=== PATIENT | female | born 1980 | race Caucasian/White ===

== ENCOUNTER → 2025-02-25 | Outpatient (CLI) | payer MEDICAID, SELFPAY ==
[2025-02-25 17:11] LABS: Absolute Lymphocyte Count 3.08 X10^3/uL (0.83-4.51); Absolute Neutrophil Count 4.4 X10^3/uL (2.0-7.7); Basophil# 0.03 X10^3/uL; Basophil% 0.4 % (0-1); Eosinophil# 0.09 X10^3/uL; Eosinophils% 1.1 % (0-5); Hematocrit 44.3 % (37-47); Hemoglobin 14.7 g/dL (12.0-15.0); Lymphocyte # 3.08 X10^3/ul (0.83-4.51); Lymphocyte % 37.1 % (19-41); Mean Corp Hgb Conc 33.2 g/dL (32-36); Mean Corpuscular Hgb 33.1 pg (27.0-32.0); Mean Corpuscular Volume 99.8 fL (81-99); Mean Platelet Vol. 11.6 fl (6.2-12.0); Monocyte% 8.4 % (0-10); NRBC Flagged by Analyzer 0 % (0-5); Neutrophil # 4.38 X10^3/uL (2.7-7.7); Neutrophil % 52.8 % (47-70); Platelet Count 218 K/mm3 (150-450); RBC Distribution Width SD 51.6 fl (35.1-43.9); Red Blood Count 4.44 M/mm3 (4.2-5.4); White Blood Count 8.3 K/mm3 (4.4-11.0)
[2025-02-25 18:16] LABS: International Normalized Ratio 1.2; Prothrombin Time (Protime)PT. 15.2 SECONDS (11.7-14.9)
[2025-02-25 18:22] LABS: ALB/GLOB Ratio 1.7 RATIO (0.9-2.4); AST(SGOT) 17 U/L (<=31); Alanine Aminotransfer ALT/SGPT 9 U/L (<=34); Albumin, Serum 4.6 g/dL (3.5-5.0); Alkaline Phosphatase 74 U/L (35-104); Anion Gap 12 (5-15); BUN 12 mg/dL (4-19); BUN/Creat Ratio 19.9 RATIO (10-20); Calcium,Total 9.5 mg/dL (7.6-11.0); Carbon Dioxide 22.8 mmol/L (21.0-32.0); Chloride 104 mmol/L (98-108); Creatinine, Serum 0.61 mg/dL (0.70-1.20); EST Glomerular Filtration Rate 113 (>60); Globulin 2.7 g/dL (2.2-4.2); Glucose 77 mg/dL (70-99); Potassium 4.1 mmol/L (3.3-5.1); Protein, Total 7.3 g/dL (5.9-8.4); Sodium Level 139 mmol/L (133-145); Vitamin D,25 Hydroxy 46.7 ng/mL (30-100)
== END | disposition home or self-care (01) ==
LOC: LAB 15:43
PROVIDERS: Referring Provider Nurse Practitioner Acute Care; Visit Provider Nurse Practitioner Acute Care
DX: Z15.01 Genetic susceptibility to malignant neoplasm of breast (principal); D69.6 Thrombocytopenia, unspecified; R14.0 Abdominal distension (gaseous); R19.7 Diarrhea, unspecified; R14.3 Flatulence; E55.9 Vitamin D deficiency, unspecified; R13.10 Dysphagia, unspecified; Z15.09 Genetic susceptibility to other malignant neoplasm
CPT/HCPCS: 36415; 80053; 82306; 85025; 85610

== ENCOUNTER → 2025-03-27 | Outpatient (CLI) | payer MEDICAID, SELFPAY ==
--- NOTE | 2025-03-27 09:07 | RAD_ITS ---
PROCEDURE: ESOPHAGUS DUAL CONTRAST 03/27/2025 REASON FOR EXAM: DYSPHAGIA TECHNIQUE: Fluoroscopic imaging of the esophagus was obtained following ingestion of oral barium. 45 seconds of fluoroscopy. 3.88 mGy. 49 fluoroscopic images were obtained. COMPARISON: None FINDINGS: The patient is status post gastrectomy. There is esophageal bowel anastomosis. Minimal tailoring defect at the anastomotic site. The patient ingested a 12 mm tablet the barium. There is transient holdup of the barium tablet at the anastomotic site. There is evidence of gastroesophageal reflux. RAD/Esophagus Dual Contrast IMPRESSION: Status post total gastrectomy with the anastomosis as described. Temporary hol dup of the 12 mm tablet the barium at the anastomotic site. Reflux. Reading Location: [facility]
== END | disposition home or self-care (01) ==
LOC: RAD 09:03
PROVIDERS: Referring Provider Nurse Practitioner Acute Care; Visit Provider Nurse Practitioner Acute Care
DX: Z15.01 Genetic susceptibility to malignant neoplasm of breast (principal); D69.6 Thrombocytopenia, unspecified; R14.0 Abdominal distension (gaseous); R19.7 Diarrhea, unspecified; R14.3 Flatulence; Z15.09 Genetic susceptibility to other malignant neoplasm; E55.9 Vitamin D deficiency, unspecified; R13.10 Dysphagia, unspecified
CPT/HCPCS: 74221

== ENCOUNTER → 2025-05-06 | Outpatient (CLI) | payer MEDICAID, SELFPAY ==
[2025-05-08 15:08] LABS: Pancreatic Elastase, Fecal 297 (>200)
== END | disposition home or self-care (01) ==
LOC: LABSPEC 13:13
PROVIDERS: Referring Provider Nurse Practitioner Acute Care; Visit Provider Nurse Practitioner Acute Care
DX: D69.6 Thrombocytopenia, unspecified (principal); R14.0 Abdominal distension (gaseous); R19.7 Diarrhea, unspecified; R14.3 Flatulence; R13.10 Dysphagia, unspecified; E55.9 Vitamin D deficiency, unspecified; Z15.01 Genetic susceptibility to malignant neoplasm of breast; Z15.09 Genetic susceptibility to other malignant neoplasm
CPT/HCPCS: 82653

== ENCOUNTER 2025-05-09 06:34 | Day surgery (SDC) | payer MEDICAID, SELFPAY ==
[2025-05-09] VITALS (8 sets, daily range): BP systolic 86–90; BP diastolic 52–62; PULSE 52–80; RESP 16; TEMP 36.1–36.4; O2SAT 98–100; BMI 23.1
--- OUTSIDE RECORDS SUMMARY | 2025-05-09 06:37 | XMS RPT_ITS | CCD ---
Author Organization [facility] Inform ion [facility] Care Team Providers Care Wharf Labourer Name Role Phone LYNN CABRERA Primary Care Physicia n Unavailable Primary Care Provider UnavailANGELO Oliveira Referring Unavailable KASSANDRA LARSEN Attending Unavailable ColAngelo mendenhall DO Primary Care Provider [phone] Kassandra Duval Attending Provider Care Physician, No Primary Primary Care Provider Unavailable Kassandra Duval Referring Provider Dr. Angelo Thornton DO Primary Care Provider [phone] ANGELO THORNTON Primary Care Unavailable WILLIAM CUELLAR Referring Unavailabl e COLA, ANGELO SALGADO Primary Care Unavailable WILLIAM CUELLAR Referring Unavailabl e COLA, ANGELO SALGADO Primary Care Unavailable COLA, ANGELO SALGADO Primary Care Unavailable TYRELL ABEBE Attending Unavaila ble TYRELL ABEBE Referring Unavaila ble COLANGELO Mendenhall Primary Care Unavailable WILLIAM CUELLAR Referring Unavailabl e COLA, ANGELO SALGADO Primary Care Unavailable COLAANGELO Primary Care Unavailable CATHIE LEBLANC Attending UnavailJALEN Gaffney Attending Unavailable JALEN MCGEE Referring Unavailable COLAANGELO Primary Care Unavailable COLAANGELO Primary Care Unavailable ERIKA NAM Attending Unavailable ERIKA NAM Referring Unavailable COLAANGELO Primary Care Unavailable ERIKA NAM Referring Unavailable COLA, ANGELO SALGADO Primary Care Unavailable ZOEY MAYORGA Attending Unavailable COLANGELO Mendenhall Primary Care Unavailable ZOEY MAYORGA Referring Unavailable COLA, ANGELO SALGADO Primary Care Unavailable ZOEY MAYORGA Attending Unavailable ANGELO THORNTON Primary Care Unavailable DAMIAN ACEVES Attending Unava ilable DAMIAN ACEVES Referring Unava ilable COLAANGELO Primary Care Unavailable Kassandra Atkins Attending Unavailable Kassandra Atkins Attending Unavailable ColaAngelo Primary Care Unavailable Kassandra Atkins Referring Unavailable ColaAngelo Primary Care Unavailable José Antonio Walters Attending Unavailable Kasasndra Atkins Attending Unavailable ColaAngelo Primary Care Unavailable Kassandra Atkins Referring Unavailable Care Physician, No Primary Primary Care Unava ilable Kassandra Atkins Referring Unavailable Kassandra Atkins Attending Unavailable Allergies Allergy Classification Reported Allergen(s) Allergy Type Date of Onset Reaction(s) Facility (20 sources) Morphine; Translations: [morphine] Drug Allergy 01-28-2023 [facility] (1 source) Penicillin; Translations: [penicillins] Drug Allergy [facility] (18 sources) Penicillins; Translations: [PENICILLINS] Drug Allergy 01-28-2023 GI Upset [facility] (20 sources) Non-steroidal anti-inflammator y agent; Translations: [NSAIDS (NON-STEROIDAL ANTI-INFLAMMATOR Y DRUG)] Drug Allergy 02-10-2023 Unknown [facility] (6 sources) Penicillins [facility] ([facility] source) Penicillins Allergy to substance 02-25-2025 Other [facility] (1 source) Morphine Drug Allergy 02-25-2025 [facility] (1 source) Penicillins Drug allergy (disorder) 02-25-2025 [facility] Medications Current Medications Medication Drug Class(es) Dates Sig (Normalized) Sig (Original) acyclovir 400 mg oral tablet (1 source) Herpesvirus Nucleoside Analog DNA Polymerase Inhibitor, Herpes Simplex Virus Nucleoside Analog DNA Polymerase Inhibitor, Herpes Zoster Virus Nucleoside Analog DNA Polymerase Inhibitor Start: 03-09-2022 End: 03-19-2022 acyclovir 400 mg oral tablet Dose : 400 mg = 1 tab(s), Oral, TID, TAKE ONE TABLET BY MOUTH THREE TIMES A DAY FOR 10 DAYS, # 30 tab(s), 0 Refill(s), [facility]: [id number], 152, cm, 09/10/21 9:20:00 EDT, Height, kg, 09/10/21 9:20:00 EDT, Dosing Weight Start Date: 03/09/22 Stop Date: 03/19/22 Status: Ordered [id number] 200 actuat albuterol 0.09 mg/actuat metered dose inhaler (1 source) beta2-Adrenergic Agonist Start: 02-11-2025 take 1 puff(s) by mouth four times daily as needed albuterol HFA (PROVENTIL HFA, VENTOLIN HFA) 90 mcg/actuation inhaler INHALE ONE PUFF BY MOUTH FOUR TIMES A DAY NEEDED 02/11/2025 Active Calcium with Vitamin D and K oral tablet, chewable (1 source) Start: 01-07-2021 take 1 tablet by mouth once daily Calcium with Vitamin D and K oral tablet, chewable 1 TAB, Chewed, qDay, 0 Refill(s) Start Date: 01/07/21 Status: Ordered cholecalciferol 1.25 mg oral capsule (13 sources) Vitamin D Start: 12-13-2024 take 1 capsule by mouth every week cholecalciferol, Vitamin D3, (VITAMIN D3) 1,250 mcg (50,000 unit) cap capsule Take 1 capsule by mouth one time a week. 12/13/2024 Active cyclobenzaprine hydrochloride 10 mg oral tablet (1 source) Muscle Relaxant Start: 01-28-2023 End: 02-02-2023 take 1 tablet by mouth three times daily as needed for pain cyclobenzaprine (FLEXERIL) 10 mg tablet Indications: Numbness and tingling of left upper extremity , Numbness and tingling of right upper extremity Take 1 tablet by mouth three times daily as needed for muscle spasm or pain for up to 5 days. 15 tablet 0 01/28/2023 02/02/2023 Active Comment on above: Take 1 tablet by shantelle three times daily as needed for muscle spasm or pain for up to 5 days. ferrous gluconate 324 mg oral tablet (1 source) Start: 12-15-2021 ferrous gluconate 324 mg (38 mg elemental iron) oral tablet Dose : 324 mg = 1 tab(s), Oral, qDay, # 100 tab(s), 1 Refill(s), [facility]: [id number], Iron deficiency anemia, 152, cm, 09/10/21 9:20:00 EDT, Height, kg, 09/10/21 9:20:00 EDT, Dosing Weight Start Date: 12/15/21 Status: Ordered ferrous sulfate 140 mg extended release oral tablet (1 source) Start: 12-14-2021 ferrous sulfate (as elemental iron) 45 mg oral tablet, extended release Dose : 45 mg = 1 tab(s), Oral, qDay, # 30 tab(s), 5 Refill(s), [facility]: [id number], Iron deficiency, 152, cm, 09/10/21 9:20:00 EDT, Height, kg, 09/10/21 9:20:00 EDT, Dosing Weight Start Date: 12/14/21 Status: Ordered multivit,thx,calcium, iron,mins (MULTIVITAMIN AND MINERAL ORAL) (20 sources) multivit,thx,brittany cium ,iron,mins (MULTIVITAMIN AND MINERAL ORAL) Take by mouth. Active multivit,thx,brittany cium,iron,mins (MULTIVITAMIN AND MINERAL ORAL) Take by mouth. 0 Active Comment on above: Take by mouth. Multivitamin with Iron (1 source) Start: 9 take 1 tablet by mouth once daily Multivitamin with Iron Dose = 1 tab(s), Oral, Daily, 0 Refill(s) Start Date: 07/02/19 Status: Ordered ondansetron 4 mg oral tablet (2 sources) Serotonin-3 Receptor Antagonist Start: 5 take 2 tablets by mouth every two hours as needed, then take 1 tablet by mouth every four hours as needed Ondansetron Hcl 4 mg tablet Active 4 mg PO .COMPLEX February 25, 2025 12:00am 4 mg orally; take two tablets PO two hours prior to start of bowel prep and one every 4 hours as needed for N/V Start: 03-12-2022 End: 03-15-2022 ondansetron 4 mg oral tablet , disintegrating Dose : 4 mg = 1 tab(s), Oral, q6h, PRN Nausea/Vomiting, X 3 day(s), # 15 tab(s), 0 Refill(s), 03/15/22 15:03:00 EDT Start Date: 03/12/22 Stop Date: 03/15/22 Status: Ordered pantoprazole 40 mg delayed release oral tablet (2 sources) Proton Pump Inhibitor Start: 03-27-2025 take 1 tablet by mouth once daily before breakfast pantoprazole DR (PROTONIX) 40 mg tablet TAKE ONE TABLET BY MOUTH every morning 30 minutes before breakfast 03/28/2025 Active Peg 3350-Sod Sulf,Niuk-Fei-Zlx (Suflave) 178.7-7.3-0.5 gram recon soln (1 source) Start: 02-25-2025 Peg 3350-Sod Sulf,Bdyf-Bor-Guj (Suflave) 178.7-7.3-0.5 gram recon soln Active 0 PO .COMPLEX 2 February 25, 2025 12:00am take as directed for split dose bowel prep sertraline 50 mg oral tablet (20 sources) Serotonin Reuptake Inhibitor Start: 02-25-2025 End: 03-20-2025 take 1 tablet by mouth once daily Sertraline (Zoloft) 50 mg tablet Active 50 mg PO daily February 25, 2025 12:00am Start: 12-20-2022 End: 10-15-2024 take 1 tablet by mouth once daily sertraline (ZOLOFT) 100 mg tablet Take 100 mg by mouth once daily. 09/19/2024 Active Start: 03-09-2022 End: 06-07-2022 sertraline 100 mg oral table t Dose : 150 mg = 1.5 tab(s), Oral, qDay, TAKE 1 & 1/2 TABLETS BY MOUTH EVERY DAY, # 135 tab(s), 0 Refill(s), [facility]: [id number], 152, cm, 09/10/21 9:20:00 EDT, Height, kg, 09/10/21 9:20:00 EDT, Dosing Weight Start Date: 03/09/22 Stop Date: 06/07/22 Status: Ordered Comment on above: Take 100 mg by mouth once daily. Take 1 tablet by shantelle th. sulfamethoxazole 800 mg / trimethoprim 160 mg oral tablet (1 source) Dihydrofolate Reductase Inhibitor Antibacterial, Sulfonamide Antimicrobial Start: 023 End: 023 take 1 tablet by mouth twice daily sulfamethoxazole-trim ethoprim (BACTRIM DS) 800-160 mg per tablet Indications: Acute UTI (urinary tract infection) Take 1 tablet by mouth twice daily for 7 days. 14 tablet 0 05/10/2023 05/17/2023 Active Comment on above: Take 1 tablet by shantelle twice daily for 7 days. vitamin b12 0.1 mg oral tablet (20 sources) Vitamin B12 take 1 tablet by mouth once daily cyanocobalamin (VITAMIN B-12) 100 mcg tab Take 100 mcg by mouth once daily. Active Comment on above: Take 100 mcg by mout h once daily. Vitamin C 500 mg oral tablet (1 source) Start: Vitamin C 500 mg oral tablet Dose : 500 mg = 1 tab(s), Oral, qDay, # 30 tab(s), 5 Refill(s), [facility]: [id number], Iron deficiency, 154.9, cm, 01/09/21 6:03:00 EST, Height, kg, 01/12/21 17:46:00 EST, Dosing Weight Start Date: 04/10/21 Status: Ordered Completed/Discontinued Medications Medication Drug Class(es) Dates Sig (Normalized) Sig (Original) iv contrast (will be provided with radiology test) (1 source) Start: 02-07-2025 End: 02-08-2025 iv contrast (will be provided with radiology test) MRI Breast NEMESIO Inject, intravenously, once for 1 dose. No IV access, insert saline lock prior to the beginning of sedation, infusion, injection of imaging exam. Discontinue saline lock post exam. If Pt has a central line or IVAD, may access for administration according to line specific nursing protocol. Once exam is complete flush line and de-access according to line specific nursing protocol in the MR contrast administration guidelines link 1 each 02/07/2025 02/08/2025 predniSONE 20 mg oral tablet (7 sources) Start: 01-31-2025 End: 03-20-2025 predniSONE (DELTASONE) 20 mg tablet Take one tablet 3 times daily for 3 days, then one tablet 2 times a day for 2 days, then one tablet daily for 2 days, and then a half of a tablet daily for 1 day. 16 tablet 01/31/2025 03/20/2025 Discontinued Problems Active Problems Problem Classification Problem Date Documented Da te Episodic/Chronic Anxiety disorders (7 sources) Anxiety; Translations: [Anxiety disorder, unspecified] Onset: 04-02-202 5 06-10-2021 Chronic Cancer of breast (6 sources) Malignant tumor of breast ; Translations: [Malignant neoplasm of unspecified site of unspecified female breast] 02-07-2025 Chronic Coagulation and hemorrhagic disorders (3 sources) Thrombocytopenic disorder; Translations: [Thrombocytopenia, unspecified] Onset: 5 02-25-2025 Chronic Malaise and fatigue (1 source) Fatigue; Translations: [Other fatigue] Episodic Menstrual disorders (7 sources) Irregular periods; Translations: [Irregular menstruation, unspecified] Onset: 5 09-19-2020 Chronic Mood disorders (7 sources) Depressive disorder; Translations: [Depressive disorder] Onset: 5 06-20-2020 Chronic Nonmalignant breast conditions (2 sources) Discharge from nipple; Translations: [Nipple discharge] Onset: 5 02-07-2025 Episodic Nonspecific chest pain (1 source) Chest discomfort; Translations: [Other chest pain] Episodic Nutritional deficiencies (3 sources) Vitamin D deficiency; Translations: [Vitamin D deficiency, unspecified] Onset: 5 02-25-2025 Chronic Other endocrine disorders (6 sources) Hypoglycemia; Translations: [Hypoglycemia, unspecified] Onset: 5 02-06-2025 Chronic Other gastrointestinal disorders (2 sources) Dysphagia; Translations: [Dysphagia, unspecified] 02-25-2025 Episodic Other gastrointestinal disorders (2 sources) Diarrhea; Translations: [Diarrhea, unspecified] 02-25-2025 Episodic Other gastrointestinal disorders (2 sources) Passing flatus; Translations: [Flatulence] 02-25-2025 Episodic Other gastrointestinal disorders (2 sources) Abdominal bloating; Translations: [Abdominal distension (gaseous)] 02-25-2025 Episodic Other gastrointestinal disorders (1 source) Abdominal distension (gaseous); Translations: [Abdominal distension (gaseous)] Onset: Episodic Other gastrointestinal disorders (1 source) Diarrhea, unspecified; Translations: [Diarrhea, unspecified] Onset: 5 Episodic Other gastrointestinal disorders (1 source) Flatulence; Translations: [Flatulence] Onset: 5 Episodic Other gastrointestinal disorders (1 source) Dysphagia, unspecified; Translations: [Dysphagia, unspecified] Onset: 5 Episodic Other hematologic conditions (1 source) Erythrocytosis; Translations: [Secondary polycythemia] 12-31-2024 Episodic Other lower respiratory disease (4 sources) Rib pain; Translations: [Pleurodynia] 01-31-2025 Episodic Other lower respiratory disease (2 sources) Pleurodynia; Translations: [Rib pain on right side] Onset: 5 Episodic Other nervous system disorders (2 sources) Paresthesia of upper limb; Translations: [Anesthesia of skin] Episodic Pancreatic disorders (not diabetes) (6 sources) Acute pancreatitis; Translations: [Acute pancreatitis without necrosis or infection, unspecified] Onset: 5 02-06-2025 Episodic Residual codes; unclassified (1 source) At risk of breast cancer 07-02-2020 Episodic Residual codes; unclassified (7 sources) History of gastrectomy; Translations: [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]] Onset: 5 09-14-2019 Episodic Residual codes; unclassified (1 source) Tobacco user 09-21-2019 Episodic Residual codes; unclassified (13 sources) Positive genetic finding; Translations: [Genetic susceptibility to other malignant neoplasm] Onset: 5 12-31-2024 Episodic Residual codes; unclassified (10 sources) At high risk for breast cancer; Translations: [Other specified personal risk factors, not elsewhere classified] Onset: 5 02-13-2025 Episodic Residual codes; unclassified (2 sources) Genetic susceptibility to other malignant neoplasm; 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] Onset: 5 Episodic Residual codes; unclassified (2 sources) Genetic susceptibility to malignant neoplasm of breast; 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] Onset: 5 Episodic Residual codes; unclassified (1 source) Other specified personal risk factors, not elsewhere classified; Translations: [At high risk for breast cancer] Onset: 5 Episodic Spondylosis; intervertebral disc disorders; other back problems (1 source) Neck pain 04-17-2021 Episodic Substance-related disorders (8 sources) Smoker; Translations: [Nicotine dependence, unspecified, uncomplicated] Onset: 5 09-14-2019 Chronic Superficial injury; contusion (3 sources) Contusion of left front wall of thorax, initial encounter; Translations: [Contusion of chest wall] Onset: 01-31-2025 Episodic Unclassified (4 sources) Patient encounter status 09-21-2019 Urinary tract infections (1 source) Acute urinary tract infection; Translations: [Urinary tract infection, site not specified] Episodic Past or Other Problems Problem Classification Problem Date Documented Da te Episodic/Chronic Abdominal pain (10 sources) Left lower quadrant pain; Translations: [Right sided abdominal pain] Onset: 05-10-2023 07-21-2020 Episodic Cancer of stomach (1 source) Personal history of other malignant neoplasm of stomach; Translations: [History of gastric cancer] Onset: 11-12-2024 Episodic Genitourinary symptoms and ill-defined conditions (10 sources) Bladder pain; Translations: [Blood in urine] Onset: 11-12-2024 09-10-2021 Episodic Other connective tissue disease (1 source) Myalgia, unspecified site; Translations: [Myalgias] Onset: 09-24-2024 Episodic Other gastrointestinal disorders (1 source) Other fecal abnormalities; Translations: [Change in stool caliber] Onset: 11-12-2024 Episodic Other hematologic conditions (1 source) Secondary polycythemia; Translations: [Erythrocytosis] Onset: 12-31-2024 Episodic Other nervous system disorders (6 sources) Skin sensation disturbance; Translations: [Unspecified disturbances of skin sensation] Onset: 01-28-2023 02-06-2025 Episodic Other screening for suspected conditions (not mental disorders or infectious disease) (14 sources) Genetic mutation; Translations: [Patient encounter status] Onset: 03-08-2023 09-14-2019 Episodic Residual codes; unclassified (1 source) 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]; Translations: [Acquired absence of stomach (part of)] Onset: 10-15-2024 Episodic Sprains and strains (3 sources) Strain of muscle of chest wall; Translations: [Strain of muscle and tendon of front wall of thorax, initial encounter] Onset: 10-15-2024 10-15-2024 Episodic Unclassified (1 source) Contusion of rib on left side, initial encounter 01-31-2025 Results Test Name Value Interpretation Reference Range Facility CNOVon 04-02-2025 CNOV Office Visit ([facility]) ---- MISHEL ASHBY ([id number]) 1980 F Date Time Provider Department 04/02/25 2:30 PM DAMIAN ACEVES [facility] During your visit today, we recorded the following information about you: Weight Height 53.5 kg 1.524 m Damian Aceves, 04/02/2025 3:31 PM Signed PLASTIC SURGERY CONSULTATION Consultation requested by Dr. Zoey Mayorga for an opinion regarding breast reconstruction. My final recommendations will be communicated back to the requesting physician by way of shared Medical record or letter to requesting physician via [place] mail. HPI: This is a 44 year old female who who has CDH 1 gene mutation. Due to her increased risk of breast cancer, she is considering bilateral prophylactic mastectomies. She currently wears a size 34C bra and ideally would be about the same size. She has lost weight in the last several years since she had a gastrectomy in 2018, also prophylactic due to her gene mutation. She has 1 child. 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 Of note, she smokes 1 pack of cigarettes per day and has done so for about the past 30 years. PAST MEDICAL HISTORY Diagnosis Date CDH1-related breast cancer (HCC) GERD (gastroesophageal reflux disease) PAST SURGICAL HISTORY Procedure Laterality Date GASTRECTOMY TOTAL W REPR INT TIFFANY 2018 TOTAL ABDOM HYSTERECTOMY Current Outpatient Medications Medication Sig albuterol HFA (PROVENTIL HFA, VENTOLIN HFA) 90 mcg/actuation inhaler INHALE ONE PUFF BY MOUTH FOUR TIMES A DAY NEEDED pantoprazole DR (PROTONIX) 40 mg tablet TAKE ONE TABLET BY MOUTH every morning 30 minutes before breakfast sertraline (ZOLOFT) 100 mg tablet Take 100 mg by mouth once daily. cholecalciferol, Vitamin D3, (VITAMIN D3) 1,250 mcg (50,000 unit) cap capsule Take 1 capsule by mouth one time a week. multivit,thx,calciu m,iron,mins (MULTIVITAMIN AND MINERAL ORAL) Take by mouth. cyanocobalamin (VITAMIN B-12) 100 mcg tab Take 100 mcg by mouth once daily. No current facility-administer ed medications for this visit. ALLERGIES Allergen Reactions Morphine Rash Nsaids (Non-Steroid* Unknown Penicillins GI Upset SOCIAL: TOB:Tobacco Use: Types: Cigarettes EtOH:Alcohol Use: Yes (Occ) FAMILY HISTORY Problem Relation Age of Onset Hypertension Father Prostate Cancer Father Breast Cancer Sister : REVIEW OF SYSTEMS: With the exception of the problems listed above, Ms. Ashby denies disorders of the Neurologic, Psychologic, Cardiac, Pulmonary, Gastrointestinal, Hepatic, Renal, Endocrine, Vascular, Integumentary or Musculoskeletal Systems; all other systems are negative. PHYSICAL EXAM Ht 152.4 cm (5') Wt 53.5 kg (118 lb) BMI 23.05 kg/m? Body mass index is 23.05 kg/m?. GENERAL: WDWN Well groomed Thin NEURO: Alert and oriented X3 HEENT: NC/AT and MMM NECK: Supple and NT CV: RRR LUNGS: CTA B/L ABD: Soft, NT, and ND EXT: No cyanosis, clubbing or edema BREASTS: Bilateral breasts are soft with grade 3 ptosis and a deflated appearance. No masses. R SN-N: 23.5 cm L SN-N: 23.5 cm R N-IMF: 8.5 cm L N-IMF: 7.5 cm R BD: 12.0 cm L BD: 12.0 cm ASSESSMENT: 1. 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 Current cigarette smoker PLAN: We discussed her diagnosis and treatment options. I do not feel she is a good candidate for immediate reconstruction based on her [id number] history of cigarette smoking. This puts her at prohibitive risk for a reconstructive procedure of any type. If she were to be nicotine free for 6 months, we could consider immediate reconstruction, if she wants to delay her prophylactic mastectomies and she is committed to quitting cigarette smoking. At that point, however, I would still not recommend nipple sparing mastectomy. She would be a candidate for two-stage coater associate and implant reconstruction in the subpectoral plane. If she wants to move forward with her mastectomies, we could perform delayed reconstruction, again two-stage coater associate and implant, in the future. This again would require her to quit smoking and be nicotine free. We did briefly discuss silicone breast implants and their safety profile and potential complications, including rupture, capsular contracture, and SARAH-ALCL. I answered all of her questions. We took photos today. She understands the reasoning behind my decision. She is going to consider her options. She meets with Dr. Mayorga in the near future. I will see her back as needed. We thank Dr. Mayorga for the courtesy of this consult. Damian Aceves DO Referring Provider: DAMIAN ACEVES [[id number]] Allergies As of Date: 04/02/2025 Noted Allergy Reaction MORPHINE 01/28/2023 2 - Rash NSAIDS (NON-STEROIDAL ANTI-INFLAM* 023 16 - Unknown PENICILLINS 01/28/2023 8 - GI Upset Date Reviewed: 04/02/2025 Reviewed b (more content not included)... Normal [facility] HISTORY PHYSICALon HISTORY PHYSICAL HNO ID: [id number] Author: DAMIAN ACEVES DO Service: ? Author Type: Physician Type: H&P Filed: 04/02/2025 15:31 Note Text: PLASTIC SURGERY CONSULTATION Consultation requested by Dr. Zoey Mayorga for an opinion regarding breast reconstruction. My final recommendations will be communicated back to the requesting physician by way of shared Medical record or letter to requesting physician via [place] mail. HPI: This is a 44 year old female who who has CDH 1 gene mutation. Due to her increased risk of breast cancer, she is considering bilateral prophylactic mastectomies. She currently wears a size 34C bra and ideally would be about the same size. She has lost weight in the last several years since she had a gastrectomy in 2018, also prophylactic due to her gene mutation. She has 1 child. 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 Of note, she smokes 1 pack of cigarettes per day and has done so for about the past 30 years. PAST MEDICAL HISTORY Diagnosis Date CDH1-related breast cancer (HCC) GERD (gastroesophageal reflux disease) PAST SURGICAL HISTORY Procedure Laterality Date GASTRECTOMY TOTAL W REPR INT TIFFANY 2018 TOTAL ABDOM HYSTERECTOMY Current Outpatient Medications Medication Sig albuterol HFA (PROVENTIL HFA, VENTOLIN HFA) 90 mcg/actuation inhaler INHALE ONE PUFF BY MOUTH FOUR TIMES A DAY NEEDED pantoprazole DR (PROTONIX) 40 mg tablet TAKE ONE TABLET BY MOUTH every morning 30 minutes before breakfast sertraline (ZOLOFT) 100 mg tablet Take 100 mg by mouth once daily. cholecalciferol, Vitamin D3, (VITAMIN D3) 1,250 mcg (50,000 unit) cap capsule Take 1 capsule by mouth one time a week. multivit,thx,calciu m,iron,mins (MULTIVITAMIN AND MINERAL ORAL) Take by mouth. cyanocobalamin (VITAMIN B-12) 100 mcg tab Take 100 mcg by mouth once daily. No current facility-administer ed medications for this visit. ALLERGIES Allergen Reactions Morphine Rash Nsaids (Non-Steroid* Unknown Penicillins GI Upset SOCIAL: TOB:Tobacco Use: Types: Cigarettes EtOH:Alcohol Use: Yes (Occ) FAMILY HISTORY Problem Relation Age of Onset Hypertension Father Prostate Cancer Father Breast Cancer Sister : REVIEW OF SYSTEMS: With the exception of the problems listed above, Ms. Ashby denies disorders of the Neurologic, Psychologic, Cardiac, Pulmonary, Gastrointestinal, Hepatic, Renal, Endocrine, Vascular, Integumentary or Musculoskeletal Systems; all other systems are negative. PHYSICAL EXAM Ht 152.4 cm (5') Wt 53.5 kg (118 lb) BMI 23.05 kg/m? Body mass index is 23.05 kg/m?. GENERAL: WDWN Well groomed Thin NEURO: Alert and oriented X3 HEENT: NC/AT and MMM NECK: Supple and NT CV: RRR LUNGS: CTA B/L ABD: Soft, NT, and ND EXT: No cyanosis, clubbing or edema BREASTS: Bilateral breasts are soft with grade 3 ptosis and a deflated appearance. No masses. R SN-N: 23.5 cm L SN-N: 23.5 cm R N-IMF: 8.5 cm L N-IMF: 7.5 cm R BD: 12.0 cm L BD: 12.0 cm ASSESSMENT: 1. 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 Current cigarette smoker PLAN: We discussed her diagnosis and treatment options. I do not feel she is a good candidate for immediate reconstruction based on her [id number] history of cigarette smoking. This puts her at prohibitive risk for a reconstructive procedure of any type. If she were to be nicotine free for 6 months, we could consider immediate reconstruction, if she wants to delay her prophylactic mastectomies and she is committed to quitting cigarette smoking. At that point, however, I would still not recommend nipple sparing mastectomy. She would be a candidate for two-stage coater associate and implant reconstruction in the subpectoral plane. If she wants to move forward with her mastectomies, we could perform delayed reconstruction, again two-stage coater associate and implant, in the future. This again would require her to quit smoking and be nicotine free. We did briefly discuss silicone breast implants and their safety profile and potential complications, including rupture, capsular contracture, and SARAH-ALCL. I answered all of her questions. We took photos today. She understands the reasoning behind my decision. She is going to consider her options. She meets with Dr. Mayorga in the near future. I will see her back as needed. We thank Dr. Mayorga for the courtesy of this consult. Damian Aceves DO Normal [facility] Esophagus Dual Contraston Esophagus Dual Contrast [facility] Imaging Services [address] [place] [address] [id number] Esophagus Dual Contrast MR#: [id number] Acct: [id number] Name: MISHEL ASHBY Rep #: [id number] : 1980 F 44 From: Fredi guardado MD PCP: Dr. Angelo Thornton DO Status: REG CLI Study: Esophagus Dual Contrast Date of Exam: 03/27/25 Exam# [id number] Ordering Dr: Kassandra Atkins KILN LOADER- C PROCEDURE: ESOPHAGUS DUAL CONTRAST 03/27/2025 REASON FOR EXAM: DYSPHAGIA TECHNIQUE: Fluoroscopic imaging of the esophagus was obtained following ingestion of oral barium. 45 seconds of fluoroscopy. 3.88 mGy. 49 fluoroscopic images were obtained. COMPARISON: None FINDINGS: The patient is status post gastrectomy. There is esophageal bowel anastomosis. Minimal tailoring defect at the anastomotic site. The patient ingested a 12 mm tablet the barium. There is transient holdup of the barium tablet at the anastomotic site. There is evidence of gastroesophageal reflux. RAD/Esophagus Dual Contrast IMPRESSION: Status post total gastrectomy with the anastomosis as described. Temporary holdup of the 12 mm tablet the barium at the anastomotic site. Reflux. Reading Location: [place] [address] CC: KP Atkins; Dr. Angelo Thornton DO Senior Product Development Scientist: Signed [facility] CNOVon 03-20-2025 [facility] Office Visit (BRSTMM) ---- MISHEL ASHBY ([id number]) 1980 F Date Time Provider Department 03/20/25 1:00 PM ZOEY MAYORGA BRSM During your visit today, we recorded the following information about you: Pulse Respiration Blood pressure Weight 70/minute 16/minute 104/65 53.5 kg Zoey Mayorga MD 03/20/2025 1:45 PM Signed Zoey Mayorga MD [facility] [address] [place] [address] SUBJECTIVE Chief Complaint: Patient presents with: Recheck HPI Mishelgabriel Ashby is a 44 year old female here for MRI results and pre op. 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 Screening mammogram 10/25/24 negative, BIRADS 1. Breast density BIRADS B. Breast MRI 03/14/25 negative, BIRADS 1. No question data found. Review of Systems Constitutional: Negative for fever, malaise/fatigue and weight loss. Breast: See HPI PAST MEDICAL HISTORY Diagnosis Date CDH1-related breast cancer (HCC) GERD (gastroesophageal reflux disease) PAST SURGICAL HISTORY Procedure Laterality Date GASTRECTOMY TOTAL W REPR INT TIFFANY 2018 TOTAL ABDOM HYSTERECTOMY Social History Tobacco Use Smoking status: Every Day Current packs/day: 1.00 Types: Cigarettes Smokeless tobacco: Never Vaping Use Vaping status: Never Used Substance Use Topics Alcohol use: Yes Comment: Occ Drug use: Not Currently FAMILY HISTORY Problem Relation Age of Onset Hypertension Father Prostate Cancer Father Breast Cancer Sister The ROS, medical, surgical, family, and social history were reviewed by Zoey Mayorga MD ALLERGIES Allergen Reactions Morphine Rash Nsaids (Non-Steroid* Unknown Penicillins GI Upset Current Outpatient Medications Medication Sig sertraline (ZOLOFT) 100 mg tablet Take 100 mg by mouth once daily. cholecalciferol, Vitamin D3, (VITAMIN D3) 1,250 mcg (50,000 unit) cap capsule Take 1 capsule by mouth one time a week. multivit,thx,calciu m,iron,mins (MULTIVITAMIN AND MINERAL ORAL) Take by mouth. cyanocobalamin (VITAMIN B-12) 100 mcg tab Take 100 mcg by mouth once daily. No current facility-administer ed medications for this visit. OBJECTIVE BP 104/65 Pulse 70 Resp 16 Wt 53.5 kg (118 lb) SpO2 96% BMI 23.05 kg/m? BMI 23.05 kg/(m2) Participation of a fellow, resident, medical student, or advanced practice provider student in performing the sensitive examination was discussed with the patient or authorized employee relations representative. The patient or authorized employee relations representative has agreed to proceed with the sensitive examination. Physical Exam Constitutional: Appearance: Normal appearance. HENT: Right Ear: External ear normal. Left Ear: External ear normal. Nose: Nose normal. Eyes: General: No scleral icterus. Conjunctiva/sclera: Conjunctivae normal. Pupils: Pupils are equal, round, and reactive to light. Cardiovascular: Rate and Rhythm: Normal rate and regular rhythm. Heart sounds: Normal heart sounds. Pulmonary: Effort: Pulmonary effort is normal. Breath sounds: Normal breath sounds. No wheezing. Abdominal: General: There is no distension. Palpations: Abdomen is soft. There is no mass. Tenderness: There is no abdominal tenderness. Musculoskeletal: General: No tenderness or deformity. Cervical back: Neck supple. Lymphadenopathy: Cervical: No cervical adenopathy. Upper Body: Right upper body: No supraclavicular adenopathy. Left upper body: No supraclavicular adenopathy. Skin: General: Skin is warm and dry. Coloration: Skin is not pale. Findings: No lesion or rash. Nails: There is no clubbing. Neurological: Mental Status: She is alert and oriented to person, place, and time. Greater than 50% of the direct patient contact time was spent in counseling or coordination of care. I spent 30 minutes counseling the patient and coordinating care. Plan ASSESSMENT/PLAN At high risk for breast cancer Mishelgabriel Ashby is a 44 year old female here for MRI results and pre op. 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 Screening mammogram 10/25/24 negative, BIRADS 1. Breast density BIRADS B. Breast MRI 03/14/25 negative, BIRADS 1. Discussed prophylactic mastectomy. Currently, she is unsure if she wants reconstruction or not. She will meet with Dr Aceves for consultation. If she wants reconstruction, she could have a nipple sparing. Follow up in 2 weeks for surgical decision. Follow up: Return in about 2 weeks (around 04/03/2025). Zoey Mayorga MD 03/20/2025 1:09 PM Zoey Mayorga MD 03/20/2025 1:41 PM Edited Mishel Ashby is a 44 year old female here for MRI results and pre op. 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 Screening mammogram 10/25/24 negative, BIRADS 1. Breast density BIRADS B. Breast MRI 03/14/25 negative, BIRADS 1. Discussed pr (more content not included)... Normal [facility] HISTORY PHYSICALon HISTORY PHYSICAL HNO ID: [id number] Author: ZOEY MAYORGA MD Service: ? Author Type: Physician Type: H&P Filed: 03/20/2025 13:45 Note Text: Zoey Mayorga MD [facility] [address] [place], [place] [id number] SUBJECTIVE Chief Complaint: Patient presents with: Recheck HPI Mishel Ashby is a 44 year old female here for MRI results and pre op. 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 Screening mammogram 10/25/24 negative, BIRADS 1. Breast density BIRADS B. Breast MRI 03/14/25 negative, BIRADS 1. No question data found. Review of Systems Constitutional: Negative for fever, malaise/fatigue and weight loss. Breast: See HPI PAST MEDICAL HISTORY Diagnosis Date CDH1-related breast cancer (HCC) GERD (gastroesophageal reflux disease) PAST SURGICAL HISTORY Procedure Laterality Date GASTRECTOMY TOTAL W REPR INT TIFFANY 2018 TOTAL ABDOM HYSTERECTOMY Social History Tobacco Use Smoking status: Every Day Current packs/day: 1.00 Types: Cigarettes Smokeless tobacco: Never Vaping Use Vaping status: Never Used Substance Use Topics Alcohol use: Yes Comment: Occ Drug use: Not Currently FAMILY HISTORY Problem Relation Age of Onset Hypertension Father Prostate Cancer Father Breast Cancer Sister The ROS, medical, surgical, family, and social history were reviewed by Zoey Mayorga MD ALLERGIES Allergen Reactions Morphine Rash Nsaids (Non-Steroid* Unknown Penicillins GI Upset Current Outpatient Medications Medication Sig sertraline (ZOLOFT) 100 mg tablet Take 100 mg by mouth once daily. cholecalciferol, Vitamin D3, (VITAMIN D3) 1,250 mcg (50,000 unit) cap capsule Take 1 capsule by mouth one time a week. multivit,thx,calciu m,iron,mins (MULTIVITAMIN AND MINERAL ORAL) Take by mouth. cyanocobalamin (VITAMIN B-12) 100 mcg tab Take 100 mcg by mouth once daily. No current facility-administer ed medications for this visit. OBJECTIVE BP 104/65 Pulse 70 Resp 16 Wt 53.5 kg (118 lb) SpO2 96% BMI 23.05 kg/m? BMI 23.05 kg/(m2) Participation of a fellow, resident, medical student, or advanced practice provider student in performing the sensitive examination was discussed with the patient or authorized employee relations representative. The patient or authorized employee relations representative has agreed to proceed with the sensitive examination. Physical Exam Constitutional: Appearance: Normal appearance. HENT: Right Ear: External ear normal. Left Ear: External ear normal. Nose: Nose normal. Eyes: General: No scleral icterus. Conjunctiva/sclera: Conjunctivae normal. Pupils: Pupils are equal, round, and reactive to light. Cardiovascular: Rate and Rhythm: Normal rate and regular rhythm. Heart sounds: Normal heart sounds. Pulmonary: Effort: Pulmonary effort is normal. Breath sounds: Normal breath sounds. No wheezing. Abdominal: General: There is no distension. Palpations: Abdomen is soft. There is no mass. Tenderness: There is no abdominal tenderness. Musculoskeletal: General: No tenderness or deformity. Cervical back: Neck supple. Lymphadenopathy: Cervical: No cervical adenopathy. Upper Body: Right upper body: No supraclavicular adenopathy. Left upper body: No supraclavicular adenopathy. Skin: General: Skin is warm and dry. Coloration: Skin is not pale. Findings: No lesion or rash. Nails: There is no clubbing. Neurological: Mental Status: She is alert and oriented to person, place, and time. Greater than 50% of the direct patient contact time was spent in counseling or coordination of care. I spent 30 minutes counseling the patient and coordinating care. Plan ASSESSMENT/PLAN At high risk for breast cancer Mishel Ashby is a 44 year old female here for MRI results and pre op. 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 Screening mammogram 10/25/24 negative, BIRADS 1. Breast density BIRADS B. Breast MRI 03/14/25 negative, BIRADS 1. Discussed prophylactic mastectomy. Currently, she is unsure if she wants reconstruction or not. She will meet with Dr Aceves for consultation. If she wants reconstruction, she could have a nipple sparing. Follow up in 2 weeks for surgical decision. Follow up: Return in about 2 weeks (around 04/03/2025). Zoey Mayorga MD 03/20/2025 1:09 PM Normal [facility] MR Breast - bilateral WO and W contrast Dagmar 03-14-2025 IMPRESSION: There is no MRI evidence of malignancy in either breast. Per electronic medical record review, the current clinical plan is for prophylactic mastectomies. If mastectomy isn't performed, recommend continued high-risk screening as clinically appropriate. BI-RADS Category 2: Benign Interpreting Radiologist: Adelaide Gerardo M.D. Electronically signed on: 03/14/2025 Senior Product Development Scientist: FAHAD Transcribe Date/Time: Mar 14 2025 10:06A Dictated by : ADELAIDE GERARDO MD This examination was interpreted and the report reviewed and electronically signed by: ADELAIDE GERARDO MD on Mar 14 2025 1:47PM [facility] * * *Final Report* * * DATE OF EXAM: Mar 14 2025 10:37AM [facility] 0773 - MRI BREAST WO/W IVCON NEMESIO / PROCEDURE REASON: multiple diagnoses * * * * Physician Interpretation * * * * [address] [place] [address] #[id number] - MRI BREAST WO/W IVCON NEMESIO #[id number] - MRI BREAST 3D POST PROCESSING HISTORY: 44 year-old patient seen for diagnostic evaluation of the finding(s) described on prior mammogram in both breasts. Patient states no personal history of breast cancer. The patient has a family history of breast cancer. High-risk screening exam with plan for prophylactic bilateral mastectomies. COMPARISON STUDIES: The present examination has been compared to prior imaging studies dated 01/08/2021 (mammogram), 05/25/2023 (mammogram) and 10/25/2024 (mammogram). And MRI dated 08/03/21 BREAST MRI: TECHNIQUE: The patient was studied using the dedicated breast coil in the Siemens 1.5 Debbie scanner. Initial axial T1W NFS, STIR imaging was carried out followed by axial T1-weighted GRE imaging both before and after IV administration of 5 ml of Elucirem. Subsequently, subtraction imaging and 3-D reconstruction were completed on an independent workstation. An additional 0-pkcebi-knyc resolution sequence was performed after the first two 1 minute post-contrast sequences. Complex volumetric analysis requiring post processing was performed using a semi-automated software The Flipping Pro'sacad, on an independent workstation by the physician, with images created, reviewed, and archived. FINDINGS: There is scattered fibroglandular tissue. There is moderate background parenchymal enhancement, which could obscure a small or non-invasive lesion. The background parenchymal enhancement is symmetrical. [facility] Provider, [facility] [place] - 03/14/2025 * * *Final Report* * * DATE OF EXAM: Mar 14 2025 10:37AM [facility] 0773 - MRI BREAST WO/W IVCON NEMESIO / PROCEDURE REASON: multiple diagnoses * * * * Physician Interpretation * * * * [facility] [address] [facility] [place] [address] #[id number] - MRI BREAST WO/W IVCON NEMESIO #[id number] - MRI BREAST 3D POST PROCESSING HISTORY: 44 year-old patient seen for diagnostic evaluation of the finding(s) described on prior mammogram in both breasts. Patient states no personal history of breast cancer. The patient has a family history of breast cancer. High-risk screening exam with plan for prophylactic bilateral mastectomies. COMPARISON STUDIES: The present examination has been compared to prior imaging studies dated 01/08/2021 (mammogram), 05/25/2023 (mammogram) and 10/25/2024 (mammogram). And MRI dated 08/03/21 BREAST MRI: TECHNIQUE: The patient was studied using the dedicated breast coil in the Siemens 1.5 Debbie scanner. Initial axial T1W NFS, STIR imaging was carried out followed by axial T1-weighted GRE imaging both before and after IV administration of 5 ml of Elucirem. Subsequently, subtraction imaging and 3-D reconstruction were completed on an independent workstation. An additional 3-hhrjok-xequ resolution sequence was performed after the first two 1 minute post-contrast sequences. Complex volumetric analysis requiring post processing was performed using a semi-automated software The Flipping Pro'sacad, on an independent workstation by the physician, with images created, reviewed, and archived. FINDINGS: There is scattered fibroglandular tissue. There is moderate background parenchymal enhancement, which could obscure a small or non-invasive lesion. The background parenchymal enhancement is symmetrical. IMPRESSION IMPRESSION: There is no MRI evidence of malignancy in either breast. Per electronic medical record review, the current clinical plan is for prophylactic mastectomies. If mastectomy isn't performed, recommend continued high-risk screening as clinically appropriate. BI-RADS Category 2: Benign Interpreting Radiologist: Adelaide Gerardo M.D. Electronically signed on: 03/14/2025 Senior Product Development Scientist: FAHAD Transcridayami Date/Time: Mar 14 2025 10:06A Dictated by : ADELAIDE GERARDO MD This examination was interpreted and the report reviewed and electronically signed by: ADELAIDE GERARDO MD on Mar 14 2025 1:47PM EST [facility] Radiology Study observation (narrative) [facility] MRI BREAST 3D POST PROCESSIN Tashi 03-14-2025 IMPRESSION: There is no MRI evidence of malignancy in either breast. Per electronic medical record review, the current clinical plan is for prophylactic mastectomies. If mastectomy isn't performed, recommend continued high-risk screening as clinically appropriate. BI-RADS Category 2: Benign Interpreting Radiologist: Adelaide Gerardo M.D. Electronically signed on: 03/14/2025 Senior Product Development Scientist: FAHAD Transcridayami Date/Time: Mar 14 2025 10:07A Dictated by : ADELAIDE GERARDO MD This examination was interpreted and the report reviewed and electronically signed by: ADELAIDE GERARDO MD on Mar 14 2025 1:47PM [facility] * * *Final Report* * * DATE OF EXAM: Mar 14 2025 10:37AM [facility] 0788 - MRI BREAST 3D POST PROCESSING / PROCEDURE REASON: multiple diagnoses * * * * Physician Interpretation * * * * [place] [address] [place] [address] #[id number] - MRI BREAST WO/W IVCON NEMESIO #[id number] - MRI BREAST 3D POST PROCESSING HISTORY: 44 year-old patient seen for diagnostic evaluation of the finding(s) described on prior mammogram in both breasts. Patient states no personal history of breast cancer. The patient has a family history of breast cancer. High-risk screening exam with plan for prophylactic bilateral mastectomies. COMPARISON STUDIES: The present examination has been compared to prior imaging studies dated 01/08/2021 (mammogram), 05/25/2023 (mammogram) and 10/25/2024 (mammogram). And MRI dated 08/03/21 BREAST MRI: TECHNIQUE: The patient was studied using the dedicated breast coil in the Siemens 1.5 Debbie scanner. Initial axial T1W NFS, STIR imaging was carried out followed by axial T1-weighted GRE imaging both before and after IV administration of 5 ml of Elucirem. Subsequently, subtraction imaging and 3-D reconstruction were completed on an independent workstation. An additional 6-sbguoo-glma resolution sequence was performed after the first two 1 minute post-contrast sequences. Complex volumetric analysis requiring post processing was performed using a semi-automated software Dynacad, on an independent workstation by the physician, with images created, reviewed, and archived. FINDINGS: There is scattered fibroglandular tissue. There is moderate background parenchymal enhancement, which could obscure a small or non-invasive lesion. The background parenchymal enhancement is symmetrical. [facility] Provider, [facility] [place] - 03/14/2025 * * *Final Report* * * DATE OF EXAM: Mar 14 2025 10:37AM [facility] 0788 - MRI BREAST 3D POST PROCESSING / PROCEDURE REASON: multiple diagnoses * * * * Physician Interpretation * * * * [place] [address] [place] [address] #[id number] - MRI BREAST WO/W IVCON NEMESIO #[id number] - MRI BREAST 3D POST PROCESSING HISTORY: 44 year-old patient seen for diagnostic evaluation of the finding(s) described on prior mammogram in both breasts. Patient states no personal history of breast cancer. The patient has a family history of breast cancer. High-risk screening exam with plan for prophylactic bilateral mastectomies. COMPARISON STUDIES: The present examination has been compared to prior imaging studies dated 01/08/2021 (mammogram), 05/25/2023 (mammogram) and 10/25/2024 (mammogram). And MRI dated 08/03/21 BREAST MRI: TECHNIQUE: The patient was studied using the dedicated breast coil in the Siemens 1.5 Debbie scanner. Initial axial T1W NFS, STIR imaging was carried out followed by axial T1-weighted GRE imaging both before and after IV administration of 5 ml of Elucirem. Subsequently, subtraction imaging and 3-D reconstruction were completed on an independent workstation. An additional 2-ylnsjy-jigt resolution sequence was performed after the first two 1 minute post-contrast sequences. Complex volumetric analysis requiring post processing was performed using a semi-automated software The Flipping Pro'sacad, on an independent workstation by the physician, with images created, reviewed, and archived. FINDINGS: There is scattered fibroglandular tissue. There is moderate background parenchymal enhancement, which could obscure a small or non-invasive lesion. The background parenchymal enhancement is symmetrical. IMPRESSION IMPRESSION: There is no MRI evidence of malignancy in either breast. Per electronic medical record review, the current clinical plan is for prophylactic mastectomies. If mastectomy isn't performed, recommend continued high-risk screening as clinically appropriate. BI-RADS Category 2: Benign Interpreting Radiologist: Adelaide eGrardo M.D. Electronically signed on: 03/14/2025 Senior Product Development Scientist: FAHAD Transcridayami Date/Time: Mar 14 2025 10:07A Dictated by : ADELAIDE GERARDO MD This examination was interpreted and the report reviewed and electronically signed by: ADELAIDE GERARDO MD on Mar 14 2025 1:47PM [facility] MRI BREAST 3D POST PROCESSING * * *Final Report* * * DATE OF EXAM: Mar 14 2025 10:37AM [facility] 0788 - MRI BREAST 3D POST PROCESSING / PROCEDURE REASON: multiple diagnoses * * * * Physician Interpretation * * * * [facility] [address] [address] [place] [id number] #[id number] - MRI BREAST WO/W CHRISTOPHER HERR #[id number] - MRI BREAST 3D POST PROCESSING HISTORY: 44 year-old patient seen for diagnostic evaluation of the finding(s) described on prior mammogram in both breasts. Patient states no personal history of breast cancer. The patient has a family history of breast cancer. High-risk screening exam with plan for prophylactic bilateral mastectomies. COMPARISON STUDIES: The present examination has been compared to prior imaging studies dated 01/08/2021 (mammogram), 05/25/2023 (mammogram) and 10/25/2024 (mammogram). And MRI dated 08/03/21 BREAST MRI: TECHNIQUE: The patient was studied using the dedicated breast coil in the Siemens 1.5 Debbie scanner. Initial axial T1W NFS, STIR imaging was carried out followed by axial T1-weighted GRE imaging both before and after IV administration of 5 ml of Elucirem. Subsequently, subtraction imaging and 3-D reconstruction were completed on an independent workstation. An additional 9-gzhnsf-rutl resolution sequence was performed after the first two 1 minute post-contrast sequences. Complex volumetric analysis requiring post processing was performed using a semi-automated software The Flipping Pro'sacad, on an independent workstation by the physician, with images created, reviewed, and archived. FINDINGS: There is scattered fibroglandular tissue. There is moderate background parenchymal enhancement, which could obscure a small or non-invasive lesion. The background parenchymal enhancement is symmetrical. IMPRESSION: There is no MRI evidence of malignancy in either breast. Per electronic medical record review, the current clinical plan is for prophylactic mastectomies. If mastectomy isn't performed, recommend continued high-risk screening as clinically appropriate. BI-RADS Category 2: Benign Interpreting Radiologist: Adelaide Gerardo M.D. Electronically signed on: 03/14/2025 Senior Product Development Scientist: FAHAD Transcribe Date/Time: Mar 14 2025 10:07A Dictated by : ADELAIDE GERARDO MD This examination was interpreted and the report reviewed and electronically signed by: ADELAIDE GERARDO MD on Mar 14 2025 1:47PM EST [id number] Normal [facility] Radiology Study observation (narrative) [facility] MRI BREAST WO/W IVCON BILon 03-14-2025 MRI BREAST WO/W IVCON NEMESIO * * *Final Report* * * DATE OF EXAM: Mar 14 2025 10:37AM [facility] [id number] - MRI BREAST WO/W IVCON NEMESIO / PROCEDURE REASON: multiple diagnoses * * * * Physician Interpretation * * * * [facility] [address] [address] #[id number] - MRI BREAST WO/W IVCON NEMESIO #[id number] - MRI BREAST 3D POST PROCESSING HISTORY: 44 year-old patient seen for diagnostic evaluation of the finding(s) described on prior mammogram in both breasts. Patient states no personal history of breast cancer. The patient has a family history of breast cancer. High-risk screening exam with plan for prophylactic bilateral mastectomies. COMPARISON STUDIES: The present examination has been compared to prior imaging studies dated 01/08/2021 (mammogram), 05/25/2023 (mammogram) and 10/25/2024 (mammogram). And MRI dated 08/03/21 BREAST MRI: TECHNIQUE: The patient was studied using the dedicated breast coil in the Siemens 1.5 Debbie scanner. Initial axial T1W NFS, STIR imaging was carried out followed by axial T1-weighted GRE imaging both before and after IV administration of 5 ml of Elucirem. Subsequently, subtraction imaging and 3-D reconstruction were completed on an independent workstation. An additional [id number] resolution sequence was performed after the first two 1 minute post-contrast sequences. Complex volumetric analysis requiring post processing was performed using a semi-automated software Dynacad, on an independent workstation by the physician, with images created, reviewed, and archived. FINDINGS: There is scattered fibroglandular tissue. There is moderate background parenchymal enhancement, which could obscure a small or non-invasive lesion. The background parenchymal enhancement is symmetrical. IMPRESSION: There is no MRI evidence of malignancy in either breast. Per electronic medical record review, the current clinical plan is for prophylactic mastectomies. If mastectomy isn't performed, recommend continued high-risk screening as clinically appropriate. BI-RADS Category 2: Benign Interpreting Radiologist: Adelaide Gerardo M.D. Electronically signed on: 03/14/2025 Senior Product Development Scientist: FAHAD Transcridaaymi Date/Time: Mar 14 2025 10:06A Dictated by : ADELAIDE GERARDO MD This examination was interpreted and the report reviewed and electronically signed by: ADELAIDE GERARDO MD on Mar 14 2025 1:47PM EST [id number] Normal [facility] No Panel InformationOrdered By: Ccf Provider on 03-14-2025 [facility] Absolute lymphocyte countOrd ered By: Kassandra Atkins on 02-25-2025 Lymphocytes Auto (Unsp spec) [#/Vol] 3.08 10*3/uL 0.83-4.51 [facility] Absolute neutrophil countOrd ered By: Kassandra Atkins on 02-25-2025 Neutrophils (Bld) [#/Vol] 4.4 10*3/uL 2.0-7.7 [facility] Anion gap in Serum or Plasma Ordered By: Kassandra Atkins on 02-25-2025 Anion gap [Moles/Vol] 12 mmol/L 5-15 [facility] Automated lymphocyte count a s percentage of total leukocytesOrdered By: Kassandra Atkins on 02-25-2025 Lymphocytes/100 WBC Auto (Unsp spec) 37.1 % 19-41 [facility] BUN/creatinine ratioOrdered By: Kassandra Atkins on 02-25-2025 Urea nitrogen/Creatinine [Mass ratio] 19.9 mg/mg 10-20 [facility] Basophil percentageOrdered B y: Kassandra Atkins on 02-25-2025 Basophils/100 WBC (Bld) 0.4 % 0-1 [facility] Bilirubin, totalOrdered By: Kassandra Atkins on 02-25-2025 Bilirubin [Mass/Vol] 0.50 mg/dL 0.00-1.30 [facility] CBC W/Diff, Automatedon 02-06 Absolute Lymph 3.08 X10 3/uL Normal 0.83-4.51 [facility] Comment on above: Performed By: #### L 100.0100, L500.4050, L300.3900, L506.1001 #### [facility] [address] [place], [address] Absolute Neut 4.4 X10 3/uL Normal 2.0-7.7 [facility] Comment on above: Performed By: #### L 100.0100, L500.4050, L300.3900, L506.1001 #### [facility] [address] [place], [address] Basophils/100 WBC (Bld) 0.4 % Normal 0-1 [facility] Comment on above: Performed By: #### L 100.0100, L500.4050, L300.3900, L506.1001 #### [facility] [address] [place], [address] Eosinophils/100 WBC (Bld) 1.1 % Normal 0-5 [facility] Comment on above: Performed By: #### L 100.0100, L500.4050, L300.3900, L506.1001 #### [facility] [address] [place], [address] Erythrocyte distribution width (RBC) [Ratio] 14.0 % Normal 11.6-14.6 [facility] Comment on above: Performed By: #### L 100.0100, L500.4050, L300.3900, L506.1001 #### [facility] [address] [place], [address] Hematocrit (Bld) [Volume fraction] 44.3 % Normal 37-47 [facility] Comment on above: Performed By: #### L 100.0100, L500.4050, L300.3900, L506.1001 #### [facility] [address] [place], [address] Hemoglobin (Bld) [Mass/Vol] 14.7 g/dL Normal 12.0-15.0 [facility] Comment on above: Performed By: #### L 100.0100, L500.4050, L300.3900, L506.1001 #### [facility] [address] [place], [address] IG% 0.200 Normal 0.0-0.9 [facility] Comment on above: Result Comment: IG% - Immature Granulocytes (promyelocytes, myelocytes and metamyelocytes) > 1% indicates that a LEFT SHIFT is Present. Performed By: #### L 100.0100, L500.4050, L300.3900, L506.1001 #### [facility] [address] [place], [address] Lymphocytes/100 WBC (Bld) 37.1 % Normal 19-41 [facility] Comment on above: Performed By: #### L 100.0100, L500.4050, L300.3900, L506.1001 #### [facility] [address] [place], [address] MCH (RBC) [Entitic mass] 33.1 pg High 27.0-32.0 [facility] Comment on above: Performed By: #### L 100.0100, L500.4050, L300.3900, L506.1001 #### [facility] [address] [place], [address] MCHC (RBC) [Mass/Vol] 33.2 g/dL Normal 32-36 [facility] Comment on above: Performed By: #### L 100.0100, L500.4050, L300.3900, L506.1001 #### [facility] [address] [place], [address] MCV (RBC) [Entitic vol] 99.8 fL High 81-99 [facility] Comment on above: Performed By: #### L 100.0100, L500.4050, L300.3900, L506.1001 #### [facility] [address] [place], [address] Monocytes/100 WBC (Bld) 8.4 % Normal 0-10 [facility] Comment on above: Performed By: #### L 100.0100, L500.4050, L300.3900, L506.1001 #### [facility] [address] [place], [address] Neutrophils/100 WBC (Bld) 52.8 % Normal 47-70 [facility] Comment on above: Performed By: #### L 100.0100, L500.4050, L300.3900, L506.1001 #### [facility] [address] [place], [address] Nucleated RBC (Bld) [#/Vol] 0 10*3/uL Normal 0-5 [facility] Comment on above: Performed By: #### L 100.0100, L500.4050, L300.3900, L506.1001 #### [facility] [address] [place], [address] Platelet mean volume (Bld) [Entitic vol] 11.6 fL Normal 6.2-12.0 [facility] Comment on above: Performed By: #### L 100.0100, L500.4050, L300.3900, L506.1001 #### [facility] [address] [place], [address] Platelets (Bld) [#/Vol] 218 10*3/uL Normal 150-450 [facility] Comment on above: Performed By: #### L 100.0100, L500.4050, L300.3900, L506.1001 #### [facility] [address] [place], [address] RBC (Bld) [#/Vol] 4.44 10*6/uL Normal 4.2-5.4 [facility] Comment on above: Performed By: #### L 100.0100, L500.4050, L300.3900, L506.1001 #### [facility] [address] [place], [address] RDW SD 51.6 fl High 35.1-43.9 [facility] Comment on above: Performed By: #### L 100.0100, L500.4050, L300.3900, L506.1001 #### [facility] [address] [place], [address] WBC (Bld) [#/Vol] 8.3 10*3/uL Normal 4.4-11.0 [facility] Comment on above: Performed By: #### L 100.0100, L500.4050, L300.3900, L506.1001 #### [facility] [address] [place], [address] [facility]2025 [facility] Telephone ([facility]) ---- MISHEL ASHBY ([id number]) 1980 F Date Time Provider Department 02/25/25 ANDRE SAMUEL [facility] During your visit today, we recorded the following information about you: Andre Samuel, RN 02/25/2025 11:34 AM Signed Patient showed up for her breast MRI on 02/21 and was turned away due to insurance authorization not being completed. I called the auth team and spoke with Arlyn. Arlyn states that the auth was obtained but it was obtained for the wrong dates. She said that there is someone currently working on getting the dates corrected with the insurance company. I called MRI on the to see if they could squeeze her in but they are not able to and gave me a date of 02/25 however the patient was unable to due to that date as she has an appointment conflict. I rescheduled her for 03/14 at 945 (this is the date/time that Lilian from MRI I gave to me). The patient is aware of the date and time. Allergies As of Date: 02/25/2025 Noted Allergy Reaction MORPHINE 01/28/2023 2 - Rash NSAIDS (NON-STEROIDAL ANTI-INFLAM* 023 16 - Unknown PENICILLINS 01/28/2023 8 - GI Upset Date Reviewed: 02/07/2025 Reviewed by: Zoey Mayorga MD - Fully Assessed Reason for Visit: Appointment [186] Perinatal Specialist - Other [3602] Prescriptions as of 02/25/2025 - predniSONE (DELTASONE) 20 mg tablet Take one tablet 3 times daily for 3 days, then one tablet 2 times a day for 2 days, then one tablet daily for 2 days, and then a half of a tablet daily for 1 day. - cholecalciferol, Vitamin D3, (VITAMIN D3) 1,250 mcg (50,000 unit) cap capsule Take 1 capsule by mouth one time a week. - sertraline (ZOLOFT) 50 mg tablet Take 1 tablet by mouth. - multivit,thx,calciu m,iron,mins (MULTIVITAMIN AND MINERAL ORAL) Take by mouth. - cyanocobalamin (VITAMIN B-12) 100 mcg tab Take 100 mcg by mouth once daily. 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] 02/06/2025 Gene mutation [Z15.89] 05/25/2023 Status post gastrectomy [Z90.3] 02/06/2025 Microscopic hematuria [R31.29] 02/06/2025 Anxiety [F41.9] 02/06/2025 Unspecified disturbances of skin sensation [R20*01/28/2023 CDH1-related breast cancer (HCC) [C50.919, Z15.* At high risk for breast cancer [Z91.89] 02/07/2025 Encounter Status:Closed by ANDRE SAMUEL on 02/25/25 [facility] Carbon dioxide, total [Moles /volume] in Central venous bloodOrdered By: Kassandra Atkins on 02-25-2025 CO2 [Moles/Vol] 22.8 mmol/L 21.0-32.0 [facility] Chloride assayOrdered By: Sal Atkins on 02-25-2025 Chloride [Moles/Vol] 104 mmol/L 98-108 [facility] Comprehensive Metabolic Prof ilon 02-25-2025 Albumin [Mass/Vol] 4.6 g/dL Normal 3.5-5.0 [facility] Comment on above: Performed By: #### L 100.0100, L500.4050, L300.3900, L506.1001 #### [facility] [address] [place], [address] Albumin/Globulin [Mass ratio] 1.7 {ratio} Normal 0.9-2.4 [facility] Comment on above: Performed By: #### L 100.0100, L500.4050, L300.3900, L506.1001 #### [facility] [address] [place], [address] ALK PHOS 74 U/L Normal 35-104 [facility] Comment on above: Performed By: #### L 100.0100, L500.4050, L300.3900, L506.1001 #### [facility] [address] [place], [address] ALT [Catalytic activity/Vol] 9 U/L Normal <=34 [facility] Comment on above: Performed By: #### L 100.0100, L500.4050, L300.3900, L506.1001 #### [facility] [address] [place], [address] AST [Catalytic activity/Vol] 17 U/L Normal <=31 [facility] Comment on above: Performed By: #### L 100.0100, L500.4050, L300.3900, L506.1001 #### [facility] [address] [place], [address] Bilirubin [Mass/Vol] 0.50 mg/dL Normal 0.00-1.30 [facility] Comment on above: Performed By: #### L 100.0100, L500.4050, L300.3900, L506.1001 #### [facility] [address] [place], [address] BUN/CRE 19.9 RATIO Normal 10-20 [facility] Comment on above: Performed By: #### L 100.0100, L500.4050, L300.3900, L506.1001 #### [facility] [address] [place], [address] Calcium [Mass/Vol] 9.5 mg/dL Normal 7.6-11.0 [facility] Comment on above: Performed By: #### L 100.0100, L500.4050, L300.3900, L506.1001 #### [facility] [address] [place], [address] Chloride [Moles/Vol] 104 mmol/L Normal 98-108 [facility] Comment on above: Performed By: #### L 100.0100, L500.4050, L300.3900, L506.1001 #### [facility] [address] [place], [address] CO2 [Moles/Vol] 22.8 mmol/L Normal 21.0-32.0 [facility] Comment on above: Performed By: #### L 100.0100, L500.4050, L300.3900, L506.1001 #### [facility] [address] [place], [address] Creatinine [Mass/Vol] 0.61 mg/dL Low 0.70-1.20 [facility] Comment on above: Performed By: #### L 100.0100, L500.4050, L300.3900, L506.1001 #### [facility] [address] [place], [address] GAP 12 Normal 5-15 [facility] Comment on above: Performed By: #### L 100.0100, L500.4050, L300.3900, L506.1001 #### [facility] [address] [place], [address] GFR/1.73 sq M.predicted among non-blacks MDRD (S/P/Bld) [Vol rate/Area] 113 mL/min/{1.73_m2} Normal >60 [facility] Comment on above: Result Comment: mL/m in/1.73m2 CKD-EPI Creatinine Equation (2020) Performed By: #### L 100.0100, L500.4050, L300.3900, L506.1001 #### [facility] [address] [place], [address] Globulin (S) [Mass/Vol] 2.7 g/dL Normal 2.2-4.2 [facility] Comment on above: Performed By: #### L 100.0100, L500.4050, L300.3900, L506.1001 #### [facility] [address] [place], [address] Glucose [Mass/Vol] 77 mg/dL Normal 70-99 [facility] Comment on above: Performed By: #### L 100.0100, L500.4050, L300.3900, L506.1001 #### [facility] [address] [place], [address] Potassium [Moles/Vol] 4.1 mmol/L Normal 3.3-5.1 [facility] Comment on above: Performed By: #### L 100.0100, L500.4050, L300.3900, L506.1001 #### [facility] [address] [place], [address] Sodium [Moles/Vol] 139 mmol/L Normal 133-145 [facility] Comment on above: Performed By: #### L 100.0100, L500.4050, L300.3900, L506.1001 #### [facility] [address] [place], [address] T PROT 7.3 g/dL Normal 5.9-8.4 [facility] Comment on above: Performed By: #### L 100.0100, L500.4050, L300.3900, L506.1001 #### [facility] [address] [place], [address] Urea nitrogen [Mass/Vol] 12 mg/dL Normal 4-19 [facility] Comment on above: Performed By: #### L 100.0100, L500.4050, L300.3900, L506.1001 #### [facility] [address] [place], [address] Eosinophil percentageOrdered By: Kassandra Atkins on 02-25-2025 Eosinophils/100 WBC (Bld) 1.1 % 0-5 [facility] Erythrocyte distribution wid th ratioOrdered By: Kassandra Atkins on 02-25-2025 Erythrocyte distribution width (RBC) [Ratio] 14.0 % 11.6-14.6 [facility] Erythrocyte distribution wid th standard deviationOrdered By: Kassandra Atkins on 02-25-2025 Erythrocyte distribution width (RBC) [Ratio] 51.6 fl High 35.1-43.9 [facility] Gastroenterology Visit Repor ton 02-25-2025 Gastroenterology Visit Report [facility] [address] [place] [address] OFFICE VISIT Date of Service: 02/25/25 MR#: [id number] Acct: [id number] Name: MISHEL ASHBY Rep #: [id number] : 1980 Provider: KP bran Age/Sex: 44/F Location: [facility] Status: Signed Intake Vital Signs 02/25/25 14:33 Height 5 ft Weight: 119 lb BMI 23.2 BP 105/66 Blood Pressure Location Rt brachial Position Sitting Pulse 81 Pulse Oximetry (%) 95 Oxygen Delivery Method room air Intake Visit Reasons: L ABD PAIN, CDH1 GENE Chief Complaint: schedule colonoscopy Allergies morphine Allergy (Intermediate, Verified 02/25/25 14:35) Itching Penicillins (PCN) Allergy (Intermediate, Verified 02/25/25 14:35) Other Medications ???Medication ???Instructions ???Recorded ???Confirmed ???Type ondansetron HCl 4 mg tablet 4 mg PO .COMPLEX #5 tabs 02/25/25 02/25/25 Rx peg 3350-sod sulf,[id number] See Rx Instructions PO .COMPLEX #2 02/25/25 02/25/25 Rx 178.7-7.3-0.5-1.12- 0.9 gram oral mL soln (Suflave) sertraline 50 mg tablet (Zoloft) 50 mg PO QDAY 02/25/25 02/25/25 Hi story PFSH Medical History GERD (gastroesophageal reflux disease) History of gastrectomy Surgical History History of hysterectomy Previous section Family History Mother Alcoholism Anxiety Depression Hepatitis C COPD (chronic obstructive pulmonary disease) Father Prostate cancer Hypertension HLD (hyperlipidemia) Sister Rheumatoid arthritis Breast cancer Social History Smoking Status: Current every day smoker tobacco type: cigarettes Smoking packs per day: 1 Smoking cigarettes per day: 20.0 alcohol intake: current alcohol intake frequency: a few times a month Alcohol type: hard liquor HPI HPI Chief Complaint: schedule colonoscopy Details: MISHEL ASHBY, is a 44 F who presents to the office today for - due for a colonoscopy CDH1 gene - total gastrectomy in 2018 in [place] - stage 1 gastric cancer on pathology - reports her last colonoscopy was in 2019 - has seen a recruiter who has recommended a colonoscopy every 3 years - dumping syndrome a few times a week - LLQ pain this past November - seen in ED - pain has resolved - c/o bile reflux - drinks coke and this helps - has dumping syndrome episodes at least once a week - has been unable to associate a specific trigger - weight is stable - intermittent dysphagia - increased in frequency recently - does experience trouble with liquids at times - has not been on Questran for a couple years - packet twice a day did not help - was on this for 6-12 months - typically has a BM daily - had an episode of white poop - left sided abdominal pain - stool was small and flaky looking - CT showed constipation - severe attack with possible gallstone induced pancreatitis - did not want CCX - denies any h/o heavy alcohol use - December labs showed thrombocytopenia PLT 140 - she is now seeing oncology and planning for double mastectomy ROS Const Constitutional: No fatigue, fever(s) or weight change ENT ENT: No difficulty swallowing Gastro GI: Positive for abdominal pain; No belching, bloating, change in bowel habits, change in stool character, coffee ground emesis, constipation, cramping, diarrhea, heartburn, difficulty swallowing, feeling full early, excessive flatus, incontinent of stools, Vomiting blood/hematemesis, Blood in stool, loose stools, Black,tarry stools, nausea/dyspepsia, pain with swallowing, vomiting or other Musc Musculoskeletal: No joint pain Skin Skin: No yellowing of the eye or itchy eyes Psych Psychiatric: No anxiety and No depression Endo Endocrine: No fatigue or weight change Aller/Imm Allergy/Immunologic : No itchy eyes Shmuel/Lymp Hematologic/Lymphat ic: No easy bleeding or easy bruising Exam Const General: cooperative, healthy appearing, no acute distress and well developed Nutritional Appearance: average body habitus and well nourished Orientation: alert and oriented x3 HENMT Head: normocephalic Ears: hearing grossly normal bilaterally Mouth: moist mucous membranes Teeth and gingiva: dentition normal Eyes Conjunctivae: conjunctivae normal Sclera: sclerae normal Neck Neck: normal visual inspection, full ROM and trachea midline Resp Effort Inspection: normal respiratory effort, able to speak in complete sentences and symmetric chest movement Auscultation: Bilateral: Clear to Auscultation Cardio Palpation: normal PMI Rate: regular rate Rhythm: regular rhythm Heart Sounds: S1 normal (more content not included)... Normal [facility] Glomerular filtration rate ( GFR) estimation/1.73 sq m using serum, plasma, or whole bOrdered By: Kassandra Atkins on 02-25-2025 GFR/1.73 sq M.predicted among non-blacks MDRD (S/P/Bld) [Vol rate/Area] 113 mL/min/{1.73_m2} >60 [facility] Comment on above: mL/min/1.73m2 CKD-EP I Creatinine Equation (2020) Hematocrit Auto (Bld) [Volum e fraction]Ordered By: Kassandra Atkins on 02-25-2025 Hematocrit (Bld) [Volume fraction] 44.3 % 37-47 [facility] Hemoglobin measurementOrdere d By: Kassandra Atkins on 02-25-2025 Hemoglobin (Bld) [Mass/Vol] 14.7 g/dL 12.0-15.0 [facility] Immature granulocytes/100 WB C Auto (Bld)Ordered By: Kassandra Atkins on 02-25-2025 Immature granulocytes/100 WBC (Bld) 0.200 % 0.0-0.9 [facility] Comment on above: IG% - Immature Granu locytes (promyelocytes, myelocytes and metamyelocytes) > 1% indicates that a LEFT SHIFT is Present. International normalized rat io (INR) calculationOrdered By: Kassandra Atkins on 02-25-2025 INR Coag (Bld) [Relative time] 1.2 {INR} [facility] - Chemistry and C hemistry - challengeOrdered By: Kassandra Atkins on 02-25-2025 AST [Catalytic activity/Vol] 17 U/L <32 [facility] MCV (mean corpuscular volume ) determinationOrdered By: Kassandra Atkins on 02-25-2025 MCV (RBC) [Entitic vol] 99.8 fL High 81-99 [facility] Mean corpuscular hemoglobin (MCH) determinationOrdered By: Kassandra Atkins on 02-25-2025 MCH (RBC) [Entitic mass] 33.1 pg High 27.0-32.0 [facility] Mean corpuscular hemoglobin concentration (MCHC) determinationOrdered By: Kassandra Atkins on 02-25-2025 MCHC (RBC) [Mass/Vol] 33.2 g/dL 32-36 [facility] Mean platelet volume determi nationOrdered By: Kassandra Atkins on 02-25-2025 Platelet mean volume (Bld) [Entitic vol] 11.6 fL 6.2-12.0 [facility] Monocyte percentageOrdered B y: Kassandra Atkins on 02-25-2025 Monocytes/100 WBC (Bld) 8.4 % 0-10 [facility] Neutrophil percentageOrdered By: Kassandra Atkins on 02-25-2025 Neutrophils/100 WBC (Bld) 52.8 % 47-70 [facility] Nucleated red blood cell per centageOrdered By: Kassandra Atkins on 02-25-2025 Nucleated RBC/100 WBC (Bld) [Ratio] 0 % 0-5 [facility] Platelet countOrdered By: Sal Atkins on 02-25-2025 Platelets (Bld) [#/Vol] 218 10*3/uL 150-450 [facility] Potassium measurement (mass/ volume)Ordered By: Kassandra Atkins on 02-25-2025 Potassium (Unsp spec) [Mass/Vol] 4.1 mmol/L 3.3-5.1 [facility] Prothrombin Time w/INRon INR Coag (PPP) [Relative time] 1.2 {INR} Normal [facility] Comment on above: Performed By: #### L 100.0100, L500.4050, L300.3900, L506.1001 #### [facility] [address] [place], [address] PT Coag (PPP) [Time] 15.2 s High 11.7-14.9 [facility] Comment on above: Performed By: #### L 100.0100, L500.4050, L300.3900, L506.1001 #### [facility] [address] [place], [place], [address] Prothrombin timeOrdered By: Kassandra Atkins on 02-25-2025 PT Coag (PPP) [Time] 15.2 s High 11.7-14.9 [facility] RBC Auto (Bld) [#/Vol]Ordere d By: Kassandra Atkins on 02-25-2025 RBC (Bld) [#/Vol] 4.44 10*6/uL 4.2-5.4 [facility] Serum creatinine measurement (mass/volume)Ordered By: Kassandra Atkins on 02-25-2025 Creatinine [Mass/Vol] 0.61 mg/dL Low 0.70-1.20 [facility] Serum globulin measurementOr dered By: Kassandra Atkins on 02-25-2025 Globulin (S) [Mass/Vol] 2.7 g/dL 2.2-4.2 [facility] Serum glucose measurement (m ass/volume)Ordered By: Kassandra Atkins on 02-25-2025 Glucose [Mass/Vol] 77 mg/dL 70-99 [facility] Serum or plasma alanine gomez otransferase (ALT) measurementOrdered By: Kassandra Atkins on 02-25-2025 ALT [Catalytic activity/Vol] 9 U/L <35 [facility] Serum or plasma albumin theresa urement (mass/volume)Ordered By: Kassandra Atkins on 02-25-2025 Albumin [Mass/Vol] 4.6 g/dL 3.5-5.0 [facility] Serum or plasma albumin/glob ulin mass ratioOrdered By: Kassandra Atkins on 02-25-2025 Albumin/Globulin [Mass ratio] 1.7 {ratio} 0.9-2.4 [facility] Serum or plasma alkaline martha sphatase measurementOrdered By: Kassandra Atkins on 02-25-2025 ALP [Catalytic activity/Vol] 74 U/L 35-104 [facility] Serum or plasma calcium theresa urement (mass/volume)Ordered By: Kassandra Atkins on 02-25-2025 Calcium [Mass/Vol] 9.5 mg/dL 7.6-11.0 [facility] Serum or plasma urea nitroge n measurement (mass/volume)Ordered By: Kassandra Atkins on 02-25-2025 Urea nitrogen [Mass/Vol] 12 mg/dL 4-19 [facility] Sodium levelOrdered By: Iris Atkins on 02-25-2025 Sodium [Moles/Vol] 139 mmol/L 133-145 [facility] Total proteinOrdered By: Mona Atkins on 02-25-2025 Protein [Mass/Vol] 7.3 g/dL 5.9-8.4 [facility] Vitamin D,25 Hydroxyon 02-25 Vitamin D 25-OH 46.7 ng/mL Normal 30-100 [facility] Comment on above: Result Comment: Jackie min D Status Deficiency: <20 ng/mL (50nmol/L) Insufficiency: 20-30 ng/mL (50-75 nmol/L) Sufficiency: 30-100 ng/mL (75-250 nmol/L) Toxicity: >100 ng/mL (>250 nmol/L) Performed By: #### L 100.0100, L500.4050, L300.3900, L506.1001 #### [facility] [place], [address] White blood cell (WBC) count Ordered By: Kassandra Atkins on 02-25-2025 WBC (Bld) [#/Vol] 8.3 10*3/uL 4.4-11.0 [facility] Jian 02-13-2025 ASHLEYN Telephone ([facility]) ---- ISMAMISHEL MONTES ([id number]) 1980 F Date Time Provider Department 02/13/25 [facility] During your visit today, we recorded the following information about you: Andre Samuel, RN 02/13/2025 1:08 PM Signed I called and spoke with the patient and gave her the date, time and instructions for her breast MRI. I also sent a message to Dr Aceves's office with when the breast MRI is and her follow up with Dr Mayorga so they can get her scheduled for a new consult. The patient voices understanding. Allergies As of Date: 02/13/2025 Noted Allergy Reaction MORPHINE 01/28/2023 2 - Rash NSAIDS (NON-STEROIDAL ANTI-INFLAM* 023 16 - Unknown PENICILLINS 01/28/2023 8 - GI Upset Date Reviewed: 02/07/2025 Reviewed by: Zoey Mayorga MD - Fully Assessed Reason for Visit: Appointment [186] Perinatal Specialist - Other [[id number]] Prescriptions as of 02/13/2025 - predniSONE (DELTASONE) 20 mg tablet Take one tablet 3 times daily for 3 days, then one tablet 2 times a day for 2 days, then one tablet daily for 2 days, and then a half of a tablet daily for 1 day. - cholecalciferol, Vitamin D3, (VITAMIN D3) 1,250 mcg (50,000 unit) cap capsule Take 1 capsule by mouth one time a week. - sertraline (ZOLOFT) 50 mg tablet Take 1 tablet by mouth. - multivit,thx,calciu m,iron,mins (MULTIVITAMIN AND MINERAL ORAL) Take by mouth. - cyanocobalamin (VITAMIN B-12) 100 mcg tab Take 100 mcg by mouth once daily. Problem List As Of Date 02/13/2025 Noted Resolved Acute pancreatitis (HCC) [K85.90] 02/06/2025 Right sided abdominal pain [R10.9] 05/10/2023 Irregular menstrual cycle [N92.6] 02/06/2025 Hypoglycemia [E16.2] 02/06/2025 Depressive disorder [F32.A] 02/06/2025 Current smoker [F17.200] 02/06/2025 CDH1 gene mutation positive [Z15.09, Z15.01] 02/06/2025 Gene mutation [Z15.89] 05/25/2023 Status post gastrectomy [Z90.3] 02/06/2025 Microscopic hematuria [R31.29] 02/06/2025 Anxiety [F41.9] 02/06/2025 Unspecified disturbances of skin sensation [R20*01/28/2023 CDH1-related breast cancer (HCC) [C50.919, Z15.* At high risk for breast cancer [Z91.89] 02/07/2025 Encounter Status:Closed by ANDRE SAMUEL on 02/13/25 [facility] CNOVon 02-07-2025 CNOV Office Visit ([facility]) ---- MISHEL ASHBY ([id number]) 1980 F Date Time Provider Department 02/07/25 10:00 AM ZOEY MAYORGA [facility] During your visit today, we recorded the following information about you: Pulse Respiration Blood pressure Weight 67/minute 16/minute 96/59 52.6 kg Height 1.524 m Zoey Mayorga MD 02/13/2025 8:37 AM Signed Zoey Mayorga MD [facility] [address] [place], [place] [id number] SUBJECTIVE Chief Complaint: Patient presents with: Breast Problem HPI Mishel Thomaspell is a 44 year old female here today for high risk evaluation. Family history of sister with breast cancer. 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 Screening mammogram 10/25/24 negative, BIRADS 1. Breast density BIRADS B. Had intermittent nipple discharge that sounds physiologic. None recently. AGE AT [age][place] 13 AGE AT FIRST 20 FAMILY HISTORY OF BREAST CANCER Yes (IF YES) NUMBER OF FIRST DEGREE RELATIVES WITH BREAST CANCER 1 PREVIOUS BREAST BIOPSIES No (IF YES) PREVIOUS BREAST BIOPSY WITH ATYPICAL HYPERPLASIA No RACE JANINE MODEL RISK 5 YEAR 1.5% JANINE MODEL RISK LIFETIME 17.7% HISTORY OF USING CONTROL PILLS Yes HISTORY OF USING HORMONE REPLACEMENT THERAPY No Review of Systems Constitutional: Negative for fever, malaise/fatigue and weight loss. Breast: See HPI PAST MEDICAL HISTORY Diagnosis Date CDH1-related breast cancer (HCC) GERD (gastroesophageal reflux disease) PAST SURGICAL HISTORY Procedure Laterality Date GASTRECTOMY TOTAL W REPR INT TIFFANY 2018 TOTAL ABDOM HYSTERECTOMY Social History Tobacco Use Smoking status: Every Day Current packs/day: 1.00 Types: Cigarettes Smokeless tobacco: Never Vaping Use Vaping status: Never Used Substance Use Topics Alcohol use: Yes Comment: Occ Drug use: Not Currently FAMILY HISTORY Problem Relation Age of Onset Hypertension Father Prostate Cancer Father Breast Cancer Sister The ROS, medical, surgical, family, and social history were reviewed by Zoey Mayorga MD ALLERGIES Allergen Reactions Morphine Rash Nsaids (Non-Steroid* Unknown Penicillins GI Upset Current Outpatient Medications Medication Sig predniSONE (DELTASONE) 20 mg tablet Take one tablet 3 times daily for 3 days, then one tablet 2 times a day for 2 days, then one tablet daily for 2 days, and then a half of a tablet daily for 1 day. cholecalciferol, Vitamin D3, (VITAMIN D3) 1,250 mcg (50,000 unit) cap capsule Take 1 capsule by mouth one time a week. sertraline (ZOLOFT) 50 mg tablet Take 1 tablet by mouth. multivit,thx,calciu m,iron,mins (MULTIVITAMIN AND MINERAL ORAL) Take by mouth. cyanocobalamin (VITAMIN B-12) 100 mcg tab Take 100 mcg by mouth once daily. No current facility-administer ed medications for this visit. OBJECTIVE BP 96/59 (BP Site: Right Arm, BP Position: Sitting) Pulse 67 Resp 16 Ht 152.4 cm (5') Wt 52.6 kg (116 lb) SpO2 98% BMI 22.65 kg/m? BMI 22.65 kg/(m2) Participation of a fellow, resident, medical student, or advanced practice provider student in performing the sensitive examination was discussed with the patient or authorized employee relations representative. The patient or authorized employee relations representative has agreed to proceed with the sensitive examination. Physical Exam Neck: Thyroid: No thyromegaly. Chest: Breasts: Right: No bleeding, inverted nipple, mass, nipple discharge or skin change. Left: No bleeding, inverted nipple, mass, nipple discharge or skin change. Lymphadenopathy: Head: Right side of head: No submental, submandibular or tonsillar adenopathy. Left side of head: No submental, submandibular or tonsillar adenopathy. Cervical: No cervical adenopathy. Upper Body: Right upper body: No supraclavicular or axillary adenopathy. Left upper body: No supraclavicular or axillary adenopathy. Neurological: Mental Status: She is alert and oriented to person, place, and time. Plan ASSESSMENT/PLAN At high risk for breast cancer Mishel Ashby is a 44 year old female here today for high risk evaluation. Family history of sister with breast cancer. 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 Screening mammogram 10/25/24 negative, BIRADS 1. Breast density BIRADS B. No suspicious findings on clinical exam. Discussed risk reduction mastectomy due to mutation. Would recommend breast MRI prior to surgery. Schedule with Dr Aceves in plastics to discuss reconstruction options. Follow up after MRI for pre op. Follow up: Return for MRI, plastics. Follow up for results. Zoey Mayorga MD 02/07/2025 10:42 AM Zoey Mayorga MD 02/13/2025 8:36 AM Written Mishel Ashby is a 44 year old female here today for high risk evaluation. Family history of sister with breast cancer. Patient tested pos (more content not included)... [facility] CNOVon 01-31-2025 CNOV Office Visit ([facility]) ---- ISMAMISHEL LECHUGA ([id number]) 1980 F Date Time Provider Department 01/31/25 4:50 PM ERIKA NAM [facility] During your visit today, we recorded the following information about you: Temperature Pulse Respiration Blood pressure 99 degrees 75/minute 16/minute 100/70 Weight 54.4 kg Erika Nam APRN.ASHLEY 01/31/2025 6:41 PM Signed [facility] Ashby is a 44 year old female. Patient presents with: Cough: Now for a month and is having left middle back,left rib area for a week and doesn't know if coughing has been causing the pain. HPI 44-year-old female presents with anterior and posterior rib pain on the left side for 1 week. States she had an upper respiratory infection when she was treated with an antibiotic a month ago, and her cough was lingering but did finally resolve 1 week ago. She states her ribs have been hurting for a week from coughing so much, and last night she felt a pop when she moved. She reports pain is 6 out of 10, worse when she coughs, lays on it or takes a deep breath. Has been taking some ibuprofen for the symptoms. Patient is a smoker. Review of Systems Constitutional: Negative. HENT: Negative. Respiratory: Positive for cough. Negative for chest tightness, shortness of breath and wheezing. Cardiovascular: Negative for palpitations and leg swelling. Pain to the left anterior and posterior ribs Gastrointestinal: Negative. Neurological: Negative. Objective BP 100/70 Pulse 75 Temp 37.2 ?C (99 ?F) Resp 16 Wt 54.4 kg (120 lb) SpO2 98% BMI 23.44 kg/m? Physical Exam Vitals and nursing note reviewed. Constitutional: Appearance: Normal appearance. She is not ill-appearing, toxic-appearing or diaphoretic. HENT: Head: Normocephalic. Cardiovascular: Rate and Rhythm: Normal rate and regular rhythm. Heart sounds: Normal heart sounds and S1 normal. No murmur heard. No friction rub. No gallop. Pulmonary: Effort: Pulmonary effort is normal. Breath sounds: Normal breath sounds and air entry. No decreased breath sounds, wheezing, rhonchi or rales. Chest: Chest wall: Tenderness present. No mass, deformity, swelling or crepitus. Comments: Anterior and posterior anterior rib pain on the left side. Abdominal: General: Abdomen is flat. Bowel sounds are normal. Palpations: Abdomen is soft. Tenderness: There is no abdominal tenderness. Skin: General: Skin is warm. Capillary Refill: Capillary refill takes less than 2 seconds. Neurological: General: No focal deficit present. Mental Status: She is alert. Mental status is at baseline. Sensory: Sensation is intact. Motor: Motor function is intact. Coordination: Coordination is intact. Psychiatric: Behavior: Behavior is cooperative. ASSESSMENT/PLAN: 1. Rib pain on left side - ICD9: 786.50, ICD10: R07.81 (primary diagnosis) Atypical chest pain, symptoms are not consistent with cardiac ischemia due to pleuritic nature of pain and localization of the pain possible etiology include Costochondritis/brandie st wall pain and musculoskeletal - XR RIBS/CHEST 3V AP RIB/OBLS/CXR LEFT 2. Contusion of rib on left side, initial encounter - ICD9: 922.1, ICD10: S20.212A - XR RIBS/CHEST 3V AP RIB/OBLS/CXR LEFT Patient in no acute acute distress. Abdominal exam benign. Low concern for hepatic, renal or other intra-abdominal injuries. No obvious deformities, crepitus or step off to suspect grossly displaced rib fractures. Lungs clear to auscultate in all lung hansen, no shortness of breath, and patient in no acute respiratory distress. Concern for fracture vs contusion. Rib x-rays were obtained and I interpreted as no acute/obvious bony injury. Will await final radiology report. Plan: Prednisone sent to this pharmacy. Discussed supportive measures. Encouraged deep breathing/incentive spirometry, and an over the counter abdominal binder/pillow support. Reviewed red flag symptoms/return precautions and follow up. Patient/Family agrees and understands the plan, and the patient was discharged home in stable condition. Erika Nam APRN.METAL MOULDER'S ASSISTANT Management I performed an independent interpretation of the following:imaging Imaging: My interpretation is Left rib x-rays were obtained and I interpreted as no acute/obvious bony injury. Will await the final radiology report. Disposition The patient was discharged. OTC Medications were advised: - Tylenol. Do not take NSAIDs (Ibuprofen, Motrin, Aleve) until you have completed prednisone. Erika Foster APRN.METAL MOULDER'S ASSISTANT 01/31/2025 5:53 PM Signed - Medications as prescribed. - Ice - Nzyo-kzx-pvygtgb incentive spirometer or or take 10 to 15 deep breaths at least 4 times each day. - Laaa-diw-zrawimm abdominal binder for comfort - Hold a pillow to your chest to ease the pain when (more content not included)... [facility] XR RIB/CHST 3V AP RIB/OBL/CH ST Luis 01-31-2025 XR RIB/CHST 3V AP RIB/OBL/CHST L * * *Final Report* * * DATE OF EXAM: Jan 31 2025 7:52PM RNX [id number] - XR RIB/CHST 3V AP RIB/OBL/CHST L / PROCEDURE REASON: multiple diagnoses * * * * Physician Interpretation * * * * XR RIB/CHST 3V AP RIB/OBL/CHST L Ordering Physician: ERIKA NAM Clinical Statement: Rib pain. Coughing. Comparison chest x-ray 10/15/2024 FINDINGS: No pneumothorax. Lungs are clear. No rib fractures identified. The osseous structures are intact. Postoperative changes left upper quadrant. IMPRESSION: No acute osseous abnormality. Senior Product Development Scientist: JAMI Transcribe Date/Time: Feb 03 2025 6:30A Dictated by : REJI VILLANUEVA MD This examination was interpreted and the report reviewed and electronically signed by: REJI VILLANUEVA MD on Feb 03 2025 6:31AM EST [id number] [facility] Jian 01-17-2025 ASHLEYN Telephone ([facility]) ---- MISHEL ASHBY ([id number]) 1980 F Date Time Provider Department 01/17/25 JALEN MCGEE During your visit today, we recorded the following information about you: Mishel Bolivar LPN 01/17/2025 3:04 PM Signed This nurse called patient and left two voicemails in an effort to obtain correct information to obtain genetic testing records per Dr. Mcgee's request. No return phone call from patient thus far. Mishel Bolivar LPN January 17, 2025 3:04 PM Geovanna Tompkins RN 01/22/2025 9:34 AM Signed Patient returned called and stated that the medical records might be under her maiden name of Kirk and that she was seen at [facility], not the main hospital. Geovanna Tompkins PURCHASING DEPARTMENT CLERK Allergies As of Date: 01/17/2025 Noted Allergy Reaction MORPHINE 01/28/2023 2 - Rash NSAIDS (NON-STEROIDAL ANTI-INFLAM* 023 16 - Unknown PENICILLINS 01/28/2023 8 - GI Upset Date Reviewed: 12/31/2024 Reviewed by: Lorena Lugo MA - Fully Assessed Prescriptions as of 01/22/2025 - cholecalciferol, Vitamin D3, (VITAMIN D3) 1,250 mcg (50,000 unit) cap capsule Take 1 capsule by mouth one time a week. - sertraline (ZOLOFT) 50 mg tablet Take 1 tablet by mouth. - multivit,thx,calciu m,iron,mins (MULTIVITAMIN AND MINERAL ORAL) Take by mouth. - cyanocobalamin (VITAMIN B-12) 100 mcg tab Take 100 mcg by mouth once daily. Problem List As Of Date: 01/17/2025 (None) Encounter Status:Closed by MISHEL BOLIVAR on 01/17/25 [facility] Jian 01-07-2025 [facility] Telephone ([facility]) ---- MISHEL ASHBY ([id number]) 1980 F Date Time Provider Department 01/07/25 JALEN MGCEE [facility] During your visit today, we recorded the following information about you: Izabela Isaac 01/07/2025 4:13 PM Signed Called patient and let her know time and date for her year apt with .at 01/07/26 1:30. Left this on VM. Ask patient to call me back if she has any questions. 01/07/25 tlr Allergies As of Date: 01/07/2025 Noted Allergy Reaction MORPHINE 01/28/2023 2 - Rash NSAIDS (NON-STEROIDAL ANTI-INFLAM* 023 16 - Unknown PENICILLINS 01/28/2023 8 - GI Upset Date Reviewed: 12/31/2024 Reviewed by: Lorena Lugo MA - Fully Assessed Reason for Visit: Release Of Medical Records [2017] Cmt: Sent office notes from 12/31/24 to [facility] , attn: Yogesh Provider: Everardo 01/07/25 QS Appointment [186] Prescriptions as of 01/07/2025 - cholecalciferol, Vitamin D3, (VITAMIN D3) 1,250 mcg (50,000 unit) cap capsule Take 1 capsule by mouth one time a week. - sertraline (ZOLOFT) 50 mg tablet Take 1 tablet by mouth. - multivit,thx,calciu m,iron,mins (MULTIVITAMIN AND MINERAL ORAL) Take by mouth. - cyanocobalamin (VITAMIN B-12) 100 mcg tab Take 100 mcg by mouth once daily. Problem List As Of Date: 01/07/2025 (None) Encounter Status:Closed by IZABELA ISAAC on 01/07/25 [facility] Jian 01-02-2025 [facility] Telephone ([facility]) ---- MISHEL ASHBY ([id number]) 1980 F Date Time Provider Department 01/02/25 ANDRE SAMUEL [facility] During your visit today, we recorded the following information about you: Andre Samuel, RN 01/02/2025 2:43 PM Signed Patient returned my call and I explained to her that we received a referral from Dr Mcgee to have her see a breast surgeon. She would prefer to see dr Mayorga. The patient is going out of town for a while in January so we set her up for 02/07/25 at 10 am. I gave her the instructions on where to go to check in for Dr Mayorga's office. The patient voices understanding. Allergies As of Date: 01/02/2025 Noted Allergy Reaction MORPHINE 01/28/2023 2 - Rash NSAIDS (NON-STEROIDAL ANTI-INFLAM* 023 16 - Unknown PENICILLINS 01/28/2023 8 - GI Upset Date Reviewed: 12/31/2024 Reviewed by: Lorena Lugo MA - Fully Assessed Reason for Visit: Appointment [186] Prescriptions as of 01/02/2025 - cholecalciferol, Vitamin D3, (VITAMIN D3) 1,250 mcg (50,000 unit) cap capsule Take 1 capsule by mouth one time a week. - sertraline (ZOLOFT) 50 mg tablet Take 1 tablet by mouth. - multivit,thx,calciu m,iron,mins (MULTIVITAMIN AND MINERAL ORAL) Take by mouth. - cyanocobalamin (VITAMIN B-12) 100 mcg tab Take 100 mcg by mouth once daily. Problem List As Of Date: 01/02/2025 (None) Encounter Status:Closed by ANDRE SAMUEL on 01/02/25 [facility] 01-01-2025 [facility] Telephone ([facility]) ---- MISHEL ASHBY ([id number]) 1980 F Date Time Provider Department 01/01/25 ANDRE SAMUEL [facility] During your visit today, we recorded the following information about you: Andre Samuel, RN 01/01/2025 11:58 AM Signed Received a consult for patient to be seen by the breast center from Dr Mcgee. I called the patient, no answer. Left her a message with my number and the main breast center number for her to call back to make her an appointment. Allergies As of Date: 01/01/2025 Noted Allergy Reaction MORPHINE 01/28/2023 2 - Rash NSAIDS (NON-STEROIDAL ANTI-INFLAM* 023 16 - Unknown PENICILLINS 01/28/2023 8 - GI Upset Date Reviewed: 12/31/2024 Reviewed by: Lorena Lugo MA - Fully Assessed Reason for Visit: Consult [502] Prescriptions as of 01/01/2025 - cholecalciferol, Vitamin D3, (VITAMIN D3) 1,250 mcg (50,000 unit) cap capsule Take 1 capsule by mouth one time a week. - sertraline (ZOLOFT) 50 mg tablet Take 1 tablet by mouth. - multivit,thx,calciu m,iron,mins (MULTIVITAMIN AND MINERAL ORAL) Take by mouth. - cyanocobalamin (VITAMIN B-12) 100 mcg tab Take 100 mcg by mouth once daily. Problem List As Of Date: 01/01/2025 (None) Encounter Status:Closed by ANDRE SAMUEL on 01/01/25 [facility] CBC W Auto Differential pane l (Bld)on 12-31-2024 Basophils (Bld) [#/Vol] 0 10*3/uL [facility] Basophils/100 WBC (Bld) 0 % [facility] Differential cell count method Nom (Bld) Manual [facility] Eosinophils (Bld) [#/Vol] 0 10*3/uL [facility] Eosinophils/100 WBC (Bld) 0 % [facility] Erythrocyte distribution width (RBC) [Ratio] 13.2 % 11.5 - 15.0 % [facility] Hematocrit (Bld) [Volume fraction] 40.6 % 36.0 - 46.0 % [facility] Hemoglobin (Bld) [Mass/Vol] 13.7 g/dL 11.5 - 15.5 g/dL [facility] Interpretation and review of laboratory results Abnormal [facility] Lymphocytes (Bld) [#/Vol] 1.92 10*3/uL [facility] Lymphocytes/100 WBC (Bld) 49 % [facility] MCH (RBC) [Entitic mass] 33.1 pg 26. 0 - 34.0 pg [facility] MCHC (RBC) [Mass/Vol] 33.7 g/dL 30.5 - 36.0 g/dL [facility] MCV (RBC) [Entitic vol] 98.1 fL 80.0 - 100.0 fL [facility] Monocytes (Bld) [#/Vol] 0.71 10*3/uL NINF [facility] Monocytes/100 WBC (Bld) 18 % [facility] Neutrophils (Bld) [#/Vol] 1.29 10*3/uL Low [facility] Neutrophils/100 WBC (Bld) 33 % [facility] Nucleated RBC (Bld) [#/Vol] NINF [facility] Nucleated RBC/100 WBC (Bld) [Ratio] 0 % /100 WBC [facility] Platelet mean volume (Bld) [Entitic vol] 10.6 fL 9.0 - 12.7 fL [facility] Platelets (Bld) [#/Vol] 140 10*3/uL Low [facility] Platelets Estimate (Bld) [#/Vol] Decreased [facility] RBC (Bld) [#/Vol] 4.14 10*6/uL 3.90 - 5.2 0 m/uL [facility] Red Cell Morph Reviewed: unremarkable [facility] WBC (Bld) [#/Vol] 3.92 10*3/uL [facility] This is an appended report. These results have been appended to a previously verified report. [facility] Basophils (Bld) [#/Vol] 0.00 10*3/uL Normal <0.11 [facility] Comment on above: Order Comment: Speci men Type: URINE SPECIMEN Ordering Facility: [facility] Address: [address] [place] [address] Performed By: #### 2 [id number] #### [facility] [facility] CLIA [id number] [address] [place] [address] STATES OF [facility] Basophils/100 WBC (Bld) 0.0 % Normal [facility] Comment on above: Order Comment: Speci men Type: URINE SPECIMEN Ordering Facility: [facility] Address: [address] [place] [address] Performed By: #### 2 4356-8 #### [facility] CLIA [id number] [address] [place] [address] Differential cell count method Nom (Bld) Manual Normal [facility] Comment on above: Order Comment: Speci men Type: URINE SPECIMEN Ordering Facility: [facility] Address: [address] [place] [address] Performed By: #### 2 4356-8 #### [facility] CLIA [id number] [address] [place] [address] [place] Eosinophils (Bld) [#/Vol] 0.00 10*3/uL Normal <0.46 [facility] Comment on above: Order Comment: Speci men Type: URINE SPECIMEN Ordering Facility: [facility] Address: [address] [place] [address] Performed By: #### 2 4356-8 #### [facility] [place] [id number] [address] [place] [address] Eosinophils/100 WBC (Bld) 0.0 % Normal [facility] Comment on above: Order Comment: Speci men Type: URINE SPECIMEN Ordering Facility: [facility] Address: [address] [place] [address] Performed By: #### 2 4356-8 #### [facility] IA [id number] [address] [place] [address] Erythrocyte distribution width (RBC) [Ratio] 13.2 % Normal 11.5-15.0 [facility] Comment on above: Order Comment: Speci men Type: URINE SPECIMEN Ordering Facility: [facility] Address: [address] [place] [address] Performed By: #### 2 4356-8 #### [facility] CLIA [id number] [address] [place] [address] Hematocrit (Bld) [Volume fraction] 40.6 % Normal 36.0-46.0 [facility] Comment on above: Order Comment: Speci men Type: URINE SPECIMEN Ordering Facility: [facility] Address: [address] [place] [address] Performed By: #### 2 4356-8 #### [facility] CLIA [id number] [address] [place] [address] [place] Hemoglobin (Bld) [Mass/Vol] 13.7 g/dL Normal 11.5-15.5 [facility] Comment on above: Order Comment: Speci men Type: URINE SPECIMEN Ordering Facility: [facility] Address: [address] [place] [address] Performed By: #### 2 4356-8 #### [facility] CLIA [id number] [address] [place] [address] [place] Lymphocytes (Bld) [#/Vol] 1.92 10*3/uL Normal 1.00-4.00 [facility] Comment on above: Order Comment: Speci men Type: URINE SPECIMEN Ordering Facility: [facility] Address: [address] [place] [address] Performed By: #### 2 4356-8 #### [facility] CLIA [id number] [address] [place] [address] [place] Lymphocytes/100 WBC (Bld) 49.0 % Normal [facility] Comment on above: Order Comment: Speci men Type: URINE SPECIMEN Ordering Facility: [facility] Address: [address] [place] [address] Performed By: #### 2 4356-8 #### [facility] CLIA [id number] [address] [place] [address] [place] MCH (RBC) [Entitic mass] 33.1 pg Normal 26.0-34.0 [facility] Comment on above: Order Comment: Speci men Type: URINE SPECIMEN Ordering Facility: [facility] Address: [address] [place] [address] Performed By: #### 2 4356-8 #### [facility] CLIA [id number] [address] [place] [address] [place] MCHC (RBC) [Mass/Vol] 33.7 g/dL Normal 30.5-36.0 [facility] Comment on above: Order Comment: Speci men Type: URINE SPECIMEN Ordering Facility: [facility] Address: [address] [place] [address] Performed By: #### 2 4356-8 #### [facility] CLIA [id number] [address] [place] [address] [place] MCV (RBC) [Entitic vol] 98.1 fL Normal 80.0-100.0 [facility] Comment on above: Order Comment: Speci men Type: URINE SPECIMEN Ordering Facility: [facility] Address: [address] [place] [address] Performed By: #### 2 4356-8 #### [facility] CLIA [id number] [address] [place] [address] [place] Monocytes (Bld) [#/Vol] 0.71 10*3/uL Normal <0.87 [facility] Comment on above: Order Comment: Speci men Type: URINE SPECIMEN Ordering Facility: [facility] Address: [address] [place] [address] Performed By: #### 2 4356-8 #### [facility] CLIA [id number] [address] [place] [address] [place] Monocytes/100 WBC (Bld) 18.0 % Normal [facility] Comment on above: Order Comment: Speci men Type: URINE SPECIMEN Ordering Facility: [facility] Address: [address] [place] [address] Performed By: #### 2 4356-8 #### [facility] CLIA [id number] [address] [place] [address] [place] Neutrophils (Bld) [#/Vol] 1.29 10*3/uL Low 1.45-7.50 [facility] Comment on above: Order Comment: Speci men Type: URINE SPECIMEN Ordering Facility: [facility] Address: [address] [place] [address] Performed By: #### 2 4356-8 #### [facility] CLIA [id number] [address] [place], [place] [address] [place] Neutrophils/100 WBC (Bld) 33.0 % Normal [facility] Comment on above: Order Comment: Speci men Type: URINE SPECIMEN Ordering Facility: [facility] Address: [address] [place] [address] Performed By: #### 2 4356-8 #### [facility] CLIA [id number] [address] [place] [address] [place] Nucleated RBC (Bld) [#/Vol] 10*3/uL Normal <0.01 [facility] Comment on above: Order Comment: Speci men Type: URINE SPECIMEN Ordering Facility: [facility] Address: [address] [place] [address] Performed By: #### 2 4356-8 #### [facility] CLIA [id number] [address] [place] [address] [place] Nucleated RBC/100 WBC (Bld) [Ratio] 0.0 /100 WBC Normal [facility] Comment on above: Order Comment: Speci men Type: URINE SPECIMEN Ordering Facility: [facility] Address: [address] [place] [address] Performed By: #### 2 4356-8 #### [facility] CLIA [id number] [address] [place] [address] [place] Platelet mean volume (Bld) [Entitic vol] 10.6 fL Normal 9.0-12.7 [facility] Comment on above: Order Comment: Speci men Type: URINE SPECIMEN Ordering Facility: [facility] Address: [address] [place] [address] Performed By: #### 2 4356-8 #### [facility] CLIA [id number] [address] [place] [address] [place] Platelets (Bld) [#/Vol] 140 10*3/uL Low 150-400 [facility] Comment on above: Order Comment: Speci men Type: URINE SPECIMEN Ordering Facility: [facility] Address: [address] [place] [address] Performed By: #### 2 4356-8 #### [facility] CLIA [id number] [address] [place] [address] [place] Platelets Estimate (Bld) [#/Vol] Decreased Normal [facility] Comment on above: Order Comment: Speci men Type: URINE SPECIMEN Ordering Facility: [facility] Address: [address] [place] [address] Performed By: #### 2 4356-8 #### [facility] CLIA [id number] [address] [place] [address] [place] RBC (Bld) [#/Vol] 4.14 10*6/uL Normal 3.90-5.20 [facility] Comment on above: Order Comment: Speci men Type: URINE SPECIMEN Ordering Facility: [facility] Address: [address] [place] [address] Performed By: #### 2 4356-8 #### [facility] CLIA [id number] [address] [place] [address] RED CELL MORPH Reviewed: unremarkable Normal [facility] Comment on above: Order Comment: Speci men Type: URINE SPECIMEN Ordering Facility: [facility] Address: [address] [place] [address] Performed By: #### 2 4356-8 #### [facility] CLIA [id number] [address] [place] [address] WBC (Bld) [#/Vol] 3.92 10*3/uL Normal 3.70-11.00 [facility] Comment on above: Order Comment: Speci men Type: URINE SPECIMEN Ordering Facility: [facility] Address: [address] [place] [address] Performed By: #### 2 4356-8 #### [facility] CLIA [id number] [address] [place] [address] CNOVSPon 12-31-2024 CNOVSP Visit (SP) Office ([facility]) ---- MISHEL ASHBY ([id number]) 1980 F Date Time Provider Department 12/31/24 2:00 PM JALEN MCGEE [facility] During your visit today, we recorded the following information about you: Temperature Pulse Respiration Blood pressure 98.7 degrees 66/minute 16/minute 90/55 Weight 52.6 kg Jalen Mcgee MD 01/01/2025 11:28 AM Signed CHIEF COMPLAINT Mishel Ashby is a 44 yo WF patient of Dr. Juan Thornton ([employer]), referred for evaluation of her CDH-1 mutation. HPI Initially, her sister was diagnosed with breast cancer (type unknown), and was found to have a CDH-1 pathogenic mutation. 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 Thereafter, she had a prophylactic laparoscopic total gastrectomy with jejunal pouch and Fili-en-Y anastomosis by Dr. Bennett at [facility] on 09/13/2018. Her course was complicated by a subsequent wound infection. At that time, CT abdomen/pelvis reportedly revealed a fluid collection deep to the surgical staple line. She was admitted to [facility] 09/23/2018. Following her surgery, she lost ~100 pounds over the next year. She and her moved here to [place] from [place] in ~ 2020. Since then, she had bilateral mammography 05/25/2023 on 10/25/2024. She had MRI breasts 08/03/2021. She has had no breast biopsies and no breast surgery. She developed a cough with URI symptoms treated with antibiotics for ~1 week. Eventually, she developed LUQ abdominal/left flank pain for which she presented to the ER on 11/12/2024. At that time, she reported mild nausea and some loose stools. She denied vomiting, constipation or diarrhea. No rectal bleeding. No fevers, chills, chest pain, SOB or urinary symptoms. She reported that her stools were becoming more thin in caliber. CT abdomen/pelvis 11/12/2024 revealed postsurgical changes of previous gastric bypass surgery. No dilated bowel segments. No abdominal or pelvic BRENDAN. GB phrygian cap noted. Unremarkable appendix. Small follicles demonstrated within both ovaries. The uterus was absent. She had microscopic hematuria which was reportedly chronic. No pyuria, leukocyte Estrace and nitrite were negative, and no active urinary symptoms. She was constipated. CT was reviewed by the ER physician who noted a fair amount of stool and gas may have been causing some of her symptoms. She was instructed to take Colace or MiraLAX. She was referred to GI and oncology for follow-up. Her abdominal symptoms have since subsided. No hx of cleft lip/palate in patient or family. She had 1 , with C-sec delivery at age 20. She did not breast feed. No hx of breast biopsies or breast surgery. She is now having hot flashes nightly. PAST MEDICAL HISTORY Diagnosis Date CDH1-related breast cancer (HCC) (HCC) Depression Chronic anxiety Acute pancreatitis PAST SURGICAL HISTORY Procedure Laterality Date GASTRECTOMY TOTAL W REPR INT TIFFANY 2018 Hysterectomy 2020 for DUB, no malignancy. C-sec 1999. Current Outpatient Medications Medication Instructions cyanocobalamin (VITAMIN B-12) 100 mcg, ORAL, DAILY multivit,thx,calciu m,iron,mins (MULTIVITAMIN AND MINERAL ORAL) ORAL sertraline (ZOLOFT) 50 mg tablet 1 tablet, ORAL ALLERGIES Allergen Reactions Morphine Rash Nsaids (Non-Steroid* Unknown Penicillins GI Upset Social History Tobacco Use Smoking status: Every Day Current packs/day: 1.00 Types: Cigarettes Smokeless tobacco: Never Vaping Use Vaping status: Never Used Substance Use Topics Alcohol use: Yes Comment: Occ Drug use: Not Currently Smoker 1 pk/day ages [age]. 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 FH Sister with CDH 1 mutation and breast ca. Sister with difficult postoperative course following breast surgery. Paternal aunt with CDH 1 mutation and breast ca Father CDH 1 untested and prostate ca Paternal cousin CDH 1 mutation and had prophylactic gastrectomy Daughter CDH 1 mutation Granddaughter CDH 1 mutation Maternal uncle with esophageal cancer [employer] Mammography 10/25/24, [facility], benign ROS Constitutional: Positive for chills and fatigue. Negative for fever. HENT: Negative for congestion, ear pain, hearing loss, mouth sores, sinus pressure, sinus pain, sore throat, tinnitus and trouble swallowing. Respiratory: Positive for cough. Negative for choking, chest tightness, shortness of breath and wheezing. Cardiovascular: Negative for chest pain and palpitations. Gastrointestinal: Positive for abdominal pain. Negative for constipation, diarrhea, nausea and vomiting. Endocrine: Negative for cold intolerance and heat intolerance. Genitourinary: Negative for difficulty ur (more content not included)... [facility] CNPNon 12-24-2024 [facility] Telephone ([facility]) ---- MISHEL ASHBY ([id number]) 1980 F Date Time Provider Department 12/24/24 JALEN MCGEE [facility] During your visit today, we recorded the following information about you: Mary Arreola MA 12/24/2024 11:43 AM Signed Called and left message for patient to review retrieving records for hx of CDH1 gene. Mary Arreola MA December 24, 2024 11:43 AM Allergies As of Date: 12/24/2024 Noted Allergy Reaction MORPHINE 01/28/2023 2 - Rash NSAIDS (NON-STEROIDAL ANTI-INFLAM* 023 16 - Unknown PENICILLINS 01/28/2023 8 - GI Upset Date Reviewed: 11/12/2024 Reviewed by: Shay Lacey, KYLE - Fully Assessed Reason for Visit: Appointment [186] Prescriptions as of 12/24/2024 - sertraline (ZOLOFT) 50 mg tablet Take 1 tablet by mouth. - multivit,thx,calciu m,iron,mins (MULTIVITAMIN AND MINERAL ORAL) Take by mouth. - cyanocobalamin (VITAMIN B-12) 100 mcg tab Take 100 mcg by mouth once daily. Problem List As Of Date: 12/24/2024 (None) Encounter Status:Closed by MARY ARREOLA on 12/24/24 Normal [facility] CBC W Auto Differential pane l (Bld)on 11-12-2024 Basophils (Bld) [#/Vol] 0.04 10*3/uL Normal <0.11 [facility] Comment on above: Order Comment: Speci men Type: BLOOD SPECIMEN Ordering Facility: [facility] Address: [address] [place] [address] Performed By: #### 5 7021-8 #### [facility] CLIA [id number] [address] [place] [address] [place] Basophils/100 WBC (Bld) 0.5 % Normal [facility] Comment on above: Order Comment: Speci men Type: BLOOD SPECIMEN Ordering Facility: [facility] Address: [address] [place] [address] Performed By: #### 5 7021-8 #### [facility] CLIA [id number] [address] [place] [address] [place] Differential cell count method Nom (Bld) Auto Normal [facility] Comment on above: Order Comment: Speci men Type: BLOOD SPECIMEN Ordering Facility: [facility] Address: [address] [place] [address] Performed By: #### 5 7021-8 #### [facility] CLIA [id number] [address] [place] [address] [place] Eosinophils (Bld) [#/Vol] 0.08 10*3/uL Normal <0.46 [facility] Comment on above: Order Comment: Speci men Type: BLOOD SPECIMEN Ordering Facility: [facility] Address: [address] [place] [address] Performed By: #### 5 7021-8 #### [facility] CLIA [id number] [address] [place] [address] [place] Eosinophils/100 WBC (Bld) 1.0 % Normal [facility] Comment on above: Order Comment: Speci men Type: BLOOD SPECIMEN Ordering Facility: [facility] Address: [address] [place] [address] Performed By: #### 5 7021-8 #### [facility] CLIA [id number] [address] [place] [address] [place] Erythrocyte distribution width (RBC) [Ratio] 13.0 % Normal 11.5-15.0 [facility] Comment on above: Order Comment: Speci men Type: BLOOD SPECIMEN Ordering Facility: [facility] Address: [address] [place] [address] Performed By: #### 5 7021-8 #### [facility] CLIA [id number] [address] [place] [address] [place] Hematocrit (Bld) [Volume fraction] 47.8 % High 36.0-46.0 [facility] Comment on above: Order Comment: Speci men Type: BLOOD SPECIMEN Ordering Facility: [facility] Address: [address] [place] [address] Performed By: #### 5 7021-8 #### [facility] CLIA [id number] [address] [place] [address] [place] Hemoglobin (Bld) [Mass/Vol] 16.0 g/dL High 11.5-15.5 [facility] Comment on above: Order Comment: Speci men Type: BLOOD SPECIMEN Ordering Facility: [facility] Address: [address] [place] [address] Performed By: #### 5 7021-8 #### [facility] CLIA [id number] [address] [place] [address] [place] Immature granulocytes (Bld) [#/Vol] 0.04 10*3/uL Normal <0.10 [facility] Comment on above: Order Comment: Speci men Type: BLOOD SPECIMEN Ordering Facility: [facility] Address: [facility] [place] [address] Performed By: #### 5 7021-8 #### [facility] CLIA [id number] [address] [place] [address] [place] Immature granulocytes/100 WBC (Bld) 0.5 % Normal [facility] Comment on above: Order Comment: Speci men Type: BLOOD SPECIMEN Ordering Facility: [facility] Address: [address] [place] [address] Performed By: #### 5 7021-8 #### [facility] CLIA [id number] [address] [place] [address] [place] Lymphocytes (Bld) [#/Vol] 2.40 10*3/uL Normal 1.00-4.00 [facility] Comment on above: Order Comment: Speci men Type: BLOOD SPECIMEN Ordering Facility: [facility] Address: [address] [place] [address] Performed By: #### 5 7021-8 #### [facility] CLIA [id number] [address] [place] [address] [place] Lymphocytes/100 WBC (Bld) 30.1 % Normal [facility] Comment on above: Order Comment: Speci men Type: BLOOD SPECIMEN Ordering Facility: [facility] Address: [address] [place] [address] Performed By: #### 5 7021-8 #### [facility] CLIA [id number] [address] [place] [address] [place] MCH (RBC) [Entitic mass] 33.0 pg Normal 26.0-34.0 [facility] Comment on above: Order Comment: Speci men Type: BLOOD SPECIMEN Ordering Facility: [facility] Address: [address] [place] [address] Performed By: #### 5 7021-8 #### [facility] CLIA [id number] [address] [place] [address] [place] MCHC (RBC) [Mass/Vol] 33.5 g/dL Normal 30.5-36.0 [facility] Comment on above: Order Comment: Speci men Type: BLOOD SPECIMEN Ordering Facility: [facility] Address: [address] [place] [address] Performed By: #### 5 7021-8 #### [facility] CLIA [id number] [address] [place] [address] [place] MCV (RBC) [Entitic vol] 98.6 fL Normal 80.0-100.0 [facility] Comment on above: Order Comment: Speci men Type: BLOOD SPECIMEN Ordering Facility: [facility] Address: [address] [place] [address] Performed By: #### 5 7021-8 #### [facility] CLIA [id number] [address] [place] [address] [place] Monocytes (Bld) [#/Vol] 0.88 10*3/uL High <0.87 [facility] Comment on above: Order Comment: Speci men Type: BLOOD SPECIMEN Ordering Facility: [facility] Address: [address] [place] [address] Performed By: #### 5 7021-8 #### [facility] CLIA [id number] [address] [place] [address] [place] Monocytes/100 WBC (Bld) 11.0 % Normal [facility] Comment on above: Order Comment: Speci men Type: BLOOD SPECIMEN Ordering Facility: [facility] Address: [address] [place] [address] Performed By: #### 5 7021-8 #### [facility] CLIA [id number] [address] [place] [address] [place] Neutrophils (Bld) [#/Vol] 4.54 10*3/uL Normal 1.45-7.50 [facility] Comment on above: Order Comment: Speci men Type: BLOOD SPECIMEN Ordering Facility: [facility] Address: [address] [place] [address] Performed By: #### 5 7021-8 #### [facility] CLIA [id number] [address] [place] [address] [place] Neutrophils/100 WBC (Bld) 56.9 % Normal [facility] Comment on above: Order Comment: Speci men Type: BLOOD SPECIMEN Ordering Facility: [facility] Address: [address] [place] [address] Performed By: #### 5 7021-8 #### [facility] CLIA [id number] [address] [place] [address] [place] Nucleated RBC (Bld) [#/Vol] 10*3/uL Normal <0.01 [facility] Comment on above: Order Comment: Speci men Type: BLOOD SPECIMEN Ordering Facility: [facility] Address: [address] [place] [address] Performed By: #### 5 7021-8 #### [facility] CLIA [id number] [address] [place] [address] [place] Nucleated RBC/100 WBC (Bld) [Ratio] 0.0 /100 WBC Normal [facility] Comment on above: Order Comment: Speci men Type: BLOOD SPECIMEN Ordering Facility: [facility] Address: [address] [place] [address] Performed By: #### 5 7021-8 #### [facility] CLIA [id number] [address] [place] [address] [place] Platelet mean volume (Bld) [Entitic vol] 10.4 fL Normal 9.0-12.7 [facility] Comment on above: Order Comment: Speci men Type: BLOOD SPECIMEN Ordering Facility: [facility] Address: [address] [place] [address] Performed By: #### 5 7021-8 #### [facility] CLIA [id number] [address] [place] [address] [place] Platelets (Bld) [#/Vol] 245 10*3/uL Normal 150-400 [facility] Comment on above: Order Comment: Speci men Type: BLOOD SPECIMEN Ordering Facility: [facility] Address: [address] [place] [address] Performed By: #### 5 7021-8 #### [facility] CLIA [id number] [address] [place], [place] [address] [place] RBC (Bld) [#/Vol] 4.85 10*6/uL Normal 3.90-5.20 [facility] Comment on above: Order Comment: Speci men Type: BLOOD SPECIMEN Ordering Facility: [facility] Address: [address] [facility] [place] [place] [address] Performed By: #### 5 7021-8 #### [facility] CLIA [id number] [address] [place] [address] [place] WBC (Bld) [#/Vol] 7.98 10*3/uL Normal 3.70-11.00 [facility] Comment on above: Order Comment: Speci men Type: BLOOD SPECIMEN Ordering Facility: [facility] Address: [address] [facility] [place] [address] Performed By: #### 5 7021-8 #### [facility] CLIA [id number] [address] [place], [place] [address] [facility] [place] CT ABD/PEL W IVCONon 025 CT ABD/PEL W IVCON * * *Final Report* * * DATE OF EXAM: Nov 12 2024 12:26PM [facility] 0530 - CT ABD/PEL W IVCON / PROCEDURE REASON: LLQ abdominal pain * * * * Physician Interpretation * * * * EXAMINATION: CT ABDOMEN AND PELVIS WITH IV CONTRAST CLINICAL HISTORY: Left lower quadrant abdominal pain. TECHNIQUE: CT of the abdomen and pelvis was performed using standard technique, scanning from just above the dome of the diaphragm to the symphysis pubis. MQ: CTAP_3 Contrast: IV: 100 ml of Omnipaque 350 CT Radiation dose: Integrated Dose-length product (DLP) for this visit = 247.23 mGy*cm. CT Dose Reduction Employed: Automated exposure control(AEC) and iterative recon COMPARISON: None. RESULT: Liver: Focal diminished attenuation of the falciform ligament likely due to fatty infiltration. No mass. Biliary: No bile duct dilation. Gallbladder phrygian cap noted. Spleen: No mass. No splenomegaly. Pancreas: No mass or duct dilation. Adrenals: No mass. Kidneys: No mass, calculus or hydronephrosis. GI tract: There are postsurgical changes of previous gastric bypass surgery. There are no dilated bowel segments. Unremarkable appendix. Lymph nodes: No abdominal or pelvic lymphadenopathy. Mesentery/Peritoneu m: No ascites or mass. Retroperitoneum: No mass. Vasculature: - Abdominal aorta and iliac arteries: Atherosclerotic calcifications without aneurysm. - Celiac and SMA: Patent. - Portal venous system (SMV, splenic vein, portal vein and branches): Patent. - Hepatic veins: Patent. Pelvis: No mass, ascites or fluid collection. Small follicles are demonstrated within both ovaries. The uterus is absent. The urinary bladder is partially decompressed, otherwise unremarkable. Trace pelvic free fluid is probably physiologic. No pelvic mass. Bones/Soft Tissues: Mild degenerative changes present at the hips. Minor endplate spurring in the visualized lower thoracic spine. No acute abnormality. Lower thorax: Minimal linear scarring or atelectasis posteriorly at the lung bases. Localizer images: No additional findings. IMPRESSION: No acute process within the abdomen and pelvis. Senior Product Development Scientist: PSCB Transcribe Date/Time: Nov 12 2024 12:33P Dictated by : DAMIAN GARCIA MD This examination was interpreted and the report reviewed and electronically signed by: DAMIAN GARCIA MD on Nov 12 2024 12:41PM EST [id number] Normal [facility] Comprehensive metabolic 2000 panelon 11-12-2024 Albumin [Mass/Vol] 4.6 g/dL Normal 3.2-5.0 [facility] Comment on above: Order Comment: Speci men Type: BLOOD SPECIMEN Ordering Facility: [facility] Address: [address] [id number] Performed By: #### 5 7021-8 #### [facility] CLIA [id number] [address] [place] [address] [place] ALP [Catalytic activity/Vol] 82 U/L Normal 45-117 [facility] Comment on above: Order Comment: Speci men Type: BLOOD SPECIMEN Ordering Facility: [facility] Address: [address] [id number] Performed By: #### 5 7021-8 #### [facility] CLIA [id number] [address] [place] [address] [place] ALT [Catalytic activity/Vol] 14 U/L Normal 13-61 [facility] Comment on above: Order Comment: Speci men Type: BLOOD SPECIMEN Ordering Facility: [facility] Address: [address] [place] [address] Result Comment: Resu lts may be falsely depressed after the administration of Sulfasalazine and/or Sulfapyridine. Performed By: #### 5 7021-8 #### [facility] CLIA [id number] [address] [place] [address] [place] Anion gap [Moles/Vol] 6 mmol/L Normal 5-16 [facility] Comment on above: Order Comment: Speci men Type: BLOOD SPECIMEN Ordering Facility: [facility] Address: [address] [place] [address] Performed By: #### 5 7021-8 #### [facility] CLIA [id number] [address] [place] [address] [place] AST [Catalytic activity/Vol] 17 U/L Normal 8-34 [facility] Comment on above: Order Comment: Speci men Type: BLOOD SPECIMEN Ordering Facility: [facility] Address: [address] [place] [address] Result Comment: Resu lts may be falsely depressed after the administration of Sulfasalazine and/or Sulfapyridine. Performed By: #### 5 7021-8 #### [facility] CLIA [id number] [address] [place] [address] [place] Bilirubin [Mass/Vol] 0.9 mg/dL Normal 0.2-1.0 [facility] Comment on above: Order Comment: Speci men Type: BLOOD SPECIMEN Ordering Facility: [facility] Address: [address] [place] [address] Performed By: #### 5 7021-8 #### [facility] CLIA [id number] [address] [place] [address] [place] Calcium [Mass/Vol] 10.4 mg/dL Normal 8.5-10.5 [facility] Comment on above: Order Comment: Speci men Type: BLOOD SPECIMEN Ordering Facility: [facility] Address: [address] [place] [address] Performed By: #### 5 7021-8 #### [facility] CLIA [id number] [address] [place] [address] [place] Chloride [Moles/Vol] 106 mmol/L Normal 98-107 [facility] Comment on above: Order Comment: Speci xu Type: BLOOD SPECIMEN Ordering Facility: [facility] Address: [address] [place] [address] Performed By: #### 5 7021-8 #### [facility] CLIA [id number] [address] [place] [address] [place] CO2 [Moles/Vol] 29 mmol/L Normal 21-32 [facility] Comment on above: Order Comment: Speci men Type: BLOOD SPECIMEN Ordering Facility: [facility] Address: [address] [place] [address] Performed By: #### 5 7021-8 #### [facility] CLIA [id number] [address] [place] [address] [place] Creatinine [Mass/Vol] 0.53 mg/dL Normal 0.51-0.95 [facility] Comment on above: Order Comment: Speci men Type: BLOOD SPECIMEN Ordering Facility: [facility] Address: [address] [place] [address] Result Comment: Kathrine ents receiving either N-Acetylcysteine (NAC) or Metamizole prior to venipuncture, may have falsely depressed results. Performed By: #### 5 7021-8 #### [facility] CLIA [id number] [address] [place] [address] [place] Creatinine and Glomerular filtration rate.predicted panel (S/P/Bld) 117 mL/min/1.73m??? Normal >=60 [facility] Comment on above: Order Comment: Speci men Type: BLOOD SPECIMEN Ordering Facility: [facility] Address: [address] [place] [address] Result Comment: Arianna mated Glomerular Filtration Rate (eGFR) is calculated using the 2020 CKD-EPI creatinine equation. This equation utilizes serum creatinine, sex, and age as parameters. The creatinine assay has traceable calibration to isotope dilution-mass spectrometry. Refer to KDIGO guidelines for clinical interpretation. In patients with unstable renal function, e.g. those with acute kidney injury, the eGFR may not accurately reflect actual GFR. Performed By: #### 5 7021-8 #### [facility] CLIA [id number] [address] [place], [place] [address] [place] Glucose [Mass/Vol] 81 mg/dL Normal 70-100 [facility] Comment on above: Order Comment: Mercedes mcnair Type: BLOOD SPECIMEN Ordering Facility: [facility] Address: [address] [place] [address] Result Comment: The [place] Diabetes Association (ADA) provides guidance for cutoff values for fasting glucose and random glucose. The ADA defines fasting as no caloric intake for at least 8 hours. Fasting plasma glucose results between 100 to 125 mg/dL indicate increased risk for diabetes (prediabetes). Fasting plasma glucose results greater than or equal to 126 mg/dL meet the criteria for diagnosis of diabetes. In the absence of unequivocal hyperglycemia, results should be confirmed by repeat testing. In a patient with classic symptoms of hyperglycemia or hyperglycemic crisis, random plasma glucose results greater than or equal to 200 mg/dL meet the criteria for diagnosis of diabetes. Reference: Standards of Medical Care in Diabetes 2016, [place] Diabetes Association. Diabetes Care. 2016.39(Suppl 1). Results may be falsely elevated after the administration of Sulfapyridine. Results may be falsely depressed after the administration of Sulfasalazine. Performed By: #### 5 7021-8 #### [facility] CLIA [id number] [address] [place] [address] [place] Potassium [Moles/Vol] 4.2 mmol/L Normal 3.5-5.1 [facility] Comment on above: Order Comment: Mercedes mcnair Type: BLOOD SPECIMEN Ordering Facility: [facility] Address: [address] [place] [address] Performed By: #### 5 7021-8 #### [facility] CLIA [id number] [address] [place], [place] [address] [place] Protein [Mass/Vol] 8.0 g/dL Normal 6.0-8.5 [facility] Comment on above: Order Comment: Speci men Type: BLOOD SPECIMEN Ordering Facility: [facility] Address: [address] [id number] Performed By: #### 5 7021-8 #### [facility] CLIA [id number] [address] [place], [place] [address] [place] [facility] Sodium [Moles/Vol] 141 mmol/L Normal 136-145 [facility] Comment on above: Order Comment: Speci men Type: BLOOD SPECIMEN Ordering Facility: [facility] Address: [address] [place] [address] Performed By: #### 5 7021-8 #### [facility] CLIA [id number] [address] [place], [place] [address] [place] Urea nitrogen [Mass/Vol] 13 mg/dL Normal 7-26 [facility] Comment on above: Order Comment: Speci men Type: BLOOD SPECIMEN Ordering Facility: [facility] Address: [address] [place] [address] Performed By: #### 5 7021-8 #### [facility] CLIA [id number] [address] [place], [place] [address] [place] ED NOTEon 11-12-2024 ED NOTE HNO ID: [id number] Author: ADRIANA HARPER RN Service: ? Author Type: Registered Nurse Type: ED Notes Filed: 11/12/2024 16:08 Note Text: Pt stated she felt her blood sugar was dropping. Provided pt with apple juice and aron crackers. She stated she has not eaten today so that is probably why. She stated this happens on occasion and she keeps tablet with her but she didn't have them with her today. [facility] ED NOTE HNO ID: [id number] Author: ADRIANA HARPER RN Service: ? Author Type: Registered Nurse Type: ED Notes Filed: 11/12/2024 15:14 Note Text: Pt c/o of left side abd pain and left flank pain. [facility] ED PROV NOTEon 11-12-2024 ED PROV NOTE HNO ID: [id number] Author: CATHIE LEBLANC, Service: ? Author Type: Physician Type: ED Provider Notes Filed: 11/12/2024 15:49 Note Text: ED Provider Note Patient Name: Mishel Ashby : 1980 SERVICE DATE: 11/12/24 History Patient presents with: Abdominal Pain: Pt c/o abd pain that began one week ago Patient is a 44-year-old female presenting to the emergency department secondary to left flank pain. Patient states for the past 1 week she has been feeling some scattered areas of discomfort throughout the abdomen, mostly pain in the left flank. She had some mild nausea at times but no vomiting. She has had some loose stool but no diarrhea or constipation. No black/tarry or bright red bloody stools. She has not had any fevers or chills, no chest pain or shortness of breath, no urinary symptoms. Patient states her stools have been more thin in caliber over this past week which is abnormal for her. She does have a history of previous gastric cancer with gastrectomy. All previous medical care was in [place], she has not reestablished with oncology or gastroenterology since moving to [place] about 4 years ago. History provided by: Significant other and patient PAST MEDICAL HISTORY Diagnosis Date CDH1-related breast cancer (HCC) (HCC) PAST SURGICAL HISTORY Procedure Laterality Date GASTRECTOMY TOTAL W REPR INT TIFFANY 2018 No family history on file. Social History Tobacco Use Smoking status: Every Day Current packs/day: 1.00 Types: Cigarettes Smokeless tobacco: Never Vaping Use Vaping status: Never Used Substance and Sexual Activity Alcohol use: Yes Comment: Occ Drug use: Not Currently Sexual activity: Not on file ALLERGIES Allergen Reactions Morphine Rash Nsaids (Non-Steroid* Unknown Penicillins GI Upset Review of Systems All other systems reviewed and are negative. Physical Exam Vitals [11/12/24 0940] BP Pulse Temp Temp src Resp SpO2 Weight Height 108/65 73 37 ?C (98.6 ?F) Oral 18 98 % 54.4 kg (120 lb) 1.524 m (5') Physical Exam Vitals and nursing note reviewed. Constitutional: General: She is not in acute distress. Appearance: She is not ill-appearing. HENT: Mouth/Throat: Mouth: Mucous membranes are moist. Pharynx: Oropharynx is clear. Eyes: Pupils: Pupils are equal, round, and reactive to light. Cardiovascular: Rate and Rhythm: Normal rate and regular rhythm. Pulses: Normal pulses. Heart sounds: Normal heart sounds. No murmur heard. Pulmonary: Effort: Pulmonary effort is normal. No respiratory distress. Breath sounds: Normal breath sounds. Abdominal: General: Abdomen is flat. There is no distension. Palpations: Abdomen is soft. Tenderness: There is no abdominal tenderness. There is no right CVA tenderness, left CVA tenderness or guarding. Comments: Hyperactive bowel sounds Musculoskeletal: Right lower leg: No edema. Left lower leg: No edema. Skin: General: Skin is warm and dry. Capillary Refill: Capillary refill takes less than 2 seconds. Findings: No rash. Neurological: Mental Status: She is alert. Diagnostic Testing ED Labs Ordered and Reviewed COMPLETE BLOOD COUNT AND DIFFERENTIAL - Abnormal; Notable for the following components: Result Value Ref Range Hemoglobin 16.0 (*) 11.5 - 15.5 g/dL Hematocrit 47.8 (*) 36.0 - 46.0 % Abs Pacific 0.88 (*) <0.87 k/uL All other components within normal limits URINALYSIS WITH MICROSCOPIC, REFLEX CULTURE - Abnormal; Notable for the following components: Hemoglobin/Blood,Ur 1+ (*) Negative RBC, Urine 6-10 /HPF (*) 0-3 /HPF Bacteria Rare (*) None Seen /HPF All other components within normal limits COMPREHENSIVE METABOLIC PANEL - Normal MAGNESIUM - Normal LIPASE - Normal Procedures ED Course / Clinical Impression Clinical Impressions as of 11/12/24 1548 Abdominal pain of unknown etiology Asymptomatic microscopic hematuria History of gastric cancer Change in stool caliber MDM / Disposition / Plan Patient is a 44-year-old female presenting to the emergency department secondary to left flank pain. Patient states for the past 1 week she has been feeling some scattered areas of discomfort throughout the abdomen, mostly pain in the left flank. She had some mild nausea at times but no vomiting. She has had some loose stool but no diarrhea or constipation. No black/tarry or bright red bloody stools. She has not had any fevers or chills, no chest pain or shortness of breath, no urinary symptoms. Patient states her stools have been more thin in caliber over this past week which is abnormal for her. She does have a history of previous gastric cancer with gastrectomy. All previous medical care was in [place], she has not reestablished with oncology or gastroenterology since moving to [place] about 4 years ago. Here in the emergency department, laboratory studies, urinalysis and imaging obtained as noted. Patient noted to have cal (more content not included)... Normal [facility] ED Triage Noteon 11-12-2024 ED Triage Note HNO ID: [id number] Author: IVÁN BORJAS PA-C Service: ? Author Type: Physician Real Estate Instructor Type: ED Triage Notes Filed: 11/12/2024 09:44 Note Text: ED TRIAGE PROVIDER NOTE Patient Name: Mishel Ashby Service Date: 11/12/24 BRIEF HPI: This is a 44 year old female who presents to the ED with: Left-sided abdominal pain, has been going on now for the past week. No nausea no vomiting that she is no some change in her bowel habits. No history of a thing like this in the past. BRIEF EXAM: Tenderness to percussed bilateral flanks reproducing the pain anteriorly, tenderness to palpate left side of the abdomen. Vital signs are stable INITIAL WORKUP AND DECISION MAKING: Orders Placed This Encounter CT ABD/PEL W IVCON COMPREHENSIVE METABOLIC PANEL (BMP+LFT) MAGNESIUM BLOOD LIPASE BLOOD CBC + AUTO DIFF Urinalysis w Microscopic, reflex Culture iv contrast (radiology procedure) SIGNATURE: Iván Borjas PA-C Normal [facility] Lipase SerPl-cCncon 11-12-19 25 Lipase [Catalytic activity/Vol] 38 U/L Normal 12-60 [facility] Comment on above: Order Comment: Speci men Type: BLOOD SPECIMEN Ordering Facility: [facility] Address: [address] [place] [address] Performed By: #### 5 7021-8 #### [facility] CLIA [id number] [address] [place] [address] [place] Magnesium SerPl-mCncon 11-12 Magnesium [Mass/Vol] 2.2 mg/dL Normal 1.6-2.6 [facility] Comment on above: Order Comment: Speci men Type: BLOOD SPECIMEN Ordering Facility: [facility] Address: [address] [place] [address] Performed By: #### 5 7021-8 #### [facility] CLIA [id number] [address] [place] [address] [place] Urinalysis complete panel (U )on 11-12-2024 Bacteria LM.HPF (Urine sed) [#/Area] Rare Abnormal None Seen [facility] Comment on above: Order Comment: Speci men Type: BLOOD SPECIMEN Ordering Facility: [facility] Address: [address] [place] [address] Performed By: #### 5 7021-8 #### [facility] CLIA [id number] [address] [place] [address] [place] Bilirubin Ql (U) Negative Normal Negative [facility] Comment on above: Order Comment: Speci men Type: BLOOD SPECIMEN Ordering Facility: [facility] Address: [address] [place] [address] Performed By: #### 5 7021-8 #### [facility] CLIA [id number] [address] [place] [address] [place] Clarity (Unsp spec) Clear Normal Clear [facility] Comment on above: Order Comment: Speci men Type: BLOOD SPECIMEN Ordering Facility: [facility] Address: [address] [place] [address] Performed By: #### 5 7021-8 #### [facility] CLIA [id number] [address] [place] [address] OF [facility] Color (U) Yellow Normal Yellow [facility] Comment on above: Order Comment: Speci men Type: BLOOD SPECIMEN Ordering Facility: [facility] Address: [address] [place] [address] Performed By: #### 5 7021-8 #### [facility] CLIA [id number] [address] [place] [address] [place] Epithelial cells LM.HPF (Urine sed) [#/Area] Few Normal [facility] Comment on above: Order Comment: Speci men Type: BLOOD SPECIMEN Ordering Facility: [facility] Address: [address] [place] [address] Performed By: #### 5 7021-8 #### [facility] CLIA [id number] [address] [id number] [facility] Glucose Test strip (U) [Mass/Vol] Negative Normal Negative [facility] Comment on above: Order Comment: Speci men Type: BLOOD SPECIMEN Ordering Facility: [facility] Address: [address] [id number] Performed By: #### 5 7021-8 #### [facility] CLIA [id number] [address] [id number] [facility] [place] Hemoglobin Ql (U) 1+ Abnormal Negative [facility] Comment on above: Order Comment: Speci men Type: BLOOD SPECIMEN Ordering Facility: [facility] Address: [address] [place] [address] Performed By: #### 5 7021-8 #### [facility] CLIA [id number] [address] [place] [address] [place] Ketones Ql (U) Negative Normal Negative [facility] Comment on above: Order Comment: Speci men Type: BLOOD SPECIMEN Ordering Facility: [facility] Address: [address] [place] [address] Performed By: #### 5 7021-8 #### [facility] CLIA [id number] [address] [place] [address] Leukocyte esterase Test strip Ql (U) Negative Normal Negative [facility] Comment on above: Order Comment: Speci men Type: BLOOD SPECIMEN Ordering Facility: [facility] Address: [address] [place] [address] Performed By: #### 5 7021-8 #### [facility] CLIA [id number] [address] [place], [place] [id number] [place] Nitrite Ql (U) Negative Normal Negative [facility] Comment on above: Order Comment: Speci men Type: BLOOD SPECIMEN Ordering Facility: [facility] Address: [address] [place] [address] Performed By: #### 5 7021-8 #### [facility] CLIA [id number] [address] [place] [address] [place] pH (U) 8.0 [pH] Normal 5.0-8.0 [facility] Comment on above: Order Comment: Speci men Type: BLOOD SPECIMEN Ordering Facility: [facility] Address: [address] [place] [address] Performed By: #### 5 7021-8 #### [facility] CLIA [id number] [address] [place] [address] [place] Protein (U) [Mass/Vol] Negative Normal Negative [facility] Comment on above: Order Comment: Speci men Type: BLOOD SPECIMEN Ordering Facility: [facility] Address: [address] [place] [address] Performed By: #### 5 7021-8 #### [facility] LABORATORY CLIA [id number] [address] [place] [address] [place] RBC LM.HPF (Urine sed) [#/Area] 6-10 /HPF Abnormal 0-3 /HPF [facility] Comment on above: Order Comment: Speci men Type: BLOOD SPECIMEN Ordering Facility: [facility] Address: [address] [place] [address] Performed By: #### 5 7021-8 #### [facility] CLIA [id number] [address] [place] [address] [place] Specific gravity (U) [Rel density] 1.009 Normal 1.005-1.030 [facility] Comment on above: Order Comment: Speci men Type: BLOOD SPECIMEN Ordering Facility: [facility] Address: [address] [place] [address] Performed By: #### 5 7021-8 #### [facility] CLIA [id number] [address] [place] [address] [place] Urobilinogen Ql (U) Negative Normal Negative [facility] Comment on above: Order Comment: Speci men Type: BLOOD SPECIMEN Ordering Facility: [facility] Address: [address] [place] [address] Performed By: #### 5 7021-8 #### [facility] CLIA [id number] [address] [place] [address] [place] WBC LM.HPF (Urine sed) [#/Area] 0-5 /HPF Normal 0-5 /HPF [facility] Comment on above: Order Comment: Speci men Type: BLOOD SPECIMEN Ordering Facility: [facility] Address: [address] [place] [address] Performed By: #### 5 7021-8 #### [facility] CLIA [id number] [address] [place] [id number] [facility] ANDREAS SCREENINGon 10-25-2024 ANDREAS SCREENING * * *Final Report* * * DATE OF EXAM: Oct 25 2024 10:29AM W 0581 - [facility] SCREENING / PROCEDURE REASON: [id number] BILAT SCREEN MAMMO W/CAD Z12.31 * * * * Physician Interpretation * * * * [address] [place] [address] #[phone] - [facility] SCREENING HISTORY: Patient is 44 years old and is seen for screening and is asymptomatic in both breasts. Patient states no personal history of breast cancer. Patient states no personal history of other cancers. COMPARISON STUDIES: The present examination has been compared to prior imaging studies dated 01/08/2021 (mammogram) and 05/25/2023 (mammogram). MAMMOGRAM TECHNIQUE: The study was acquired using full field digital technology and interpreted from soft copy. Computer-aided detection was utilized by the radiologist in the interpretation of this examination. MAMMOGRAM FINDINGS: There are scattered areas of fibroglandular density. No suspicious masses, calcifications or other abnormalities are seen in either breast. There are no significant interval changes. IMPRESSION: There is no mammographic evidence of malignancy in either breast. Routine screening mammogram is recommended. Annual mammogram will be due in 1 year. BI-RADS Category 1: Negative RISK: Based on the Tyrer-Cuzick (TC) risk assessment model, this patient has a 10.5% lifetime risk of developing breast cancer, meaning they are at average risk for developing breast cancer. However, this is only an estimate based on available history provided on the patient's questionnaire. We encourage all patients to talk with their providers about these results, further recommendations for managing breast health, and appropriate supplemental screening options if the patient has dense breast tissue. Interpreting Radiologist: Jackson Neal M.D. Electronically signed on: 10/25/2024 Senior Product Development Scientist: FAHAD Transcridayami Date/Time: Oct 25 2024 9:58A Dictated by : JACKSON NEAL MD This examination was interpreted and the report reviewed and electronically signed by: JACKSON NEAL MD on Oct 25 2024 1:06PM [facility] [id number] ACN Normal [facility] MG Breast Screeningon 2023 IMPRESSION: There is no mammographic evidence of malignancy in either breast. Routine screening mammogram is recommended. Annual mammogram will be due in 1 year. BI-RADS Category 1: Negative RISK: Based on the Tyrer-Cuzick (TC) risk assessment model, this patient has a 10.5% lifetime risk of developing breast cancer, meaning they are at average risk for developing breast cancer. However, this is only an estimate based on available history provided on the patient's questionnaire. We encourage all patients to talk with their providers about these results, further recommendations for managing breast health, and appropriate supplemental screening options if the patient has dense breast tissue. Interpreting Radiologist: Jackson Neal M.D. Electronically signed on: 10/25/2024 Senior Product Development Scientist: FAHAD Transcridayami Date/Time: Oct 25 2024 9:58A Dictated by : JACKSON NEAL MD This examination was interpreted and the report reviewed and electronically signed by: JACKSON NEAL MD on Oct 25 2024 1:06PM [facility] * * *Final Report* * * DATE OF EXAM: Oct 25 2024 10:29AM [facility] 0581 - ANDREAS SCREENING / PROCEDURE REASON: [id number] BILAT SCREEN MAMMO W/CAD Z12.31 * * * * Physician Interpretation * * * * [address] [place] [address] #[id number] - [facility] SCREENING HISTORY: Patient is 44 years old and is seen for screening and is asymptomatic in both breasts. Patient states no personal history of breast cancer. Patient states no personal history of other cancers. COMPARISON STUDIES: The present examination has been compared to prior imaging studies dated 01/08/2021 (mammogram) and 05/25/2023 (mammogram). MAMMOGRAM TECHNIQUE: The study was acquired using full field digital technology and interpreted from soft copy. Computer-aided detection was utilized by the radiologist in the interpretation of this examination. MAMMOGRAM FINDINGS: There are scattered areas of fibroglandular density. No suspicious masses, calcifications or other abnormalities are seen in either breast. There are no significant interval changes. [facility] Provider, [facility] [place] - 10/25/2024 * * *Final Report* * * DATE OF EXAM: Oct 25 2024 10:29AM [facility] 0581 - [facility] SCREENING / PROCEDURE REASON: [id number] BILAT SCREEN MAMMO W/CAD Z12.31 * * * * Physician Interpretation * * * * [facility] [address] [place] [address] #[id number] [facility] SCREENING HISTORY: Patient is 44 years old and is seen for screening and is asymptomatic in both breasts. Patient states no personal history of breast cancer. Patient states no personal history of other cancers. COMPARISON STUDIES: The present examination has been compared to prior imaging studies dated 01/08/2021 (mammogram) and 05/25/2023 (mammogram). MAMMOGRAM TECHNIQUE: The study was acquired using full field digital technology and interpreted from soft copy. Computer-aided detection was utilized by the radiologist in the interpretation of this examination. MAMMOGRAM FINDINGS: There are scattered areas of fibroglandular density. No suspicious masses, calcifications or other abnormalities are seen in either breast. There are no significant interval changes. IMPRESSION IMPRESSION: There is no mammographic evidence of malignancy in either breast. Routine screening mammogram is recommended. Annual mammogram will be due in 1 year. BI-RADS Category 1: Negative RISK: Based on the Tyrer-Cuzick (TC) risk assessment model, this patient has a 10.5% lifetime risk of developing breast cancer, meaning they are at average risk for developing breast cancer. However, this is only an estimate based on available history provided on the patient's questionnaire. We encourage all patients to talk with their providers about these results, further recommendations for managing breast health, and appropriate supplemental screening options if the patient has dense breast tissue. Interpreting Radiologist: Jackson Neal M.D. Electronically signed on: 10/25/2024 Senior Product Development Scientist: FAHAD Transcribe Date/Time: Oct 25 2024 9:58A Dictated by : JACKSON NEAL MD This examination was interpreted and the report reviewed and electronically signed by: JACKSON NEAL MD on Oct 25 2024 1:06PM [facility] Radiology Study observation (narrative) Hernando [facility] MG Breast ScreeningOrdered B y: [facility] Provider on 10-25-2024 [facility] CNOVon 10-15-2024 CNOV Office Visit ([facility]) ---- ISMAMISHEL ([id number]) 1980 F Date Time Provider Department 10/15/24 10:00 AM TYRELL ABEBE [facility] During your visit today, we recorded the following information about you: Temperature Pulse Respiration Blood pressure 97.7 degrees 60/minute 14/minute 102/70 Weight 54.4 kg Tyrell Abebe MD 10/15/2024 10:26 AM Signed Mishel Thomaspell is a 44 year old female who presents with Fall (Pt reports that she fell with her yeti come on her rib side on Tuesday. Having left side rib pain.) Accompanied today by her . She is a 44-year-old female presenting today with pain of the anterolateral lateral aspect of the left chest wall. She reports that she sustained a fall on Tuesday. She states that when she fell she had a yeti underneath her armpit and it pressed against the chest wall. She has pain with movement, coughing, sneezing. She states that she did not lose consciousness. She denies bruising the affected area. She has been taking Tylenol for pain with minimal improvement. Presents today for further evaluation and treatment. PAST MEDICAL HISTORY Diagnosis Date CDH1-related breast cancer (HCC) (HCC) There is no problem list on file for this patient. Current Outpatient Medications Medication Sig Dispense Refill sertraline (ZOLOFT) 50 mg tablet Take 1 tablet by mouth. multivit,thx,calciu m,iron,mins (MULTIVITAMIN AND MINERAL ORAL) Take by mouth. cyanocobalamin (VITAMIN B-12) 100 mcg tab Take 100 mcg by mouth once daily. sertraline (ZOLOFT) 100 mg tablet Take 100 mg by mouth once daily. No current facility-administer ed medications for this visit. Social History Tobacco Use Smoking status: Every Day Current packs/day: 1.00 Types: Cigarettes Smokeless tobacco: Never Vaping Use Vaping status: Never Used Substance Use Topics Alcohol use: Yes Comment: [facility] Drug use: Not Currently Alcohol Use: Yes ([facility]) Tobacco Use: Types: Cigarettes History reviewed. No pertinent family history. Review of Systems Constitutional: Negative for chills, diaphoresis and fever. Eyes: Negative for blurred vision. Respiratory: Negative for cough, hemoptysis, sputum production, shortness of breath and wheezing. Cardiovascular: Negative for palpitations. Gastrointestinal: Negative for abdominal pain, nausea and vomiting. Musculoskeletal: Negative for back pain and neck pain. Neurological: Negative for dizziness, tingling, tremors, speech change, loss of consciousness and headaches. BP 102/70 Pulse 60 Temp (Src) 97.7 (Temporal) Resp 14 Wt 120 lb (54.4kg) SpO2 100% Physical Exam Vitals and nursing note reviewed. Constitutional: Comments: PHYSICAL EXAMINATION: GENERAL:The patient is alert oriented in no acute distress. HEAD:Head is atraumatic normocephalic. EYES: Normal sclerae and conjunctivae. NECK: Trachea at midline. Full range of motion. CHEST: Patient reports no bruising. Tenderness to palpation along the anterior lateral aspect of the left side of the chest. Pain is reproducible with changing position as well as coughing. LUNGS: No labored breathing. Lungs clear to auscultation. HEART: Regular rate and rhythm. BACK: Normal skin appearance. No midline tenderness to palpation of the cervical, thoracic and lumbar spines. MUSCULOSKELETAL: Moves All extremities. SKIN: Warm and dry no clubbing cyanosis or edema. NEUROLOGY: Cranial nerves II through XII grossly intact without any focal neurological deficits. PSYCHIATRY: Cooperative. Normal mood and affect. X-ray of the left ribs no acute process. Second read by the radiologist is pending. Patient did not want anything stronger for pain. She will continue with Tylenol. Work note given as requested. Home-going instructions discussed with patient. Follow-up if not improving. Discharged in stable condition. Procedures ASSESSMENT/PLAN: 1. Muscle strain of chest wall, initial encounter - ICD9: 848.8, ICD10: S29.011A - XR RIBS/CHEST 3V AP RIB/OBLS/CXR LEFT Tyrell Fowler MD 10/15/2024 10:08 AM Signed Avoid any movements that can make it worse. Make a follow-up appointment with primary care provider. Referring Provider: SELF [200] Allergies As of Date: 10/15/2024 Noted Allergy Reaction MORPHINE 01/28/2023 2 - Rash NSAIDS (NON-STEROIDAL ANTI-INFLAM* 023 16 - Unknown PENICILLINS 01/28/2023 8 - GI Upset Date Reviewed: 10/15/2024 Reviewed by: Tyrell Abebe MD - Fully Assessed Reason for Visit: Fall [218] Cmt: Pt reports that she fell with her yeti come on her rib side on Tuesday. Having left side rib pain. Primary Visit Diagnosis:Muscle strain of chest wall, initial encounter [S29.011A] Order(s):XR RIBS/CHEST 3V AP RIB/OBLS/CXR LEFT [[id number]] Order #: [id number] FUTURE Prescriptions as of 10/15/2024 - sertraline (Z (more content not included)... [facility] XR RIB/CHST 3V AP RIB/OBL/CH ST Luis 10-15-2024 XR RIB/CHST 3V AP RIB/OBL/CHST L * * *Final Report* * * DATE OF EXAM: Oct 15 2024 10:09AM RNX 5243 - XR RIB/CHST 3V AP RIB/OBL/CHST L / PROCEDURE REASON: Muscle strain of chest wall, initial encounter * * * * Physician Interpretation * * * * XR RIB/CHST 3V AP RIB/OBL/CHST L Ordering Physician: TYRELL ABEBE 10/15/2024 10:09 AM LEFT RIBS Clinical Statement: Patient fell, pain FINDINGS: 5 images of the left ribs were obtained. There were no prior studies available for comparison. The ribs appear intact. There are no acute fractures. There is no pneumothorax. IMPRESSION: No acute fractures. Senior Product Development Scientist: JAMI Transcribe Date/Time: Oct 17 2024 8:16A Dictated by : NAM MCCURDY MD This examination was interpreted and the report reviewed and electronically signed by: NAM MCCURDY MD on Oct 17 2024 8:17AM EST [id number] [facility] ---- MISHEL ASHBY ([id number]) 1980 F Date Time Provider Department 10/10/24 [facility] During your visit today, we recorded the following information about you: Theresa Sanchez 10/10/2024 4:02 PM Signed Left message for patient. Spoke with our director an we do not see Vitamin B deficiency. Patient should see and [employer]. Theresa Sanchez Allergies As of Date: 10/10/2024 Noted Allergy Reaction MORPHINE 01/28/2023 2 - Rash NSAIDS (NON-STEROIDAL ANTI-INFLAM* 023 16 - Unknown PENICILLINS 01/28/2023 8 - GI Upset Date Reviewed: 09/24/2024 Reviewed by: Cindy Ramirez, RN - Fully Assessed Reason for Visit: Appointment [186] Prescriptions as of 10/10/2024 - sertraline (ZOLOFT) 50 mg tablet Take 1 tablet by mouth. - sertraline (ZOLOFT) 100 mg tablet Take 100 mg by mouth once daily. - multivit,thx,calciu m,iron,mins (MULTIVITAMIN AND MINERAL ORAL) Take by mouth. - cyanocobalamin (VITAMIN B-12) 100 mcg tab Take 100 mcg by mouth once daily. Problem List As Of Date: 10/10/2024 (None) Encounter Status:Closed by THERESA SANCHEZ on 10/10/24 Normal [facility] Bacteria Ur Culton Bacteria identified Cx Nom (U) CULTURE, URINE: No growth (<1,000 CFU/ml) Normal [facility] Comment on above: Performed By: #### 6 30-4 ####[facility] [id number] [address] [place] CBC W Auto Differential pane l (Bld)on 09-24-2024 Basophils (Bld) [#/Vol] 0.04 10*3/uL Normal <0.11 [facility] Comment on above: Order Comment: Speci men Type: BLOOD SPECIMEN Ordering Facility: [facility] Address: [address] [place] [address] Performed By: #### 5 7021-8 #### [facility] CLIA [id number] [address] [place] [address] [place] Basophils/100 WBC (Bld) 0.4 % Normal [facility] Comment on above: Order Comment: Speci men Type: BLOOD SPECIMEN Ordering Facility: [facility] Address: [address] [place] [address] Performed By: #### 5 7021-8 #### [facility] CLIA [id number] [address] [place] [address] [place] Differential cell count method Nom (Bld) Auto Normal [facility] Comment on above: Order Comment: Speci men Type: BLOOD SPECIMEN Ordering Facility: [facility] Address: [address] [place] [address] Performed By: #### 5 7021-8 #### [facility] CLIA [id number] [address] [place] [address] [place] Eosinophils (Bld) [#/Vol] 0.06 10*3/uL Normal <0.46 [facility] Comment on above: Order Comment: Speci men Type: BLOOD SPECIMEN Ordering Facility: [facility] Address: [address] [place] [address] Performed By: #### 5 7021-8 #### [facility] CLIA [id number] [address] [place] [address] [place] Eosinophils/100 WBC (Bld) 0.7 % Normal [facility] Comment on above: Order Comment: Speci men Type: BLOOD SPECIMEN Ordering Facility: [facility] Address: [address] [place] [address] Performed By: #### 5 7021-8 #### [facility] CLIA [id number] [address] [place] [address] [place] Erythrocyte distribution width (RBC) [Ratio] 13.0 % Normal 11.5-15.0 [facility] Comment on above: Order Comment: Speci men Type: BLOOD SPECIMEN Ordering Facility: [facility] Address: [address] [place] [address] Performed By: #### 5 7021-8 #### [facility] CLIA [id number] [address] [place] [address] [place] Hematocrit (Bld) [Volume fraction] 48.3 % High 36.0-46.0 [facility] Comment on above: Order Comment: Speci men Type: BLOOD SPECIMEN Ordering Facility: [facility] Address: [address] [place] [address] Performed By: #### 5 7021-8 #### [facility] CLIA [id number] [address] [place] [address] [place] Hemoglobin (Bld) [Mass/Vol] 16.4 g/dL High 11.5-15.5 [facility] Comment on above: Order Comment: Speci men Type: BLOOD SPECIMEN Ordering Facility: [facility] Address: [address] [place] [address] Performed By: #### 5 7021-8 #### [facility] CLIA [id number] [address] [place] [address] [place] Immature granulocytes (Bld) [#/Vol] 0.03 10*3/uL Normal <0.10 [facility] Comment on above: Order Comment: Speci men Type: BLOOD SPECIMEN Ordering Facility: [facility] Address: [address] [place] [address] Performed By: #### 5 7021-8 #### [facility] CLIA [id number] [address] [place] [address] [place] Immature granulocytes/100 WBC (Bld) 0.3 % Normal [facility] Comment on above: Order Comment: Speci men Type: BLOOD SPECIMEN Ordering Facility: [facility] Address: [address] [place] [address] Performed By: #### 5 7021-8 #### [facility] CLIA [id number] [address] [place] [address] [place] Lymphocytes (Bld) [#/Vol] 2.69 10*3/uL Normal 1.00-4.00 [facility] Comment on above: Order Comment: Speci men Type: BLOOD SPECIMEN Ordering Facility: [facility] Address: [address] [place] [address] Performed By: #### 5 7021-8 #### [facility] CLIA [id number] [address] [place] [address] Lymphocytes/100 WBC (Bld) 29.6 % Normal [facility] Comment on above: Order Comment: Speci men Type: BLOOD SPECIMEN Ordering Facility: [facility] Address: [address] [place] [address] Performed By: #### 5 7021-8 #### [facility] CLIA [id number] [address] [place] [address] [place] MCH (RBC) [Entitic mass] 33.4 pg Normal 26.0-34.0 [facility] Comment on above: Order Comment: Speci men Type: BLOOD SPECIMEN Ordering Facility: [facility] Address: [address] [place] [address] Performed By: #### 5 7021-8 #### [facility] CLIA [id number] [address] [place] [address] [place] MCHC (RBC) [Mass/Vol] 34.0 g/dL Normal 30.5-36.0 [facility] Comment on above: Order Comment: Speci men Type: BLOOD SPECIMEN Ordering Facility: [facility] Address: [address] [place] [address] Performed By: #### 5 7021-8 #### [facility] CLIA [id number] [address] [place] [address] [place] MCV (RBC) [Entitic vol] 98.4 fL Normal 80.0-100.0 [facility] Comment on above: Order Comment: Speci men Type: BLOOD SPECIMEN Ordering Facility: [facility] Address: [address] [place] [address] Performed By: #### 5 7021-8 #### [facility] CLIA [id number] [address] [place] [address] [place] Monocytes (Bld) [#/Vol] 0.81 10*3/uL Normal <0.87 [facility] Comment on above: Order Comment: Speci men Type: BLOOD SPECIMEN Ordering Facility: [facility] Address: [address] [place] [address] Performed By: #### 5 7021-8 #### [facility] CLIA [id number] [address] [place] [address] [place] Monocytes/100 WBC (Bld) 8.9 % Normal [facility] Comment on above: Order Comment: Speci men Type: BLOOD SPECIMEN Ordering Facility: [facility] Address: [address] [place] [address] Performed By: #### 5 7021-8 #### [facility] CLIA [id number] [address] [place] [address] [place] Neutrophils (Bld) [#/Vol] 5.46 10*3/uL Normal 1.45-7.50 [facility] Comment on above: Order Comment: Speci men Type: BLOOD SPECIMEN Ordering Facility: [facility] Address: [address] [place] [address] Performed By: #### 5 7021-8 #### [facility] CLIA [id number] [address] [place] [address] [place] Neutrophils/100 WBC (Bld) 60.1 % Normal [facility] Comment on above: Order Comment: Speci men Type: BLOOD SPECIMEN Ordering Facility: [facility] Address: [address] [place] [address] Performed By: #### 5 7021-8 #### [facility] CLIA [id number] [address] [place] [address] [place] Nucleated RBC (Bld) [#/Vol] 10*3/uL Normal <0.01 [facility] Comment on above: Order Comment: Speci men Type: BLOOD SPECIMEN Ordering Facility: [facility] Address: [address] [place] [address] Performed By: #### 5 7021-8 #### [facility] CLIA [id number] [address] [place] [address] [place] Nucleated RBC/100 WBC (Bld) [Ratio] 0.0 /100 WBC Normal [facility] Comment on above: Order Comment: Speci men Type: BLOOD SPECIMEN Ordering Facility: [facility] Address: [address] [place] [address] Performed By: #### 5 7021-8 #### [facility] CLIA [id number] [address] [place] [place] [address] [place] Platelet mean volume (Bld) [Entitic vol] 10.5 fL Normal 9.0-12.7 [facility] Comment on above: Order Comment: Speci men Type: BLOOD SPECIMEN Ordering Facility: [facility] Address: [address] [place] [address] Performed By: #### 5 7021-8 #### [facility] CLIA [id number] [address] [place] [address] [place] Platelets (Bld) [#/Vol] 265 10*3/uL Normal 150-400 [facility] Comment on above: Order Comment: Speci men Type: BLOOD SPECIMEN Ordering Facility: [facility] Address: [address] [place], [place] [address] Performed By: #### 5 7021-8 #### [facility] CLIA [id number] [address] [place], [place] [address] [facility] RBC (Bld) [#/Vol] 4.91 10*6/uL Normal 3.90-5.20 [facility] Comment on above: Order Comment: Speci men Type: BLOOD SPECIMEN Ordering Facility: [facility] Address: [address] [place], [place] [address] Performed By: #### 5 7021-8 #### [facility] CLIA [id number] [address] [place] [address] WBC (Bld) [#/Vol] 9.09 10*3/uL Normal 3.70-11.00 [facility] Comment on above: Order Comment: Speci men Type: BLOOD SPECIMEN Ordering Facility: [facility] Address: [address] [place] [address] Performed By: #### 5 7021-8 #### [facility] CLIA [id number] [address] [place] [address] [place] CK SerPl-cCncon 09-24-2024 CK [Catalytic activity/Vol] 36 U/L Normal 28-152 [facility] Comment on above: Order Comment: Speci men Type: BLOOD SPECIMEN Ordering Facility: [facility] Address: [address] [place], [place] [address] Performed By: #### 2 157-6, 14175-0, 3040-3 #### [facility] CLIA [id number] [address] [place] [address] OF [facility] Comprehensive metabolic 2000 panelon 09-24-2024 Albumin [Mass/Vol] 3.6 g/dL Normal 3.2-5.0 [facility] Comment on above: Order Comment: Speci men Type: BLOOD SPECIMEN Ordering Facility: [facility] Address: [address] [place] [address] Performed By: #### 2 157-6, 70893-2, 3040-3 #### [facility] CLIA [id number] [address] [place] [address] [place] ALP [Catalytic activity/Vol] 62 U/L Normal 45-117 [facility] Comment on above: Order Comment: Speci men Type: BLOOD SPECIMEN Ordering Facility: [facility] Address: [address] [place] [address] Performed By: #### 2 157-6, 89551-3, 0-3 #### [facility] CLIA [id number] [address] [place] [address] [place] ALT [Catalytic activity/Vol] 7 U/L Low 13-61 [facility] Comment on above: Order Comment: Speci men Type: BLOOD SPECIMEN Ordering Facility: [facility] Address: [address] [place] [address] Result Comment: Resu lts may be falsely depressed after the administration of Sulfasalazine and/or Sulfapyridine. Performed By: #### 2 157-6, 27031-4, 3040-3 #### [facility] CLIA [id number] [address] [place] [address] [place] Anion gap [Moles/Vol] 6 mmol/L Normal 5-16 [facility] Comment on above: Order Comment: Speci men Type: BLOOD SPECIMEN Ordering Facility: [facility] Address: [address] [place] [address] Performed By: #### 2 157-6, 95144-9, 0-3 #### [facility] CLIA [id number] [address] [place] [id number] [place] AST [Catalytic activity/Vol] 13 U/L Normal 8-34 [facility] Comment on above: Order Comment: Speci men Type: BLOOD SPECIMEN Ordering Facility: [facility] Address: [address] [place] [address] Result Comment: Resu lts may be falsely depressed after the administration of Sulfasalazine and/or Sulfapyridine. Performed By: #### 2 157-6, 15141-0, 3040-3 #### [facility] CLIA [id number] [address] [place] [address] [place] Bilirubin [Mass/Vol] 0.6 mg/dL Normal 0.2-1.0 [facility] Comment on above: Order Comment: Speci men Type: BLOOD SPECIMEN Ordering Facility: [facility] Address: [address] [place] [address] Performed By: #### 2 157-6, 44687-8, 3039-3 #### [facility] CLIA [id number] [address] [place], [place] [address] [place] Calcium [Mass/Vol] 9.3 mg/dL Normal 8.5-10.5 [facility] Comment on above: Order Comment: Speci men Type: BLOOD SPECIMEN Ordering Facility: [facility] Address: [address] [place] [address] Performed By: #### 2 157-6, 43165-1, 3039-3 #### [facility] CLIA [id number] [address] [place] [address] [place] Chloride [Moles/Vol] 112 mmol/L High 98-107 [facility] Comment on above: Order Comment: Speci men Type: BLOOD SPECIMEN Ordering Facility: [facility] Address: [address] [place] [address] Performed By: #### 2 157-6, 32860-9, 3039-3 #### [facility] CLIA [id number] [address] [place], [place] [address] [place] CO2 [Moles/Vol] 24 mmol/L Normal 21-32 [facility] Comment on above: Order Comment: Speci men Type: BLOOD SPECIMEN Ordering Facility: [facility] Address: [address] [place] [address] Performed By: #### 2 157-6, 48801-5, 0-3 #### [facility] CLIA [id number] [address] [place], [place] [address] [place] Creatinine [Mass/Vol] 0.54 mg/dL Normal 0.51-0.95 [facility] Comment on above: Order Comment: Mercedes mcnair Type: BLOOD SPECIMEN Ordering Facility: [facility] Address: [address] [id number] Result Comment: Kathrine ents receiving either N-Acetylcysteine (NAC) or Metamizole prior to venipuncture, may have falsely depressed results. Performed By: #### 2 157-6, 05298-5, 3040-3 #### [facility] CLIA [id number] [address] [place] [address] [place] Creatinine and Glomerular filtration rate.predicted panel (S/P/Bld) 117 mL/min/1.73m??? Normal >=60 [facility] Comment on above: Order Comment: Mercedes mcnair Type: BLOOD SPECIMEN Ordering Facility: [facility] Address: [address] [id number] Result Comment: Arianna mated Glomerular Filtration Rate (eGFR) is calculated using the 2020 CKD-EPI creatinine equation. This equation utilizes serum creatinine, sex, and age as parameters. The creatinine assay has traceable calibration to isotope dilution-mass spectrometry. Refer to KDIGO guidelines for clinical interpretation. In patients with unstable renal function, e.g. those with acute kidney injury, the eGFR may not accurately reflect actual GFR. Performed By: #### 2 157-6, 55013-7, 3040-3 #### [facility] CLIA [id number] [address] [place] [address] [place] Glucose [Mass/Vol] 79 mg/dL Normal 70-100 [facility] Comment on above: Order Comment: Mercedes mcnair Type: BLOOD SPECIMEN Ordering Facility: [facility] Address: [address] [id number] Result Comment: The [place] Diabetes Association (ADA) provides guidance for cutoff values for fasting glucose and random glucose. The ADA defines fasting as no caloric intake for at least 8 hours. Fasting plasma glucose results between 100 to 125 mg/dL indicate increased risk for diabetes (prediabetes). Fasting plasma glucose results greater than or equal to 126 mg/dL meet the criteria for diagnosis of diabetes. In the absence of unequivocal hyperglycemia, results should be confirmed by repeat testing. In a patient with classic symptoms of hyperglycemia or hyperglycemic crisis, random plasma glucose results greater than or equal to 200 mg/dL meet the criteria for diagnosis of diabetes. Reference: Standards of Medical Care in Diabetes 2016, [place] Diabetes Association. Diabetes Care. 2016.39(Suppl 1). Results may be falsely elevated after the administration of Sulfapyridine. Results may be falsely depressed after the administration of Sulfasalazine. Performed By: #### 2 157-6, 22278-5, 3040-3 #### [facility] CLIA [id number] [address] [place], [place] [address] [place] Potassium [Moles/Vol] 4.2 mmol/L Normal 3.5-5.1 [facility] Comment on above: Order Comment: Mercedes mcnair Type: BLOOD SPECIMEN Ordering Facility: [facility] Address: [address] [place] [address] Performed By: #### 2 157-6, 13530-8, 0-3 #### [facility] CLIA [id number] [address] [place], [place] [address] [place] Protein [Mass/Vol] 6.5 g/dL Normal 6.0-8.5 [facility] Comment on above: Order Comment: Mercedes mcnair Type: BLOOD SPECIMEN Ordering Facility: [facility] Address: [address] [place], [place] [address] Performed By: #### 2 157-6, 38526-3, 0-3 #### [facility] CLIA [id number] [address] [place], [place] [address] [place] Sodium [Moles/Vol] 142 mmol/L Normal 136-145 [facility] Comment on above: Order Comment: Mercedes mcnair Type: BLOOD SPECIMEN Ordering Facility: [facility] Address: [address] [place] [address] Performed By: #### 2 157-6, 99592-9, 3040-3 #### [facility] CLIA [id number] [address] [place], [place] [address] [place] Urea nitrogen [Mass/Vol] 13 mg/dL Normal 7-26 [facility] Comment on above: Order Comment: Speci men Type: BLOOD SPECIMEN Ordering Facility: [facility] Address: [address] [place] [address] Performed By: #### 2 157-6, 04894-3, 3040-3 #### [facility] CLIA [id number] [address] [place], [place] [address] [place] Albumin [Mass/Vol] 4.5 g/dL Normal 3.2-5.0 [facility] Comment on above: Order Comment: Speci men Type: BLOOD SPECIMEN Ordering Facility: [facility] Address: [address] [place] [address] Performed By: #### 2 4323-8, 3039-3, 70075-6 #### [facility] CLIA [id number] [address] [place] [address] [place] ALP [Catalytic activity/Vol] 63 U/L Normal 45-117 [facility] Comment on above: Order Comment: Speci men Type: BLOOD SPECIMEN Ordering Facility: [facility] Address: [address] [place] [address] Performed By: #### 2 4323-8, 3039-3, 73931-9 #### [facility] CLIA [id number] [address] [place] [address] [place] ALT [Catalytic activity/Vol] Normal [facility] Comment on above: Order Comment: Speci men Type: BLOOD SPECIMEN Ordering Facility: [facility] Address: [address] [place] [address] Result Comment: Unab le to assay due to interference from hemolysis. Suggest reorder as clinically indicated. Performed By: #### 2 4323-8, 0-3, 53646-0 #### [facility] CLIA [id number] [address] [place], [place] [address] [place] Anion gap [Moles/Vol] 6 mmol/L Normal 5-16 [facility] Comment on above: Order Comment: Speci men Type: BLOOD SPECIMEN Ordering Facility: [facility] Address: [address] [place], [place] [address] Performed By: #### 2 4323-8, 3040-3, #### [facility] CLIA [id number] [address] [place], [place] [address] [place] AST [Catalytic activity/Vol] Normal [facility] Comment on above: Order Comment: Speci men Type: BLOOD SPECIMEN Ordering Facility: [facility] Address: [facility] [place] [address] Result Comment: Unab le to assay due to interference from hemolysis. Suggest reorder as clinically indicated. Performed By: #### 2 4323-8, 0-3, #### [facility] CLIA [id number] [address] [place], [place] [address] [place] Bilirubin [Mass/Vol] 0.6 mg/dL Normal 0.2-1.0 [facility] Comment on above: Order Comment: Speci men Type: BLOOD SPECIMEN Ordering Facility: [facility] Address: [address] [place] [address] Performed By: #### 2 4323-8, 3039-3, #### [facility] CLIA [id number] [address] [place], [place] [address] [place] Calcium [Mass/Vol] 10.1 mg/dL Normal 8.5-10.5 [facility] Comment on above: Order Comment: Speci men Type: BLOOD SPECIMEN Ordering Facility: [facility] Address: [facility] [place] [address] Performed By: #### 2 4323-8, 0-3, #### [facility] CLIA [id number] [address] [place] [address] [place] Chloride [Moles/Vol] 106 mmol/L Normal 98-107 [facility] Comment on above: Order Comment: Speci men Type: BLOOD SPECIMEN Ordering Facility: [facility] Address: [facility] [place] [id number] Performed By: #### 2 4323-8, 0-3, #### [facility] CLIA [id number] [address] [place], [place] [address] [place] CO2 [Moles/Vol] 25 mmol/L Normal 21-32 [facility] Comment on above: Order Comment: Mercedes mcnair Type: BLOOD SPECIMEN Ordering Facility: [facility] Address: [address] [place] [address] Performed By: #### 2 4323-8, 0-3, #### [facility] CLIA [id number] [address] [place] [address] [place] Creatinine [Mass/Vol] Normal [facility] Comment on above: Order Comment: Alejai xu Type: BLOOD SPECIMEN Ordering Facility: [facility] Address: [address] [place] [address] Result Comment: Unab le to assay due to interference from hemolysis. Suggest reorder as clinically indicated. Performed By: #### 2 4323-8, 3039-3, #### [facility] CLIA [id number] [address] [place] [address] [place] Creatinine and Glomerular filtration rate.predicted panel (S/P/Bld) Normal [facility] Comment on above: Order Comment: Mercedes mcnair Type: BLOOD SPECIMEN Ordering Facility: [facility] Address: [address] [place] [address] Result Comment: Arianna mated Glomerular Filtration Rate (eGFR) is calculated using the 2020 CKD-EPI creatinine equation. This equation utilizes serum creatinine, sex, and age as parameters. The creatinine assay has traceable calibration to isotope dilution-mass spectrometry. Refer to KDIGO guidelines for clinical interpretation. In patients with unstable renal function, e.g. those with acute kidney injury, the eGFR may not accurately reflect actual GFR. Performed By: #### 2 4323-8, 0-3, #### [facility] CLIA [id number] [address] [place], [place] [address] [place] Glucose [Mass/Vol] 96 mg/dL Normal 70-100 [facility] Comment on above: Order Comment: Mercedes mcnair Type: BLOOD SPECIMEN Ordering Facility: [facility] Address: [address] [place] [address] Result Comment: The [place] Diabetes Association (ADA) provides guidance for cutoff values for fasting glucose and random glucose. The ADA defines fasting as no caloric intake for at least 8 hours. Fasting plasma glucose results between 100 to 125 mg/dL indicate increased risk for diabetes (prediabetes). Fasting plasma glucose results greater than or equal to 126 mg/dL meet the criteria for diagnosis of diabetes. In the absence of unequivocal hyperglycemia, results should be confirmed by repeat testing. In a patient with classic symptoms of hyperglycemia or hyperglycemic crisis, random plasma glucose results greater than or equal to 200 mg/dL meet the criteria for diagnosis of diabetes. Reference: Standards of Medical Care in Diabetes 2016, [place] [employer] Association. Diabetes Care. 2016.39(Suppl 1). Results may be falsely elevated after the administration of Sulfapyridine. Results may be falsely depressed after the administration of Sulfasalazine. Performed By: #### 2 4323-8, 3040-3, 26318-1 #### [facility] CLIA [id number] [address] [place] [address] [place] Potassium [Moles/Vol] Normal [facility] Comment on above: Order Comment: Speci men Type: BLOOD SPECIMEN Ordering Facility: [facility] Address: [address] [place] [address] Result Comment: CRIT ICAL&XA&Unable to assay due to interference from hemolysis. Suggest reorder as clinically indicated. notified chris Performed By: #### 2 4323-8, 3040-3, 94989-4 #### [facility] CLIA [id number] [address] [place], [place] [address] [place] Protein [Mass/Vol] 7.9 g/dL Normal 6.0-8.5 [facility] Comment on above: Order Comment: Speci men Type: BLOOD SPECIMEN Ordering Facility: [facility] Address: [address] [place], [place] [address] Performed By: #### 2 4323-8, 3040-3, 09995-5 #### [facility] CLIA [id number] [address] [place], [place] [address] [facility] Sodium [Moles/Vol] 137 mmol/L Normal 136-145 [facility] Comment on above: Order Comment: Speci men Type: BLOOD SPECIMEN Ordering Facility: [facility] Address: [address] [id number] Performed By: #### 2 4323-8, 3040-3, 16633-1 #### [facility] CLIA [id number] [address] [place], [place] [address] [place] Urea nitrogen [Mass/Vol] Normal [facility] Comment on above: Order Comment: Speci men Type: BLOOD SPECIMEN Ordering Facility: [facility] Address: [address] [place], [place] [address] [id number] Result Comment: Unab le to assay due to interference from hemolysis. Suggest reorder as clinically indicated. Performed By: #### 2 4323-8, 3040-3, 13195-6 #### [facility] CLIA [id number] [address] [place], [place] [address] [place] ECG COMPLETEon 09-24-2024 ECG COMPLETE Ventricular Rate : 76 BPM Atrial Rate : 76 BPM P-R Interval : 130 ms QRS Duration : 66 ms Q-T Interval : 358 ms QTC Calculation(Bazett) : 402 ms Calculated P [place] : 7 degrees Calculated R [place] : 63 degrees Calculated T [place] : 53 degrees Normal sinus rhythm Septal infarct (cited on or before 02-Dec-2023) Abnormal ECG When compared with ECG of 02-Dec-2023 16:01, No significant change was found Confirmed by BRIAN CAMPOS MD ([id number]) on 09/24/2024 2:56:09 PM NAME : MISHEL ASHBY PID : [id number] : 1980 Gender : Female Race : ORD : [id number] Procedure Date : Sep 24 2024 12:00:54 Edit Date : Sep 24 2024 14:56:14 Diagnosis: Normal sinus rhythm Septal infarct (cited on or before 02-Dec-2023) Abnormal ECG When compared with ECG of 02-Dec-2023 16:01, No significant change was found Confirmed by BRIAN CAMPOS MD ([id number]) on 09/24/2024 2:56:09 PM Test Reason : STAT Location : 0 : ED EDFTD Overread By : BRIAN CAMPOS MD Edited By : BRIAN CAMPOS MD Referred By : , Acquired by : [id number], [facility] ED NOTEon 09-24-2024 ED NOTE HNO ID: [id number] Author: NIK MARTINES, KYLE Service: ? Author Type: Registered Nurse Type: ED Notes Filed: 09/24/2024 13:52 Note Text: Bed: 31-ED Expected date: Expected time: Means of arrival: Comments: [facility] ED NOTE HNO ID: [id number] Author: CINDY RAMIREZ, KYLE Service: ? Author Type: Registered Nurse Type: ED Notes Filed: 09/24/2024 11:04 Note Text: Pt is c/o increased thirst and body aches since taking vit d on Tuesday. Pt states she feels dehydrated. Pt states she doesn't have a stomach and just started the medicine on Tuesday. [facility] ED PROV NOTEon 09-24-2024 ED PROV NOTE HNO ID: [id number] Author: RADHIKA GUERIN PA-C Service: ? Author Type: Physician Real Estate Instructor Type: ED Provider Notes Filed: 09/24/2024 15:39 Note Text: ED Provider Note Patient Name: Mishel Ashby : 1980 SERVICE DATE: 09/24/24 History No chief complaint on file. HPI Mishel Ashby is a 44 year old female who presents to the ED for possible dehydration. Patient was started on vitamin D supplementation on Tuesday by her primary care doctor. She has a history of stomach removal, this was done 6 years ago in [place]. She does not follow anyone for this now. No current chemo or radiation. No fever or chills. No nausea or vomiting. The next day she began to have some bodyaches. No fever or chills. No cough. No urinary symptoms. No abdominal pain. No chest pain or shortness of breath. No lightheadedness or dizziness. No syncope. She states that she just feels dry. No other complaints. No other pertinent HPI ROS Review of Systems Musculoskeletal: Positive for myalgias. All other systems reviewed and are negative. All systems reviewed and negative except noted in HPI PAST MEDICAL HISTORY Diagnosis Date CDH1-related breast cancer (HCC) (HCC) PAST SURGICAL HISTORY Procedure Laterality Date GASTRECTOMY TOTAL W REPR INT TIFFANY 2018 No family history on file. Social History Tobacco Use Smoking status: Every Day Current packs/day: 1.00 Types: Cigarettes Smokeless tobacco: Never Vaping Use Vaping status: Never Used Substance and Sexual Activity Alcohol use: Yes Comment: Occ Drug use: Not Currently Sexual activity: Not on file ALLERGIES Allergen Reactions Morphine Rash Nsaids (Non-Steroid* Unknown Penicillins GI Upset Records on file/review of medical records: Nursing/triage notes and assessments as well as vitals were reviewed and incorporated Records on file reviewed: N/A Physical Exam Vitals [09/24/24 1104] BP Pulse Temp Temp src Resp SpO2 Weight Height 133/74 75 36.9 ?C (98.4 ?F) Oral 14 99 % 54.4 kg (120 lb) 1.524 m (5') Physical Exam General: alert, speaking in full sentences, does not appear ill HEENT: EOMI, eyes equal and reactive to light, no scleral injection or tearing, head and face atraumatic. Nasal and oral mucous membranes appear dry. Chest: no respiratory distress, nontender and atraumatic, normal breath sounds throughout, Cardiac: no rubs, RRR Abdomen: atraumatic, no rebound or peritoneal findings, soft, nontender. No guarding or rigidity. No focal tenderness. Extremities: atraumatic, no joint effusions, no edema Skin: warm, dry, no rashes Neuro: alert and oriented x 3, no lateralized deficits, no gross weakness Psyc: normal mood/affect, normal judgment/memory Diagnostic Testing ED Labs Ordered and Reviewed COMPLETE BLOOD COUNT AND DIFFERENTIAL - Abnormal; Notable for the following components: Result Value Ref Range Hemoglobin 16.4 (*) 11.5 - 15.5 g/dL Hematocrit 48.3 (*) 36.0 - 46.0 % All other components within normal limits URINALYSIS, WITH MICROSCOPIC - Abnormal; Notable for the following components: Hemoglobin/Blood,Ur 2+ (*) Negative RBC, Urine 11-25 /HPF (*) 0-3 /HPF Bacteria Few (*) None Seen /HPF All other components within normal limits MAGNESIUM - Normal COMPREHENSIVE METABOLIC PANEL LIPASE COMPREHENSIVE METABOLIC PANEL LIPASE URINE CULTURE COVID AND INFLUENZA A/B AND RSV PCR, EXPEDITED Radiology/images: No orders to display I reviewed images as well as radiologist interpretation(s) Procedures: Procedures ED Course / Clinical Impression Clinical Impressions as of 09/24/24 1534 Myalgias COVID-19 test performed per [facility] [place] policy for suspected COVID community exposure. Medications received in ED Medications NaCl 0.9% 1,000 mL iv bolus (has no administration in time range) NaCl 0.9% 1,000 mL iv bolus (0 mL INTRAVENOUS Infusion Complete 09/24/24 1327) Discharge Medications New Prescriptions No medications on file MDM / Disposition / Plan SEE ED COURSE FOR FURTHER MDM Patient is here with concern for vitamin D toxicity. She took 1 dose of vitamin D on Tuesday. Prescribed this by her primary care doctor. She has history of stomach removal due to her cancer. She has no other complaints at this time other than body aches. No infectious complaints. On exam patient is resting comfortably. No acute distress. Abdominal exam did not show any focal tenderness or peritoneal findings lab workup largely unremarkable. Given her lab workup and physical exam I do not feel she requires a CT scan of the abdomen at this time I low suspicion for acute emergent intra-abdominal pathology. EKG within normal limits. Respiratory PCR negative. Urinalysis not impressive for UTI. Discussed patient concerned about vitamin D toxicity with ED pharmacist. This is unlikely per Edmundo. Patient would have to take vitamin D at least 3 times to be at a therapeu (more content not included)... Normal [facility] ED Triage Noteon 09-24-2024 ED Triage Note HNO ID: [id number] Author: PREM PAYAN PA-C Service: Emergency Medicine Author Type: Physician Real Estate Instructor Type: ED Triage Notes Filed: 09/24/2024 12:01 Note Text: ED TRIAGE PROVIDER NOTE Patient Name: Mishel Ashby Service Date: 09/24/24 BRIEF HPI: This is a 44 year old female who presents to the ED with: Patient reports generalized weakness feels like she may be dehydrated has had her stomach removed due to cancer and states she was prescribed vitamin D 1.25 and she took a capsule on Tuesday. She was told by her surgeon that she should not take any capsule so she is worried she may have overdosed on vitamin D. No vomiting reports decreased appetite decreased urination no fevers BRIEF EXAM: Dry mucous membranes soft abdomen, tolerating p.o. fluids, heart is regular rate and rhythm hemodynamically stable I did speak with clinical pharmacy who is looking into the formulary of the patient's vitamin D given it bypasses the stomach to make sure this is safe to take INITIAL WORKUP AND DECISION MAKING: Orders Placed This Encounter CBC W/ DIFF CMP MAG LEVEL LIPASE U/A W/ MICRO CULTURE URINE NaCl 0.9% 1,000 mL iv bolus EKG SIGNATURE: Prem Payan PA-C Normal [facility] Lipase SerPl-cCncon 09-24-20 24 Lipase [Catalytic activity/Vol] 36 U/L Normal 12-60 [facility] Comment on above: Order Comment: Speci xu Type: BLOOD SPECIMENOrdering Facility: [facility] Address: [address] [place] [address] Performed By: #### 2 157-6, 85820-4, 3039-3 ####[facility] [id number] [address] Lipase [Catalytic activity/Vol] Normal [facility] Comment on above: Order Comment: Speci xu Type: BLOOD SPECIMEN Ordering Facility: [facility] Address: [address] [place] [address] Result Comment: Unab le to assay due to interference from hemolysis. Suggest reorder as clinically indicated. Performed By: #### 2 4323-8, 3040-3, 38552-6 #### [facility] CLIA [id number] [address] [place] [address] [place] Magnesium SerPl-mCncon 09-24 Magnesium [Mass/Vol] 2.0 mg/dL Normal 1.6-2.6 [facility] Comment on above: Order Comment: Mercedes mcnair Type: BLOOD SPECIMEN Ordering Facility: [facility] Address: [address] [place] [address] Performed By: #### 2 4323-8, 3040-3, 76881-3 #### [facility] CLIA [id number] [address] [place] [address] [place] Urinalysis complete panel (U )on 09-24-2024 Bacteria LM.HPF (Urine sed) [#/Area] Few Abnormal None Seen [facility] Comment on above: Order Comment: Speci men Type: URINE SPECIMEN Ordering Facility: [facility] Address: [address] [place] [address] Performed By: #### 2 4356-8 #### [facility] CLIA [id number] [address] [place] [address] [place] Bilirubin Ql (U) Negative Normal Negative [facility] Comment on above: Order Comment: Speci men Type: URINE SPECIMEN Ordering Facility: [facility] Address: [address] [place] [address] Performed By: #### 2 4356-8 #### [facility] CLIA [id number] [address] [place] [address] Clarity (Unsp spec) Clear Normal Clear [facility] Comment on above: Order Comment: Speci men Type: URINE SPECIMEN Ordering Facility: [facility] Address: [address] [place] [address] Performed By: #### 2 4356-8 #### [facility] CLIA [id number] [address] [place] [address] Color (U) Yellow Normal Yellow [facility] Comment on above: Order Comment: Speci men Type: URINE SPECIMEN Ordering Facility: [facility] Address: [address] [place] [address] Performed By: #### 2 4356-8 #### [facility] CLIA [id number] [address] [place] [address] Epithelial cells LM.HPF (Urine sed) [#/Area] Few Normal [facility] Comment on above: Order Comment: Speci men Type: URINE SPECIMEN Ordering Facility: [facility] Address: [address] [place] [address] Performed By: #### 2 4356-8 #### [facility] CLIA [id number] [address] [place] [address] [place] Glucose Test strip (U) [Mass/Vol] Negative Normal Negative [facility] Comment on above: Order Comment: Speci men Type: URINE SPECIMEN Ordering Facility: [facility] Address: [address] [place] [address] Performed By: #### 2 4356-8 #### [facility] CLIA [id number] [address] [place] [address] [place] Hemoglobin Ql (U) 2+ Abnormal Negative [facility] Comment on above: Order Comment: Speci men Type: URINE SPECIMEN Ordering Facility: [facility] Address: [address] [place] [address] Performed By: #### 2 4356-8 #### [facility] CLIA [id number] [address] [place] [address] [place] Ketones Ql (U) Negative Normal Negative [facility] Comment on above: Order Comment: Speci men Type: URINE SPECIMEN Ordering Facility: [facility] Address: [address] [place] [address] Performed By: #### 2 4356-8 #### [facility] CLIA [id number] [address] [place] [address] Leukocyte esterase Test strip Ql (U) Negative Normal Negative [facility] Comment on above: Order Comment: Speci men Type: URINE SPECIMEN Ordering Facility: [facility] Address: [address] [place] [address] Performed By: #### 2 4356-8 #### [facility] CLIA [id number] [address] [place] [address] [place] Nitrite Ql (U) Negative Normal Negative [facility] Comment on above: Order Comment: Speci men Type: URINE SPECIMEN Ordering Facility: [facility] Address: [address] [place] [address] Performed By: #### 2 4356-8 #### [facility] CLIA [id number] [address] [place] [address] [place] pH (U) 7.0 [pH] Normal 5.0-8.0 [facility] Comment on above: Order Comment: Speci men Type: URINE SPECIMEN Ordering Facility: [facility] Address: [address] [place] [address] Performed By: #### 2 4356-8 #### [facility] CLIA [id number] [address] [place] [address] [place] Protein (U) [Mass/Vol] Negative Normal Negative [facility] Comment on above: Order Comment: Speci men Type: URINE SPECIMEN Ordering Facility: [facility] Address: [address] [place] [address] Performed By: #### 2 4356-8 #### [facility] CLIA [id number] [address] [place] [address] [place] RBC LM.HPF (Urine sed) [#/Area] 11-25 /HPF Abnormal 0-3 /HPF [facility] Comment on above: Order Comment: Speci men Type: URINE SPECIMEN Ordering Facility: [facility] Address: [address] [place] [address] Performed By: #### 2 4356-8 #### [facility] CLIA [id number] [address] [place] [address] [place] Specific gravity (U) [Rel density] 1.011 Normal 1.005-1.030 [facility] Comment on above: Order Comment: Speci men Type: URINE SPECIMEN Ordering Facility: [facility] Address: [address] [place] [address] Performed By: #### 2 4356-8 #### [facility] CLIA [id number] [address] [place] [address] [place] Urobilinogen Ql (U) Negative Normal Negative [facility] Comment on above: Order Comment: Speci men Type: URINE SPECIMEN Ordering Facility: [facility] Address: [address] [place] [address] Performed By: #### 2 4356-8 #### [facility] CLIA [id number] [address] [place] [address] [place] WBC LM.HPF (Urine sed) [#/Area] 0-5 /HPF Normal 0-5 /HPF [facility] Comment on above: Order Comment: Speci men Type: URINE SPECIMEN Ordering Facility: [facility] Address: [address] [place] [address] Performed By: #### 2 4356-8 #### [facility] CLIA [id number] [address] [email or web address] [address] [facility] URINALYSIS, DIPSTICK ONLYon 05-10-2023 Bilirubin Ql (U) 1+ Abnormal Negative [facility] Clarity (Unsp spec) Slightly Cloudy Abnormal Clear [facility] Color (U) Yellow Yellow [facility] Glucose Test strip (U) [Mass/Vol] Negative Negative [facility] Hemoglobin Ql (U) 1+ Abnormal Negative [facility] Ketones Ql (U) Trace Abnormal Negative [facility] Leukocyte esterase Test strip Ql (U) Trace Abnormal Negative [facility] Nitrite Ql (U) Negative Negative [facility] pH (U) 6.0 [pH] 5.0 - 8.0 [facility] Protein (U) [Mass/Vol] Trace Abnormal Negative [facility] Specific gravity (U) [Rel density] 1.025 1.005 - 1.030 [facility] Urobilinogen Ql (U) Trace Abnormal Negative [facility] Basic metabolic panel (Bld)o n 01-28-2023 Anion gap (Bld) [Moles/Vol] 10 mmol/L 0 - 15 mmol/L [facility] Chloride [Moles/Vol] 105 mmol/L 98 - 10 9 mmol/L [facility] CO2 [Moles/Vol] 26 mmol/L 24 - 32 mmol/L [facility] Creatinine [Mass/Vol] 0.40 mg/dL Low 0.60 - 1.30 mg/dL [facility] GFR/1.73 sq M.predicted among non-blacks MDRD (S/P/Bld) [Vol rate/Area] 127 mL/min/1.73m >=60 mL/min/1.73m [facility] Glucose [Mass/Vol] 91 mg/dL 85 - 125 mg/dL [facility] Potassium [Moles/Vol] 4.3 mmol/L 3.5 - 4.9 mmol/L [facility] Sodium [Moles/Vol] 141 mmol/L 138 - 146 mmol/L [facility] Urea nitrogen [Mass/Vol] 14 mg/dL 8 - 26 mg/d L [facility] CBC W Auto Differential pane l (Bld)on 01-28-2023 Basophils (Bld) [#/Vol] 0.04 10*3/uL <0.11 k/uL [facility] Basophils/100 WBC (Bld) 0.5 % [facility] Differential cell count method Nom (Bld) Auto [facility] Eosinophils (Bld) [#/Vol] 0.11 10*3/uL <0.46 k/uL [facility] Eosinophils/100 WBC (Bld) 1.4 % [facility] Erythrocyte distribution width (RBC) [Ratio] 13.8 % 11.5 - 15.0 % [facility] Hematocrit (Bld) [Volume fraction] 42.9 % 36.0 - 46.0 % [facility] Hemoglobin (Bld) [Mass/Vol] 14.2 g/dL 11.5 - 15.5 g/dL [facility] Immature granulocytes (Bld) [#/Vol] <0.10 k/uL [facility] Immature granulocytes/100 WBC (Bld) 0.3 % [facility] Lymphocytes (Bld) [#/Vol] 2.50 10*3/uL 1.00 - 4.00 k/uL [facility] Lymphocytes/100 WBC (Bld) 31.8 % [facility] MCH (RBC) [Entitic mass] 32.8 pg 26. 0 - 34.0 pg [facility] MCHC (RBC) [Mass/Vol] 33.1 g/dL 30.5 - 36.0 g/dL [facility] MCV (RBC) [Entitic vol] 99.1 fL 80.0 - 100.0 fL [facility] Monocytes (Bld) [#/Vol] 0.75 10*3/uL <0.87 k/uL [facility] Monocytes/100 WBC (Bld) 9.5 % [facility] Neutrophils (Bld) [#/Vol] 4.45 10*3/uL 1.45 - 7.50 k/uL [facility] Neutrophils/100 WBC (Bld) 56.5 % [facility] Nucleated RBC (Bld) [#/Vol] <0.01 k/uL [facility] Nucleated RBC/100 WBC (Bld) [Ratio] 0.0 /100 WBC [facility] Platelet mean volume (Bld) [Entitic vol] 11.2 fL 9.0 - 12.7 fL [facility] Platelets (Bld) [#/Vol] 250 10*3/uL 150 - 400 k/uL [facility] RBC (Bld) [#/Vol] 4.33 10*6/uL 3.90 - 5.2 0 m/uL [facility] WBC (Bld) [#/Vol] 7.87 10*3/uL 3.70 - 11. 00 k/uL [facility] UAon 04-14-2022 Color (U) Yellow Normal [facility] ([place]) Comment on above: Performed By: #### U AMIC, UA #### [place] [address] Glucose (U) [Mass/Vol] Negative Normal Negative [facility] ([place]) Comment on above: Performed By: #### U AMIC, UA #### [place] [address] Ketones Ql (U) Negative Normal Neg-Trace [facility] ([place]) Comment on above: Performed By: #### U AMIC, UA #### [address] [address] UA Appear Clear Normal Clear [facility] ([place]) Comment on above: Performed By: #### U AMIC, UA #### [place] [id number] UA Blood Small Abnormal Neg-Trace [facility] ([place]) Comment on above: Performed By: #### U AMIC, UA #### [address] [address] UA Leuk Est Negative Normal Negative [facility] ([place]) Comment on above: Performed By: #### U AMIC, UA #### [address] [address] UA Nitrite Negative Normal Negative [facility] ([place]) Comment on above: Performed By: #### U AMIC, UA #### [place] [address] UA pH 7.0 Normal 5.0 - 8.0 [facility] ([place]) Comment on above: Performed By: #### U AMIC, UA #### [place] [address] UA Protein Negative Normal Negative [facility] ([place]) Comment on above: Performed By: #### U AMIC, UA #### [place] [address] UA Spec Grav 1.015 Normal 1.006-1.029 [facility] ([place]) Comment on above: Performed By: #### U AMIC, UA #### [place] [address] UA Specimen Type Clean Catch Normal [facility] ([place]) Comment on above: Performed By: #### U AMIC, UA #### [place] [address] UA Urobilinogen 1.0 E.U./dL Normal 0.2-1.0 [facility] ([place]) Comment on above: Performed By: #### U AMIC, UA #### [place] [address] Urobilinogen (U) [Mass/Vol] Negative Normal Neg-Trace [facility] ([place]) Comment on above: Performed By: #### U AMIC, UA #### [place] [address] UAMICon 04-14-2022 UA Bacteria 1+ /hpf Abnormal Negative [facility] ([place]) Comment on above: Performed By: #### U AMIC, UA #### [place] [address] UA Mucous 1+ /hpf Normal [facility] ([place]) Comment on above: Performed By: #### U AMIC, UA #### [place] [address] UA RBC 5-10 Abnormal 0-2 [facility] ([place]) Comment on above: Performed By: #### U AMIC, UA #### [address] [address] UA Squam Epithelial Rare Normal 0-20 [facility] ([place]) Comment on above: Performed By: #### U AMIC, UA #### [address] [address] UA WBC Negative Normal 0-5 [facility] ([place]) Comment on above: Performed By: #### U AMIC, UA #### [address] [address] .Auto Diffon 03-12-2022 Basophil, Absolute 0.00 10 3/mcL Normal 0.00-0.27 [facility] ([place]) Comment on above: Performed By: #### C MP, GFR, CBC, ADIFF, LIP, ANEU #### [address] [address] Basophils/100 WBC (Bld) 0.7 % Normal 0.0-2.5 [facility] ([place]) Comment on above: Performed By: #### C MP, GFR, CBC, ADIFF, LIP, ANEU #### [address] [address] Eosinophil, Absolute 0.10 10 3/mcL Normal 0.00-0.65 [facility] ([place]) Comment on above: Performed By: #### C MP, GFR, CBC, ADIFF, LIP, ANEU #### [address] [address] Eosinophils/100 WBC (Bld) 1.1 % Normal 0.0-6.0 [facility] ([place]) Comment on above: Performed By: #### C MP, GFR, CBC, ADIFF, LIP, ANEU #### [address] [address] Lymphocyte, Absolute 2.10 10 3/mcL Normal 0.90-4.32 [facility] ([place]) Comment on above: Performed By: #### C MP, GFR, CBC, ADIFF, LIP, ANEU #### [address] [address] Lymphocytes/100 WBC (Bld) 30.4 % Normal 20.0-40.0 [facility] ([place]) Comment on above: Performed By: #### C MP, GFR, CBC, ADIFF, LIP, ANEU #### [address] [address] Monocyte, Absolute 0.70 10 3/mcL Normal 0.09-1.40 [facility] ([place]) Comment on above: Performed By: #### C MP, GFR, CBC, ADIFF, LIP, ANEU #### [address] [address] Monocytes/100 WBC (Bld) 10.4 % Normal 2.0-13.0 [facility] ([place]) Comment on above: Performed By: #### C MP, GFR, CBC, ADIFF, LIP, ANEU #### [address] [address] Neutrophils/100 WBC (Bld) 57.4 % Normal 50.0-75.0 [facility] ([place]) Comment on above: Performed By: #### C MP, GFR, CBC, ADIFF, LIP, ANEU #### [address] [address] .GFRon 03-12-2022 GFR >60 Normal [facility] ([place]) Comment on above: Result Comment: GFR Population mean for , Non- Americans Ages 20-29 = 116 mL/min/1.73 sq.m. Ages 30-39 = 107 mL/min/1.73 sq.m. Ages 40-49 = 99 mL/min/1.73 sq.m. Ages 50-59 = 93 mL/min/1.73 sq.m. Ages 60-69 = 85 mL/min/1.73 sq.m. Ages 70+ = 75 mL/min/1.73 sq.m. Chronic Kidney Disease: Less than 60 mL/min/1.73 square meters End Stage Renal Disease: Less than 15 mL/min/1.73 square meters Performed By: #### C MP, GFR, CBC, ADIFF, LIP, ANEU ####[address] [address] GFR Non- >60 Normal [facility] ([place]) Comment on above: Result Comment: GFR Population mean for , Non- Americans Ages 20-29 = 116 mL/min/1.73 sq.m. Ages 30-39 = 107 mL/min/1.73 sq.m. Ages 40-49 = 99 mL/min/1.73 sq.m. Ages 50-59 = 93 mL/min/1.73 sq.m. Ages 60-69 = 85 mL/min/1.73 sq.m. Ages 70+ = 75 mL/min/1.73 sq.m. Chronic Kidney Disease: Less than 60 mL/min/1.73 square meters End Stage Renal Disease: Less than 15 mL/min/1.73 square meters Performed By: #### C MP, GFR, CBC, ADIFF, LIP, ANEU ####[address] [address] .NEUABSon 03-12-2022 Neutrophil, Absolute 3.90 10 3/mcL Normal 2.25-8.10 [facility] ([place]) Comment on above: Performed By: #### C MP, GFR, CBC, ADIFF, LIP, ANEU #### [address] [address] CBCon 03-12-2022 Erythrocyte distribution width (RBC) [Ratio] 13.7 % Normal 11.5-15.5 [facility] ([place]) Comment on above: Performed By: #### C MP, GFR, CBC, ADIFF, LIP, ANEU #### [place] [address] Hematocrit (Bld) [Volume fraction] 44.2 % Normal 34.0-46.0 [facility] ([place]) Comment on above: Performed By: #### C MP, GFR, CBC, ADIFF, LIP, ANEU #### [address] [address] Hgb 15.2 G/dL Normal 12.0-16.0 [facility] ([place]) Comment on above: Performed By: #### C MP, GFR, CBC, ADIFF, LIP, ANEU #### [place] [address] MCH (RBC) [Entitic mass] 34.0 pg High 27.0-33.0 [facility] ([place]) Comment on above: Performed By: #### C MP, GFR, CBC, ADIFF, LIP, ANEU #### [place] [address] MCHC 34.5 G/dL Normal 32.0-36.0 [facility] ([place]) Comment on above: Performed By: #### C MP, GFR, CBC, ADIFF, LIP, ANEU #### [place] [address] MCV (RBC) [Entitic vol] 98.7 fL Normal 80.0-99.0 [facility] ([place]) Comment on above: Performed By: #### C MP, GFR, CBC, ADIFF, LIP, ANEU #### [place] [address] Platelet 215 10 3/mcL Normal 150-450 [facility] ([place]) Comment on above: Performed By: #### C MP, GFR, CBC, ADIFF, LIP, ANEU #### [place] [address] Platelet mean volume (Bld) [Entitic vol] 9.0 fL Normal 6.6-10.5 [facility] ([place]) Comment on above: Performed By: #### C MP, GFR, CBC, ADIFF, LIP, ANEU #### [place] [address] RBC 4.48 10 6/mcL Normal 4.10-5.30 [facility] ([place]) Comment on above: Performed By: #### C MP, GFR, CBC, ADIFF, LIP, ANEU #### [place] [address] WBC 6.90 10 3/mcL Normal 4.50-10.80 [facility] ([place]) Comment on above: Performed By: #### C MP, GFR, CBC, ADIFF, LIP, ANEU #### [place] [address] CMPon 03-12-2022 Albumin Level 4.1 G/dL Normal 3.2-4.8 [facility] ([place]) Comment on above: Performed By: #### C MP, GFR, CBC, ADIFF, LIP, ANEU ####[address] [address] Albumin/Globulin [Mass ratio] 1.5 {ratio} Normal 0.9-1.6 [facility] ([place]) Comment on above: Performed By: #### C MP, GFR, CBC, ADIFF, LIP, ANEU ####[address] [address] ALP [Catalytic activity/Vol] 67 U/L Normal 38-126 [facility] ([place]) Comment on above: Performed By: #### C MP, GFR, CBC, ADIFF, LIP, ANEU ####[place] [id number] ALT [Catalytic activity/Vol] 10 U/L Normal 10-49 [facility] ([place]) Comment on above: Performed By: #### C MP, GFR, CBC, ADIFF, LIP, ANEU ####[place] [id number] AST [Catalytic activity/Vol] 18 U/L Normal 8-34 [facility] ([place]) Comment on above: Performed By: #### C MP, GFR, CBC, ADIFF, LIP, ANEU ####[place] [address] Bili Total 0.40 mg/dL Normal 0.20-1.20 [facility] ([place]) Comment on above: Result Comment: Use of this assay is not recommended for patients undergoing treatment with eltrombopag due to the potential for falsely elevated results. Performed By: #### C MP, GFR, CBC, ADIFF, LIP, ANEU ####[place] [id number] BUN/Creatinine Ratio 17.0 ratio Normal 10.0-22.0 [facility] ([place]) Comment on above: Performed By: #### C MP, GFR, CBC, ADIFF, LIP, ANEU ####[place] [id number] Calcium [Mass/Vol] 9.4 mg/dL Normal 8.7-10.4 [facility] ([place]) Comment on above: Result Comment: No te - New Reference Range in effect 20 Performed By: #### C MP, GFR, CBC, ADIFF, LIP, ANEU ####[address] [address] Chloride [Moles/Vol] 110 mmol/L Normal 98-110 [facility] ([place]) Comment on above: Performed By: #### C MP, GFR, CBC, ADIFF, LIP, ANEU ####[address] [address] CO2 [Moles/Vol] 27 mmol/L Normal 22-32 [facility] ([place]) Comment on above: Performed By: #### C MP, GFR, CBC, ADIFF, LIP, ANEU ####[address] [address] Creatinine [Mass/Vol] 0.47 mg/dL Low 0.50-1.20 [facility] [facility] ([place]) Comment on above: Performed By: #### C MP, GFR, CBC, ADIFF, LIP, ANEU ####[address] [address] Electrolyte Balance 3.0 mEq/L Low 4.0-15.0 [facility] ([place]) Comment on above: Performed By: #### C MP, GFR, CBC, ADIFF, LIP, ANEU ####[address] [address] Globulin 2.7 G/dL Normal 1.5-3.8 [facility] ([place]) Comment on above: Performed By: #### C MP, GFR, CBC, ADIFF, LIP, ANEU ####[address] [address] Glucose [Mass/Vol] 88 mg/dL Normal 70-110 [facility] ([place]) Comment on above: Performed By: #### C MP, GFR, CBC, ADIFF, LIP, ANEU ####[address] [address] Potassium [Moles/Vol] 4.2 mmol/L Normal 3.5-5.0 [facility] ([place]) Comment on above: Result Comment: Spec imen slightly hemolyzed. Performed By: #### C MP, GFR, CBC, ADIFF, LIP, ANEU ####[place] [address] [place] [address] Sodium [Moles/Vol] 140 mmol/L Normal 136-145 [facility] ([place]) Comment on above: Performed By: #### C MP, GFR, CBC, ADIFF, LIP, ANEU ####[address] [address] Total Protein 6.8 G/dL Normal 5.7-8.2 [facility] ([place]) Comment on above: Result Comment: No te - New Reference Range in effect 20 Performed By: #### C MP, GFR, CBC, ADIFF, LIP, ANEU ####[address] [address] Urea nitrogen [Mass/Vol] 8.0 mg/dL Normal 8.0-22.0 [facility] ([place]) Comment on above: Performed By: #### C MP, GFR, CBC, ADIFF, LIP, ANEU ####[address] [address] [address] ABD/PELVIS W/ IV CONTRAST ONLYon 03-12-2022 CT ABD/PELVIS W/ IV CONTRAST ONLY ORIGINAL EXAMINATION: CT OF THE ABDOMEN AND PELVIS WITH CONTRAST 03/12/2022 1:22 pm TECHNIQUE: CT of the abdomen and pelvis was performed with the administration of intravenous contrast. Multiplanar reformatted images are provided for review. Dose modulation, iterative reconstruction, and/or weight based adjustment of the mA/kV was utilized to reduce the radiation dose to as low as reasonably achievable. COMPARISON: October 21, 2019 HISTORY: ORDERING SYSTEM PROVIDED HISTORY: Reason for Exam: abdominal pain FINDINGS: No acute osseous abnormality identified. The lung bases are unremarkable. Gastric and gastroesophageal junction postoperative changes are present. There is a very small sliding hiatal hernia suspected. Cholecystectomy clips are noted. No focal liver lesions seen. Spleen, adrenal glands and pancreas appear normal. No kidney abnormality seen. No adenopathy, free air or free fluid is evident. No GI tract abnormality seen. The appendix is normal. No other contributory abnormality. IMPRESSION: No acute process. Interpreted by: Damian Clemons MD Preliminary Report By: Damian Clemons MD Electronically signed By Damian Clemons MD Dictated Date: 03/12/2022 1:26:38 PM Prelim Date: 03/12/2022 1:29:15 PM Sign Date: 03/12/2022 1:29:15 PM Ordering Provider: LAMAR RAY [facility] ([place]) LABORATORYOrdered By: SYSTEM SYSTEM on 03-12-2022 Albumin BCP dye [Mass/Vol] 4.1 G/dL Invalid Interpretation Code 3.2 - 4.8 G/dL AH ADM SS Albumin/Globulin [Mass ratio] 1.5 {ratio} Invalid Interpretation Code 0.9 - 1.6 ratio AH ADM SS ALP [Catalytic activity/Vol] 67 U/L Invalid Interpretation Code 38 - 126 U/L AH ADM SS ALT No additional P-5'-P [Catalytic activity/Vol] 10 U/L Invalid Interpretation Code 10 - 49 U/L AH ADM SS AST [Catalytic activity/Vol] 18 U/L Invalid Interpretation Code 8 - 34 U/L AH ADM SS Basophils (Bld) [#/Vol] 0.00 103/mcL Invalid Interpretation Code 0.00 - 0.27 10^3/mcL AH Remisol SS Basophils/100 WBC (Bld) 0.7 % Invalid Interpretation Code 0.0 - 2.5 % AH Remisol SS Bilirubin [Mass/Vol] 0.40 mg/dL Invalid Interpretation Code 0.20 - 1.20 mg/dL AH ADM SS Calcium [Mass/Vol] 9.4 mg/dL Invalid Interpretation Code 8.7 - 10.4 mg/dL AH ADM SS Chloride [Moles/Vol] 110 mmol/L Invalid Interpretation Code 98 - 110 mEq/L AH ADM SS CO2 [Moles/Vol] 27 mmol/L Invalid Interpretation Code 22 - 32 mEq/L AH ADM SS Creatinine [Mass/Vol] 0.47 mg/dL Invalid Interpretation Code 0.50 - 1.20 mg/dL AH ADM SS Electrolyte Balance 3.0 mEq/L Invalid Interpretation Code 4.0 - 15.0 mEq/L AH ADM SS Eosinophils (Bld) [#/Vol] 0.10 103/mcL Invalid Interpretation Code 0.00 - 0.65 10^3/mcL AH Remisol SS Eosinophils/100 WBC (Bld) 1.1 % Invalid Interpretation Code 0.0 - 6.0 % AH Remisol SS Erythrocyte distribution width (RBC) [Ratio] 13.7 % Invalid Interpretation Code 11.5 - 15.5 % AH Remisol SS GFR/1.73 sq M.predicted among blacks MDRD (S/P/Bld) [Vol rate/Area] ml/min/1.73sqm Invalid Interpretation Code AH ADM SS GFR/1.73 sq M.predicted among non-blacks MDRD (S/P/Bld) [Vol rate/Area] ml/min/1.73sqm Invalid Interpretation Code AH ADM SS Globulin 2.7 G/dL Invalid Interpretation Code 1.5 - 3.8 G/dL AH ADM SS Glucose [Mass/Vol] 88 mg/dL Invalid Interpretation Code 70 - 110 mg/dL AH ADM SS Hematocrit (Bld) [Volume fraction] 44.2 % Invalid Interpretation Code 34.0 - 46.0 % AH Remisol SS Hemoglobin (Bld) [Mass/Vol] 15.2 G/dL Invalid Interpretation Code 12.0 - 16.0 G/dL AH Remisol SS Lipase [Catalytic activity/Vol] 32 U/L Invalid Interpretation Code 12 - 53 U/L AH ADM SS Lymphocytes (Bld) [#/Vol] 2.10 103/mcL Invalid Interpretation Code 0.90 - 4.32 10^3/mcL AH Remisol SS Lymphocytes/100 WBC (Bld) 30.4 % Invalid Interpretation Code 20.0 - 40.0 % AH Remisol SS MCH (RBC) [Entitic mass] 34.0 pg Invalid Interpretation Code 27.0 - 33.0 pg AH Remisol SS MCHC (RBC) [Mass/Vol] 34.5 G/dL Invalid Interpretation Code 32.0 - 36.0 G/dL AH Remisol SS MCV (RBC) [Entitic vol] 98.7 fL Invalid Interpretation Code 80.0 - 99.0 fL AH Remisol SS Monocytes (Bld) [#/Vol] 0.70 103/mcL Invalid Interpretation Code 0.09 - 1.40 10^3/mcL AH Remisol SS Monocytes/100 WBC (Bld) 10.4 % Invalid Interpretation Code 2.0 - 13.0 % AH Remisol SS Neutrophils (Bld) [#/Vol] 3.90 103/mcL Invalid Interpretation Code 2.25 - 8.10 10^3/mcL AH Remisol SS Neutrophils/100 WBC (Bld) 57.4 % Invalid Interpretation Code 50.0 - 75.0 % AH Remisol SS Platelet mean volume (Bld) [Entitic vol] 9.0 fL Invalid Interpretation Code 6.6 - 10.5 fL AH Remisol SS Platelets (Bld) [#/Vol] 215 103/mcL Invalid Interpretation Code 150 - 450 10^3/mcL AH Remisol SS Potassium [Moles/Vol] 4.2 mmol/L Invalid Interpretation Code 3.5 - 5.0 mEq/L AH ADM SS Comment on above: Result Comment: Spec imen slightly hemolyzed. Protein [Mass/Vol] 6.8 G/dL Invalid Interpretation Code 5.7 - 8.2 G/dL AH ADM SS RBC (Bld) [#/Vol] 4.48 106/mcL Invalid Interpretation Code 4.10 - 5.30 10^6/mcL AH Remisol SS Sodium [Moles/Vol] 140 mmol/L Invalid Interpretation Code 136 - 145 mEq/L AH ADM SS Urea nitrogen [Mass/Vol] 8.0 mg/dL Invalid Interpretation Code 8.0 - 22.0 mg/dL AH ADM SS Urea nitrogen/Creatinine [Mass ratio] 17.0 ratio Invalid Interpretation Code 10.0 - 22.0 ratio AH ADM SS WBC (Bld) [#/Vol] 6.90 103/mcL Invalid Interpretation Code 4.50 - 10.80 10^3/mcL AH Remisol SS LIPon 03-12-2022 Lipase Level 32 U/L Normal 12-53 [facility] ([place]) Comment on above: Result Comment: No te - New Reference Range in effect 20 Performed By: #### C MP, GFR, CBC, ADIFF, LIP, ANEU #### [place] [address] US RENALon 10-02-2021 US RENAL ORIGINAL EXAMINATION: LIMITED RETROPERITONEAL [id number] 3:48 pm Ultrasound retroperitoneum Complete: Attention Urinary tract COMPARISON: CT 09/11/2019 HISTORY: ORDERING SYSTEM PROVIDED HISTORY: Reason for Exam: bladder pain, hematuria, FINDINGS: The right and left kidneys measure 12.4 x 5.9 x 3.9 cm and 9.9 x 4.5 x 6.0 cm respectively and are normal in cortical thickness and echogenicity. No pelvicaliectasis, complex cystic or solid mass is seen. No renal stone is visualized . There is no free fluid seen in the abdomen. Urinary bladder is less than optimally distended with volume of only 25 cc. It is otherwise sonographically normal. Postvoid images show complete bladder emptying.. IMPRESSION: Sonographically normal kidneys. Urinary bladder is also unremarkable. . Interpreted by: John Aguillon MD Preliminary Report By: John Aguillon MD Electronically signed By John Aguillon MD Dictated Date: 10/02/2021 8:30:39 AM Prelim Date: 10/02/2021 8:32:03 AM Sign Date: 10/02/2021 8:32:03 AM Ordering Provider: LYNN Hsieh [facility] ([place]) MRI BREAST W/ + W/O CONTRAST BILATERALon 08-03-2021 MRI BREAST W/ + W/O CONTRAST BILATERAL ORIGINAL FROM: [facility] [address] [place] [address] PROCEDURE FOR: MISHEL ASHBY [address] [place] [address] Home: PID#: [id number] Exam#: [id number] : 1980 Age: 41 TO: SHIVA SOLIS [place] [address] Fax: NO FAX EXAMINATION: MRI OF THE BILATERAL BREASTS WITHOUT AND WITH CONTRAST 08/03/2021 5:28 pm: TECHNIQUE: Multiplanar multisequence MRI of the bilateral breasts were performed without and with the administration of intravenous contrast. Data analysis was performed with color parametric mapping, image subtraction, and 3D reconstructions. COMPARISON: Screening mammogram January 08, 2021, bilateral breast MRI June 29, 2020 HISTORY: ORDERING SYSTEM PROVIDED HISTORY: Reason for Exam: High Risk screening, gene mutation FINDINGS: Bilateral background parenchymal enhancement is minimal and is symmetric. No significant enhancing masses seen in either breast. There are no enlarged axillary or internal mammary lymph nodes. IMPRESSION: Negative exam. No evidence of a breast carcinoma measuring 3 mm in size or greater. Annual mammogram and breast MRI screening schedule is recommended. BIRADS: MAMMOGRAM BI-RADS: 1: Negative RECALL: 1 year screening RECALL TYPE: Mammo+MRI LETTER SENT: Normal BI-RADS 1 and 2 Interpreted by: Skylar Cruz Preliminary Report By: Skylar Cruz Electronically signed By Skylar Cruz Dictated Date: 08/04/2021 4:31:42 PM Prelim Date: 08/04/2021 4:33:37 PM Sign Date: 08/04/2021 4:33:37 PM Ordering Provider: SHIVA SOLIS CLINICAL: AT HIGH RISK FOR BREAST CANCER, MONALLELIC MUTATION OF CDH1 GENE. [employer] Sales: SILVIA SHEA (Faustina)(MR) letter sent: Normal BI-RADS 1 and 2 MRI BI-RADS: 1 Negative Normal [facility] ([place]) .Auto Diffon 05-29-2021 Basophil, Absolute 0.00 10 3/mcL Normal 0.00-0.27 [facility] ([place]) Comment on above: Performed By: #### L IPID, FE, CMP, CBC, TSH, FOL, B12, ADIFF, VIDH, ANEU, GFR, FERR, IBC ####[address] [address] Basophils/100 WBC (Bld) 0.4 % Normal 0.0-2.5 [facility] ([place]) Comment on above: Performed By: #### L IPID, FE, CMP, CBC, TSH, FOL, B12, ADIFF, VIDH, ANEU, GFR, FERR, IBC ####[address] [address] Eosinophil, Absolute 0.10 10 3/mcL Normal 0.00-0.65 [facility] ([place]) Comment on above: Performed By: #### L IPID, FE, CMP, CBC, TSH, FOL, B12, ADIFF, VIDH, ANEU, GFR, FERR, IBC ####[address] [address] Eosinophils/100 WBC (Bld) 1.6 % Normal 0.0-6.0 [facility] ([place]) Comment on above: Performed By: #### L IPID, FE, CMP, CBC, TSH, FOL, B12, ADIFF, VIDH, ANEU, GFR, FERR, IBC ####[address] [address] Lymphocyte, Absolute 1.80 10 3/mcL Normal 0.90-4.32 [facility] ([place]) Comment on above: Performed By: #### L IPID, FE, CMP, CBC, TSH, FOL, B12, ADIFF, VIDH, ANEU, GFR, FERR, IBC ####[address] [address] Lymphocytes/100 WBC (Bld) 25.2 % Normal 20.0-40.0 [facility] ([place]) Comment on above: Performed By: #### L IPID, FE, CMP, CBC, TSH, FOL, B12, ADIFF, VIDH, ANEU, GFR, FERR, IBC ####[address] [address] Monocyte, Absolute 0.90 10 3/mcL Normal 0.09-1.40 [facility] ([place]) Comment on above: Performed By: #### L IPID, FE, CMP, CBC, TSH, FOL, B12, ADIFF, VIDH, ANEU, GFR, FERR, IBC ####[address] [address] Monocytes/100 WBC (Bld) 12.5 % Normal 2.0-13.0 [facility] ([place]) Comment on above: Performed By: #### L IPID, FE, CMP, CBC, TSH, FOL, B12, ADIFF, VIDH, ANEU, GFR, FERR, IBC ####[address] [address] Neutrophils/100 WBC (Bld) 60.3 % Normal 50.0-75.0 [facility] ([place]) Comment on above: Performed By: #### L IPID, FE, CMP, CBC, TSH, FOL, B12, ADIFF, VIDH, ANEU, GFR, FERR, IBC ####[address] [address] .GFRon 05-29-2021 GFR >60 Normal [facility] ([place]) Comment on above: Result Comment: GFR Population mean for , Non- Americans Ages 20-29 = 116 mL/min/1.73 sq.m. Ages 30-39 = 107 mL/min/1.73 sq.m. Ages 40-49 = 99 mL/min/1.73 sq.m. Ages 50-59 = 93 mL/min/1.73 sq.m. Ages 60-69 = 85 mL/min/1.73 sq.m. Ages 70+ = 75 mL/min/1.73 sq.m. Chronic Kidney Disease: Less than 60 mL/min/1.73 square meters End Stage Renal Disease: Less than 15 mL/min/1.73 square meters Performed By: #### L IPID, FE, CMP, CBC, TSH, FOL, B12, ADIFF, VIDH, ANEU, GFR, FERR, IBC ####[place] [address] GFR Non- >60 Normal [facility] ([place]) Comment on above: Result Comment: GFR Population mean for , Non- Americans Ages 20-29 = 116 mL/min/1.73 sq.m. Ages 30-39 = 107 mL/min/1.73 sq.m. Ages 40-49 = 99 mL/min/1.73 sq.m. Ages 50-59 = 93 mL/min/1.73 sq.m. Ages 60-69 = 85 mL/min/1.73 sq.m. Ages 70+ = 75 mL/min/1.73 sq.m. Chronic Kidney Disease: Less than 60 mL/min/1.73 square meters End Stage Renal Disease: Less than 15 mL/min/1.73 square meters Performed By: #### L IPID, FE, CMP, CBC, TSH, FOL, B12, ADIFF, VIDH, ANEU, GFR, FERR, IBC ####[place] [id number] .NEUABSon 05-29-2021 Neutrophil, Absolute 4.40 10 3/mcL Normal 2.25-8.10 [facility] ([place]) Comment on above: Performed By: #### L IPID, FE, CMP, CBC, TSH, FOL, B12, ADIFF, VIDH, ANEU, GFR, FERR, IBC ####[place] [address] B12on 05-29-2021 Cobalamin (Vitamin B12) [Mass/Vol] 707 pg/mL Normal 211-911 [facility] ([place]) Comment on above: Performed By: #### L IPID, FE, CMP, CBC, TSH, FOL, B12, ADIFF, VIDH, ANEU, GFR, FERR, IBC ####[place] [address] CBCon 05-29-2021 Erythrocyte distribution width (RBC) [Ratio] 14.1 % Normal 11.5-15.5 [facility] ([place]) Comment on above: Performed By: #### L IPID, FE, CMP, CBC, TSH, FOL, B12, ADIFF, VIDH, ANEU, GFR, FERR, IBC ####[place] [address] Hematocrit (Bld) [Volume fraction] 45.3 % Normal 34.0-46.0 [facility] ([place]) Comment on above: Performed By: #### L IPID, FE, CMP, CBC, TSH, FOL, B12, ADIFF, VIDH, ANEU, GFR, FERR, IBC ####[place] [address] Hgb 15.6 G/dL Normal 12.0-16.0 [facility] ([place]) Comment on above: Performed By: #### L IPID, FE, CMP, CBC, TSH, FOL, B12, ADIFF, VIDH, ANEU, GFR, FERR, IBC ####[place] [address] MCH (RBC) [Entitic mass] 34.0 pg High 27.0-33.0 [facility] ([place]) Comment on above: Performed By: #### L IPID, FE, CMP, CBC, TSH, FOL, B12, ADIFF, VIDH, ANEU, GFR, FERR, IBC ####[address] [address] MCHC 34.4 G/dL Normal 32.0-36.0 [facility] ([place]) Comment on above: Performed By: #### L IPID, FE, CMP, CBC, TSH, FOL, B12, ADIFF, VIDH, ANEU, GFR, FERR, IBC ####[place] [address] MCV (RBC) [Entitic vol] 98.8 fL Normal 80.0-99.0 [facility] ([place]) Comment on above: Performed By: #### L IPID, FE, CMP, CBC, TSH, FOL, B12, ADIFF, VIDH, ANEU, GFR, FERR, IBC ####[place] [address] Platelet 225 10 3/mcL Normal 150-450 [facility] ([place]) Comment on above: Performed By: #### L IPID, FE, CMP, CBC, TSH, FOL, B12, ADIFF, VIDH, ANEU, GFR, FERR, IBC ####[place] [address] Platelet mean volume (Bld) [Entitic vol] 9.6 fL Normal 6.6-10.5 [facility] ([place]) Comment on above: Performed By: #### L IPID, FE, CMP, CBC, TSH, FOL, B12, ADIFF, VIDH, ANEU, GFR, FERR, IBC ####[place] [address] RBC 4.58 10 6/mcL Normal 4.10-5.30 [facility] ([place]) Comment on above: Performed By: #### L IPID, FE, CMP, CBC, TSH, FOL, B12, ADIFF, VIDH, ANEU, GFR, FERR, IBC ####[place] [address] WBC 7.30 10 3/mcL Normal 4.50-10.80 [facility] ([place]) Comment on above: Performed By: #### L IPID, FE, CMP, CBC, TSH, FOL, B12, ADIFF, VIDH, ANEU, GFR, FERR, IBC ####[address] [address] CMPon 05-29-2021 Albumin Level 4.0 G/dL Normal 3.2-4.8 [facility] ([place]) Comment on above: Performed By: #### L IPID, FE, CMP, CBC, TSH, FOL, B12, ADIFF, VIDH, ANEU, GFR, FERR, IBC ####[place] [id number] Albumin/Globulin [Mass ratio] 1.4 {ratio} Normal 0.9-1.6 [facility] ([place]) Comment on above: Performed By: #### L IPID, FE, CMP, CBC, TSH, FOL, B12, ADIFF, VIDH, ANEU, GFR, FERR, IBC ####[place] [address] ALP [Catalytic activity/Vol] 77 U/L Normal 38-126 [facility] ([place]) Comment on above: Performed By: #### L IPID, FE, CMP, CBC, TSH, FOL, B12, ADIFF, VIDH, ANEU, GFR, FERR, IBC ####[address] [address] ALT [Catalytic activity/Vol] 14 U/L Normal 10-49 [facility] ([place]) Comment on above: Performed By: #### L IPID, FE, CMP, CBC, TSH, FOL, B12, ADIFF, VIDH, ANEU, GFR, FERR, IBC ####[place] [id number] AST [Catalytic activity/Vol] 14 U/L Normal 8-34 [facility] ([place]) Comment on above: Performed By: #### L IPID, FE, CMP, CBC, TSH, FOL, B12, ADIFF, VIDH, ANEU, GFR, FERR, IBC ####[address] [address] Bili Total 1.10 mg/dL Normal 0.20-1.20 [facility] ([place]) Comment on above: Result Comment: Use of this assay is not recommended for patients undergoing treatment with eltrombopag due to the potential for falsely elevated results. Performed By: #### L IPID, FE, CMP, CBC, TSH, FOL, B12, ADIFF, VIDH, ANEU, GFR, FERR, IBC ####[address] [address] BUN/Creatinine Ratio 26.8 ratio High 10.0-22.0 [facility] ([place] Comment on above: Performed By: #### L IPID, FE, CMP, CBC, TSH, FOL, B12, ADIFF, VIDH, ANEU, GFR, FERR, IBC ####[address] [address] Calcium [Mass/Vol] 9.9 mg/dL Normal 8.7-10.4 [facility] ([place]) Comment on above: Result Comment: No te - New Reference Range in effect 20 Performed By: #### L IPID, FE, CMP, CBC, TSH, FOL, B12, ADIFF, VIDH, ANEU, GFR, FERR, IBC ####[place] [address] Chloride [Moles/Vol] 111 mmol/L High 98-110 [facility] ([place]) Comment on above: Performed By: #### L IPID, FE, CMP, CBC, TSH, FOL, B12, ADIFF, VIDH, ANEU, GFR, FERR, IBC ####[address] [address] CO2 [Moles/Vol] 28 mmol/L Normal 22-32 [facility] ([place]) Comment on above: Performed By: #### L IPID, FE, CMP, CBC, TSH, FOL, B12, ADIFF, VIDH, ANEU, GFR, FERR, IBC ####[address] [address] Creatinine [Mass/Vol] 0.56 mg/dL Normal 0.50-1.20 [facility] ([place]) Comment on above: Performed By: #### L IPID, FE, CMP, CBC, TSH, FOL, B12, ADIFF, VIDH, ANEU, GFR, FERR, IBC ####[address] [address] Electrolyte Balance 2.0 mEq/L Low 4.0-15.0 [facility] ([place]) Comment on above: Performed By: #### L IPID, FE, CMP, CBC, TSH, FOL, B12, ADIFF, VIDH, ANEU, GFR, FERR, IBC ####[address] [address] Globulin 2.8 G/dL Normal 1.5-3.8 [facility] ([place]) Comment on above: Performed By: #### L IPID, FE, CMP, CBC, TSH, FOL, B12, ADIFF, VIDH, ANEU, GFR, FERR, IBC ####[address] [address] Glucose [Mass/Vol] 80 mg/dL Normal 70-110 [facility] ([place]) Comment on above: Performed By: #### L IPID, FE, CMP, CBC, TSH, FOL, B12, ADIFF, VIDH, ANEU, GFR, FERR, IBC ####[address] [address] Potassium [Moles/Vol] 4.1 mmol/L Normal 3.5-5.0 [facility] ([place] Comment on above: Performed By: #### L IPID, FE, CMP, CBC, TSH, FOL, B12, ADIFF, VIDH, ANEU, GFR, FERR, IBC ####[address] [address] Sodium [Moles/Vol] 141 mmol/L Normal 136-145 [facility] ([place] Comment on above: Performed By: #### L IPID, FE, CMP, CBC, TSH, FOL, B12, ADIFF, VIDH, ANEU, GFR, FERR, IBC ####[address] [address] Total Protein 6.8 G/dL Normal 5.7-8.2 [facility] ([place]) Comment on above: Result Comment: No te - New Reference Range in effect 20 Performed By: #### L IPID, FE, CMP, CBC, TSH, FOL, B12, ADIFF, VIDH, ANEU, GFR, FERR, IBC ####[place] [address] Urea nitrogen [Mass/Vol] 15.0 mg/dL Normal 8.0-22.0 [facility] ([place] Comment on above: Performed By: #### L IPID, FE, CMP, CBC, TSH, FOL, B12, ADIFF, VIDH, ANEU, GFR, FERR, IBC ####[place] [address] FEon 05-29-2021 Iron [Mass/Vol] 146 ug/dL Normal 50-170 [facility] ([place]) Comment on above: Performed By: #### L IPID, FE, CMP, CBC, TSH, FOL, B12, ADIFF, VIDH, ANEU, GFR, FERR, IBC ####[place] [address] Rose 05-29-2021 Ferritin [Mass/Vol] 34.7 ng/mL Normal 8.0-252.0 [facility] ([place]) Comment on above: Performed By: #### L IPID, FE, CMP, CBC, TSH, FOL, B12, ADIFF, VIDH, ANEU, GFR, FERR, IBC ####[place] [address] FOLon 05-29-2021 Folate 23.88 ng/mL Normal 5.38-24.00 [facility] ([place] Comment on above: Performed By: #### L IPID, FE, CMP, CBC, TSH, FOL, B12, ADIFF, VIDH, ANEU, GFR, FERR, IBC ####[place] [address] IBCon 05-29-2021 TIBC 289 mcg/dL Normal 250-500 [facility] ([place]) Comment on above: Performed By: #### L IPID, FE, CMP, CBC, TSH, FOL, B12, ADIFF, VIDH, ANEU, GFR, FERR, IBC ####[place] [address] LIPIDon 05-29-2021 Cholesterol [Mass/Vol] 160 mg/dL Normal 50-199 [facility] ([place]) Comment on above: Result Comment: Chol esterol Reference Interval: Less than 200 Desirable 200-239 Borderline high risk 240 and above High risk Performed By: #### L IPID, FE, CMP, CBC, TSH, FOL, B12, ADIFF, VIDH, ANEU, GFR, FERR, IBC ####[address] [address] Cholesterol in HDL [Mass/Vol] 54 mg/dL Normal 40-59 [facility] ([place] Comment on above: Performed By: #### L IPID, FE, CMP, CBC, TSH, FOL, B12, ADIFF, VIDH, ANEU, GFR, FERR, IBC ####[address] [address] Cholesterol in LDL [Mass/Vol] 90 mg/dL Normal 0-129 [facility] ([place]) Comment on above: Performed By: #### L IPID, FE, CMP, CBC, TSH, FOL, B12, ADIFF, VIDH, ANEU, GFR, FERR, IBC ####[address] [address] Triglyceride [Mass/Vol] 81 mg/dL Normal 3-149 [facility] ([place]) Comment on above: Performed By: #### L IPID, FE, CMP, CBC, TSH, FOL, B12, ADIFF, VIDH, ANEU, GFR, FERR, IBC ####[address] [address] TSHon 05-29-2021 TSH 1.079 mIU/mL Normal 0.550-4.780 [facility] ([place]) Comment on above: Result Comment: No te - New Reference Range in effect 20 Performed By: #### L IPID, FE, CMP, CBC, TSH, FOL, B12, ADIFF, VIDH, ANEU, GFR, FERR, IBC ####[address] [address] VIDHon 05-29-2021 Vit. D 25-Hydroxy 41.5 ng/mL Normal [facility] ([place]) Comment on above: Result Comment: Inte rpretive Values Based on Total 25(OH)D: Severe Deficiency <20 ng/mL Mild to Moderate Deficiency 20-30 ng/mL Optimum Levels 30-100 ng/mL Toxicity Possible >100 ng/mL Performed By: #### L IPID, FE, CMP, CBC, TSH, FOL, B12, ADIFF, VIDH, ANEU, GFR, FERR, IBC ####[place] [address] Vital Signs Date Time Vital Sign Value Performing Clinician Facility 04-02-2025 14:19-0400 Body height 152.4 cm Damian Aceves DO Work Phone: [facility] 04-02-2025 14:19-0400 Body mass index (BMI) [Ratio] 23.05 kg/m2 Damian Aceves DO Work Phone: [facility] 04-02-2025 14:19-0400 Body weight 53.52 kg Damian Aceves DO Work Phone: [facility] 03-20-2025 13:04-0400 Body mass index (BMI) [Ratio] 23.05 kg/m2 Zoey Mayorga MD Work Phone: [facility] 03-20-2025 13:04-0400 Body weight 53.52 kg Zoey Mayorga MD Work Phone: [facility] 03-20-2025 13:04-0400 Diastolic blood pressure 65 mm[Hg] Zoey Mayorga MD Work Phone: [facility] 03-20-2025 13:04-0400 Heart rate 70 /min Zoey Mayorga MD Work Phone: [facility] 03-20-2025 13:04-0400 Respiratory rate 16 /min Zoey Mayorga MD [facility] [facility] 03-20-2025 13:04-0400 SaO2% (BldA) [Mass fraction] 96 % Zoey Mayorga MD Work Phone: [facility] 03-20-2025 13:04-0400 Systolic blood pressure 104 mm[Hg] Zoey Mayorga MD Work Phone: [facility] 02-25-2025 14:33-0400 Body height 152.4 cm No Primary Care Physician [facility] 02-25-2025 14:33-0400 Body mass index (BMI) [Ratio] 23.2 kg/m2 No Primary Care Physician [facility] 02-25-2025 14:33-0400 Body weight 53.97 kg No Primary Care Physician [facility] 02-25-2025 14:33-0400 Diastolic blood pressure 66 mm[Hg] No Primary Care Physician [facility] 02-25-2025 14:33-0400 Heart rate 81 /min No Primary Care Physician [facility] 02-25-2025 14:33-0400 SaO2% (BldA) [Mass fraction] 95 % No Primary Care Physician [facility] 02-25-2025 14:33-0400 Systolic blood pressure 105 mm[Hg] No Primary Care Physician [facility] 02-07-2025 10:38-0400 Body height 152.4 cm Zoey Mayorga MD Work Phone: [facility] 02-07-2025 10:38-0400 Body mass index (BMI) [Ratio] 22.65 kg/m2 Zoey Mayorga MD Work Phone: [facility] 02-07-2025 10:38-0400 Body weight 52.62 kg Zoey Mayorga MD Work Phone: [facility] 02-07-2025 10:38-0400 Diastolic blood pressure 59 mm[Hg] Zoey Mayorga MD Work Phone: [facility] 02-07-2025 10:38-0400 Heart rate 67 /min Zoey Mayorga MD Work Phone: [facility] 02-07-2025 10:38-0400 Respiratory rate 16 /min Zoey Mayorga MD Work Phone: [facility] 02-07-2025 10:38-0400 SaO2% (BldA) [Mass fraction] 98 % Zoey Mayorga MD Work Phone: [facility] 02-07-2025 10:38-0400 Systolic blood pressure 96 mm[Hg] Zoey Mayorga MD Work Phone: [facility] 01-31-2025 17:26-0400 Body mass index (BMI) [Ratio] 23.44 kg/m2 Erikaza Nam HOSPITAL LIAISON.[employer] M[employer]ER[employer]S ASSISTANT Work Phone: [facility] 01-31-2025 17:26-0400 Body temperature 99 [degF] Erika Sahual HOSPITAL LIAISON.METAL MOULDER'S ASSISTANT Work Phone: [facility] 01-31-2025 17:26-0400 Body weight 54.43 kg Erika Nam HOSPITAL LIAISON.METAL MOULDER'S ASSISTANT Work Phone: [facility] 01-31-2025 17:26-0400 Diastolic blood pressure 70 mm[Hg] Erika Schaal HOSPITAL LIAISON.METAL MOULDER'S ASSISTANT Work Phone: [facility] 01-31-2025 17:26-0400 Heart rate 75 /min Erikaza Sahual HOSPITAL LIAISON.METAL MOULDER'S ASSISTANT Work Phone: [facility] 01-31-2025 17:26-0400 Respiratory rate 16 /min Erika Adelinaal HOSPITAL LIAISON.METAL MOULDER'S ASSISTANT Work Phone: [facility] 01-31-2025 17:26-0400 SaO2% (BldA) [Mass fraction] 98 % Erika Sahual HOSPITAL LIAISON.METAL MOULDER'S ASSISTANT Work Phone: [facility] 01-31-2025 17:26-0400 Systolic blood pressure 100 mm[Hg] Erika Schasylwia HOSPITAL LIAISON.METAL MOULDER'S ASSISTANT Work Phone: [facility] 12-31-2024 14:08-0500 Body mass index (BMI) [Ratio] 22.65 kg/m2 Jalen Mcgee MD Work Phone: [facility] 12-31-2024 14:08-0500 Body temperature 98.71 [degF] Jalen Mcgee MD Work Phone: [facility] 12-31-2024 14:08-0500 Body weight 52.62 kg Jalen Mcgee MD Work Phone: [facility] 12-31-2024 14:08-0500 Diastolic blood pressure 55 mm[Hg] Jalen Mcgee MD Work Phone: [facility] 12-31-2024 14:08-0500 Heart rate 66 /min Jalen Mcgee MD Work Phone: [facility] 12-31-2024 14:08-0500 Respiratory rate 16 /min Jalen Mcgee MD Work Phone: [facility] 12-31-2024 14:08-0500 SaO2% (BldA) [Mass fraction] 97 % Jalen Mcgee MD Work Phone: [facility] 12-31-2024 14:08-0500 Systolic blood pressure 90 mm[Hg] Jalen Mcgee MD Work Phone: [facility] 10-15-2024 09:35-0500 Body mass index (BMI) [Ratio] 23.44 kg/m2 Tyrell Abebe MD Work Phone: [facility] 10-15-2024 09:35-0500 Body temperature 97.7 [degF] Tyrell Abebe MD Work Phone: [facility] 10-15-2024 09:35-0500 Body weight 54.43 kg Tyrell Abebe MD Work Phone: [facility] 10-15-2024 09:35-0500 Diastolic blood pressure 70 mm[Hg] Tyrell Abebe MD Work Phone: [facility] 10-15-2024 09:35-0500 Heart rate 60 /min Tyrell Abebe MD Work Phone: [facility] 10-15-2024 09:35-0500 Respiratory rate 14 /min Tyrell Abebe MD Work Phone: [facility] 10-15-2024 09:35-0500 SaO2% (BldA) [Mass fraction] 100 % Tyrell Abebe MD Work Phone: [facility] 10-15-2024 09:35-0500 Systolic blood pressure 102 mm[Hg] Tyrell Abebe MD Work Phone: [facility] 05-10-2023 11:47-0400 Body temperature 97.3 [degF] Tyrell Abebe MD Work Phone: [facility] 05-10-2023 11:47-0400 Body weight 53.98 kg Tyrell Abebe MD Work Phone: [facility] 05-10-2023 11:47-0400 Diastolic blood pressure 60 mm[Hg] Tyrell Abebe MD Work Phone: [facility] 05-10-2023 11:47-0400 Heart rate 89 /min Tyrell Abebe MD Work Phone: [facility] 05-10-2023 11:47-0400 Respiratory rate 16 /min Tyrell Abebe MD Work Phone: [facility] 05-10-2023 11:47-0400 SaO2% (BldA) [Mass fraction] 96 % Tyrell Abebe MD Work Phone: [facility] 05-10-2023 11:47-0400 Systolic blood pressure 104 mm[Hg] Tyrell Abebe MD Work Phone: [facility] 01-28-2023 10:40-0400 Body temperature 99.81 [degF] Tyrell Abebe MD Work Phone: [facility] 01-28-2023 10:40-0400 Body weight 53.98 kg Tyrell Abebe MD Work Phone: [facility] 01-28-2023 10:40-0400 Diastolic blood pressure 67 mm[Hg] Tyrell Abebe MD Work Phone: [facility] 01-28-2023 10:40-0400 Heart rate 77 /min Tyrell Abebe MD Work Phone: [facility] 01-28-2023 10:40-0400 Respiratory rate 12 /min Tyrell Abebe MD Work Phone: [facility] 01-28-2023 10:40-0400 SaO2% (BldA) [Mass fraction] 98 % Tyrell Abebe MD Work Phone: [facility] 01-28-2023 10:40-0400 Systolic blood pressure 112 mm[Hg] Tyrell Abebe MD Work Phone: [facility] 03-12-2022 11:36-0400 Body temperature 97.34 [degF] JANETH MURRIETA MD [facility] 03-12-2022 11:36-0400 Body weight 51.2 kg JANETH MURRIETA MD [facility] 03-12-2022 11:36-0400 Diastolic blood pressure 75 mm[Hg] JANETH MURRIETA MD [facility] 03-12-2022 11:36-0400 Heart rate 72 /min JANETH MURRIETA MD [facility] 03-12-2022 11:36-0400 Respiratory rate 18 /min JANETH MURRIETA MD [facility] 03-12-2022 11:36-0400 Systolic blood pressure 114 mm[Hg] JANETH MURRIETA MD [facility] Encounters Encounter Date Encounter Type Care Provider Facility Start: 05-09-2025 ambulatory Angelo Thornton Facility:[facility] Start: 05-06-2025 ambulatory Kassandra Underwood ty:[facility] Start: 04-02-2025 End: 04-02-2025 Patient encounter procedure Damian Aceves DO Work Phone: [facility] Plastic Surgery Comment on above: CDH1 gene mutation p ositive (Primary Dx); At high risk for breast cancer; Current smoker Start: 04-02-2025 End: 04-02-2025 ambulatory DAMIAN ACEVES Facility:[id number] Start: 03-27-2025 End: 03-27-2025 ambulatory No Primary Care Physician [facility] Work Phone: Start: 03-27-2025 End: 03-27-2025 Patient encounter procedure Kassandra OLIVEROSC -Radiology [facility] Work Phone: Start: 03-27-2025 End: 03-27-2025 ambulatory Kassandra Atkins Facility:[facility] Start: 03-20-2025 End: 03-20-2025 Office outpatient visit 25 minutes Zoey Mayorga MD Work Phone: [facility] Breast Surgery Comment on above: CDH1 gene mutation p ositive (Primary Dx); At high risk for breast cancer Start: 03-20-2025 End: 03-20-2025 ambulatory ZOEY MAYORGA Facility:[id number] Start: 03-14-2025 ambulatory ZOEY MAYORGA Facil ity:[id number] Start: 03-14-2025 End: 03-14-2025 Subsequent hospital visit by physician [facility] 2 (Lg Bore/1.5t) Work Phone: [facility] Comment on above: CDH1 gene mutation p ositive [Z15.09, Z15.01] Start: 02-25-2025 End: 02-25-2025 Patient encounter procedure Kassandra GOODRICH -Laboratory Work Phone: Start: 02-25-2025 End: 02-25-2025 Patient encounter procedure Kassandra GOODRICH -[facility] Work Phone: Start: 02-25-2025 End: 02-25-2025 ambulatory Kassandra Atkins Facility:[facility] Start: 02-25-2025 End: 02-25-2025 Telephone encounter Andre Samuel RN [facility] Breast Surgery Comment on above: Appointment; Care Co ordinator - Other Start: 02-25-2025 End: 02-25-2025 ambulatory No Primary Care Physician Facility:[facility] Start: 02-13-2025 End: 02-13-2025 Telephone encounter Andre Samuel RN [facility] Breast Surgery Comment on above: Appointment; Care Co ordinator - Other Start: 02-07-2025 End: 02-07-2025 Patient encounter procedure Zoey Mayorga MD Work Phone: [facility] Breast Surgery Comment on above: CDH1 gene mutation p ositive (Primary Dx); At high risk for breast cancer; Nipple discharge Start: 02-07-2025 End: 02-07-2025 ambulatory ZOEY MAYORGA Facility:[id number] Start: 01-31-2025 End: 01-31-2025 Subsequent hospital visit by physician Xr [facility] Work Phone: [facility] Comment on above: PAIN IN BACK, BOTTOM LEFT, RIB AREA FOR 1 WEEK Start: 01-31-2025 ambulatory ERIKA NAM Facility:[id number] Start: 01-31-2025 End: 01-31-2025 Office outpatient visit 25 minutes Erika Nam HOSPITAL LIAISON.[employer] M[employer] ASSISTANT Work Phone: [facility] Comment on above: Rib pain on left sherron e (Primary Dx); Contusion of rib on left side, initial encounter Start: 01-31-2025 End: 01-31-2025 ambulatory ANGELO SALGADO Za Facility:[id number] Start: 01-17-2025 End: 01-17-2025 Telephone encounter Jalen Mcgee MD Work Phone: [facility] Start: 01-07-2025 End: 01-07-2025 Telephone encounter Jalen Mcgee MD Work Phone: Hematology Oncology Comment on above: Release Of Medical R ecords (Sent office notes from 12/31/24 to [facility] , attn: Yogesh /Provider: Everardo 01/07/25 QS); Appointment Start: 01-02-2025 End: 01-02-2025 Telephone encounter Andre Samuel RN [facility] Comment on above: Appointment Start: 01-01-2025 End: 01-01-2025 Telephone encounter Andre Samuel RN [facility] Comment on above: Consult Start: 12-31-2024 End: 12-31-2024 Office outpatient visit 40 minutes Jalen Mcgee MD Work Phone: [facility] Oncology Comment on above: CDH1 gene mutation p ositive (Primary Dx); Erythrocytosis Start: 12-31-2024 End: 12-31-2024 ambulatory JALEN MCGEE Facility:[id number] Start: 12-24-2024 End: 12-24-2024 Telephone encounter Jalen Mcgee MD Work Phone: H[facility]ology Oncology Comment on above: Appointment Start: 11-12-2024 End: 11-12-2024 Emergency department patient visit ANGELO THORNTON Facility:[id number] Start: 10-25-2024 ambulatory WILLIAM CUELLAR Facility:[id number] Start: 10-25-2024 End: 10-25-2024 Subsequent hospital visit by physician Screen/Diagnostic [facility] Comment on above: Encounter for screen ing mammogram for malignant neoplasm of breast [Z12.31] Start: 10-15-2024 End: 10-15-2024 Patient encounter procedure Tyrell Abebe MD Work Phone: [facility] Comment on above: Muscle strain of brandie st wall, initial encounter (Primary Dx) Start: 10-15-2024 ambulatory TYRELL ABEBE Facility:[id number] Start: 10-15-2024 End: 10-15-2024 Subsequent hospital visit by physician Xr [facility] Work Phone: [facility] Comment on above: Muscle strain of brandie st wall, initial encounter [S29.011A] Start: 10-15-2024 End: 10-15-2024 ambulatory ANGELO THORNTON Facility:[id number] Start: 10-15-2024 End: 10-15-2024 Subsequent hospital visit by physician Ct [facility] Work Phone: [facility] Comment on above: Acute abdomen [R10.0 ] Start: 10-10-2024 End: 10-10-2024 Telephone encounter Self [facility] Comment on above: Appointment Start: 09-24-2024 End: 09-24-2024 Emergency department patient visit ANGELO THORNTON Facility:[id number] Start: 05-10-2023 End: 05-10-2023 Patient encounter procedure Tyrell Abebe MD Work Phone: [facility] Comment on above: Frequent urination ( Primary Dx); Acute UTI (urinary tract infection) Start: 03-08-2023 End: 03-08-2023 Telemedicine consultation with patient Kassandra Za LAINEZ-Taj Work Phone: [facility] Start: 03-08-2023 End: 03-08-2023 ambulatory Kassandra Za Larsen PA-C Work Phone: [facility] Comment on above: Screening for colon cancer (Primary Dx) Start: 01-28-2023 End: 01-28-2023 Patient encounter procedure Tyrell Abebe MD Work Phone: [facility] Comment on above: Numbness and tinglin g of left upper extremity (Primary Dx); Numbness and tingling of right upper extremity; Fatigue, unspecified type; Chest discomfort Start: 03-12-2022 End: 03-12-2022 Emergency department patient visit JANETH MURRIETA MD [facility] Procedures Date Procedure Procedure Detail Performing Clinician Start: 03-27-2025 X-ray of esophagus w ith double contrast No Primary Care Physician Start: 03-14-2025 3d rendering w/interp&postproc diff work station Zoey Mayorga MD Work Phone: Start: 03-14-2025 Mri breast without&w ith contrast w/cad bilateral Zoey Mayorga MD Work Phone: Start: 02-25-2025 Vitamin D, 25-hydrox y measurement No Primary Care Physician Comment on above: Vitamin D StatusDefi ciency: <20 ng/mL (50nmol/L)Insufficiency: 20-30 ng/mL (50-75 nmol/L)Sufficiency: 30-100 ng/mL (75-250 nmol/L)Toxicity: >100 ng/mL (>250 nmol/L) Start: 12-31-2024 Blood count complete auto&auto difrntl wbc Jalen Mcgee MD Work Phone: Start: 10-25-2024 Screening mammograph y bi 2-view breast inc cad William Chao Cuellar PA-C Work Phone: Start: 05-10-2023 Urnls dip stick/tabl et rgnt auto w/o microscopy Tyrell Abebe MD Work Phone: Start: 01-28-2023 Blood count complete auto&auto difrntl wbc Tyrell Abebe MD Work Phone: Start: 09-12-2018 Gastrectomy JANETH LUI MD Start: 08-29-2000 section JANETH MURRIETA MD Colonoscopy JANETH MURRIETA MD Plan of Treatment Date Care Activity Detail Author Start: 01-07-2026 End: 01-07-2026 Follow-up encounter 01/07/2026 1:30 PM EST Visit (SP) Office Hematology Oncology [address] [place] [address] [address] [place], [place] [id number] [place] [address] [place] [address] [place] [address] 1 year follow up / labs Hematology Oncology Comment on above: 1 year follow up / l abs Start: 10-25-2025 Screening for malign ant neoplasm of breast Mammogram Screening [facility] Start: 07-08-2025 Influenza vaccination Influenz a Vaccine (Season Ended) [facility] Start: 04-17-2025 End: 04-17-2025 Patient encounter procedure 04/17/2025 9:30 AM EDT Office Visit [facility] [address] [place] [address] [place] [address] Zoey Mayorga MD [address] [place] [address] [place] [address] f/u [facility] Comment on above: f/u Start: 04-02-2025 End: 04-02-2025 Patient encounter procedure 04/02/2025 2:30 PM EDT Office Visit [facility] Plastic Surgery [address] HEADLEY ROSE[address] [place] [address] Damian Aceves, [address] [facility] [facility] [facility] [address] [place] [address] CDH1 gene mutation positive [Z15.09, Z15.01] [facility] Comment on above: CDH1 gene mutation p ositive [Z15.09, Z15.01] Start: 03-20-2025 End: 03-20-2025 Patient encounter procedure 03/20/2025 1:00 PM EDT Office Visit [facility] [address] [place] [address] [place] [address] [place] [address] [place] [address] [place] [address] follow up after mri prior to surgery [facility] Comment on above: follow up after mri prior to surgery Start: 03-14-2025 End: 03-14-2025 Patient encounter procedure 03/14/2025 9:45 AM EDT Appointment [facility] [address] [place] [address] breast mri w/wo contrast this date and time was okay'd by Lilian in MRI [facility] Comment on above: breast mri w/wo cont rast this date and time was okay'd by Lilian in MRI Start: 02-21-2025 End: 02-21-2025 Patient encounter procedure 02/21/2025 9:45 AM EDT Appointment [facility] [place] [address] [place] [address] MRI BREAST WO/W IVCON BILATERAL [facility] Comment on above: MRI BREAST WO/W IVCO N BILATERAL Start: 02-07-2025 End: 02-07-2025 Patient encounter procedure 02/07/2025 10:00 AM EDT Office Visit [facility] [address] [place] [address] [place] [address] Zoey Mayorga MD [address] [place] [address] [place] [address] new patient referred from Dr Mcgee [facility] Comment on above: new patient referred from Dr Mcgee Start: 12-31-2024 End: 12-31-2024 [facility] visit new patient 12/31/2024 2:00 PM EST Visit (SP) Office Hematology Oncology [address] [place] [address] [place] [address] Jalen Mcgee MD [address] [place] [address] [place] [address] New Patient for CDH-1 gene prophylactic gastrectomy ref Dr Leblanc Hematology Oncology Comment on above: New Patient for CDH- 1 gene prophylactic gastrectomy ref Dr Leblanc Start: 10-25-2024 End: 10-25-2024 Patient encounter procedure 10/25/2024 12:30 PM EST Appointment [facility] [address] [place] [address] [place] [address] Last andreas 05/25/23 at [facility] Comment on above: Last andreas 05/25/23 at [facility] Start: 10-15-2024 End: 10-15-2024 Patient encounter procedure [facility] Comment on above: CT abd w/wo contrast , pel w/contrast, r10.0460, Start: 07-08-2024 Covid-19 Vaccine ( season) Covid-19 Vaccine ( season) [facility] Start: 07-08-2024 Influenza vaccination Influenza Vacc ine (#1) [facility] Start: 05-25-2024 Screening for malign ant neoplasm of breast Mammogram Screening [facility] Start: 07-08-2023 Influenza vaccination [facility] Start: 11-07-2022 [facility]: 07-08-2022 Influenza vaccination INFLUENZA (#1) [facility] Start: 2020 Mammography MAMMOGRAM [facility] Start: 2010 HPV TESTING HPV TESTING [facility] Start: 2001 PAP TESTING PAP TESTING [facility] Start: 2001 Screening for malign ant neoplasm of cervix Cervical Cancer Screening [facility] Start: 1999 Hepatitis B Vaccine (1 of 3 - 19+ 3-dose series) Hepatitis B Vaccine (1 of 3 - 19+ 3-dose series) [facility] Start: 1999 Pneumococcal vaccination Pneumococcal Vaccine (1 of 2 - PCV) [facility] Start: 1999 Urine microalbumin profile [facility] Start: 1998 Anxiety Screening Anxiety Screening [facility] Start: 1998 Depression Screening Depression Scre ening [facility] Start: 1998 HEPATITIS C SCREENING HEPATITIS C [facility] Start: 1998 Hepatitis C screening Hepatitis C [facility] Start: 1998 HIV SCREENING HIV SCREENING [facility] Start: 1998 HIV screening HIV Screening [facility] Start: 1986 PNEUMOCOCCAL (1 - PCV) PNEUMOCOCCAL (1 - PCV) [facility] Start: 1986 Pneumococcal vaccination Pneumococcal Vaccine (1 of 2 - PCV) [facility] Start: 1980 COVID-19 VACCINE (#1) COVID-19 VACCI NE (#1) [facility] Start: 1980 HEPATITIS B (1 of 3 - 3-dose series) HEPATITIS B (1 of 3 - 3-dose series) [facility] Bacteria identified in Urine by Culture URINE CULTURE Microbiology Routine Frequent urination 05/10/2023 11:[address] [facility] Work Phone: Elastase.[email or web address] [Presence] in Stool [facility] End: 03-09-2026 MR Breast - bilateral WO and W contrast IV MRI BREAST WO/W IVCON BILATERAL Radiology Routine CDH1 gene mutation positive 1 Occurrences starting 02/07/2025 until 03/09/2026 [facility] Work Phone: Comment on above: 1 Occurrences starti ng 02/07/2025 until 03/09/2026 End: 03-09-2026 MRI BREAST 3D POST PROCESSING MRI BREAST 3D POST PROCESSING Radiology Routine CDH1 gene mutation positive 1 Occurrences starting 02/07/2025 until 03/09/2026 [facility] Comment on above: 1 Occurrences starti ng 02/07/2025 until 03/09/2026 End: 03-08-2024 Screening colonoscopy COLONOSCOPY SCREENING Endoscopy Routine Screening for colon cancer 1 Occurrences starting 03/08/2023 until 03/08/2024 [facility] Work Phone: Comment on above: 1 Occurrences starti ng 03/08/2023 until 03/08/2024 End: 11-15-2025 XR Ribs - left Views and Chest PA XR RIBS/CHEST 3V AP RIB/OBLS/CXR LEFT Radiology Routine Muscle strain of chest wall, initial encounter 1 Occurrences starting 10/15/2024 until 11/15/2025 [facility] Work Phone: Comment on above: 1 Occurrences starti ng 10/15/2024 until 11/15/2025 XR Ribs - left Views and Chest PA XR RIBS/CHEST 3V AP RIB/OBLS/CXR LEFT Radiology Routine Muscle strain of chest wall, initial encounter 10/15/2024 10:09 AM EST [facility] End: 03-02-2026 XR Ribs - left Views and Chest PA XR RIBS/CHEST 3V AP RIB/OBLS/CXR LEFT Radiology Routine Rib pain on left side Contusion of rib on left side, initial encounter 1 Occurrences starting 01/31/2025 until 03/02/2026 [facility] Comment on above: 1 Occurrences starti ng 01/31/2025 until 03/02/2026 XR Ribs - left Views and Chest PA XR RIBS/CHEST 3V AP RIB/OBLS/CXR LEFT Radiology Routine Rib pain on left side Contusion of rib on left side, initial encounter 01/31/2025 7:52 PM EDT [facility] End: 03-02-2026 XR Ribs - right Views and Chest PA XR RIBS/CHEST 3V AP RIB/OBLS/CXR RIGHT Radiology Routine 1 Occurrences starting 01/31/2025 until 03/02/2026 [facility] Work Phone: Comment on above: 1 Occurrences starti ng 01/31/2025 until 03/02/2026 Payers Date Payer Category Payer Self-pay 2023 Private Health Insurance [id number] 2022 Unknown [id number] 2022 Unknown [id number] Unknown [id number] Unknown [id number] Unknown [id number] [id number] Unknown [id number] [id number] Unknown [id number] [id number] Social History Date Type Detail Facility Start: 01-07-2021 Tobacco smoking status Heavy t obacco smoker (finding) [facility] Start: 1980 Sex Assigned At Female A [facility] Start: 01-28-2023 End: 02-25-2025 Tobacco smoking status NHIS Smokes tobacco daily [facility] History of tobacco use Cigarette Smoker [facility] Start: 01-28-2023 End: 03-08-2023 Cigarettes smoked current (pack per day) - Reported 1 [facility] Start: 01-28-2023 End: 04-02-2025 Tobacco use and exposure Smokeless tobacco non-user [facility] Start: 01-28-2023 End: 04-02-2025 Alcohol intake Current drinker of alcohol (finding) [facility] Start: 01-28-2023 Alcohol Comment [facility] Start: 1980 Sex Assigned At Not on file [facility] Start: 03-08-2023 End: 09-24-2024 Tobacco use panel [facility] National Score (1-10 0), lower number is lower risk 99 [facility] History of tobacco use Passive smoker [facility] Functional Status Date Assessment Result Facility 03-12-2022 Functional Status [facility] 03-12-2022 Functional Status [facility] Mental Status Date Assessment Result Facility 03-12-2022 [facility] 03-12[facility]22 [facility] Clinical Notes 09-12-2021 to 04-02-2025 Damian Aceves, DO - 04/02/2025 3:07 PM EDTMDamian Trimble, DO - 04/02/2025 3:07 PM Zoey Sparks MD - 03/20/2025 1:09 PM EDT Note Date & Type Note Facility 04-02-2025 History and physical note PLASTIC SURGERY CONSULTATION Consultation requested by Dr. Zoey Mayorga for an opinion regarding breast reconstruction. My final recommendations will be communicated back to the requesting physician by way of shared Medical record or letter to requesting physician via US mail. HPI: This is a 44 year old female who who has CDH 1 gene mutation. Due to her increased risk of breast cancer, she is considering bilateral prophylactic mastectomies. She currently wears a size 34C bra and ideally would be about the same size. She has lost weight in the last several years since she had a gastrectomy in 2018, also prophylactic due to her gene mutation. She has 1 child. 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 Of note, she smokes 1 pack of cigarettes per day and has done so for about the past 30 years. PAST MEDICAL HISTORY Diagnosis Date CDH1-related breast cancer (HCC) GERD (gastroesophageal reflux disease) PAST SURGICAL HISTORY Procedure Laterality Date GASTRECTOMY TOTAL W REPR INT TIFFANY 2018 TOTAL ABDOM HYSTERECTOMY Current Outpatient Medications Medication Sig albuterol HFA (PROVENTIL HFA, VENTOLIN HFA) 90 mcg/actuation inhaler INHALE ONE PUFF BY MOUTH FOUR TIMES A DAY NEEDED pantoprazole DR (PROTONIX) 40 mg tablet TAKE ONE TABLET BY MOUTH every morning 30 minutes before breakfast sertraline (ZOLOFT) 100 mg tablet Take 100 mg by mouth once daily. cholecalciferol, Vitamin D3, (VITAMIN D3) 1,250 mcg (50,000 unit) cap capsule Take 1 capsule by mouth one time a week. multivit,thx,calcium,iron,mins (MULTIVITAMIN AND MINERAL ORAL) Take by mouth. cyanocobalamin (VITAMIN B-12) 100 mcg tab Take 100 mcg by mouth once daily. No current facility-administered medications for this visit. ALLERGIES Allergen Reactions Morphine Rash Nsaids (Non-Steroid* Unknown Penicillins GI Upset SOCIAL: TOB:Tobacco Use: Types: Cigarettes EtOH:Alcohol Use: Yes (Occ) FAMILY HISTORY Problem Relation Age of Onset Hypertension Father Prostate Cancer Father Breast Cancer Sister : REVIEW OF SYSTEMS: With the exception of the problems listed above, Ms. Ashby denies disorders of the Neurologic, Psychologic, Cardiac, Pulmonary, Gastrointestinal, Hepatic, Renal, Endocrine, Vascular, Integumentary or Musculoskeletal Systems; all other systems are negative. PHYSICAL EXAM Ht 152.4 cm (5') Wt 53.5 kg (118 lb) BMI 23.05 kg/m Body mass index is 23.05 kg/m . GENERAL: WDWN Well groomed Thin NEURO: Alert and oriented X3 HEENT: NC/AT and MMM NECK: Supple and NT CV: RRR LUNGS: CTA B/L ABD: Soft, NT, and ND EXT: No cyanosis, clubbing or edema BREASTS: Bilateral breasts are soft with grade 3 ptosis and a deflated appearance. No masses. R SN-N: 23.5 cm L SN-N: 23.5 cm R N-IMF: 8.5 cm L N-IMF: 7.5 cm R BD: 12.0 cm L BD: 12.0 cm ASSESSMENT: 1. 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 Current cigarette smoker PLAN: We discussed her diagnosis and treatment options. I do not feel she is a good candidate for immediate reconstruction based on her [id number] history of cigarette smoking. This puts her at prohibitive risk for a reconstructive procedure of any type. If she were to be nicotine free for 6 months, we could consider immediate reconstruction, if she wants to delay her prophylactic mastectomies and she is committed to quitting cigarette smoking. At that point, however, I would still not recommend nipple sparing mastectomy. She would be a candidate for two-stage coater associate and implant reconstruction in the subpectoral plane. If she wants to move forward with her mastectomies, we could perform delayed reconstruction, again two-stage coater associate and implant, in the future. This again would require her to quit smoking and be nicotine free. We did briefly discuss silicone breast implants and their safety profile and potential complications, including rupture, capsular contracture, and SARAH-ALCL. I answered all of her questions. We took photos today. She understands the reasoning behind my decision. She is going to consider her options. She meets with Dr. Mayorga in the near future. I will see her back as needed. We thank Dr. Mayorga for the courtesy of this consult. Damian Aceves DO [facility] 04-02-2025 History and physical note PLASTIC SURGERY CONSULTATION Consultation requested by Dr. Zoey Mayorga for an opinion regarding breast reconstruction. My final recommendations will be communicated back to the requesting physician by way of shared Medical record or letter to requesting physician via US mail. HPI: This is a 44 year old female who who has CDH 1 gene mutation. Due to her increased risk of breast cancer, she is considering bilateral prophylactic mastectomies. She currently wears a size 34C bra and ideally would be about the same size. She has lost weight in the last several years since she had a gastrectomy in 2018, also prophylactic due to her gene mutation. She has 1 child. 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 Of note, she smokes 1 pack of cigarettes per day and has done so for about the past 30 years. PAST MEDICAL HISTORY Diagnosis Date CDH1-related breast cancer (HCC) GERD (gastroesophageal reflux disease) PAST SURGICAL HISTORY Procedure Laterality Date GASTRECTOMY TOTAL W REPR INT TIFFANY 2018 TOTAL ABDOM HYSTERECTOMY Current Outpatient Medications Medication Sig albuterol HFA (PROVENTIL HFA, VENTOLIN HFA) 90 mcg/actuation inhaler INHALE ONE PUFF BY MOUTH FOUR TIMES A DAY NEEDED pantoprazole DR (PROTONIX) 40 mg tablet TAKE ONE TABLET BY MOUTH every morning 30 minutes before breakfast sertraline (ZOLOFT) 100 mg tablet Take 100 mg by mouth once daily. cholecalciferol, Vitamin D3, (VITAMIN D3) 1,250 mcg (50,000 unit) cap capsule Take 1 capsule by mouth one time a week. multivit,thx,calcium,iron,mins (MULTIVITAMIN AND MINERAL ORAL) Take by mouth. cyanocobalamin (VITAMIN B-12) 100 mcg tab Take 100 mcg by mouth once daily. No current facility-administered medications for this visit. ALLERGIES Allergen Reactions Morphine Rash Nsaids (Non-Steroid* Unknown Penicillins GI Upset SOCIAL: TOB:Tobacco Use: Types: Cigarettes EtOH:Alcohol Use: Yes (Occ) FAMILY HISTORY Problem Relation Age of Onset Hypertension Father Prostate Cancer Father Breast Cancer Sister : REVIEW OF SYSTEMS: With the exception of the problems listed above, Ms. Ashby denies disorders of the Neurologic, Psychologic, Cardiac, Pulmonary, Gastrointestinal, Hepatic, Renal, Endocrine, Vascular, Integumentary or Musculoskeletal Systems; all other systems are negative. PHYSICAL EXAM Ht 152.4 cm (5') Wt 53.5 kg (118 lb) BMI 23.05 kg/m Body mass index is 23.05 kg/m . GENERAL: WDWN Well groomed Thin NEURO: Alert and oriented X3 HEENT: NC/AT and MMM NECK: Supple and NT CV: RRR LUNGS: CTA B/L ABD: Soft, NT, and ND EXT: No cyanosis, clubbing or edema BREASTS: Bilateral breasts are soft with grade 3 ptosis and a deflated appearance. No masses. R SN-N: 23.5 cm L SN-N: 23.5 cm R N-IMF: 8.5 cm L N-IMF: 7.5 cm R BD: 12.0 cm L BD: 12.0 cm ASSESSMENT: 1. 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 Current cigarette smoker PLAN: We discussed her diagnosis and treatment options. I do not feel she is a good candidate for immediate reconstruction based on her [id number] history of cigarette smoking. This puts her at prohibitive risk for a reconstructive procedure of any type. If she were to be nicotine free for 6 months, we could consider immediate reconstruction, if she wants to delay her prophylactic mastectomies and she is committed to quitting cigarette smoking. At that point, however, I would still not recommend nipple sparing mastectomy. She would be a candidate for two-stage coater associate and implant reconstruction in the subpectoral plane. If she wants to move forward with her mastectomies, we could perform delayed reconstruction, again two-stage coater associate and implant, in the future. This again would require her to quit smoking and be nicotine free. We did briefly discuss silicone breast implants and their safety profile and potential complications, including rupture, capsular contracture, and SARAH-ALCL. I answered all of her questions. We took photos today. She understands the reasoning behind my decision. She is going to consider her options. She meets with Dr. Mayorga in the near future. I will see her back as needed. We thank Dr. Mayorga for the courtesy of this consult. Damian Aceves DO documented in this encounter [facility] 03-27-2025 Radiology Diagnostic study note [facility] Services [address] [place] [address] [id number] Esophagus Dual Contrast MR#: [id number] Acct: [id number] Name: MISHEL ASHBY Rep #: [id number] : 1980 F 44 From: Melchor Ferris MD PCP: Dr. Angelo Thornton DO Status: REG CLI Study:Esophagus Dual Contrast Date of Exam: 03/27/25 Exam# [id number] Ordering Dr: Kassandra Atkins KILN LOADER-C PROCEDURE: ESOPHAGUS DUAL CONTRAST 03/27/2025 REASON FOR EXAM: DYSPHAGIA TECHNIQUE: Fluoroscopic imaging of the esophagus was obtained following ingestion of oral barium. 45 seconds of fluoroscopy. 3.88 mGy. 49 fluoroscopic images were obtained. COMPARISON: None FINDINGS: The patient is status post gastrectomy. There is esophageal bowel anastomosis. Minimal tailoring defect at the anastomotic site. The patient ingested a 12 mm tablet the barium. There is transient holdup of the barium tablet at the anastomotic site. There is evidence of gastroesophageal reflux. RAD/Esophagus Dual Contrast IMPRESSION: Status post total gastrectomy with the anastomosis as described. Temporary holdup of the 12 mm tablet the barium at the anastomotic site. Reflux. Reading Location: [facility] CC: KP Atkins; Dr. Angelo Thornton, DO ~ Senior Product Development Scientist: Signed [facility] 03-20-2025 History and physical note Images from the original note were not included. Zoey Mayorga MD [facility] [address] [place] [address] SUBJECTIVE Chief Complaint: Patient presents with: Recheck HPI Mishel Ashby is a 44 year old female here for MRI results and pre op. 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 Screening mammogram 10/25/24 negative, BIRADS 1. Breast density BIRADS B. Breast MRI 03/14/25 negative, BIRADS 1. No question data found. Review of Systems Constitutional: Negative for fever, malaise/fatigue and weight loss. Breast: See HPI PAST MEDICAL HISTORY Diagnosis Date CDH1-related breast cancer (HCC) GERD (gastroesophageal reflux disease) PAST SURGICAL HISTORY Procedure Laterality Date GASTRECTOMY TOTAL W REPR INT TIFFANY 2018 TOTAL ABDOM HYSTERECTOMY Social History Tobacco Use Smoking status: Every Day Current packs/day: 1.00 Types: Cigarettes Smokeless tobacco: Never Vaping Use Vaping status: Never Used Substance Use Topics Alcohol use: Yes Comment: Occ Drug use: Not Currently FAMILY HISTORY Problem Relation Age of Onset Hypertension Father Prostate Cancer Father Breast Cancer Sister The ROS, medical, surgical, family, and social history were reviewed by Zoey Mayorga MD ALLERGIES Allergen Reactions Morphine Rash Nsaids (Non-Steroid* Unknown Penicillins GI Upset Current Outpatient Medications Medication Sig sertraline (ZOLOFT) 100 mg tablet Take 100 mg by mouth once daily. cholecalciferol, Vitamin D3, (VITAMIN D3) 1,250 mcg (50,000 unit) cap capsule Take 1 capsule by mouth one time a week. multivit,thx,calcium,iron,mins (MULTIVITAMIN AND MINERAL ORAL) Take by mouth. cyanocobalamin (VITAMIN B-12) 100 mcg tab Take 100 mcg by mouth once daily. No current facility-administered medications for this visit. OBJECTIVE BP 104/65 Pulse 70 Resp 16 Wt 53.5 kg (118 lb) SpO2 96% BMI 23.05 kg/m BMI 23.05 kg/(m^2) Participation of a fellow, resident, medical student, or advanced practice provider student in performing the sensitive examination was discussed with the patient or authorized employee relations representative. The patient or authorized employee relations representative has agreed to proceed with the sensitive examination. Physical Exam Constitutional: Appearance: Normal appearance. HENT: Right Ear: External ear normal. Left Ear: External ear normal. Nose: Nose normal. Eyes: General: No scleral icterus. Conjunctiva/sclera: Conjunctivae normal. Pupils: Pupils are equal, round, and reactive to light. Cardiovascular: Rate and Rhythm: Normal rate and regular rhythm. Heart sounds: Normal heart sounds. Pulmonary: Effort: Pulmonary effort is normal. Breath sounds: Normal breath sounds. No wheezing. Abdominal: General: There is no distension. Palpations: Abdomen is soft. There is no mass. Tenderness: There is no abdominal tenderness. Musculoskeletal: General: No tenderness or deformity. Cervical back: Neck supple. Lymphadenopathy: Cervical: No cervical adenopathy. Upper Body: Right upper body: No supraclavicular adenopathy. Left upper body: No supraclavicular adenopathy. Skin: General: Skin is warm and dry. Coloration: Skin is not pale. Findings: No lesion or rash. Nails: There is no clubbing. Neurological: Mental Status: She is alert and oriented to person, place, and time. Greater than 50% of the direct patient contact time was spent in counseling or coordination of care. I spent 30 minutes counseling the patient and coordinating care. Plan ASSESSMENT/PLAN At high risk for breast cancer Mishel Ashby is a 44 year old female here for MRI results and pre op. 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 Screening mammogram 10/25/24 negative, BIRADS 1. Breast density BIRADS B. Breast MRI 03/14/25 negative, BIRADS 1. Discussed prophylactic mastectomy. Currently, she is unsure if she wants reconstruction or not. She will meet with Dr Aceves for consultation. If she wants reconstruction, she could have a nipple sparing. Follow up in 2 weeks for surgical decision. Follow up: Return in about 2 weeks (around 04/03/2025). Zoey Mayorga MD 03/20/2025 1:09 PM [facility] 03-20-2025 History and physical note Images from the original note were not included. Zoey Mayorga MD [facility] [address] [place], [place] [id number] SUBJECTIVE Chief Complaint: Patient presents with: Recheck HPI Mishel Ashby is a 44 year old female here for MRI results and pre op. 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 Screening mammogram 10/25/24 negative, BIRADS 1. Breast density BIRADS B. Breast MRI 03/14/25 negative, BIRADS 1. No question data found. Review of Systems Constitutional: Negative for fever, malaise/fatigue and weight loss. Breast: See HPI PAST MEDICAL HISTORY Diagnosis Date CDH1-related breast cancer (HCC) GERD (gastroesophageal reflux disease) PAST SURGICAL HISTORY Procedure Laterality Date GASTRECTOMY TOTAL W REPR INT TIFFANY 2018 TOTAL ABDOM HYSTERECTOMY Social History Tobacco Use Smoking status: Every Day Current packs/day: 1.00 Types: Cigarettes Smokeless tobacco: Never Vaping Use Vaping status: Never Used Substance Use Topics Alcohol use: Yes Comment: Occ Drug use: Not Currently FAMILY HISTORY Problem Relation Age of Onset Hypertension Father Prostate Cancer Father Breast Cancer Sister The ROS, medical, surgical, family, and social history were reviewed by Zoey Mayorga MD ALLERGIES Allergen Reactions Morphine Rash Nsaids (Non-Steroid* Unknown Penicillins GI Upset Current Outpatient Medications Medication Sig sertraline (ZOLOFT) 100 mg tablet Take 100 mg by mouth once daily. cholecalciferol, Vitamin D3, (VITAMIN D3) 1,250 mcg (50,000 unit) cap capsule Take 1 capsule by mouth one time a week. multivit,thx,calcium,iron,mins (MULTIVITAMIN AND MINERAL ORAL) Take by mouth. cyanocobalamin (VITAMIN B-12) 100 mcg tab Take 100 mcg by mouth once daily. No current facility-administered medications for this visit. OBJECTIVE BP 104/65 Pulse 70 Resp 16 Wt 53.5 kg (118 lb) SpO2 96% BMI 23.05 kg/m BMI 23.05 kg/(m^2) Participation of a fellow, resident, medical student, or advanced practice provider student in performing the sensitive examination was discussed with the patient or authorized employee relations representative. The patient or authorized employee relations representative has agreed to proceed with the sensitive examination. Physical Exam Constitutional: Appearance: Normal appearance. HENT: Right Ear: External ear normal. Left Ear: External ear normal. Nose: Nose normal. Eyes: General: No scleral icterus. Conjunctiva/sclera: Conjunctivae normal. Pupils: Pupils are equal, round, and reactive to light. Cardiovascular: Rate and Rhythm: Normal rate and regular rhythm. Heart sounds: Normal heart sounds. Pulmonary: Effort: Pulmonary effort is normal. Breath sounds: Normal breath sounds. No wheezing. Abdominal: General: There is no distension. Palpations: Abdomen is soft. There is no mass. Tenderness: There is no abdominal tenderness. Musculoskeletal: General: No tenderness or deformity. Cervical back: Neck supple. Lymphadenopathy: Cervical: No cervical adenopathy. Upper Body: Right upper body: No supraclavicular adenopathy. Left upper body: No supraclavicular adenopathy. Skin: General: Skin is warm and dry. Coloration: Skin is not pale. Findings: No lesion or rash. Nails: There is no clubbing. Neurological: Mental Status: She is alert and oriented to person, place, and time. Greater than 50% of the direct patient contact time was spent in counseling or coordination of care. I spent 30 minutes counseling the patient and coordinating care. Plan ASSESSMENT/PLAN At high risk for breast cancer Mishel Ashby is a 44 year old female here for MRI results and pre op. 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 Screening mammogram 10/25/24 negative, BIRADS 1. Breast density BIRADS B. Breast MRI 03/14/25 negative, BIRADS 1. Discussed prophylactic mastectomy. Currently, she is unsure if she wants reconstruction or not. She will meet with Dr Aceves for consultation. If she wants reconstruction, she could have a nipple sparing. Follow up in 2 weeks for surgical decision. Follow up: Return in about 2 weeks (around 04/03/2025). Zoey Mayorga MD 03/20/2025 1:09 PM documented in this encounter [facility] 03-14-2025 History of Present illness Narrative Radiology Service Progress Note DATE OF SERVICE: March 14, 2025 TIME: 10:08 AM PATIENT IDENTITY VERIFICATION COMPLETED USING TWO (2) STANDARD IDENTIFIERS: Name and Date of confirmed by patient verbally and Name and Date of confirmed by identification band. FALL SCREENING: Has the patient had 2 falls in the last year or 1 fall with injury or currently using an Ambulatory Assistive Device (Walker, Cane, Wheelchair, Crutches, etc.)? No PATIENT GENDER DATA: Assigned female at . status: : No status: NO. PATIENT RELEVANT IMPLANT DATA REVIEWED: Yes PATIENT PRESENTS WITH AN IMPLANTABLE OR ATTACHED SVP CHIEF MARKETING OFFICER: No ALLERGIES: Reviewed and unchanged CONTRAST ALLERGY: NO. EXAM: MRI - CONTRAST TYPE: GROUP II PERIPHERAL IV DATA: Ambulatory: A peripheral IV was started in the Right antecubital site with a Angio cath: 20 gauge. RADIOLOGY DEPARTMENT: MR; Exam(s) Completed: Chest: Breast. Lavender Administered: No SIGNATURE: LEOBARDO Salomon) PATIENT NAME: Mishel Ashby DATE: March 14, 2025 TIME: 10:08 AM documented in this encounter [facility] 03-14-2025 Note HNO ID: [id number] Author: NICOLLE NIEVES RT(R) Service: Radiology Author Type: Technologist Type: Progress Notes Filed: 03/14/2025 10:09 Note Text: Radiology Service Progress Note DATE OF SERVICE: March 14, 2025 TIME: 10:08 AM PATIENT IDENTITY VERIFICATION COMPLETED USING TWO (2) STANDARD IDENTIFIERS: Name and Date of confirmed by patient verbally and Name and Date of confirmed by identification band. FALL SCREENING: Has the patient had 2 falls in the last year or 1 fall with injury or currently using an Ambulatory Assistive Device (Walker, Cane, Wheelchair, Crutches, etc.)? No PATIENT GENDER DATA: Assigned female at . status: : No status: NO. PATIENT RELEVANT IMPLANT DATA REVIEWED: Yes PATIENT PRESENTS WITH AN IMPLANTABLE OR ATTACHED SVP CHIEF MARKETING OFFICER: No ALLERGIES: Reviewed and unchanged CONTRAST ALLERGY: NO. EXAM: MRI - CONTRAST TYPE: GROUP II PERIPHERAL IV DATA: Ambulatory: A peripheral IV was started in the Right antecubital site with a Angio cath: 20 gauge. RADIOLOGY DEPARTMENT: MR; Exam(s) Completed: Chest: Breast. Lavender Administered: No SIGNATURE: RT Aime(R) PATIENT NAME: Mishel Ashby DATE: March 14, 2025 TIME: 10:08 AM [facility] 02-25-2025 Evaluation note Diagnosis Onset Date Resolution Abdominal bloating acute February 25, 2025 2:19pm CDH1 gene mutation positive acute February 25, 2025 2:19pm Diarrhea acute February 25 2:19pm Dysphagia acute February 25 2:19pm Flatulence acute February 25 2:19pm Thrombocytopenia acute February 252024 2:19pm Vitamin D deficiency acute Apr2024 2:19pm [facility] Work Phone: 1(499) 937-750604-21-2025 Telephone encounter Note* Telephone Encounter - Andre Samuel RN - 02/25/2025 11:12 AM EDT Patient showed up for her breast MRI on 02/21 and was turned away due to insurance authorization notbeing completed. I called the auth team and spoke with Arlyn. Arlyn states that the auth was obtained but it was obtained for the wrong dates. She said that there is someone currently working on getting the dates corrected with the insurance company. I called MRI on the to see if they could squeeze her in but they are not able to and gave me a date of 02/25 however the patient was unable todue to that date as she has an appointment conflict. I rescheduled her for 03/14 at 945 (this is the date/time that Lilian from MRI I gave to me). The patient is aware of the date and time. [facility]04-21-2025 Miscellaneous Notes* Telephone Encounter - Andre Samuel RN - 02/25/2025 11:12 AM EDT Patient showed up for her breast MRI on 02/21 and was turned away due to insurance authorization notbeing completed. I called the auth team and spoke with Arlyn. Arlyn states that the auth was obtained but it was obtained for the wrong dates. She said that there is someone currently working on getting the dates corrected with the insurance company. I called MRI on the to see if they could squeeze her in but they are not able to and gave me a date of 02/25 however the patient was unable todue to that date as she has an appointment conflict. I rescheduled her for 03/14 at 945 (this is the date/time that Lilian from MRI I gave to me). The patient is aware of the date and time. [facility] Telephone encounter Note * Telephone Encounter - Andre Samuel RN - 02/13/2025 1:07 PM EDT I called and spoke with the patient and gave her the date, time and instructions for her breast MRI. I also sent a message to Dr Aceves's office with when the breast MRI is and her follow up with Dr Mayorga so they can get her scheduled for a new consult. The patient voices understanding. [facility]04-09-2025 Miscellaneous Notes* Telephone Encounter - Andre Samuel RN - 02/13/2025 1:07 PM EDT I called and spoke with the patient and gave her the date, time and instructions for her breast MRI. I also sent a message to Dr Aceves's office with when the breast MRI is and her follow up with Dr Mayorga so they can get her scheduled for a new consult. The patient voices understanding. documented in this encounterTri[facility]25 NoteHNO ID: [id number] Author: ZOEY MAYORGA MD Service: ? Author Type: Physician Type: Progress Notes Filed: 02/13/2025 08:37 Note Text: Zoey Mayorga MD [facility] [address] [place] [address] SUBJECTIVE Chief Complaint: Patient presents with: Breast Problem HPI Mishel Ashby is a 44 year old female here today for high risk evaluation. Family history of sister with breast cancer. 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 Screening mammogram 10/25/24 negative, BIRADS 1. Breast density BIRADS B. Had intermittent nipple discharge that sounds physiologic. None recently. AGE AT [place] 13 AGE AT FIRST 20 FAMILY HISTORY OF BREAST CANCER Yes (IF YES) NUMBER OF FIRST DEGREE RELATIVES WITH BREAST CANCER 1 PREVIOUS BREAST BIOPSIES No (IF YES) PREVIOUS BREAST BIOPSY WITH ATYPICAL HYPERPLASIA No RACE JANINE MODEL RISK 5 YEAR 1.5% JANINE MODEL RISK LIFETIME 17.7% HISTORY OF USING CONTROL PILLS Yes HISTORY OF USING HORMONE REPLACEMENT THERAPY No Review of Systems Constitutional: Negative for fever, malaise/fatigue and weight loss. Breast: See HPI PAST MEDICAL HISTORY Diagnosis Date CDH1-related breast cancer (HCC) GERD (gastroesophageal reflux disease) PAST SURGICAL HISTORY Procedure Laterality Date GASTRECTOMY TOTAL W REPR INT TIFFANY 2018 TOTAL ABDOM HYSTERECTOMY Social History Tobacco Use Smoking status: Every Day Current packs/day: 1.00 Types: Cigarettes Smokeless tobacco: Never Vaping Use Vaping status: Never Used Substance Use Topics Alcohol use: Yes Comment: Occ Drug use: Not Currently FAMILY HISTORY Problem Relation Age of Onset Hypertension Father Prostate Cancer Father Breast Cancer Sister The ROS, medical, surgical, family, and social history were reviewed by Zoey Mayorga MD ALLERGIES Allergen Reactions Morphine Rash Nsaids (Non-Steroid* Unknown Penicillins GI Upset Current Outpatient Medications Medication Sig predniSONE (DELTASONE) 20 mg tablet Take one tablet 3 times daily for 3 days, then one tablet 2 times a day for 2 days, then one tablet daily for 2 days, and then a half of a tablet daily for 1 day. cholecalciferol, Vitamin D3, (VITAMIN D3) 1,250 mcg (50,000 unit) cap capsule Take 1 capsule by mouth one time a week. sertraline (ZOLOFT) 50 mg tablet Take 1 tablet by mouth. multivit,thx,calcium,iron,mins (MULTIVITAMIN AND MINERAL ORAL) Take by mouth. cyanocobalamin (VITAMIN B-12) 100 mcg tab Take 100 mcg by mouth once daily. No current facility-administered medications for this visit. OBJECTIVE BP 96/59 (BP Site: Right Arm, BP Position: Sitting) Pulse 67 Resp 16 Ht 152.4 cm (5') Wt 52.6 kg (116 lb) SpO2 98% BMI 22.65 kg/m? BMI 22.65 kg/(m2) Participation of a fellow, resident, medical student, or advanced practice provider student in performing the sensitive examination was discussed with the patient or authorized employee relations representative. The patient or authorized employee relations representative has agreed to proceed with the sensitive examination. Physical Exam Neck: Thyroid: No thyromegaly. Chest: Breasts: Right: No bleeding, inverted nipple, mass, nipple discharge or skin change. Left: No bleeding, inverted nipple, mass, nipple discharge or skin change. Lymphadenopathy: Head: Right side of head: No submental, submandibular or tonsillar adenopathy. Left side of head: No submental, submandibular or tonsillar adenopathy. Cervical: No cervical adenopathy. Upper Body: Right upper body: No supraclavicular or axillary adenopathy. Left upper body: No supraclavicular or axillary adenopathy. Neurological: Mental Status: She is alert and oriented to person, place, and time. Plan ASSESSMENT/PLAN At high risk for breast cancer Mishel Ashby is a 44 year old female here today for high risk evaluation. Family history of sister with breast cancer. 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 Screening mammogram 10/25/24 negative, BIRADS 1. Breast density BIRADS B. No suspicious findings on clinical exam. Discussed risk reduction mastectomy due to mutation. Would recommend breast MRI prior to surgery. Schedule with Dr Aceves in plastics to discuss reconstruction options. Follow up after MRI for pre op. Follow up: Return for MRI, plastics. Follow up for results. Zoey Mayorga MD 02/07/2025 10:42 [facility]04-03-2025 History of Present illness Narrative* Zoey Mayorga MD - 02/07/2025 10:42 AM EDT Images from the original note were not included. Zoey Mayorga MD [facility] [address] [place], [place] [id number] SUBJECTIVE Chief Complaint: Patient presents with: Breast Problem HPI Mishel Ashby is a 44 year old female here today for high risk evaluation. Family history of sister with breast cancer. 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 Screening mammogram 10/25/24 negative, BIRADS 1. Breast density BIRADS B. Had intermittent nipple discharge that sounds physiologic. None recently. AGE AT [place] 13 AGE AT FIRST 20 FAMILY HISTORY OF BREAST CANCER Yes (IF YES) NUMBER OF FIRST DEGREE RELATIVES WITH BREAST CANCER 1 PREVIOUS BREAST BIOPSIES No (IF YES) PREVIOUS BREAST BIOPSY WITH ATYPICAL HYPERPLASIA No RACE JANINE MODEL RISK 5 YEAR 1.5% JANINE MODEL RISK LIFETIME 17.7% HISTORY OF USING CONTROL PILLS Yes HISTORY OF USING HORMONE REPLACEMENT THERAPY No Review of Systems Constitutional: Negative for fever, malaise/fatigue and weight loss. Breast: See HPI PAST MEDICAL HISTORY Diagnosis Date CDH1-related breast cancer (HCC) GERD (gastroesophageal reflux disease) PAST SURGICAL HISTORY Procedure Laterality Date GASTRECTOMY TOTAL W REPR INT TIFFANY 2018 TOTAL ABDOM HYSTERECTOMY Social History Tobacco Use Smoking status: Every Day Current packs/day: 1.00 Types: Cigarettes Smokeless tobacco: Never Vaping Use Vaping status: Never Used Substance Use Topics Alcohol use: Yes Comment: Occ Drug use: Not Currently FAMILY HISTORY Problem Relation Age of Onset Hypertension Father Prostate Cancer Father Breast Cancer Sister The ROS, medical, surgical, family, and social history were reviewed by Zoey Mayorga MD ALLERGIES Allergen Reactions Morphine Rash Nsaids (Non-Steroid* Unknown Penicillins GI Upset Current Outpatient Medications Medication Sig predniSONE (DELTASONE) 20 mg tablet Take one tablet 3 times daily for 3 days, then one tablet 2 times a day for 2 days, then one tablet daily for 2 days, and then a half of a tablet daily for 1 day. cholecalciferol, Vitamin D3, (VITAMIN D3) 1,250 mcg (50,000 unit) cap capsule Take 1 capsule by mouth one time a week. sertraline (ZOLOFT) 50 mg tablet Take 1 tablet by mouth. multivit,thx,calcium,iron,mins (MULTIVITAMIN AND MINERAL ORAL) Take by mouth. cyanocobalamin (VITAMIN B-12) 100 mcg tab Take 100 mcg by mouth once daily. No current facility-administered medications for this visit. OBJECTIVE BP 96/59 (BP Site: Right Arm, BP Position: Sitting) Pulse 67 Resp 16 Ht 152.4 cm (5') Wt 52.6 kg (116 lb) SpO2 98% BMI 22.65 kg/m BMI 22.65 kg/(m^2) Participation of a fellow, resident, medical student, or advanced practice provider student in performing the sensitive examination was discussed with the patient or authorized employee relations representative. The patient or authorized employee relations representative has agreed to proceed with the sensitive examination. Physical Exam Neck: Thyroid: No thyromegaly. Chest: Breasts: Right: No bleeding, inverted nipple, mass, nipple discharge or skin change. Left: No bleeding, inverted nipple, mass, nipple discharge or skin change. Lymphadenopathy: Head: Right side of head: No submental, submandibular or tonsillar adenopathy. Left side of head: No submental, submandibular or tonsillar adenopathy. Cervical: No cervical adenopathy. Upper Body: Right upper body: No supraclavicular or axillary adenopathy. Left upper body: No supraclavicular or axillary adenopathy. Neurological: Mental Status: She is alert and oriented to person, place, and time. Plan ASSESSMENT/PLAN At high risk for breast cancer Mishel Ashby is a 44 year old female here today for high risk evaluation. Family history of sister with breast cancer. 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 Screening mammogram 10/25/24 negative, BIRADS 1. Breast density BIRADS B. No suspicious findings on clinical exam. Discussed risk reduction mastectomy due to mutation. Would recommend breast MRI prior to surgery. Schedule with Dr Aceves in plastics to discuss reconstruction options. Follow up after MRI for pre op. Follow up: Return for MRI, plastics. Follow up for results. Zoey Mayorga MD 02/07/2025 10:42 AM documented in this encounterTrihealth [facility]03-27-2025 History of Present illness Narrative* Deepa Brown, RT(R) - 01/31/2025 6:40 PM EDT Radiology Service Progress Note PATIENT NAME: Mishel Ashby DATE OF SERVICE: January 31, 2025 TIME: 8:01 PM PATIENT IDENTITY VERIFICATION COMPLETED USING TWO (2) IDENTIFIERS: Name and Date of confirmedby patient verbally. FALL SCREENING: Has the patient had 2 falls in the last year or 1 fall with injury or currently using an Ambulatory Assistive Device (Walker, Cane, Wheelchair, Crutches, etc.)? No PATIENT GENDER DATA: Assigned female at . status: : No status:NO. PATIENT RELEVANT IMPLANT DATA REVIEWED: Not Applicable PATIENT PRESENTS WITH AN IMPLANTABLE OR ATTACHED SVP CHIEF MARKETING OFFICER: N/A RADIOLOGY DEPARTMENT: General X-ray: Exam(s) Completed: Rib X-Ray: Left PERIPHERAL IV DATA: Not applicable SIGNED BY: RT Kodak(Faustina) January 31, 2025 8:01 PM documented in this encounterTrihealth [facility]03-27-2025 NoteHNO ID: [id number] Author: DEEPA BROWN RT(Faustina) Service: Radiology Author Type: Technologist Type: Progress Notes Filed: 01/31/2025 20:02 Note Text: Radiology Service Progress Note PATIENT NAME: Mishel Ashby DATE OF SERVICE: January 31, 2025 TIME: 8:01 PM PATIENT IDENTITY VERIFICATION COMPLETED USING TWO (2) IDENTIFIERS: Name and Date of confirmed by patient verbally. FALL SCREENING: Has the patient had 2 falls in the last year or 1 fall with injury or currently using an Ambulatory Assistive Device (Walker, Cane, Wheelchair, Crutches, etc.)? No PATIENT GENDER DATA: Assigned female at . status: : No status: NO. PATIENT RELEVANT IMPLANT DATA REVIEWED: Not Applicable PATIENT PRESENTS WITH AN IMPLANTABLE OR ATTACHED SVP CHIEF MARKETING OFFICER: N/A RADIOLOGY DEPARTMENT: General X-ray: Exam(s) Completed: Rib X-Ray: Left PERIPHERAL IV DATA: Not applicable SIGNED BY: RT Kodak(Faustina) January 31, 2025 8:01 PM[facility] Instructions* Patient Instructions* Erika Nam APRN.METAL MOULDER'S ASSISTANT - 01/31/2025 5:53 PM EDT - Medications as prescribed. - Ice - Mghj-goj-subhhjz incentive spirometer or or take 10 to 15 deep breaths at least 4 times each day. - Lfxt-suk-nlikcrm abdominal binder for comfort - Hold a pillow to your chest to ease the pain when you take deep breaths, sneeze, cough, or laugh. - Tylenol. Do not take NSAIDs (Ibuprofen, Motrin, Aleve) until you have completed prednisone. - Follow up in 1 week with PCP/Peditrician/Urgent Care for persistent symptoms. - To the Emergency Department for following symptoms: ? It is getting harder and harder to breathe. ? You are so short of breath that you cannot talk in a full sentence. ? You develop severe pain in your chest, back, or neck ? Abdominal pain or vomiting ? Severe weakness or fainting ? You develop a persistent cough, or start to cough up blood or yellow or green mucus. ? You have a fever of 100.4 F (38 C) or higher, or chills. ? You are very weak or lightheaded, or feel like you might pass out. ? You have very bad pain that is not helped by your medicines. documented in this encounterTrihealth [facility]03-27-2025 NoteHNO ID: [id number] Author: ERIKA NAM APRN.ASHLEY Service: ? Author Type: Nurse Practitioner Type: Progress Notes Filed: 01/31/2025 18:41 Note Text: [facility] [place] Raffi Ashby is a 44 year old female. Patient presents with: Cough: Now for a month and is having left middle back,left rib area for a week and doesn't know if coughing has been causing the pain. HPI 44-year-old female presents with anterior and posterior rib pain on the left side for 1 week. States she had an upper respiratory infection when she was treated with an antibiotic a month ago, and her cough was lingering but did finally resolve 1 week ago. She states her ribs have been hurting for a week from coughing so much, and last night she felt a pop when she moved. She reports pain is 6 out of 10, worse when she coughs, lays on it or takes a deep breath. Has been taking some ibuprofen for the symptoms. Patient is a smoker. Review of Systems Constitutional: Negative. HENT: Negative. Respiratory: Positive for cough. Negative for chest tightness, shortness of breath and wheezing. Cardiovascular: Negative for palpitations and leg swelling. Pain to the left anterior and posterior ribs Gastrointestinal: Negative. Neurological: Negative. Objective BP 100/70 Pulse 75 Temp 37.2 ?C (99 ?F) Resp 16 Wt 54.4 kg (120 lb) SpO2 98% BMI 23.44 kg/m? Physical Exam Vitals and nursing note reviewed. Constitutional: Appearance: Normal appearance. She is not ill-appearing, toxic-appearing or diaphoretic. HENT: Head: Normocephalic. Cardiovascular: Rate and Rhythm: Normal rate and regular rhythm. Heart sounds: Normal heart sounds and S1 normal. No murmur heard. No friction rub. No gallop. Pulmonary: Effort: Pulmonary effort is normal. Breath sounds: Normal breath sounds and air entry. No decreased breath sounds, wheezing, rhonchi or rales. Chest: Chest wall: Tenderness present. No mass, deformity, swelling or crepitus. Comments: Anterior and posterior anterior rib pain on the left side. Abdominal: General: Abdomen is flat. Bowel sounds are normal. Palpations: Abdomen is soft. Tenderness: There is no abdominal tenderness. Skin: General: Skin is warm. Capillary Refill: Capillary refill takes less than 2 seconds. Neurological: General: No focal deficit present. Mental Status: She is alert. Mental status is at baseline. Sensory: Sensation is intact. Motor: Motor function is intact. Coordination: Coordination is intact. Psychiatric: Behavior: Behavior is cooperative. ASSESSMENT/PLAN: 1. Rib pain on left side - ICD9: 786.50, ICD10: R07.81 (primary diagnosis) Atypical chest pain, symptoms are not consistent with cardiac ischemia due to pleuritic nature of pain and localization of the pain possible etiology include Costochondritis/chest wall pain and musculoskeletal - XR RIBS/CHEST 3V AP RIB/OBLS/CXR LEFT 2. Contusion of rib on left side, initial encounter - ICD9: 922.1, ICD10: S20.212A - XR RIBS/CHEST 3V AP RIB/OBLS/CXR LEFT Patient in no acute acute distress. Abdominal exam benign. Low concern for hepatic, renal or other intra-abdominal injuries. No obvious deformities, crepitus or step off to suspect grossly displaced rib fractures. Lungs clear to auscultate in all lung hansen, no shortness of breath, and patient in no acute respiratory distress. Concern for fracture vs contusion. Rib x-rays were obtained and I interpreted as no acute/obvious bony injury. Will await final radiology report. Plan: Prednisone sent to this pharmacy. Discussed supportive measures. Encouraged deep breathing/incentive spirometry, and an over the counter abdominal binder/pillow support. Reviewed red flag symptoms/return precautions and follow up. Patient/Family agrees and understands the plan, and the patient was discharged home in stable condition. Erika Nam APRN.METAL MOULDER'S ASSISTANT Management I performed an independent interpretation of the following:imaging Imaging: My interpretation is Left rib x-rays were obtained and I interpreted as no acute/obvious bony injury. Will await the final radiology report. Disposition The patient was discharged. OTC Medications were advised: - Tylenol. Do not take NSAIDs (Ibuprofen, Motrin, Aleve) until you have completed prednisone. [facility]03-27-2025 History of Present illness Narrative* Erika Nam APRN.METAL MOULDER'S ASSISTANT - 01/31/2025 5:49 PM EDT Images from the original note were not included. [facility] [place] Raffi Ashby is a 44 year old female. Patient presents with: Cough: Now for a month and is having left middle back,left rib area for a week and doesn't know if coughing has been causing the pain. HPI 44-year-old female presents with anterior and posterior rib pain on the left side for 1 week. States she had an upper respiratory infection when she was treated with an antibiotic a month ago, and her cough was lingering but did finally resolve 1 week ago. She states her ribs have been hurting for a week from coughing so much, and last night she felt a pop when she moved. She reports pain is 6 out of 10, worse when she coughs, lays on it or takes a deep breath. Has been taking some ibuprofen for the symptoms. Patient is a smoker. Review of Systems Constitutional: Negative. HENT: Negative. Respiratory: Positive for cough. Negative for chest tightness, shortness of breath and wheezing. Cardiovascular: Negative for palpitations and leg swelling. Pain to the left anterior and posterior ribs Gastrointestinal: Negative. Neurological: Negative. Objective BP 100/70 Pulse 75 Temp 37.2 C (99 F) Resp 16 Wt 54.4 kg (120 lb) SpO2 98% BMI 23.44 kg/m Physical Exam Vitals and nursing note reviewed. Constitutional: Appearance: Normal appearance. She is not ill-appearing, toxic-appearing or diaphoretic. HENT: Head: Normocephalic. Cardiovascular: Rate and Rhythm: Normal rate and regular rhythm. Heart sounds: Normal heart sounds and S1 normal. No murmur heard. No friction rub. No gallop. Pulmonary: Effort: Pulmonary effort is normal. Breath sounds: Normal breath sounds and air entry. No decreased breath sounds, wheezing, rhonchi orrales. Chest: Chest wall: Tenderness present. No mass, deformity, swelling or crepitus. Comments: Anterior and posterior anterior rib pain on the left side. Abdominal: General: Abdomen is flat. Bowel sounds are normal. Palpations: Abdomen is soft. Tenderness: There is no abdominal tenderness. Skin: General: Skin is warm. Capillary Refill: Capillary refill takes less than 2 seconds. Neurological: General: No focal deficit present. Mental Status: She is alert. Mental status is at baseline. Sensory: Sensation is intact. Motor: Motor function is intact. Coordination: Coordination is intact. Psychiatric: Behavior: Behavior is cooperative. ASSESSMENT/PLAN: 1. Rib pain on left side - ICD9: 786.50, ICD10: R07.81 (primary diagnosis) Atypical chest pain, symptoms are not consistent with cardiac ischemia due to pleuritic nature of pain and localization of the pain possible etiology include Costochondritis/chest wall pain and musculoskeletal - XR RIBS/CHEST 3V AP RIB/OBLS/CXR LEFT 2. Contusion of rib on left side, initial encounter - ICD9: 922.1, ICD10: S20.212A - XR RIBS/CHEST 3V AP RIB/OBLS/CXR LEFT Patient in no acute acute distress. Abdominal exam benign. Low concern for hepatic, renal or other intra-abdominal injuries. No obvious deformities, crepitus or step off to suspect grossly displaced rib fractures. Lungs clear to auscultate in all lung hansen, no shortness of breath, and patient in no acute respiratory distress. Concern for fracture vs contusion. Rib x-rays were obtained and I interpreted as no acute/obvious bony injury. Will await final radiology report. Plan: Prednisone sent to this pharmacy. Discussed supportive measures. Encouraged deep breathing/incentive spirometry, and an over the counter abdominal binder/pillow support. Reviewed red flag symptoms/return precautions and follow up. Patient/Family agrees and understands the plan, and the patient was discharged home in stable condition. Erika Nam APRN.METAL MOULDER'S ASSISTANT Management I performed an independent interpretation of the following:imaging Imaging: My interpretation is Left rib x-rays were obtained and I interpreted as no acute/obvious bony injury. Will await the final radiology report. Disposition The patient was discharged. OTC Medications were advised: - Tylenol. Do not take NSAIDs (Ibuprofen, Motrin, Aleve) until you have completed prednisone. Procedures documented in this encounterTrihealth [facility]03-13-2025 Telephone encounter Note * Telephone Encounter - Mishel Bolivar LPN - 01/17/2025 3:02 PM EDT This nurse called patient and left two voicemails in an effort to obtain correct information to obtain genetic testing records per Dr. Mcgee's request. No return phone call from patient thus far. Mishel Bolivar LPN January 17, 2025 3:04 PM [facility]03-13-2025 Miscellaneous Notes* Telephone Encounter - Mishel Bolivar LPN - 01/17/2025 3:02 PM EDT This nurse called patient and left two voicemails in an effort to obtain correct information to obtain genetic testing records per Dr. Mcgee's request. No return phone call from patient thus far. Mishel Bolivar LPN January 17, 2025 3:04 PM documented in this encounterTrihealth [facility]03-03-2025 Telephone encounter Note * Telephone Encounter - Izabela Isaac - 01/07/2025 4:11 PM EST Called patient and let her know time and date for her year apt with .at 01/07/26 1:30. Left this on VM. Ask patient to call me back if she has any questions. 01/07/25 tlr [facility]03-[facility] Miscellaneous Notes* Telephone Encounter - Izabela Isaac - 01/07/2025 4:11 PM EST Called patient and let her know time and date for her year apt with .at 01/07/26 1:30. Left this on VM. Ask patient to call me back if she has any questions. 01/07/25 tlr documented in this encounterTrihealth Bethes[facility]02-26-2025 Telephone encounter Note * Telephone Encounter - Andre Samuel RN - 01/02/2025 2:42 PM EST Patient returned my call and I explained to her that we received a referral from Dr Mcgee to have her see a breast surgeon. She would prefer to see dr Mayorga. The patient is going out of town for a while in January so we set her up for 02/07/25 at 10 am. I gave her the instructions on where to go to check in for Dr Mayorga's office. The patient voices understanding. [facility]02-[facility] Miscellaneous Notes* Telephone Encounter - Andre Samuel RN - 01/02/2025 2:42 PM EST Patient returned my call and I explained to her that we received a referral from Dr Mcgee to have her see a breast surgeon. She would prefer to see dr Mayorga. The patient is going out of town for a while in January so we set her up for 02/07/25 at 10 am. I gave her the instructions on where to go to check in for Dr Mayorga's office. The patient voices understanding. documented in this encounterTrihealth [facility]02-25-2025 Telephone encounter Note * Telephone Encounter - Andre Samuel RN - 01/01/2025 11:56 AM EST Received a consult for patient to be seen by the breast center from Dr Mcgee. I called the patient, no answer. Left her a message with my number and the main breast center number for her to call back to make her an appointment. [facility]02-[facility] Miscellaneous Notes* Telephone Encounter - Andre Samuel RN - 01/01/2025 11:56 AM EST Received a consult for patient to be seen by the breast center from Dr Mcgee. I called the patient, no answer. Left her a message with my number and the main breast center number for her to call back to make her an appointment. documented in this encounterTrihealth Bethesda [facility]02-24-2025 NoteHNO ID: [id number] Author: LORENA LUGO MA Service: ? Author Type: Leaf Coverer Type: Progress Notes Filed: 01/01/2025 11:28 Note Text: This note was created using [employer]. Subjective Review of Systems Constitutional: Positive for chills and fatigue. Negative for fever. HENT: Negative for congestion, ear pain, hearing loss, mouth sores, sinus pressure, sinus pain, sore throat, tinnitus and trouble swallowing. Respiratory: Positive for cough. Negative for choking, chest tightness, shortness of breath and wheezing. Cardiovascular: Negative for chest pain and palpitations. Gastrointestinal: Positive for abdominal pain. Negative for constipation, diarrhea, nausea and vomiting. Endocrine: Negative for cold intolerance and heat intolerance. Genitourinary: Negative for difficulty urinating, flank pain and urgency. Musculoskeletal: Negative for back pain, joint swelling, neck pain and neck stiffness. Skin: Negative for rash. Neurological: Positive for dizziness, light-headedness and headaches. Negative for tremors, seizures, weakness and numbness. Psychiatric/Behavioral: Negative for confusion. Objective There were no vitals taken for this visit. Physical Exam Assessment and [facility]02-24-2025 History of Present illness Narrative* Lorena Lugo MA - 12/31/2024 2:07 PM EST This note was created using OneMedNet[employer]. Subjective Review of Systems Constitutional: Positive for chills and fatigue. Negative for fever. HENT: Negative for congestion, ear pain, hearing loss, mouth sores, sinus pressure, sinus pain, sore throat, tinnitus and trouble swallowing. Respiratory: Positive for cough. Negative for choking, chest tightness, shortness of breath and wheezing. Cardiovascular: Negative for chest pain and palpitations. Gastrointestinal: Positive for abdominal pain. Negative for constipation, diarrhea, nausea and vomiting. Endocrine: Negative for cold intolerance and heat intolerance. Genitourinary: Negative for difficulty urinating, flank pain and urgency. Musculoskeletal: Negative for back pain, joint swelling, neck pain and neck stiffness. Skin: Negative for rash. Neurological: Positive for dizziness, light-headedness and headaches. Negative for tremors, seizures, weakness and numbness. Psychiatric/Behavioral: Negative for confusion. Objective There were no vitals taken for this visit. Physical Exam Assessment and Plan * Jalen Mcgee MD - 12/31/2024 2:00 PM EST Images from the original note were not included. CHIEF COMPLAINT Mishel Ashby is a 44 yo WF patient of Dr. Juan Thornton ([facility]), referred for evaluation of her CDH-1 mutation. HPI Initially, her sister was diagnosed with breast cancer (type unknown), and was found to have a CDH-1 pathogenic mutation. 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 Thereafter, she had a prophylactic laparoscopic total gastrectomy with jejunal pouch and Fili-en-Y anastomosis by Dr. Bennett at [facility] on 09/13/2018. Her course was complicated by a subsequent wound infection. At that time, CT abdomen/pelvis reportedly revealed a fluid collection deep to the surgical staple line. She was admitted to [facility] 09/23/2018. Following her surgery, she lost ~100 pounds over the next year. She and her moved here to [place] from [place] in ~ 2020. Since then, she had bilateral mammography 05/25/2023 on 10/25/2024. She had MRI breasts 08/03/2021. She has had no breast biopsies and no breast surgery. She developed a cough with URI symptoms treated with antibiotics for ~1 week. Eventually, she developed LUQ abdominal/left flank pain for which she presented to the ER on 11/12/2024. At that time, she reported mild nausea and some loose stools. She denied vomiting, constipation or diarrhea. No rectalbleeding. No fevers, chills, chest pain, SOB or urinary symptoms. She reported that her stools werebecoming more thin in caliber. CT abdomen/pelvis 11/12/2024 revealed postsurgical changes of previous gastric bypass surgery. No dilated bowel segments. No abdominal or pelvic BRENDAN. GB phrygian cap noted. Unremarkable appendix. Smallfollicles demonstrated within both ovaries. The uterus was absent. She had microscopic hematuria which was reportedly chronic. No pyuria, leukocyte Estrace and nitrite were negative, and no active urinary symptoms. She was constipated. CT was reviewed by the ER physician who noted a fair amount of stool and gas may have been causing some of her symptoms. She wasinstructed to take Colace or MiraLAX. She was referred to GI and oncology for follow-up. Her abdominal symptoms have since subsided. No hx of cleft lip/palate in patient or family. She had 1 , with C-sec delivery at age 20. She did not breast feed. No hx of breast biopsies or breast surgery. She is now having hot flashes nightly. PAST MEDICAL HISTORY Diagnosis Date CDH1-related breast cancer (HCC) (HCC) Depression Chronic anxiety Acute pancreatitis PAST SURGICAL HISTORY Procedure Laterality Date GASTRECTOMY TOTAL W REPR INT TIFFANY 2018 Hysterectomy 2020 for DUB, no malignancy. C-sec 1999. Current Outpatient Medications Medication Instructions cyanocobalamin (VITAMIN B-12) 100 mcg, ORAL, DAILY multivit,thx,calcium,iron,mins (MULTIVITAMIN AND MINERAL ORAL) ORAL sertraline (ZOLOFT) 50 mg tablet 1 tablet, ORAL ALLERGIES Allergen Reactions Morphine Rash Nsaids (Non-Steroid* Unknown Penicillins GI Upset Social History Tobacco Use Smoking status: Every Day Current packs/day: 1.00 Types: Cigarettes Smokeless tobacco: Never Vaping Use Vaping status: Never Used Substance Use Topics Alcohol use: Yes Comment: [facility] Drug use: Not Currently Smoker 1 pk/day ages [age]. 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 FH Sister with CDH 1 mutation and breast ca. Sister with difficult postoperative course following breast surgery. Paternal aunt with CDH 1 mutation and breast ca Father CDH 1 untested and prostate ca Paternal cousin CDH 1 mutation and had prophylactic gastrectomy Daughter CDH 1 mutation Granddaughter CDH 1 mutation Maternal uncle with esophageal cancer HEALTH MAINTENANCE Mammography 10/25/24, [facility], benign ROS Constitutional: Positive for chills and fatigue. Negative for fever. HENT: Negative for congestion, ear pain, hearing loss, mouth sores, sinus pressure, sinus pain, sore throat, tinnitus and trouble swallowing. Respiratory: Positive for cough. Negative for choking, chest tightness, shortness of breath and wheezing. Cardiovascular: Negative for chest pain and palpitations. Gastrointestinal: Positive for abdominal pain. Negative for constipation, diarrhea, nausea and vomiting. Endocrine: Negative for cold intolerance and heat intolerance. Genitourinary: Negative for difficulty urinating, flank pain and urgency. Musculoskeletal: Negative for back pain, joint swelling, neck pain and neck stiffness. Skin: Negative for rash. Neurological: Positive for dizziness, light-headedness and headaches. Negative for tremors, seizures, weakness and numbness. Psychiatric/Behavioral: Negative for confusion. VS BP 90/55 Pulse 66 Temp 37.1 C (98.7 F) Resp 16 Wt 52.6 kg (116 lb) SpO2 97% BMI 22.65 kg/m PHYSICAL EXAM Patient appears comfortable, well-developed, well-nourished, and in no acute distress. Skin is moist, warm and smooth. No petechiae or purpura. HEENT: Normocephalic, atraumatic. Anicteric sclera, conjunctiva clear. PERRLA, EOMF. External ears WNL. Oropharynx without ulcers, lesions or thrush. Dentition in good repair. Neck is supple, and without JVD or palpable thyroid abnormality. Lymph nodes: None are palpable in the bilateral neck, clavicle, axillary or groin areas. Back: No CVAT or spinal percussion tenderness. Breasts: No palpable masses or nipple discharge. (Shipping And Receiving Clerk: Yusuf Tompkins RN, present) Lungs are clear to percussion and auscultation, with unlabored breathing and no accessory muscle use. Cardiac exam: RRR. Normal S1, S2. No murmur, gallop or rub. Abdomen: Soft, bowel sounds present, nontender, nondistended. No HSM or masses palpable. WANDY deferred. deferred. Extremities reveal no pedal edema. No clubbing or cyanosis. Musculoskeletal: Motor strength good. No apparent inflammatory arthropathy. Neurologic: No focal motor deficits, normal gait, and no abnormal mental status. Psychiatric: Oriented to person, time and place. Mood and affect appropriate. Appropriate judgment and insight. Memory intact. Participation of a fellow, resident, medical student, or advanced practice provider student in performing the sensitive examination was discussed with the patient or authorized employee relations representative. The patient or authorized employee relations representative has agreed to proceed with the sensitive examination. (Sensitive examination includes inspection and/or palpation of the breasts, pelvis, prostate and anorectal regions) LAB Latest Ref Rng & Units 12/02/2023 09/24/2024 11/12/2024 CBC WBC 3.70 - 11.00 k/uL 8.18 9.09 7.98 RBC 3.90 - 5.20 m/uL 4.21 4.91 4.85 Hemoglobin 11.5 - 15.5 g/dL 13.8 16.4 16.0 Hematocrit 36.0 - 46.0 % 41.2 48.3 47.8 MCV 80.0 - 100.0 fL 97.9 98.4 98.6 MCH 26.0 - 34.0 pg 32.8 33.4 33.0 MCHC 30.5 - 36.0 g/dL 33.5 34.0 33.5 RDW-CV 11.5 - 15.0 % 13.5 13.0 13.0 Platelet Count 150 - 400 k/uL 195 265 245 MPV 9.0 - 12.7 fL 10.9 10.5 10.4 Baso% % 0.2 0.4 0.5 Abs Neut (ANC) 1.45 - 7.50 k/uL 7.39 5.46 4.54 Abs Lymph 1.00 - 4.00 k/uL 0.48 2.69 2.40 Abs Pacific <0.87 k/uL 0.23 0.81 0.88 Abs Eosin <0.46 k/uL 0.04 0.06 0.08 Abs Baso <0.11 k/uL <0.03 0.04 0.04 NRBC /100 WBC 0.0 0.0 0.0 Latest Ref Rng & Units 09/24/2024 09/24/2024 11/12/2024 CMP Sodium 136 - 145 mmol/L 137 142 141 Potassium 3.5 - 5.1 mmol/L -- 4.2 4.2 Chloride 98 - 107 mmol/L 106 112 106 CO2 21 - 32 mmol/L 25 24 29 Glucose 70 - 100 mg/dL 96 79 81 BUN 7 - 26 mg/dL -- 13 13 Creatinine 0.51 - 0.95 mg/dL -- 0.54 0.53 EGFR >=60 mL/min/1.73m -- 117 117 Protein, Total 6.0 - 8.5 g/dL 7.9 6.5 8.0 Albumin 3.2 - 5.0 g/dL 4.5 3.6 4.6 Calcium 8.5 - 10.5 mg/dL 10.1 9.3 10.4 Bilirubin, Total 0.2 - 1.0 mg/dL 0.6 0.6 0.9 AST 8 - 34 U/L -- 13 17 ALT 13 - 61 U/L -- 7 14 Alkaline Phosphatase 45 - 117 U/L 63 62 82 IMPRESSION CDH 1 mutation, s/p prophylactic robotic, laparoscopic total gastrectomy. Family hx of CDH1 mutation and breast cancers. Hx of erythrocytosis, possibly r/t intermittent dehydration or perhaps underlying lung disease (from smoking). Depression Chronic anxiety Hx of acute pancreatitis. Recent respiratory illness with cough resulting in abdominal pain and ER visit 11/12/24. Hot flashes, probably postmenopausal. PLAN At this time, a detailed discussion was held with the patient and her regarding the significance of the above-noted clinical findings. They are aware of the typical manifestations of hereditary CDH 1 mutations which places patients at risk for hereditary diffuse gastric cancer, lobular breast cancer, cleft lip/palate and blepharoheliodontic syndrome. The latter 2 conditions do not seem toapply to her or her family, her family has been affected by multiple cases of breast cancer (histologies not documented). Estimates vary, but lifetime risk of breast cancer with CDH-1 mutation may be ~ 40%. Although screening is available for breast cancer (via mammography +/- MRI), I explained that the very substantialbreast cancer risk warrants consideration of bilateral prophylactic mastectomy. Based on her sister's experience, she reports that she would not want to consider reconstruction if she were to have surgery. I explained that successful outcomes with reconstruction are reduced in diabetics, patients previously treated with radiotherapy, and (most importantly in her case) smokers. We will schedule an appointment for her to see one of our breast surgeons. We will request records from [facility] regarding the genetic testing documenting her CDH 1 mutation. In view of her erythrocytosis, CBC will be rechecked today. All of their questions were answered to their satisfaction. RtC 1 year. Orders Placed This Encounter Complete Blood Count and Differential Standing Status: Future Number of Occurrences: 1 Expected Date: 12/31/2024 Expiration Date: 04/01/2025 CONSULT TO BREAST CENTER Standing Status: Future Expected Date: 01/28/2025 Expiration Date: 12/31/2025 Scheduling Instructions: Reason for consult: High risk management Preferred Location: [facility] Does consulting provider have [facility] access?: Yes cholecalciferol, Vitamin D3, (VITAMIN D3) 1,250 mcg (50,000 unit) cap capsule Sig: Take 1 capsule by mouth one time a week. I spent a total of 64 minutes on the date of the service which included preparing to see the patient, [id number] patient care, completing clinical documentation, obtaining and/or reviewing separately obtained history, performing a medically appropriate examination, counseling and educating the pat ient/family/caregiver, ordering medications, tests, or procedures, and communicating results to thepatient/family/caregiver. Additional time for documentation and orders: 52 minutes on 12/31/2024. Jalen Mcgee MD documented in this encounterTri[facility] NoteHNO ID: [id number] Author: JALEN MCGEE MD Service: ? Author Type: Physician Type: Progress Notes Filed: 01/01/2025 11:28 Note Text: CHIEF COMPLAINT Mishel Ashby is a 44 yo WF patient of Dr. Juan Thornton ([facility]), referred for evaluation of her CDH-1 mutation. HPI Initially, her sister was diagnosed with breast cancer (type unknown), and was found to have a CDH-1 pathogenic mutation. 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 Thereafter, she had a prophylactic laparoscopic total gastrectomy with jejunal pouch and Fili-en-Y anastomosis by Dr. Bennett at [facility] on 09/13/2018. Her course was complicated by a subsequent wound infection. At that time, CT abdomen/pelvis reportedly revealed a fluid collection deep to the surgical staple line. She was admitted to [facility] 09/23/2018. Following her surgery, she lost ~100 pounds over the next year. She and her moved here to [place] from [place] in ~ 2020. Since then, she had bilateral mammography 05/25/2023 on 10/25/2024. She had MRI breasts 08/03/2021. She has had no breast biopsies and no breast surgery. She developed a cough with URI symptoms treated with antibiotics for ~1 week. Eventually, she developed LUQ abdominal/left flank pain for which she presented to the ER on 11/12/2024. At that time, she reported mild nausea and some loose stools. She denied vomiting, constipation or diarrhea. No rectal bleeding. No fevers, chills, chest pain, SOB or urinary symptoms. She reported that her stools were becoming more thin in caliber. CT abdomen/pelvis 11/12/2024 revealed postsurgical changes of previous gastric bypass surgery. No dilated bowel segments. No abdominal or pelvic BRENDAN. GB phrygian cap noted. Unremarkable appendix. Small follicles demonstrated within both ovaries. The uterus was absent. She had microscopic hematuria which was reportedly chronic. No pyuria, leukocyte Estrace and nitrite were negative, and no active urinary symptoms. She was constipated. CT was reviewed by the ER physician who noted a fair amount of stool and gas may have been causing some of her symptoms. She was instructed to take Colace or MiraLAX. She was referred to GI and oncology for follow-up. Her abdominal symptoms have since subsided. No hx of cleft lip/palate in patient or family. She had 1 , with C-sec delivery at age 20. She did not breast feed. No hx of breast biopsies or breast surgery. She is now having hot flashes nightly. PAST MEDICAL HISTORY Diagnosis Date CDH1-related breast cancer (HCC) (HCC) Depression Chronic anxiety Acute pancreatitis PAST SURGICAL HISTORY Procedure Laterality Date GASTRECTOMY TOTAL W REPR INT TIFFANY 2018 Hysterectomy 2020 for DUB, no malignancy. C-sec 1999. Current Outpatient Medications Medication Instructions cyanocobalamin (VITAMIN B-12) 100 mcg, ORAL, DAILY multivit,thx,calcium,iron,mins (MULTIVITAMIN AND MINERAL ORAL) ORAL sertraline (ZOLOFT) 50 mg tablet 1 tablet, ORAL ALLERGIES Allergen Reactions Morphine Rash Nsaids (Non-Steroid* Unknown Penicillins GI Upset Social History Tobacco Use Smoking status: Every Day Current packs/day: 1.00 Types: Cigarettes Smokeless tobacco: Never Vaping Use Vaping status: Never Used Substance Use Topics Alcohol use: Yes Comment: Occ Drug use: Not Currently Smoker 1 pk/day ages [age]. 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 FH Sister with CDH 1 mutation and breast ca. Sister with difficult postoperative course following breast surgery. Paternal aunt with CDH 1 mutation and breast ca Father CDH 1 untested and prostate ca Paternal cousin CDH 1 mutation and had prophylactic gastrectomy Daughter CDH 1 mutation Granddaughter CDH 1 mutation Maternal uncle with esophageal cancer HEALTH MAINTENANCE Mammography 10/25/24, [facility], benign ROS Constitutional: Positive for chills and fatigue. Negative for fever. HENT: Negative for congestion, ear pain, hearing loss, mouth sores, sinus pressure, sinus pain, sore throat, tinnitus and trouble swallowing. Respiratory: Positive for cough. Negative for choking, chest tightness, shortness of breath and wheezing. Cardiovascular: Negative for chest pain and palpitations. Gastrointestinal: Positive for abdominal pain. Negative for constipation, diarrhea, nausea and vomiting. Endocrine: Negative for cold intolerance and heat intolerance. Genitourinary: Negative for difficulty urinating, flank pain and urgency. Musculoskeletal: Negative for back pain, joint swelling, neck pain and neck stiffness. Skin: Negative for rash. Neurological: Positive for dizziness, light-headedness and headaches. Negative for tremors, seizures, weakness and numbness. Psychiatric/Behavioral: N (more content not included)...[facility] 12-24-2024 Telephone encounter Note* Telephone Encounter - Mary Arreola MA - 12/24/2024 11:41 AM EST Called and left message for patient to review retrieving records for hx of CDH1 gene. Mary Arreola MA December 24, 2024 11:43 AM [facility]02-17-2025 Miscellaneous Notes* Telephone Encounter - Mary Arreola MA - 12/24/2024 11:41 AM EST Called and left message for patient to review retrieving records for hx of CDH1 gene. Mary Arreola MA December 24, 2024 11:43 AM documented in this encounterTrihealth [facility]12-19-2024 History of Present illness Narrative* Michell Fabian RT(R) - 10/25/2024 10:00 AM EST The sensitive examination was discussed with the Patient or Patient's Authorized Technical Trainer. Asapplicable, any other physician, advance practice provider, medical student, or other health professional student that will be observing or involved in the sensitive examination for educational or training purposes was discussed with the Patient or Authorized Technical Trainer. The Patient or Authorized Technical Trainer has agreed to proceed with the sensitive examination. (Sensitive examination includes inspection and/or palpation of the breasts, pelvis, prostate and anorectal regions) * Michell Fabian RT(R) - 10/25/2024 10:00 AM EST Radiology Service Progress Note PATIENT NAME: Mishel Ashby DATE OF SERVICE: October 25, 2024 TIME: 11:18 AM PATIENT IDENTITY VERIFICATION COMPLETED USING TWO (2) IDENTIFIERS: Name and Date of confirmedby patient verbally. FALL SCREENING: Has the patient had 2 falls in the last year or 1 fall with injury or currently using an Ambulatory Assistive Device (Walker, Cane, Wheelchair, Crutches, etc.)? No PATIENT GENDER DATA: Female. status: : No status: NO. PATIENT RELEVANT IMPLANT DATA REVIEWED: Not Applicable PATIENT PRESENTS WITH AN IMPLANTABLE OR ATTACHED SVP CHIEF MARKETING OFFICER: No RADIOLOGY DEPARTMENT: Mammography PERIPHERAL IV DATA: Not applicable SIGNED BY: RT Waters (R) October 25, 2024 11:18 AM documented in this encounterTrihealth [facility]12-19-2024 NoteHNO ID: [id number] Author: MICHELL FABIAN RT (R) Service: Radiology Author Type: Technologist Type: Progress Notes Filed: 10/25/2024 11:17 Note Text: The sensitive examination was discussed with the Patient or Patient's Authorized Technical Trainer. As applicable, any other physician, advance practice provider, medical student, or other health professional student that will be observing or involved in the sensitive examination for educational or training purposes was discussed with the Patient or Authorized Technical Trainer. The Patient or Authorized Technical Trainer has agreed to proceed with the sensitive examination. (Sensitive examination includes inspection and/or palpation of the breasts, pelvis, prostate and anorectal regions)[facility]12-[facility]24 NoteHNO ID: [id number] Author: MICHELL FABIAN RT(R) Service: Radiology Author Type: Technologist Type: Progress Notes Filed: 10/25/2024 11:18 Note Text: Radiology Service Progress Note PATIENT NAME: Mishel Ashby DATE OF SERVICE: October 25, 2024 TIME: 11:18 AM PATIENT IDENTITY VERIFICATION COMPLETED USING TWO (2) IDENTIFIERS: Name and Date of confirmed by patient verbally. FALL SCREENING: Has the patient had 2 falls in the last year or 1 fall with injury or currently using an Ambulatory Assistive Device (Walker, Cane, Wheelchair, Crutches, etc.)? No PATIENT GENDER DATA: Female. status: : No status: NO. PATIENT RELEVANT IMPLANT DATA REVIEWED: Not Applicable PATIENT PRESENTS WITH AN IMPLANTABLE OR ATTACHED SVP CHIEF MARKETING OFFICER: No RADIOLOGY DEPARTMENT: Mammography PERIPHERAL IV DATA: Not applicable SIGNED BY: RT Jt(R) October 25, 2024 11:18 [facility]12-09-2024 History of Present illness Narrative* Blake Sullivan RT(R) - 10/15/2024 10:40 AM EST Radiology Service Progress Note PATIENT NAME: Mishel Ashby DATE OF SERVICE: October 15, 2024 TIME: 10:10 AM PATIENT IDENTITY VERIFICATION COMPLETED USING TWO (2) IDENTIFIERS: Name and Date of confirmedby patient verbally. FALL SCREENING: Has the patient had 2 falls in the last year or 1 fall with injury or currently using an Ambulatory Assistive Device (Walker, Cane, Wheelchair, Crutches, etc.)? No PATIENT GENDER DATA: Female. status: : No status: N/A PATIENT RELEVANT IMPLANT DATA REVIEWED: Not Applicable PATIENT PRESENTS WITH AN IMPLANTABLE OR ATTACHED SVP CHIEF MARKETING OFFICER: No RADIOLOGY DEPARTMENT: General X-ray: Exam(s) Completed: Rib X-Ray: Left PERIPHERAL IV DATA: Not applicable SIGNED BY: RT Macey(Faustina) October 15, 2024 10:10 AM documented in this encounterTrihealth [facility]12-09-2024 NoteHNO ID: [id number] Author: BLAKE SULLIVAN RT(R) Service: ? Author Type: Technologist Type: Progress Notes Filed: 10/15/2024 10:10 Note Text: Radiology Service Progress Note PATIENT NAME: Mishel Ashby DATE OF SERVICE: October 15, 2024 TIME: 10:10 AM PATIENT IDENTITY VERIFICATION COMPLETED USING TWO (2) IDENTIFIERS: Name and Date of confirmed by patient verbally. FALL SCREENING: Has the patient had 2 falls in the last year or 1 fall with injury or currently using an Ambulatory Assistive Device (Walker, Cane, Wheelchair, Crutches, etc.)? No PATIENT GENDER DATA: Female. status: : No status: N/A PATIENT RELEVANT IMPLANT DATA REVIEWED: Not Applicable PATIENT PRESENTS WITH AN IMPLANTABLE OR ATTACHED SVP CHIEF MARKETING OFFICER: No RADIOLOGY DEPARTMENT: General X-ray: Exam(s) Completed: Rib X-Ray: Left PERIPHERAL IV DATA: Not applicable SIGNED BY: RT Macey(R) October 15, 2024 10:10 [facility]12-09-2024 Instructions* Patient Instructions* Tyrell Abebe MD - 10/15/2024 10:08 AM EST Avoid any movements that can make it worse. Make a follow-up appointment with primary care provider. documented in this encounterTrihealth [facility]12-09-2024 History of Present illness Narrative* Tyrell Abebe MD - 10/15/2024 9:46 AM EST Mishel Ashby is a 44 year old female who presents with Fall (Pt reports that she fell with her yeti come on her rib side on Tuesday. Having left side rib pain.) Accompanied today by her . She is a 44-year-old female presenting today with pain of the anterolateral lateral aspect of the left chest wall. She reports that she sustained a fall on Tuesday.She states that when she fell she had a yeti underneath her armpit and it pressed against the chestwall. She has pain with movement, coughing, sneezing. She states that she did not lose consciousness. She denies bruising the affected area. She has been taking Tylenol for pain with minimal improvement. Presents today for further evaluation and treatment. PAST MEDICAL HISTORY Diagnosis Date CDH1-related breast cancer (HCC) (HCC) There is no problem list on file for this patient. Current Outpatient Medications Medication Sig Dispense Refill sertraline (ZOLOFT) 50 mg tablet Take 1 tablet by mouth. multivit,thx,calcium,iron,mins (MULTIVITAMIN AND MINERAL ORAL) Take by mouth. cyanocobalamin (VITAMIN B-12) 100 mcg tab Take 100 mcg by mouth once daily. sertraline (ZOLOFT) 100 mg tablet Take 100 mg by mouth once daily. No current facility-administered medications for this visit. Social History Tobacco Use Smoking status: Every Day Current packs/day: 1.00 Types: Cigarettes Smokeless tobacco: Never Vaping Use Vaping status: Never Used Substance Use Topics Alcohol use: Yes Comment: [facility] Drug use: Not Currently Alcohol Use: Yes ([facility]) Tobacco Use: Types: Cigarettes History reviewed. No pertinent family history. Review of Systems Constitutional: Negative for chills, diaphoresis and fever. Eyes: Negative for blurred vision. Respiratory: Negative for cough, hemoptysis, sputum production, shortness of breath and wheezing. Cardiovascular: Negative for palpitations. Gastrointestinal: Negative for abdominal pain, nausea and vomiting. Musculoskeletal: Negative for back pain and neck pain. Neurological: Negative for dizziness, tingling, tremors, speech change, loss of consciousness and headaches. BP 102/70 Pulse 60 Temp (Src) 97.7 (Temporal) Resp 14 Wt 120 lb (54.4kg) SpO2 100% Physical Exam Vitals and nursing note reviewed. Constitutional: Comments: PHYSICAL EXAMINATION: GENERAL:The patient is alert oriented in no acute distress. HEAD:Head is atraumatic normocephalic. EYES: Normal sclerae and conjunctivae. NECK: Trachea at midline. Full range of motion. CHEST: Patient reports no bruising. Tenderness to palpation along the anterior lateral aspect of the left side of the chest. Pain is reproducible with changing position as well as coughing. LUNGS: No labored breathing. Lungs clear to auscultation. HEART: Regular rate and rhythm. BACK: Normal skin appearance. No midline tenderness to palpation of the cervical, thoracic and lumbar spines. MUSCULOSKELETAL: Moves All extremities. SKIN: Warm and dry no clubbing cyanosis or edema. NEUROLOGY: Cranial nerves II through XII grossly intact without any focal neurological deficits. PSYCHIATRY: Cooperative. Normal mood and affect. X-ray of the left ribs no acute process. Second read by the radiologist is pending. Patient did notwant anything stronger for pain. She will continue with Tylenol. Work note given as requested. Home-going instructions discussed with patient. Follow-up if not improving. Discharged in stable condition. Procedures ASSESSMENT/PLAN: 1. Muscle strain of chest wall, initial encounter - ICD9: 848.8, ICD10: S29.011A - XR RIBS/CHEST 3V AP RIB/OBLS/CXR LEFT Tyrell Abebe documented in this encounterTri[facility] NoteHNO ID: [id number] Author: TYRELL ABEBE MD Service: ? Author Type: Physician Type: Progress Notes Filed: 10/15/2024 10:26 Note Text: Mishel Ashby is a 44 year old female who presents with Fall (Pt reports that she fell with her yeti come on her rib side on Tuesday. Having left side rib pain.) Accompanied today by her . She is a 44-year-old female presenting today with pain of the anterolateral lateral aspect of the left chest wall. She reports that she sustained a fall on Tuesday. She states that when she fell she had a yeti underneath her armpit and it pressed against the chest wall. She has pain with movement, coughing, sneezing. She states that she did not lose consciousness. She denies bruising the affected area. She has been taking Tylenol for pain with minimal improvement. Presents today for further evaluation and treatment. PAST MEDICAL HISTORY Diagnosis Date CDH1-related breast cancer (HCC) (HCC) There is no problem list on file for this patient. Current Outpatient Medications Medication Sig Dispense Refill sertraline (ZOLOFT) 50 mg tablet Take 1 tablet by mouth. multivit,thx,calcium,iron,mins (MULTIVITAMIN AND MINERAL ORAL) Take by mouth. cyanocobalamin (VITAMIN B-12) 100 mcg tab Take 100 mcg by mouth once daily. sertraline (ZOLOFT) 100 mg tablet Take 100 mg by mouth once daily. No current facility-administered medications for this visit. Social History Tobacco Use Smoking status: Every Day Current packs/day: 1.00 Types: Cigarettes Smokeless tobacco: Never Vaping Use Vaping status: Never Used Substance Use Topics Alcohol use: Yes Comment: Occ Drug use: Not Currently Alcohol Use: Yes (Occ) Tobacco Use: Types: Cigarettes History reviewed. No pertinent family history. Review of Systems Constitutional: Negative for chills, diaphoresis and fever. Eyes: Negative for blurred vision. Respiratory: Negative for cough, hemoptysis, sputum production, shortness of breath and wheezing. Cardiovascular: Negative for palpitations. Gastrointestinal: Negative for abdominal pain, nausea and vomiting. Musculoskeletal: Negative for back pain and neck pain. Neurological: Negative for dizziness, tingling, tremors, speech change, loss of consciousness and headaches. BP 102/70 Pulse 60 Temp (Src) 97.7 (Temporal) Resp 14 Wt 120 lb (54.4kg) SpO2 100% Physical Exam Vitals and nursing note reviewed. Constitutional: Comments: PHYSICAL EXAMINATION: GENERAL:The patient is alert oriented in no acute distress. HEAD:Head is atraumatic normocephalic. EYES: Normal sclerae and conjunctivae. NECK: Trachea at midline. Full range of motion. CHEST: Patient reports no bruising. Tenderness to palpation along the anterior lateral aspect of the left side of the chest. Pain is reproducible with changing position as well as coughing. LUNGS: No labored breathing. Lungs clear to auscultation. HEART: Regular rate and rhythm. BACK: Normal skin appearance. No midline tenderness to palpation of the cervical, thoracic and lumbar spines. MUSCULOSKELETAL: Moves All extremities. SKIN: Warm and dry no clubbing cyanosis or edema. NEUROLOGY: Cranial nerves II through XII grossly intact without any focal neurological deficits. PSYCHIATRY: Cooperative. Normal mood and affect. X-ray of the left ribs no acute process. Second read by the radiologist is pending. Patient did not want anything stronger for pain. She will continue with Tylenol. Work note given as requested. Home-going instructions discussed with patient. Follow-up if not improving. Discharged in stable condition. Procedures ASSESSMENT/PLAN: 1. Muscle strain of chest wall, initial encounter - ICD9: 848.8, ICD10: S29.011A - XR RIBS/CHEST 3V AP RIB/OBLS/CXR LEFT [facility]12-04-2024 Telephone encounter Note* Telephone Encounter - Theresa Sanchez - 10/10/2024 4:00 PM EST Left message for patient. Spoke with our director an we do not see Vitamin B deficiency. Patient should see and Manager Hotel. Theresa Sanchez [facility]12-04-2024 Miscellaneous Notes* Telephone Encounter - Theresa Sanchez - 10/10/2024 4:00 PM EST Left message for patient. Spoke with our director an we do not see Vitamin B deficiency. Patient should see and Manager Hotel. Theresa Sanchez documented in this encounterTri[facility]11-[facility]24 [id number] (AGENT OF COVID-19) RNA: Not detected INFLUENZA A RNA: Not detected INFLUENZA B RNA: Not detected RESPIRATORY SYNCYTIAL VIRUS (RSV) RNA: Not detectedProvidence Willamette Falls Medical CenterComment on above:Performed By: #### [id number] ####[facility] LABORATORYCLIA [id number] [address] OF [id number] History of Present illness Narrative* Tyrell Abebe MD - 05/10/2023 11:51 AM EDT Mishel Ashby is a 42 year old female who presents with UTI (2 days) 42-year-old female presenting today with urinary frequency of 2 days duration. She also complains of suprapubic discomfort. History of urinary tract infection several years ago. No other complaints. PAST MEDICAL HISTORY Diagnosis Date CDH1-related breast cancer (HCC) There is no problem list on file for this patient. Current Outpatient Medications Medication Sig Dispense Refill sertraline (ZOLOFT) 50 mg tablet Take 1 tablet by mouth. sertraline (ZOLOFT) 100 mg tablet Take 100 mg by mouth once daily. multivit,thx,calcium,iron,mins (MULTIVITAMIN AND MINERAL ORAL) Take by mouth. cyanocobalamin (VITAMIN B-12) 100 mcg tab Take 100 mcg by mouth once daily. No current facility-administered medications for this visit. Social History Tobacco Use Smoking status: Every Day Packs/day: 1.00 Types: Cigarettes Smokeless tobacco: Never Vaping Use Vaping Use: Never used Substance Use Topics Alcohol use: Yes Comment: Occ Drug use: Not Currently Alcohol Use: Yes ([facility]) Tobacco Use: 1 packs/day Types: Cigarettes History reviewed. No pertinent family history. Review of Systems Constitutional: Negative for chills and fever. Gastrointestinal: Negative for abdominal pain. Genitourinary: Positive for frequency. Negative for dysuria, flank pain, hematuria and urgency. Neurological: Negative for dizziness and headaches. BP 104/60 Pulse 89 Temp (Src) 97.3 (Temporal) Resp 16 Wt 119 lb (54.0kg) SpO2 96% Physical Exam Vitals and nursing note reviewed. Constitutional: Comments: PHYSICAL EXAMINATION: GENERAL:The patient is alert oriented in no acute distress. HEAD:Head is atraumatic normocephalic. EYES: Normal sclerae and conjunctivae. NECK: Normal phonation. LUNGS: No labored breathing. Lungs clear to auscultation. HEART: Regular rate and rhythm. No murmurs, rubs, or gallops. ABDOMEN: Soft nontender nondistended. BACK: No CVA tenderness bilaterally. MUSCULOSKELETAL: Moves all extremities. SKIN: Warm and dry no clubbing cyanosis or edema. NEUROLOGY: Cranial nerves II through XII grossly intact without any focal neurological deficits. PSYCHIATRY: Cooperative. Normal mood and affect. Urinalysis consistent with urinary tract infection. Culture pending. Antibiotic treatment started. ASSESSMENT/PLAN: 1. Frequent urination - ICD9: 788.41, ICD10: R35.0 (primary diagnosis) - URINE CULTURE - URINALYSIS, DIPSTICK ONLY 2. Acute UTI (urinary tract infection) - ICD9: 599.0, ICD10: N39.0 - SULFAMETHOXAZOLE 800 MG-TRIMETHOPRIM 160 MG TABLET Tyrell Abebe documented in this encounterTrihealth [facility]05-02-2023 NoteHNO ID: [id number] Author: Kassandra Larsen PA-C Service: ? Author Type: Physician Real Estate Instructor Type: Progress Notes Filed: 03/08/2023 11:23 AM Note Text: GASTROENTEROLOGY NEW PATIENT PHONE VISIT I have communicated my name and active licensure. The patient's identity and physical location were verified at the time of this visit. Either the patient or their legal employee relations representative has been informed of the risks and benefits of -- and alternatives to -- treatment through a remote evaluation and consents to proceed with the evaluation remotely. CC: iron deficiency anemia/ CDH mutation HPI: Mishel Ashby is a 42 year old female who presents for iron deficiency anemia. 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 She had a gastrectomy done a few years ago preventatively. She does require supplementation of iron in order to maintain her iron level. It is normal right now. She denies any GI symptoms other than excess gas. sometimes trapped gas. Eats normally and has normal bowel movements Colonoscopy- 4 yrs ago in [place] and it was normal, no polyps. Has had polyps in the past. Unexplained weight loss: stable Take Blood thinners: none Bowel Habits: normal bowel movements Fam Hx: negative for colon cancer but carries gene that increases her risk Current Outpatient Medications Medication Sig sertraline (ZOLOFT) 100 mg tablet Take 100 mg by mouth once daily. multivit,thx,calcium,iron,mins (MULTIVITAMIN AND MINERAL ORAL) Take by mouth. cyanocobalamin (VITAMIN B-12) 100 mcg tab Take 100 mcg by mouth once daily. No current facility-administered medications for this visit. PAST MEDICAL HISTORY Diagnosis Date CDH1-related breast cancer (HCC) PAST SURGICAL HISTORY Procedure Laterality Date GASTRECTOMY TOTAL W REPR INT TIFFANY 2018 No family history on file. Social History Tobacco Use Smoking status: Every Day Packs/day: 1.00 Types: Cigarettes Smokeless tobacco: Never Vaping Use Vaping Use: Never used Substance Use Topics Alcohol use: Yes Comment: Occ Drug use: Not Currently ALLERGIES Allergen Reactions Morphine Rash Penicillins GI Upset GI SPECIFIC ROS: Difficulty swallowing / foods sticking in throat: No Heartburn: No Hoarseness: No Chronic cough: No Regurgitation: No Chest pain: No Filling up quickly at meals: No Loss of appetite: No Nausea: No Vomiting: No Abdominal pain: No Recent change in bowel movements: No Bloody or black, bowel movements: No Constipation: No Diarrhea: No Loss of control of bowel movements: No Night sweats, fever, chills: No Vomiting blood: No Recent change in weight: No PHYSICAL EXAMINATION: No physical exam was performed due to this visit being performed via phone to decrease exposure to Covid 19. Patient was awake, alert, oriented, was able to speak clearly and answer questions. Patient did not seem to be in any distress. ASSESSMENT AND PLAN: Impression: This is a 42yr old female who presents via phone today for a consult for a colonoscopy. She denies all GI symptoms. Her last colonoscopy was 4 yrs ago. It was normal. But she carries the CDH 1 gene mutation and is therefore due for another screening colonoscopy. This patient is not on blood thinners. We discussed the procedure, instructions, and patient agrees to proceed. The patient verbalized understanding and agreed with the plan. They stated that they had no further questions. ASSESSMENT/PLAN: 1. Screening for colon cancer - ICD9: V76.51, ICD10: Z12.11 - COLONOSCOPY SCREENING Kassandra Larsen PA-C I spent a total of 20 minutes on the date of the service which included preparing to see the patient, completing clinical documentation, counseling and educating the patient/family/caregiver, and ordering medications, tests, or procedures.[facility]05-02-2023 Miscellaneous Notes* Addendum Note - Kassandra Larsen PA-C - 03/08/2023 11:33 AM EDTAddended by: KASSANDRA LARSEN on: 03/08/2023 11:33 AM Modules accepted: Orders documented in this encounterTrihealth [facility]05-02-2023 History of Present illness Narrative* Kassandra Larsen PA-C - 03/08/2023 11:11 AM EDT GASTROENTEROLOGY NEW PATIENT PHONE VISIT I have communicated my name and active licensure. The patient's identity and physical location wereverified at the time of this visit. Either the patient or their legal employee relations representative has been informed of the risks and benefits of -- and alternatives to -- treatment through a remote evaluation andconsents to proceed with the evaluation remotely. CC: iron deficiency anemia/ CDH mutation HPI: Mishel Ashby is a 42 year old female who presents for iron deficiency anemia. 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 She had a gastrectomy done a few years ago preventatively. She does require supplementation of iron in order to maintain her iron level. It is normal right now. She denies any GI symptoms other than excess gas. sometimes trapped gas. Eats normally and has normal bowel movements Colonoscopy- 4 yrs ago in [place] and it was normal, no polyps. Has had polyps in the past. Unexplained weight loss: stable Take Blood thinners: none Bowel Habits: normal bowel movements Fam Hx: negative for colon cancer but carries gene that increases her risk Current Outpatient Medications Medication Sig sertraline (ZOLOFT) 100 mg tablet Take 100 mg by mouth once daily. multivit,thx,calcium,iron,mins (MULTIVITAMIN AND MINERAL ORAL) Take by mouth. cyanocobalamin (VITAMIN B-12) 100 mcg tab Take 100 mcg by mouth once daily. No current facility-administered medications for this visit. PAST MEDICAL HISTORY Diagnosis Date CDH1-related breast cancer (HCC) PAST SURGICAL HISTORY Procedure Laterality Date GASTRECTOMY TOTAL W REPR INT TIFFANY 2018 No family history on file. Social History Tobacco Use Smoking status: Every Day Packs/day: 1.00 Types: Cigarettes Smokeless tobacco: Never Vaping Use Vaping Use: Never used Substance Use Topics Alcohol use: Yes Comment: Occ Drug use: Not Currently ALLERGIES Allergen Reactions Morphine Rash Penicillins GI Upset GI SPECIFIC ROS: Difficulty swallowing / foods sticking in throat: No Heartburn: No Hoarseness: No Chronic cough: No Regurgitation: No Chest pain: No Filling up quickly at meals: No Loss of appetite: No Nausea: No Vomiting: No Abdominal pain: No Recent change in bowel movements: No Bloody or black, bowel movements: No Constipation: No Diarrhea: No Loss of control of bowel movements: No Night sweats, fever, chills: No Vomiting blood: No Recent change in weight: No PHYSICAL EXAMINATION: No physical exam was performed due to this visit being performed via phone to decrease exposure to Covid 19. Patient was awake, alert, oriented, was able to speak clearly and answer questions. Patient did not seem to be in any distress. ASSESSMENT AND PLAN: Impression: This is a 42yr old female who presents via phone today for a consult for a colonoscopy. She denies all GI symptoms. Her last colonoscopy was 4 yrs ago. It was normal.But she carries the CDH 1 gene mutation and is therefore due for another screening colonoscopy. This patient is not on blood thinners. We discussed the procedure, instructions, and patient agrees to proceed. The patient verbalized understanding and agreed with the plan. They stated that they had nofurther questions. ASSESSMENT/PLAN: 1. Screening for colon cancer - ICD9: V76.51, ICD10: Z12.11 - COLONOSCOPY SCREENING Kassandra Larsen PA-C I spent a total of 20 minutes on the date of the service which included preparing to see the patient, completing clinical documentation, counseling and educating the patient/family/caregiver, and ordering medications, tests, or procedures. documented in this encounterTrihealth [facility]03-24-2023 Instructions* Patient Instructions* Tyrell Abebe MD - 01/28/2023 11:21 AM EDT I provided a list of primary care physicians to call for continuation of care. Go to the ED if chest discomfort recurs. documented in this encounterTrihealth [facility]03-24-2023 History of Present illness Narrative* Tyrell Abebe MD - 01/28/2023 11:01 AM EDT Mishel Ashby is a 42 year old female who presents with Bilateral Arm pain (Reports ongoing x's 2 weeks. Reports radiating into upper back down arms. ) and Fatigue (Reports ongoing x's 2 weeks. ) Accompanied today by her . She is a 42-year-old female presenting today with bilateral arm discomfort which she describes as a tooth ache like sensation numbness and tingling of the upper extremities that are equally distributed. Symptom onset 2 weeks ago. She also reports of fatigue for thelast 2 weeks. She states that her sister has rheumatoid arthritis. She also reports that 3 weeks ago she had an episode of chest discomfort with exertion and that has completely resolved. She has no chest pain currently. She is a smoker. She states that her medical insurance starts February 05. She hasno primary care provider. She reports that she has CH D1 mutation and cannot take any NSAIDs. Tylenol does not help with her pain. She has no history of herniated cervical disks. PAST MEDICAL HISTORY Diagnosis Date CDH1-related breast cancer (HCC) There is no problem list on file for this patient. Current Outpatient Medications Medication Sig Dispense Refill sertraline (ZOLOFT) 100 mg tablet Take 100 mg by mouth once daily. multivit,thx,calcium,iron,mins (MULTIVITAMIN AND MINERAL ORAL) Take by mouth. cyanocobalamin (VITAMIN B-12) 100 mcg tab Take 100 mcg by mouth once daily. No current facility-administered medications for this visit. Social History Tobacco Use Smoking status: Every Day Packs/day: 1.00 Types: Cigarettes Smokeless tobacco: Never Vaping Use Vaping Use: Never used Substance Use Topics Alcohol use: Yes Comment: [facility] Drug use: Not Currently Alcohol Use: Yes ([facility]) Tobacco Use: 1 packs/day Types: Cigarettes History reviewed. No pertinent family history. Review of Systems Constitutional: Positive for malaise/fatigue. Negative for chills and fever. Respiratory: Negative for shortness of breath. Cardiovascular: Positive for chest pain. Gastrointestinal: Negative for abdominal pain and blood in stool. Genitourinary: Negative for hematuria. Musculoskeletal: Negative for back pain, falls and neck pain. Numbness and tingling of the upper extremities. Neurological: Negative for dizziness and headaches. BP 112/67 Pulse 77 Temp 99.8 Resp 12 Wt 119 lb (54.0kg) SpO2 98% Physical Exam Vitals and nursing note reviewed. Constitutional: Comments: PHYSICAL EXAMINATION: GENERAL:The patient is alert oriented in no acute distress. HEAD:Head is atraumatic normocephalic. EYES: Normal sclerae and conjunctivae. MOUTH: Oropharynx unremarkable. No angioedema. No thyromegaly. NECK: No cervical adenopathy. Normal phonation. No JVD. LUNGS: No labored breathing. Lungs clear to auscultation. HEART: Regular rate and rhythm. No murmurs, rubs or gallops. ABDOMEN: Soft nontender nondistended. No guarding or rebound tenderness. No palpable masses. MUSCULOSKELETAL: Moves all extremities. No swelling of the lower extremities. No calf tenderness bilaterally. SKIN: Warm, dry no clubbing, cyanosis or edema. NEUROLOGY: Cranial nerves II through XII grossly intact without any focal neurological deficits. PSYCHIATRY: Cooperative. Normal mood and affect. I suspect that her bilateral upper extremity numbness are due to a herniated disks which will require follow-up with her primary care provider and this was explained to her. I placed her on cyclobenzaprine. Patient cannot take any NSAIDs or prednisone secondary to gastrointestinal disease. In regards to her chest discomfort I instructed her to go to the ED if pain recurs. I encouraged her to quitsmoking. Provided her a list of primary care physicians to call today and get an appointment she should do that since she will have coverage by February 05 and at least get an appointment. Her i-STAT andCBC with differential otherwise unremarkable. Discharged in stable condition. ASSESSMENT/PLAN: 1. Numbness and tingling of left upper extremity - ICD9: 782.0, ICD10: R20.0, R20.2 (primary diagnosis) -Cyclobenzaprine. - ISTAT BMP - CBC + DIFF 2. Numbness and tingling of right upper extremity - ICD9: 782.0, ICD10: R20.0, R20.2 - ISTAT BMP - CBC + DIFF 3. Fatigue, unspecified type - ICD9: 780.79, ICD10: R53.83 - ISTAT BMP - CBC + DIFF 4. Chest discomfort - ICD9: 786.59, ICD10: R07.89 -Instructed to go to the emergency room if feeling worse. Tyrell Abebe documented in this encounterTrihealth [facility]06-[facility] Note. MICRO - Microbiology PROCEDURE: Urine Culture [*1] SOURCE: Urine, Clean Catch BODY SITE: COLLECTED DATE/TIME: 04/14/2022 09:10 EDT RECEIVED DATE/TIME: 04/14/2022 16:00 EDT START DATE/TIME: 04/14/2022 16:00 EDT FREE TEXT SOURCE: FINAL REPORTS Final Report [] Verified Date/Time/Personnel: 04/16/2022 07:47 EDT 10,000 - 50,000 cfu/ml Mixed growth consistent with normal urogenital roberto. PRELIMINARY REPORTS Preliminary Report [] Verified Date/Time/Personnel: 04/15/2022 09:39 EDT No growth to date Performing Locations *1: This test was performed at: [facility], [address] [place] [address], [id number]- , Replaced by [facility])03-21-2022 Note. MICRO - Microbiology PROCEDURE: Urine Culture [*1] SOURCE: Urine, Clean Catch BODY SITE: COLLECTED DATE/TIME: 03/19/2022 09:18 EDT RECEIVED DATE/TIME: 03/19/2022 17:31 EDT START DATE/TIME: 03/19/2022 17:31 EDT FREE TEXT SOURCE: FINAL REPORTS Final Report [] Verified Date/Time/Personnel: 03/21/2022 07:44 EDT No growth at 48 hours. PRELIMINARY REPORTS Preliminary Report [] Verified Date/Time/Personnel: 03/20/2022 11:10 EDT No growth to date Performing Locations *1: This test was performed at: [facility], [address] [place] [address], [id number]- , [facility]03-12-2022 Hospital Discharge instructions Patient Education 03/12/2022 15:01:40 Abdominal Pain Abdominal Pain Abdominal pain is pain in the stomach or belly area. Everyone has this pain from time to time. In many cases it goes away on its own. But abdominal pain can sometimes be due to a serious problem, such as appendicitis. So it s important to know when to get help. Causes of abdominal pain There are many possible causes of abdominal pain. Common causes in adults include: Constipation, diarrhea, or gas Stomach acid flowing back up into the esophagus (acid reflux or heartburn) Severe acid reflux, called GERD (gastroesophageal reflux disease) A sore in the lining of the stomach or small intestine (peptic ulcer) Inflammation of the gallbladder, liver, or pancreas Gallstones or kidney stones Appendicitis Intestinal blockage An internal organ pushing through a muscle or other tissue (hernia) Urinary tract infections In women, menstrual cramps, fibroids, ovarian cysts, pelvic inflammatory disease, or endometriosis Inflammation or infection of the intestines, including Crohn's disease and ulcerative colitis Irritable bowel syndrome Diagnosing the cause of abdominal pain Your healthcare provider will give you a physical exam help find the cause of your pain. If needed,you will have tests. Belly pain has many possible causes. So it can be hard to find the reason for your pain. Giving details about your pain can help. Tell your provider where and when you feel the pain, and what makes it better or worse. Also let your provider know if you have other symptoms such as: Fever Tiredness Upset stomach (nausea) Vomiting Changes in bathroom habits Blood in the stool or black, tarry stool Weight loss that you can't explain (involuntary weight loss?) Also report any family history of stomach or intestinal problems, or cancers. Tell your provider about all your alcohol use and drug use. Tell your provider about all medicines you use, including herbs, vitamins, and supplements. Treating abdominal pain Some causes of pain need emergency medical treatment right away. These include appendicitis or a bowel blockage. Other problems can be treated with rest, fluids, or medicines. Your healthcare provider can give you specific instructions for treatment or self-care based on what is causing your pain. If you have vomiting or diarrhea, sip water or other clear fluids. When you are ready to eat solid foods again, start with small amounts of ormj-jp-motptd, low- fat foods. These include apple sauce, toast, or crackers. When to get medical care Call 911 or go to the hospital right away if you: Can t pass stool and are vomiting Are vomiting blood or have bloody diarrhea or black, tarry diarrhea Have chest, neck, or shoulder pain Feel like you might pass out Have pain in your shoulder blades with nausea Have sudden, severe belly pain Have new, severe pain unlike any you have felt before Have a belly that is rigid, hard, and hurts to touch Call your healthcare provider if you have: Pain for more than 5 days Bloating for more than 2 days Diarrhea for more than 5 days A fever of 100.4 F (38 C) or higher, or as directed by your healthcare provider Pain that gets worse Weight loss for no reason Continued lack of appetite Blood in your stool How to prevent abdominal pain Here are some tips to help prevent abdominal pain: Eat smaller amounts of food at each meal. Don't eat greasy, fried, or other high-fat foods. Don't eat foods that give you gas. Exercise regularly. Drink plenty of fluids. To help prevent GERD symptoms: Quit smoking. Reduce alcohol and foods that increase stomach acid. Don't use aspirin or ffbr-tbl-omxfkgy pain and fever medicines, if possible. This includes nonsteroidal anti-inflammatory drugs (NSAIDs). Lose excess weight. Finish eating at least 2 hours before you go to bed or lie down. Raise the head of your bed. [id number] [employer]. [address] [place] [address], [place] [address]. All rights reserved. This information is not intended as a substitute for professional medical care. Always follow yourhealthcare professional's instructions. Follow Up Care 03/12/2022 11:22:40 With:LYNN ISAAC Address: [address] [place] [address] [address] [facility] [place] [address]- [phone] When:2-4 days [facility] 11-06-2021 Note. MICRO - Microbiology PROCEDURE: Urine Culture [*1] SOURCE: Urine, Clean Catch BODY SITE: COLLECTED DATE/TIME: 09/10/2021 10:18 EDT RECEIVED DATE/TIME: 09/10/2021 14:52 EDT START DATE/TIME: 09/10/2021 14:52 EDT FREE TEXT SOURCE: FINAL REPORTS Final Report [] Verified Date/Time/Personnel: 09/12/2021 08:00 EDT <10,000 cfu/ml. No Significant growth. Sensitivity not indicated. PRELIMINARY REPORTS Preliminary Report [] Verified Date/Time/Personnel: 09/11/2021 09:38 EDT No growth to date Performing Locations *1: This test was performed at: [facility], [address] [place] [address], [id number]- , [facility] ([place])Evaluation + Plan note Future Appointments Appointment Date:03/19/2022 09:00:00 AM Scheduled Provider:LYNN ISAAC Location:[facility] Appointment Type: OV Follow Up Future Scheduled Tests Laboratory* Ferritin 02/11/22 * Folate Level 02/11/22 * Iron Level 02/11/22 * Thyroid Stimulating Hormone 02/11/22 * Vitamin B12 Level 02/11/22 * Complete Blood Count 02/11/22 * Lipid Profile 02/11/22 * Vitamin D Level 02/11/22 * .Estimated Glomerular Filtration Rate 02/11/22 * Complete Metabolic Panel 02/11/22 * TIBC 02/11/22 [facility] Evaluation note* Diagnosis Numbness and tingling of left upper extremity- Primary Numbness and tingling of right upper extremity Fatigue, unspecified type Chest discomfort Other chest pain [facility] Diagnosis Screening for colon cancer- Primary Special screening for malignant neoplasms, colon [facility]* Diagnosis Frequent urination- Primary Urinary frequency Acute UTI (urinary tract infection) Urinary tract infection, site not specified [facility]* Diagnosis Muscle strain of chest wall, initial encounter- Primary [facility] Diagnosis Muscle strain of chest wall, initial encounter [facility]* Diagnosis CDH1 gene mutation positive- Primary Erythrocytosis Polycythemia, secondary [facility]* Diagnosis Rib pain on left side- Primary Chest pain, unspecified Contusion of rib on left side, initial encounter [facility]* Diagnosis Rib pain on left side Chest pain, unspecified Contusion of rib on left side, initial encounter [facility]* Diagnosis CDH1 gene mutation positive- Primary At high risk for breast cancer Nipple discharge Other sign and symptom in breast * Assessment & Plan Note - Zoey Mayorga MD - 02/13/2025 8:36 AM EDT Associated Problem(s): At high risk for breast cancer Mishel Ashby is a 44 year old female here today for high risk evaluation. Family history of sister with breast cancer. 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 Screening mammogram 10/25/24 negative, BIRADS 1. Breast density BIRADS B. No suspicious findings on clinical exam. Discussed risk reduction mastectomy due to mutation. Would recommend breast MRI prior to surgery. Schedule with Dr Aceves in plastics to discuss reconstruction options. Follow up after MRI for pre op. [facility]* Diagnosis CDH1 gene mutation positive- Primary At high risk for breast cancer Nipple discharge Other sign and symptom in breast CDH1 gene mutation positive [facility]* Diagnosis CDH1 gene mutation positive- Primary At high risk for breast cancer Nipple discharge Other sign and symptom in breast CDH1 gene mutation positive- Primary At high risk for breast cancer * Assessment & Plan Note - Zoey Mayorga MD - 03/20/2025 1:13 PM EDT Associated Problem(s): At high risk for breast cancer Mishel Ashby is a 44 year old female here for MRI results and pre op. 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 Screening mammogram 10/25/24 negative, BIRADS 1. Breast density BIRADS B. Breast MRI 03/14/25 negative, BIRADS 1. Discussed prophylactic mastectomy. Currently, she is unsure if she wants reconstruction or not. Ute meet with Dr Aceves for consultation. If she wants reconstruction, she could have a nipple sparing. Follow up in 2 weeks for surgical decision. documented in this encounter [facility] note* Diagnosis CDH1 gene mutation positive- Primary At high risk for breast cancer Nipple discharge Other sign and symptom in breast CDH1 gene mutation positive- Primary At high risk for breast cancer CDH1 gene mutation positive- Primary At high risk for breast cancer Current smoker Tobacco use disorder documented in this encounter [facility] course Narrative No data available for this section [facility] Progress note No data available for this section [facility] Reason for referral (narrative)* Outpatient Procedure (Routine) - Waiting for Response Specialty Diagnoses / Procedures Referred By Karmen alvarez Referred To Contact [facility] Diagnoses Screening for colon cancer Procedures COLONOSCOPY SCREENING COLONOSCOPY FLX DX W/COLLJ SPEC WHEN PFCESARD Kassandra Larsen PA-C [address] [place] [address] [facility] [address] [place] [address] Referral ID Status Reason Start Date Expiration Date Visits Requested Visits Authorized [id number] Waiting for Response Auto-Generat ed Referral 03/08/2023 03/08/2024 1 1 * Outpatient Procedure (Routine) - Waiting for Response Specialty Diagnoses / Procedures Referred By Contac t Referred To Contact [facility] Diagnoses Screening for colon cancer Procedures COLONOSCOPY SCREENING COLONOSCOPY FLX DX W/COLLJ SPEC WHEN PFRMD Kassandra Larsen PA-C [address] [place] [address] [facility] [address] [place] [address] Referral ID Status Reason Start Date Expiration Date Visits Requested Visits Authorized [id number] Waiting for Response Auto-Generat ed Referral 03/08/2023 03/08/[address] [facility] for referral (narrative)* Diagnostic Procedure Only (Routine) - Closed Specialty Diagnoses / Procedures Referred By Contac t Referred To Contact [facility] Diagnoses Muscle strain of chest wall, initial encounter Procedures XR RIBS/CHEST 3V AP RIB/OBLS/CXR LEFT RADEX RIBS UNI W/POSTEROANT CH MINIMUM 3 VIEWS Tyrell Abebe MD [address] [place] [address] [place] [address] Referral ID Status Reason Start Date Expiration Date V isits Requested Visits Authorized [id number] Closed Auto-Generate d Referral 10/15/2024 11/14/[address] [facility] for referral (narrative)No reason for referral information availableWUniversity [facility] Work Phone: Reason for visit Narrative* Diagnostic Procedure Only (Routine) - Closed Specialty Diagnoses / Procedures Referred By Contac t Referred To Contact [facility] Diagnoses Muscle strain of chest wall, initial encounter Procedures XR RIBS/CHEST 3V AP RIB/OBLS/CXR LEFT RADEX RIBS UNI W/POSTEROANT CH MINIMUM 3 VIEWS Tyrell Abebe MD [address] [place] [address] [place] [address] Referral ID Status Reason Start Date Expiration Date V isits Requested Visits Authorized [id number] Closed Auto-Generate d Referral 10/15/2024 11/14/[address] [facility] for visit Narrative* Diagnostic Procedure Only (Routine) - Closed Specialty Diagnoses / Procedures Referred By Contac t Referred To Contact [facility] Diagnoses Rib pain on left side Contusion of rib on left side, initial encounter Procedures XR RIBS/CHEST 3V AP RIB/OBLS/CXR LEFT RADEX RIBS UNI W/POSTEROANT CH MINIMUM 3 VIEWS Erika Nam APRN.[employer] ASSISTANT [address] [facility] [address] [place] [address] Phone: tel: fax: [place] [address] Referral ID Status Reason Start Date Expiration Date V isits Requested Visits Authorized [id number] Closed Auto-Generate d Referral 01/31/2025 03/02/[address] 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 Procedures MRI BREAST WITHOUT&WITH CONTRAST W/CAD BILATERAL Zoey Mayorga MD [address] [facility] [place] [address] Phone: tel: fax: [facility] [address] [place] [address] [place] [address] Phone: tel: fax: Referral ID Status Reason Start Date Expiration Date V isits Requested Visits Authorized [id number] Closed OON/Self Pay Override Clearance Not Met -Financial Clearance Bypassed 02/20/2025 06/05/2025 1 1 [facility] Summary Purpose Family History No Family History Records Found Relationship Condition Age at Onset Recorded Date/T monserrat mother Alcoholism Unknown Anxiety Unknown Depression Unknown Hepatitis C virus infection Unknown Chronic obstructive pulmonary disease Unk nown father Malignant neoplasm of prostate Unknown Hypertension Unknown Hyperlipidemia Unknown sister Rheumatoid arthritis Unknown Malignant neoplasm of breast Unknown Advance Directives No Advanced Directives Records FoundNo Advanced Directives Records FoundNo Advanced Directives Records FoundNo Advanced Directives Records Found Chief Complaint and Reason for Visit Chief Complaint Admit Date L ABD PAIN, CDH1 GENE February 25, 2025 2 :19pm INT LAB ORDERS February 25, 2025 3:4 1pm DYSPHAGIA March 27, 2025 9:03a m Reason for Visit Admit Date Abdominal bloating February 25, 2025 2:1 9pm CDH1 gene mutation positive February 25, 2025 2:19pm Diarrhea February 25, 2025 2:1 9pm Dysphagia February 25, 2025 2:1 9pm Flatulence February 25, 2025 2:1 9pm Thrombocytopenia February 25, 2025 2:1 9pm Vitamin D deficiency February 25, 2025 2: 19pm Additional Source Comments Care Team (unrecognized sect ion and content) Wharf Labourer Relationship Specialty Start Date End Date Angelo Thornton DO [address] [place] [address] PCP - General Family Medicine 12/02/23 Wharf Labourer Relationship Specialty Start Date End Date Angelo Thornton DO [address] [place] [address] PCP - General Family Medicine 12/02/23 Wharf Labourer Relationship Specialty Start Date End Date Angelo Thornton DO [address] [place] [address] PCP - General Family Medicine 12/02/23 Wharf Labourer Relationship Specialty Start Date End Date Angelo Thornton DO [address] [place] [address] PCP - General Family Medicine 12/02/23 Wharf Labourer Relationship Specialty Start Date End Date Angelo Thornton DO [address] [place] [address] PCP - General Family Medicine 12/02/23 Wharf Labourer Relationship Specialty Start Date End Date Angelo Thornton DO [address] [place] [address] PCP - General Family Medicine 12/02/23 Wharf Labourer Relationship Specialty Start Date End Date Angelo Thornton DO [address] [place] [address] PCP - General Family Medicine 12/02/23 Wharf Labourer Relationship Specialty Start Date End Date Angelo Thornton DO [address] [place] [address] PCP - General Family Medicine 12/02/23 Wharf Labourer Relationship Specialty Start Date End Date Angelo Thornton DO [address] [place] [address] PCP - General Family Medicine 12/02/23 Wharf Labourer Relationship Specialty Start Date End Date Angelo Thornton DO [address] [place] [address] PCP - General Family Medicine 12/02/23 Wharf Labourer Relationship Specialty Start Date End Date Angelo Thornton DO [address] [place] [address] PCP - General Family Medicine 12/02/23 Wharf Labourer Relationship Specialty Start Date End Date Angelo Thornton DO [address] [place] [address] (Work) PCP - General Family Medicine 12/02/23 Wharf Labourer Relationship Specialty Start Date End Date Angelo Thornton DO [address] [place] [address] (Work) PCP - General Family Medicine 12/02/23 Wharf Labourer Relationship Specialty Start Date End Date Angelo Thornton DO [address] [place] [id number] PCP - General Family Medicine 12/02/23 Wharf Labourer Relationship Specialty Start Date End Date Angelo Thornton DO [address] [place] [id number] PCP - General Family Medicine 12/02/23 Team Status: Active Member Role Status Dates Dr. Angelo Thornton DO Primary Care Provider Active Team Status: Inactive Member Role Status Dates Kassandra Atkins NP-C Attending Provider Active Start: February 25, 2025 End: February 25, 2025 Team Status: Inactive Member Role Status Dates No Primary Care Physician Primary Care Provider Active Start: February 25, 2025 End: February 25, 2025 Kassandra Atkins KILN LOADER-C Attending Provider Active Start: February 25, 2025 End: February 25, 2025 Kassandra Atkins KILN LOADER-C Referring Provider Active Start: February 25, 2025 End: February 25, 2025 Team Status: Inactive Member Role Status Dates Kassandra Atkins NP-C Attending Provider Active Start: March 27, 2025 End: March 27, 2025 Kassandra Atkins KILN LOADER-C Referring Provider Active Start: March 27, 2025 End: March 27, 2025 Dr. Angelo Thornton DO Primary Care Provider Active Start: March 27, 2025 End: March 27, 2025 INFORMATION SOURCE (unrecogn ized section and content) DATE CREATED AUTHOR 05/01/2022 [facility] ([place]) DATE CREATED AUTHOR AUTHOR'S ORGANIZ ATION 03/08/2023 [facility] DATE CREATED AUTHOR AUTHOR'S ORGANIZ ATION 04/05/2025 [facility] DATE CREATED AUTHOR AUTHOR'S ORGANIZ ATION 05/07/2025 [facility] Source Comments (unrecognize d section and content) In the event this informatio n is protected by the Federal Confidentiality of Alcohol and Drug Abuse Patient Records regulations: The Federal rules restrict any use of the information to criminally investigate or prosecute any alcohol or drug abuse patient.[facility] the event this information is protected by the Federal Confidentiality of Alcohol and Drug Abuse Patient Records regulations: The Federal rules restrict any use of the information to criminally investigate or prosecute any alcohol or drug abuse patient.[facility] Hospital[facility] the event this information is protected by the Federal Confidentiality of Alcohol and Drug Abuse Patient Records regulations: The Federal rules restrict any use of the information to criminally investigate or prosecute any alcohol or drug abuse patient.[facility] Hospital[facility] the event this information is protected by the Federal Confidentiality of Alcohol and Drug Abuse Patient Records regulations: The Federal rules restrict any use of the information to criminally investigate or prosecute any alcohol or drug abuse patient.[facility] Hospital[facility] the event this information is protected by the Federal Confidentiality of Alcohol and Drug Abuse Patient Records regulations: The Federal rules restrict any use of the information to criminally investigate or prosecute any alcohol or drug abuse patient.[facility] Hospital[facility] the event this information is protected by the Federal Confidentiality of Alcohol and Drug Abuse Patient Records regulations: The Federal rules restrict any use of the information to criminally investigate or prosecute any alcohol or drug abuse patient.[facility] Hospital[facility] the event this information is protected by the Federal Confidentiality of Alcohol and Drug Abuse Patient Records regulations: The Federal rules restrict any use of the information to criminally investigate or prosecute any alcohol or drug abuse patient.[facility] Hospital[facility] the event this information is protected by the Federal Confidentiality of Alcohol and Drug Abuse Patient Records regulations: The Federal rules restrict any use of the information to criminally investigate or prosecute any alcohol or drug abuse patient.[facility] Hospital[facility] the event this information is protected by the Federal Confidentiality of Alcohol and Drug Abuse Patient Records regulations: The Federal rules restrict any use of the information to criminally investigate or prosecute any alcohol or drug abuse patient.[facility] Hospital[facility] the event this information is protected by the Federal Confidentiality of Alcohol and Drug Abuse Patient Records regulations: The Federal rules restrict any use of the information to criminally investigate or prosecute any alcohol or drug abuse patient.[facility] Hospital[facility] the event this information is protected by the Federal Confidentiality of Alcohol and Drug Abuse Patient Records regulations: The Federal rules restrict any use of the information to criminally investigate or prosecute any alcohol or drug abuse patient.[facility] Hospital[facility] the event this information is protected by the Federal Confidentiality of Alcohol and Drug Abuse Patient Records regulations: The Federal rules restrict any use of the information to criminally investigate or prosecute any alcohol or drug abuse patient.[facility] Hospital[facility] the event this information is protected by the Federal Confidentiality of Alcohol and Drug Abuse Patient Records regulations: The Federal rules restrict any use of the information to criminally investigate or prosecute any alcohol or drug abuse patient.[facility] Hospital[facility] the event this information is protected by the Federal Confidentiality of Alcohol and Drug Abuse Patient Records regulations: The Federal rules restrict any use of the information to criminally investigate or prosecute any alcohol or drug abuse patient.[facility] Hospital[facility] the event this information is protected by the Federal Confidentiality of Alcohol and Drug Abuse Patient Records regulations: The Federal rules restrict any use of the information to criminally investigate or prosecute any alcohol or drug abuse patient.[facility] Hospital[facility] the event this information is protected by the Federal Confidentiality of Alcohol and Drug Abuse Patient Records regulations: The Federal rules restrict any use of the information to criminally investigate or prosecute any alcohol or drug abuse patient.[facility] HospitalIn the event this information is protected by the Federal Confidentiality of Alcohol and Drug Abuse Patient Records regulations: The Federal rules restrict any use of the information to criminally investigate or prosecute any alcohol or drug abuse patient.[facility] Hospital[facility] the event this information is protected by the Federal Confidentiality of Alcohol and Drug Abuse Patient Records regulations: The Federal rules restrict any use of the information to criminally investigate or prosecute any alcohol or drug abuse patient.[facility] Hospital[facility] the event this information is protected by the Federal Confidentiality of Alcohol and Drug Abuse Patient Records regulations: The Federal rules restrict any use of the information to criminally investigate or prosecute any alcohol or drug abuse patient.[facility] Hospital[facility] the event this information is protected by the Federal Confidentiality of Alcohol and Drug Abuse Patient Records regulations: The Federal rules restrict any use of the information to criminally investigate or prosecute any alcohol or drug abuse patient.[facility] the event this information is protected by the Federal Confidentiality of Alcohol and Drug Abuse Patient Records regulations: The Federal rules restrict any use of the information to criminally investigate or prosecute any alcohol or drug abuse patient.[facility] HospitalIn the event this information is protected by the Federal Confidentiality of Alcohol and Drug Abuse Patient Records regulations: The Federal rules restrict any use of the information to criminally investigate or prosecute any alcohol or drug abuse patient.[facility] Reason for Visit (unrecogniz ed section and content) Reason Comments Bilateral Arm pain Reports ongoing x's 2 weeks. Reports radiating into upper back down arms. Fatigue Reports ongoing x's 2 weeks. Reason Comments Outpatient Colonoscopy Reason Comments UTI 2 days Reason Comments Appointment Reason Comments Fall Pt reports that she fell with her yeti come on her rib side on Tuesday. Having left side rib pain. Reason Comments Consult Specialty Diagnoses / Procedures Referred By Karmen alvarez Referred To Contact HEMATOLOGY/ONCOLOGY Diagnoses CDH-1 Gene Prophylactic Gastrectomy Procedures New Patient Appointment Jalen Mcgee MD [address] [place] [address] Phone: tel: fax: Hematology Oncology [address] [address] [place] [address] Phone: tel: fax: Referral ID Status Reason Start Date Expiration Date Visits Requested Visits Authorized [id number] New Request OON/Self Pay Override 12/11/2024 03/21/2026 1 1 Reason Comments Consult Reason Comments Release Of Medical Records Sent office n otes from 12/31/24 to [facility] , attn: Yogesh Provider: Everardo 01/07/25 QS Appointment Reason Comments Cough Now for a month and is having left middle back,left rib area for a week and doesn't know if coughing has been causing the pain. Reason Comments Breast Problem Reason Comments Appointment Perinatal Specialist - Other Reason Comments Recheck Reason Comments New Patient Evaluation KIL[employer] LOADER ref: Dr. Lauri tapia breast reconstruction consult. 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 Procedures OFFICE CONSULTATION NEW/ESTAB PATIENT 15 MIN OFFICE/OUTPATIENT NEW MODERATE MDM 45 MINUTES Damian Aceves, [address] [address] Phone: tel: fax: [facility] Plastic Surgery [address] [place] [address] [address] Phone: tel: fax: Referral ID Status Reason Start Date Expiration Date V isits Requested Visits Authorized [id number] Closed OON/Self Pay Override 02/13/2025 11/06/2025 1 1 Goals (unrecognized section and content) Goals may be documented in a n alternate section FOR RECORDS PERTAINING TO PATIENTS WHO ARE OR HAVE BEEN ENROLLED IN A CHEMICAL DEPENDENCY/SUBSTANCEABUSE PROGRAM, SOME INFORMATION MAY BE OMITTED. This clinical summary was aggregated from multiple sources. Caution should be exercised in using it in the provision of clinical care. This summary normalizes information from multiple sources, and as a consequence, information in this document may materially change the coding, format and clinical context of patient data. In addition, data may be omitted in some cases. CLINICAL DECISIONS SHOULD BE BASED ON THE PRIMARY CLINICAL RECORDS. [employer] [facility]. provides no warranty or guarantee of the accuracy or completeness of information in this document.
--- NOTE | 2025-05-09 06:44 | PCM.PRE.AN2 ---
ASA Classification* ASA Classification ASA Classification: 3 Assessment & Plan Anesthesia* Anesthesia Assessment Anesthesia Assessment: Discussed sedation and/or anesthesia options, risks, benefits, and alternatives with patient/parents/legal guardian/POA. Questions invited. The patient/parents/legal guardian/POA seems to understand and agrees to proceed with anesthesia plan. Reviewed the physical assessment, medical history, allergy history and patient home medications list prior to surgery/procedure/anesthetic and documented any changes. Performed airway and anesthesia risk assessments. Anesthesia Type Anesthesia Type: MAC (discussed plan for MAC with GA as backup) History Source History Obtained from:: Patient and Chart Anesthesia Focused Assessment* Temperature: 97.5 F Pulse Rate: 54 Blood Pressure: 90/60 Respiratory Rate: 16 Pulse Ox: 98 Oxygen Delivery Method: Room Air Airway Assessment Mouth opens: >3 cm Mallampati Score: I Teeth Condition: Intact Neck Range of motion (ROM): Full ROM Labs Anesthesia Preop lab: CBC WBC 8.3 K/mm3 (4.4-11.0) 02/25/25 15:49 02/25/25 RBC 4.44 M/mm3 (4.2-5.4) 02/25/25 15:49 02/25/25 Hgb 14.7 g/dL (12.0-15.0) 02/25/25 15:49 02/25/25 Hct 44.3 % (37-47) 02/25/25 15:49 02/25/25 Plt Count 218 K/mm3 (150-450) 02/25/25 15:49 02/25/25 CHEMISTRY Potassium 4.1 mmol/L (3.3-5.1) 02/25/25 15:49 02/25/25 Sodium 139 mmol/L (133-145) 02/25/25 15:49 02/25/25 BUN 12 mg/dL (4-19) 02/25/25 15:49 02/25/25 Creatinine 0.61 mg/dL (0.70-1.20) L 02/25/25 15:49 02/25/25 Glucose 77 mg/dL (70-99) 02/25/25 15:49 02/25/25 COAG PT 15.2 SECONDS (11.7-14.9) H 02/25/25 15:49 02/25/25 Pre-Assessment Diagnosis/Proposed Procedure Planned Operative Procedure(s): EGD, COLONSCOPY Anesthesia History Anesthesia History - warehouse logistics manager: Anesthesia History - warehouse logistics manager Hx Hospitalization No 05/08/25 11:42 Any Problems With Anesthesia No 05/08/25 11:42 Cholinesterase deficiency No 05/08/25 11:42 You/Your Family Experience No 05/08/25 11:42 fever (hyperthermia) with Relationship Recent Exposure to Contagious Disease Does patient have nerve No 05/08/25 11:42 stimulator Patient instructed to have device shut off --Does patient have Pacemaker or ICD? When Was Last Pacemaker Check QUESTION #4 FULL TEXT: You/Your Family Experience fever (hyperthermia) with Anesthesia Last Oral Intake Last Oral intake: Last Oral Intake NPO since Meds taken in AM with sips of water? Meds patient instructed to take am of surgery PONV PONV - warehouse logistics manager: PONV - warehouse logistics manager Female Yes 05/08/25 11:42 HX of Motion Sickness No 05/08/25 11:42 HX of N/V After Surgery No 05/08/25 11:42 Non-Smoker No 05/08/25 11:42 Duration of Surgery greater No 05/08/25 11:42 than 60 minutes Number of Risk Factors 1 05/08/25 11:42 PONV Score Low Risk 05/08/25 11:42 Height & Weight Height & Weight: Anesthesia: Height & Weight Height 5 ft 02/25/25 14:33 Respiratory Assessment Respiratory Assessment - warehouse logistics manager: Respiratory Tract Infection Hx - warehouse logistics manager Hx Respiratory Tract Infection No 05/08/25 11:42 STOP Sleep Apnea STOP Sleep Apnea - warehouse logistics manager: STOP Sleep Apnea - warehouse logistics manager Hx Hypertension No 05/08/25 11:42 Hx Sleep Apnea No 05/08/25 11:42 CPAP BIPAP Do you snore loudly (louder No 05/08/25 11:42 than talking or can be heard Do you often feel tired/ No 05/08/25 11:42 fatigued/ sleepy during daytime? Has anyone observed you stop No 05/08/25 11:42 breathing during sleep? STOP Results Negative 05/08/25 11:42 QUESTION #5 FULL TEXT : Do you snore loudly (louder than talking or can be heard through closed doors)? Tobacco Use History Tobacco Use History - warehouse logistics manager: Tobacco Use History - warehouse logistics manager Tobacco Use Smoking Status Current every day smoker 05/08/25 11:42 Hx Tobacco Use Yes 05/08/25 11:42 Years Smoking Packs Smoked per Day Smoking Cessation Date was within the last 15 years Hx Smoking Cessation Date Hx Smoking Cessation Counseling Hematologic Medial History Hematologic Hx - warehouse logistics manager: Hematologic Medical Hx - senior data modeler Hx of Blood Transfusion No 05/08/25 11:42 Hx of Transfusion in last 3 No 05/08/25 11:42 Months Date of Last Transfusion (if within last 3 months) Ever experience any problems No 05/08/25 11:42 with transfusion(s)? Specify any problems Hx of Preganancy in last 3 No 05/08/25 11:42 Months Nurse Filling Out Transfusion [facility] 05/08/25 11:42 & Questions: Date: 05/08/25 05/08/25 11:42 Time: 11:52 05/08/25 11:42 Patient unable to answer at this time (ie. confused, unrespo /Reproduction History /Reproductive History - warehouse logistics manager: /Reproductive Hx- warehouse logistics manager Hx Now No 05/08/25 11:42 Gestational Age (in weeks): EDC: Hx Hx Para Hx Section SAB Active Medications Active Medications: Current Medications Generic Name Dose Route Start Last Admin Trade Name Freq PRN Reason Stop Dose Admin Lactated Ringer's 1,000 mls @ 15 mls/hr 05/09/25 06:45 IV .Q48H TIFFANIE PFSH Medical History Wears glasses Cancer Anxiety Depression Alcohol use Low iron Hypoglycemia Gastric reflux Smoker Hoarseness GERD (gastroesophageal reflux disease) History of gastrectomy Home Medications ?Medication ?Instructions ?Recorded ?Last Taken ?Type ondansetron HCl 4 mg tablet 4 mg PO .COMPLEX #5 tabs 02/25/25 05/08/25 Rx peg 3350-sod sulf,[id number] See Rx Instructions PO .COMPLEX #2 02/25/25 Unknown Rx 178.7-7.3-0.5-1.12-0.9 gram oral mL soln (Suflave) sertraline 50 mg tablet (Zoloft) 100 mg PO QDAY 02/25/25 05/07/25 History pantoprazole 40 mg tablet,delayed 40 mg PO QDAY #90 tabs 03/27/25 05/08/25 Rx release albuterol sulfate 90 mcg/actuation 1 puff inhalation 4X/DAY PRN PRN 05/08/25 Unknown History aerosol inhaler bronchospasm cholecalciferol (vitamin D3) 1,250 1,250 mcg PO QWEEK 05/08/25 05/02/25 History mcg (50,000 unit) capsule multivitamin-ferrous sulfate 18 mg 1 tab PO DAILY 05/08/25 05/05/25 History tablet (One Daily Multivitamin with Iron) Allergy/AdvReac Type Severity Reaction Status Date / Time morphine Allergy Intermediate Itching Verified 05/08/25 11:38 Penicillins (PCN) Allergy Intermediate Other Verified 05/08/25 11:38 NSAIDS (Non-Steroidal AdvReac Other Verified 05/09/25 06:55 Anti-Inflamma Family History Mother Alcoholism Anxiety Depression Hepatitis C COPD (chronic obstructive pulmonary disease) Father Prostate cancer Hypertension HLD (hyperlipidemia) Sister Rheumatoid arthritis Breast cancer Surgical History History of hysterectomy Previous section Social History Smoking Status: Current every day smoker tobacco type: cigarettes alcohol intake: current alcohol intake frequency: a few times a month Alcohol type: hard liquor Review of Systems (Anesthesia) ROS Narrative System reviewed and no additional complaints, except as documented. Physical Exam Narrative appears to be slightly dehydrated, slightly delayed cap refill time, mucous membranes slightly dry. Will give IV fluids. Const alert and oriented x3 HEENT Mouth: dry mucous membranes Neck full ROM Resp normal respiratory effort, normal air movement and clear to auscultation bilaterally Cardio regular rate, regular rhythm and no murmurs Skin Rashes: no rashes Neuro oriented x3 and moves all extremities
[2025-05-09] MEDS: Lactated Ringers 1,000 ML 15 ML IV (07:29)
--- NOTE | 2025-05-09 07:45 | EGD_PTH ---
PATIENT: DEBBIE ASHBY LOC: EN U#:[id number] AGE/SX: 44/F ROOM: RE05/09/[address]: Dr. José Antonio Walters DO : 1980 BED: DIS: 05/09/2025 SPEC #: [id number] RECD: 05/09/25 10:10 STATUS: TASH REYinka #: [id number] ANTONIO: 05/09/25 07:[address]: José Antonio Walters DEPT: SURGICAL PATHOLOGY RECD BY: Sharif Charles ENTERED: 05/09/25 15:20 SP TYPE: EGD BIOPSY OT DR: Dr. Quinn Thornton DO Tissues: A - Jejunum, NOS B - SPLENIC FLEXURE Procedures: Surgery Specimen Level IV HEADER OPERATION: Colonoscopy, EGD, biopsy PRE-OP DIAGNOSIS: Thrombocytopenia, abdominal bloating, diarrhea, flatulence, CDH1 gene mutation positive, vitamin D deficiency, dysphagia TISSUE SUBMITTED: A- Jejunal anastomosis biopsy, B- Splenic flexure polyp biopsy MICROSCOPIC DIAGNOSIS A. Jejunum, anastomosis, biopsy: - No specific pathologic change. B. Splenic flexure, colon, polyp, biopsy: - Tubular adenoma. MICROSCOPIC DESCRIPTION Slides are reviewed. GROSS DESCRIPTION A. Received in fixative is one container labeled with the patient's name and designated Jejunal anastomosis biopsy. The specimen consists of two irregular fragments of light sultana soft tissue that in aggregate measure 0.3 and 0.5 cm. The specimen is totally submitted in one cassette. B. Received in fixative is one container labeled with the patient's name and designated Splenic flexure polyp biopsy. The specimen consists of one irregular fragment of light sultana soft tissue that measures 0.3 cm. The specimen is totally submitted in one cassette. MARKO/ 05/09/2025 CPT:80684o8
--- NOTE | 2025-05-09 07:54 | PCM.HP.STD ---
HPI - General General Date of Admission: 05/09/25 Date of Service: 05/09/25 Chief Complaint: Bloating and screening colonoscopy HPI Narrative HPI HPI Chief Complaint: schedule colonoscopy and for the evaluation of bloating - due for a colonoscopy CDH1 gene - total gastrectomy in 2018 in [place] - stage 1 gastric cancer on pathology - reports her last colonoscopy was in 2019 - has seen a consulting networking engineer who has recommended a colonoscopy every 3 years - dumping syndrome a few times a week - LLQ pain this past November - seen in ED - pain has resolved - c/o bile reflux - drinks coke and this helps - has dumping syndrome episodes at least once a week - has been unable to associate a specific trigger - weight is stable - intermittent dysphagia - increased in frequency recently - does experience trouble with liquids at times - has not been on Questran for a couple years - packet twice a day did not help - was on this for 6-12 months - typically has a BM daily - had an episode of white poop - left sided abdominal pain - stool was small and flaky looking - CT showed constipation - severe attack with possible gallstone induced pancreatitis - did not want CCX - denies any h/o heavy alcohol use - December labs showed thrombocytopenia PLT 140 - she is now seeing oncology and planning for double mastectomy [facility] Medical History Wears glasses Cancer Anxiety Depression Alcohol use Low iron Hypoglycemia Gastric reflux Smoker Hoarseness GERD (gastroesophageal reflux disease) History of gastrectomy Home Medications ?Medication ?Instructions ?Recorded ?Last Taken ?Type ondansetron HCl 4 mg tablet 4 mg PO .COMPLEX #5 tabs 02/25/25 05/08/25 Rx peg 3350-sod sulf,eplfc-ndf-ytu See Rx Instructions PO .COMPLEX #2 02/25/25 Unknown Rx 178.7-7.3-0.5-1.12-0.9 gram oral mL soln (Suflave) sertraline 50 mg tablet (Zoloft) 100 mg PO QDAY 02/25/25 05/07/25 History pantoprazole 40 mg tablet,delayed 40 mg PO QDAY #90 tabs 03/27/25 05/08/25 Rx release albuterol sulfate 90 mcg/actuation 1 puff inhalation 4X/DAY PRN PRN 05/08/25 Unknown History aerosol inhaler bronchospasm cholecalciferol (vitamin D3) 1,250 1,250 mcg PO QWEEK 05/08/25 05/02/25 History mcg (50,000 unit) capsule multivitamin-ferrous sulfate 18 mg 1 tab PO DAILY 05/08/25 05/05/25 History tablet (One Daily Multivitamin with Iron) Allergy/AdvReac Type Severity Reaction Status Date / Time morphine Allergy Intermediate Itching Verified 05/08/25 11:38 Penicillins (PCN) Allergy Intermediate Other Verified 05/08/25 11:38 NSAIDS (Non-Steroidal AdvReac Other Verified 05/09/25 06:55 Anti-Inflamma Family History Mother Alcoholism Anxiety Depression Hepatitis C COPD (chronic obstructive pulmonary disease) Father Prostate cancer Hypertension HLD (hyperlipidemia) Sister Rheumatoid arthritis Breast cancer Surgical History History of hysterectomy Previous section Social History Smoking Status: Current every day smoker tobacco type: cigarettes alcohol intake: current alcohol intake frequency: a few times a month Alcohol type: hard liquor ROS Constitutional Constitutional: Denies fatigue, fever(s), poor appetite, weight gain or weight loss Gastrointestinal Gastrointestinal: Denies belching, bloating, change in bowel habits, change in stool character, chewing difficulty, coffee ground emesis, constipation, cramping, diarrhea, dyspepsia, dysphagia, early satiety, excessive flatus, fecal incontinence, heartburn, hematemesis, hematochezia, hemorrhoids, loose stools, melena, nausea, odynophagia, rectal bleeding, tenesmus, vomiting or weight changes Vital Signs Vital Signs Vital Signs: 05/09/25 07:05 05/09/25 07:07 05/09/25 07:32 Temperature 97.5 F L 97.5 F L Temperature Source Temporal Pulse Rate 54 L 54 L Respiratory Rate 16 16 Respiratory Pattern Normal Blood Pressure 90/60 90/60 Blood Pressure Mean 70 Blood Pressure Source Monitor Blood Pressure Position Semi-Fowlers Blood Pressure Location Right Arm Pulse Ox 98 98 Oxygen Delivery Method Room Air Room Air Weight Weight: 118 lb 9.739 oz Body Mass Index (BMI) 23.1 Physical Exam Const alert, oriented x3, no apparent distress and healthy appearing General Appearance: cooperative GI normal to inspection, nondistended, normoactive bowel sounds, soft to palpation, non-tender and non-distended Percussion: normal to percussion Rectal Exam: deferred Assessment & Plan Assessment/Plan (1) Dysphagia: (2) Abdominal bloating: (3) Flatulence: (4) Encounter for screening colonoscopy: PLAN: Assessment and Plan Assessment and Plan (1) Thrombocytopenia: Status: Acute (2) Abdominal bloating: Status: Acute (3) Diarrhea: Status: Acute (4) Flatulence: Status: Acute (5) CDH1 gene mutation positive: Status: Acute (6) Vitamin D deficiency: Status: Acute (7) Dysphagia: Status: Acute Orders: Orders CBC W/Diff, Automated 02/25/25 D69.6 - Thrombocytopenia, unspecified, E55.9 - Vitamin D deficiency, unspecified, R13.10 - Dysphagia, unspecified, R14.0 - Abdominal distension (gaseous), R14.3 - Flatulence, R19.7 - Diarrhea, unspecified, Z15.01 - Genetic susceptibility to malignant neoplasm of breast, Z15.09 - Genetic susceptibility to other malignant neoplasm Comprehensive Metabolic Profil 02/25/25 D69.6 - Thrombocytopenia, unspecified, E55.9 - Vitamin D deficiency, unspecified, R13.10 - Dysphagia, unspecified, R14.0 - Abdominal distension (gaseous), R14.3 - Flatulence, R19.7 - Diarrhea, unspecified, Z15.01 - Genetic susceptibility to malignant neoplasm of breast, Z15.09 - Genetic susceptibility to other malignant neoplasm Prothrombin Time w/INR 02/25/25 D69.6 - Thrombocytopenia, unspecified, E55.9 - Vitamin D deficiency, unspecified, R13.10 - Dysphagia, unspecified, R14.0 - Abdominal distension (gaseous), R14.3 - Flatulence, R19.7 - Diarrhea, unspecified, Z15.01 - Genetic susceptibility to malignant neoplasm of breast, Z15.09 - Genetic susceptibility to other malignant neoplasm Vitamin D,25 Hydroxy 02/25/25 D69.6 - Thrombocytopenia, unspecified, E55.9 - Vitamin D deficiency, unspecified, R13.10 - Dysphagia, unspecified, R14.0 - Abdominal distension (gaseous), R14.3 - Flatulence, R19.7 - Diarrhea, unspecified, Z15.01 - Genetic susceptibility to malignant neoplasm of breast, Z15.09 - Genetic susceptibility to other malignant neoplasm Esophagus Dual Contrast 02/25/25 D69.6 - Thrombocytopenia, unspecified, E55.9 - Vitamin D deficiency, unspecified, R13.10 - Dysphagia, unspecified, R14.0 - Abdominal distension (gaseous), R14.3 - Flatulence, R19.7 - Diarrhea, unspecified, Z15.01 - Genetic susceptibility to malignant neoplasm of breast, Z15.09 - Genetic susceptibility to other malignant neoplasm Pancreatic Elastase, Fecal 02/25/25 D69.6 - Thrombocytopenia, unspecified, E55.9 - Vitamin D deficiency, unspecified, R13.10 - Dysphagia, unspecified, R14.0 - Abdominal distension (gaseous), R14.3 - Flatulence, R19.7 - Diarrhea, unspecified, Z15.01 - Genetic susceptibility to malignant neoplasm of breast, Z15.09 - Genetic susceptibility to other malignant neoplasm Medications: New peg 3350-sod sulf,mreq-oew-nig 178.7-7.3-0.5 gram (Suflave) take as directed for split dose bowel prep 2 mL 0RF ondansetron HCl 4 mg orally; take two tablets PO two hours prior to start of bowel prep and one every 4 hours as needed for N/V 5 tabs 0RF Plan 44-year-old female presents for initial consultation for screening colonoscopy. PMH is significant for CDH 1 gene with total gastrectomy in 2018 which did reveal stage I gastric cancer. She reports genetic counselor has recommended screening colonoscopy every 3 years. She complains of intermittent dysphagia status post gastrectomy in 2018 with worsening of symptoms over the past 6 months. She experiences intermittent episodes of bile reflux unresolved with cholestyramine twice a day. She also experiences intermittent episodes of dumping syndrome. She was seen in the emergency department this past November for left flank pain. CT revealing at that time for fatty infiltration of the liver and reported fecal retention. Labs completed December 2024 revealed mild thrombocytopenia (PLT 140). She has established with oncology since moving to [place] and has plans for upcoming double mastectomy. I have ordered an esophagram and scheduled bidirectional endoscopies. She will complete labs today as well as fecal elastase. Follow-up in future for further evaluation of fatty liver disease with thrombocytopenia. Patient Instructions: Start a probiotic (SongFlame, [employer] or [employer] once daily. These are all multispecies probiotics, pick the cheapest one. Complete labs today and Fecal Elastase Follow-up in future for further evaluation of FLD and thrombocytopenia Plan Details Follow Up: 3 Months
--- NOTE | 2025-05-09 08:43 | PCM.POST.ANE ---
Anesthesia: Postop Eval I Current Vital Signs Temperature: 97 F Pulse Rate: 80 Blood Pressure: 86/52 Respiratory Rate: 16 Pulse Ox: 100 Oxygen Delivery Method: Room Air Assessment Airway patent: Yes Spontaneous unlabored respirations: Yes Mental status: Awake and Calm nausea: No Vomiting: No Anesthesia Complication: No Fluid Hydration Crystalloid volume administer (ml): 900 Total IV fluid infused: 900 Progress Note Anesthesia document: Postop Eval 1 completed: Yes
--- NOTE | 2025-05-09 08:51 | POSTOPAN2_ITS ---
Anesthesia Postop Eval I Sum Postop Eval Completion status Anesthesia document: Postop Eval 1 completed: Yes Anesthesia Postop Eval I Summary Anesthesia Postop Eval I Summary: Anesthesia Postop Eval I: Assessment Summary Airway patent Yes 05/09/25 08:43 MEDICAID SERVICE COORDINATOR.MDOT Spontaneous unlabored Yes 05/09/25 08:43 MEDICAID SERVICE COORDINATOR.MDOT respirations Mental status Awake,Calm 05/09/25 08:43 MEDICAID SERVICE COORDINATOR.MDOT nausea No 05/09/25 08:43 MEDICAID SERVICE COORDINATOR.MDOT Vomiting No 05/09/25 08:43 MEDICAID SERVICE COORDINATOR.MDOT Anesthesia Postop Eval I: Fluid Summary Crystalloid volume administer 900 05/09/25 08:43 MEDICAID SERVICE COORDINATOR.MDOT (ml) Colloids volume administered ( ml) Blood Product volume administered (ml) Total IV fluid infused 900 05/09/25 08:43 MEDICAID SERVICE COORDINATOR.MDOT Anesthesia Postop Eval I: Summary Notes Anesthesia Complication No 05/09/25 08:43 MEDICAID SERVICE COORDINATOR.MDOT Anesthesia Complication Comment: Post-operative progress note Anesthesia: Postop Eval II Evaluation Mental status: Awake and Calm Pain Level: 0 nausea: No Vomiting: No Complications Anesthesia Complication: No
--- NOTE | 2025-05-09 08:51 | PCM.POSTANE2 ---
Anesthesia Postop Eval I Sum Postop Eval Completion status Anesthesia document: Postop Eval 1 completed: Yes Anesthesia Postop Eval I Summary Anesthesia Postop Eval I Summary: Anesthesia Postop Eval I: Assessment Summary Airway patent Yes 05/09/25 08:43 [email or web address] Spontaneous unlabored Yes 05/09/25 08:43 [email or web address] respirations Mental status Awake,Calm 05/09/25 08:43 [email or web address] nausea No 05/09/25 08:43 [email or web address] Vomiting No 05/09/25 08:43 [email or web address] Anesthesia Postop Eval I: Fluid Summary Crystalloid volume administer 900 05/09/25 08:43 [email or web address] (ml) Colloids volume administered ( ml) Blood Product volume administered (ml) Total IV fluid infused 900 05/09/25 08:43 [email or web address] Anesthesia Postop Eval I: Summary Notes Anesthesia Complication No 05/09/25 08:43 [email or web address] Anesthesia Complication Comment: Post-operative progress note Anesthesia: Postop Eval II Evaluation Mental status: Awake and Calm Pain Level: 0 nausea: No Vomiting: No Complications Anesthesia Complication: No
--- NOTE | 2025-05-09 08:52 | OP.EGD_ITS ---
Patient Name: Mishel Hopkins Procedure Date: 05/09/2025 8:02 AM Date of : 1980 Age: 44 Procedure: Upper GI endoscopy Indications: Epigastric abdominal pain, Functional Dyspepsia Providers: José Antonio Walters DO Referring MD: Quinn Thornton Do Medicines: Monitored Anesthesia Care Patient Profile: This is a 44 year old female. Refer to note in patient chart for documentation of history and physical. Patient has symptoms of acute epigastric abdominal pain, chronic epigastric abdominal pain, chronic dyspepsia and chronic nausea. Complications: No immediate complications. Procedure: Pre-Anesthesia Assessment: - Prior to the procedure, a History and Physical was performed, and patient medications and allergies were reviewed. The patient is competent. The risks and benefits of the procedure and the sedation options and risks were discussed with the patient. All questions were answered and informed consent was obtained. Patient identification and proposed procedure were verified by the physician in the pre-procedure area. Mental Status Examination: alert and oriented. Airway Examination: normal oropharyngeal airway and neck mobility. Respiratory Examination: clear to auscultation. CV Examination: normal. Prophylactic Antibiotics: The patient does not require prophylactic antibiotics. Prior Anticoagulants: The patient has taken no anticoagulant or antiplatelet agents except for NSAID medication. ASA Grade Assessment: II - A patient with mild systemic disease. After reviewing the risks and benefits, the patient was deemed in satisfactory condition to undergo the procedure. The anesthesia plan was to use monitored anesthesia care (MAC). Immediately prior to administration of medications, the patient was re-assessed for adequacy to receive sedatives. The heart rate, respiratory rate, oxygen saturations, blood pressure, adequacy of pulmonary ventilation, and response to care were monitored throughout the procedure. The physical status of the patient was re-assessed after the procedure. After obtaining informed consent, the endoscope was passed under direct vision. Throughout the procedure, the patient's blood pressure, pulse, and oxygen saturations were monitored continuously. The pediatric colonoscope was introduced through the mouth, and advanced to the anastomosis site of gastric bypass. The upper GI endoscopy was accomplished without difficulty. The patient tolerated the procedure well. Scope In: 8:12:27 AM Scope Out: 8:21:32 AM Total Procedure Duration Time 0 hours 9 minutes 5 seconds Findings: The examined esophagus was normal. Evidence of a Fili-en-Y gastrojejunostomy was found. The gastrojejunal anastomosis was characterized by healthy appearing mucosa. This was traversed. The ggocq-xe-xxliozs limb was characterized by healthy appearing mucosa. The jejunojejunal anastomosis was characterized by ulceration. The qfczaqxv-os-rdgfuka limb was examined and was characterized by healthy appearing mucosa. Impression: - Normal esophagus. - Fili-en-Y gastrojejunostomy with gastrojejunal anastomosis characterized by healthy appearing mucosa. - No specimens collected. Recommendation: - Discharge patient to home. - Resume previous diet. - Continue present medications. - Await pathology results. Procedure Code(s): --- Professional --- 37794, Esophagogastroduodenoscopy, flexible, transoral; diagnostic, including collection of specimen(s) by brushing or washing, when performed (separate procedure) CPT copyright 2021 [employer]. All rights reserved. The codes documented in this report are preliminary and upon pneumatic riveter review may be revised to meet current compliance requirements. José Antonio Walters DO 05/09/2025 8:51:48 AM This report has been signed electronically. Number of Addenda: 0 Note Initiated On: 05/09/2025 8:02 AM
--- NOTE | 2025-05-09 08:52 | OP.CCLET_ITS ---
05/09/2025 Quinn Thornton Do Re : Upper GI endoscopy procedure for Mishel Hopkins Dear Dr. Thornton This procedure was performed on May. My impressions and recommendations are as follows: Impressions : - Normal esophagus. - Fili-en-Y gastrojejunostomy with gastrojejunal anastomosis characterized by healthy appearing mucosa. - No specimens collected. Recommendations : - Discharge patient to home. - Resume previous diet. - Continue present medications. - Await pathology results. My findings are described in the full procedure note, which is enclosed. If I can be of further assistance, please feel free to contact me at . Sincerely, José Antonio Walters DO 05/09/2025 8:51:48 AM This report has been signed electronically.
--- NOTE | 2025-05-09 08:54 | OP.CCLET_ITS ---
05/09/2025 Quinn Thornton Do Re : Colonoscopy procedure for Mishel Hopkins Dear Dr. Thornton This procedure was performed on May. My impressions and recommendations are as follows: Impressions : - One 5 mm polyp at the splenic flexure, removed with a jumbo cold forceps. Resected and retrieved. - The examination was otherwise normal on direct and retroflexion views. Recommendations : - Discharge patient to home. - Resume previous diet. - Continue present medications. - Await pathology results. - Repeat colonoscopy in 5 years for surveillance. My findings are described in the full procedure note, which is enclosed. If I can be of further assistance, please feel free to contact me at . Sincerely, José Antonio Walters, 05/09/2025 8:54:03 AM This report has been signed electronically.
--- NOTE | 2025-05-09 08:54 | OP.COLON_ITS ---
Patient Name: Mishel Hopkins Procedure Date: 05/09/2025 8:21 AM Date of : 1980 Age: 44 Procedure: Colonoscopy Indications: Screening for colorectal malignant neoplasm Providers: José Antonio Walters DO Referring MD: Quinn Thornton Do Medicines: Monitored Anesthesia Care Patient Profile: This is a 44 year old female. Refer to note in patient chart for documentation of history and physical. Patient has symptoms of acute epigastric abdominal pain, chronic epigastric abdominal pain, chronic dyspepsia and chronic nausea. Last Colonoscopy: none. The patient's first colonoscopy is today. Complications: No immediate complications. Procedure: Pre-Anesthesia Assessment: - Prior to the procedure, a History and Physical was performed, and patient medications and allergies were reviewed. The patient is competent. The risks and benefits of the procedure and the sedation options and risks were discussed with the patient. All questions were answered and informed consent was obtained. Patient identification and proposed procedure were verified by the physician in the pre-procedure area. Mental Status Examination: alert and oriented. Airway Examination: normal oropharyngeal airway and neck mobility. Respiratory Examination: clear to auscultation. CV Examination: normal. Prophylactic Antibiotics: The patient does not require prophylactic antibiotics. Prior Anticoagulants: The patient has taken no anticoagulant or antiplatelet agents except for NSAID medication. ASA Grade Assessment: II - A patient with mild systemic disease. After reviewing the risks and benefits, the patient was deemed in satisfactory condition to undergo the procedure. The anesthesia plan was to use monitored anesthesia care (MAC). Immediately prior to administration of medications, the patient was re-assessed for adequacy to receive sedatives. The heart rate, respiratory rate, oxygen saturations, blood pressure, adequacy of pulmonary ventilation, and response to care were monitored throughout the procedure. The physical status of the patient was re-assessed after the procedure. After I obtained informed consent, the scope was passed under direct vision. Throughout the procedure, the patient's blood pressure, pulse, and oxygen saturations were monitored continuously. The pediatric colonoscope was introduced through the anus and advanced to the cecum, identified by appendiceal orifice and ileocecal valve. The colonoscopy was performed without difficulty. The patient tolerated the procedure well. The quality of the bowel preparation was adequate. The ileocecal valve, appendiceal orifice, and rectum were photographed. Scope In: 8:23:57 AM Scope Withdrawal Time 0 hours 7 minutes 43 seconds Scope Out: 8:41:28 AM Total Procedure Duration Time 0 hours 17 minutes 31 seconds Findings: The perianal and digital rectal examinations were normal. A 5 mm polyp was found in the splenic flexure. The polyp was sessile. The polyp was removed with a jumbo cold forceps. Resection and retrieval were complete. Verification of patient identification for the specimen was done. Estimated blood loss was minimal. The exam was otherwise without abnormality on direct and retroflexion views. Impression: - One 5 mm polyp at the splenic flexure, removed with a jumbo cold forceps. Resected and retrieved. - The examination was otherwise normal on direct and retroflexion views. Recommendation: - Discharge patient to home. - Resume previous diet. - Continue present medications. - Await pathology results. - Repeat colonoscopy in 5 years for surveillance. Procedure Code(s): --- Professional --- 63083, Colonoscopy, flexible; with biopsy, single or multiple CPT copyright 2021 [employer]. All rights reserved. The codes documented in this report are preliminary and upon actuarial science professor review may be revised to meet current compliance requirements. José Antonio Walters DO 05/09/2025 8:54:03 AM This report has been signed electronically. Number of Addenda: 0 Note Initiated On: 05/09/2025 8:21 AM
== END 2025-05-09 09:24 | disposition home or self-care (01) ==
LOC: EN 06:34 → AC 06:38
PROVIDERS: Visit Provider Internal Medicine Gastroenterology
PROC: 0DJD8ZZ Inspection of Lower Intestinal Tract, Via Natural or Artificial Opening Endoscopic (ICD-10-PCS; CPT 45378; principal; 2025-05-09 07:40)
DX: Z12.11 Encounter for screening for malignant neoplasm of colon (principal); R13.10 Dysphagia, unspecified; K63.5 Polyp of colon; D69.6 Thrombocytopenia, unspecified; R19.7 Diarrhea, unspecified; K21.9 Gastro-esophageal reflux disease without esophagitis; E55.9 Vitamin D deficiency, unspecified; R14.0 Abdominal distension (gaseous); Z90.3 Acquired absence of stomach [part of]; Z85.00 Personal history of malignant neoplasm of unspecified digestive organ; Z79.899 Other long term (current) drug therapy; F17.210 Nicotine dependence, cigarettes, uncomplicated; Z98.0 Intestinal bypass and anastomosis status; D12.3 Benign neoplasm of transverse colon
CPT/HCPCS: 45380; 43235; 88305

== ENCOUNTER → 2025-09-12 | Outpatient (CLI) | payer MEDICAID, SELFPAY ==
--- NOTE | 2025-09-12 07:03 | US_ITS ---
PROCEDURE: ABDOMEN LIMITED 09/12/2025 REASON FOR EXAM: Right upper quadrant pain. TECHNIQUE: Procedure Code: USABDL Modality: US Procedure: ABDOMEN LIMITED COMPARISON: None FINDINGS: Liver: Grossly normal size and echotexture. Gallbladder: No stones sludge wall thickening or tenderness. Faint calcifications are seen within the gallbladder wall with ring down artifact suggestive of possible adenomyomatosis. Common bile duct: Normal measuring 5 mm. . Pancreas: Normal Other: Visualized portions of the right kidney are unremarkable. No right upper quadrant ascites. US/Abdomen Limited IMPRESSION: Findings suggestive of adenomyomatosis of the gallbladder wall. No evidence of gallstones. Reading Location: [facility]
--- OUTSIDE RECORDS SUMMARY | 2025-09-12 07:18 | XMS RPT_ITS | CCD ---
Author Organization [facility] CliniSyca Care Team Providers Care Stoner Out Name Role Phone LYNN CABRERA Primary Care Physicia n Unavailable Primary Care Provider ANGELO Espinal Referring Unavailable KASSANDRA LARSEN Attending Unavailable Angelo Thornton DO Primary Care Provider [phone] Wilbert BEVERLY-CKassandra Attending Provider Care Physician, No Primary Primary Care Provider Unavailable Kassandra Duval Referring Provider Norberto BREWER, Dr. Ball Primary Care Provider [phone] Norberto BREWER, Dr. Ball Referring Provider [phone] Romeo BREWER, Dr. Chou Attending Provider Friend , Dr. Chou Other Provider [phone] ANGELO THORNTON Primary Care Unavailable WILLIAM CUELLAR Referring Unavailable COLA, ANGELO Lopez Primary Care Unavailable WILLIAM CUELLAR Referring Unavailable COLAANGELO Primary Care Unavailable COLAANGELO Primary Care Unavailable TYRELL ABEBE Attending Unavaila TYRELL Gayle Referring Unavaila ble COLANGELO Mendenhall Primary Care Unavailable WILLIAM CUELLAR Referring Unavailable COLA, ANGELO Lopez Primary Care Unavailable COLAANGELO Primary Care Unavailable CATHIE LEBLANC Attending UnavailJALEN Gaffney Attending Unavailable JALEN MCGEE Referring Unavailable COLA, ANGELO Lopez Primary Care Unavailable COLA, ANGELO Lopez Primary Care Unavailable ERIKA NAM Attending Unavailable ERIKA NAM Referring Unavailable COLA, ANGELO Lopez Primary Care Unavailable ERIKA NAM Referring Unavailable COLA, ANGELO Lopez Primary Care Unavailable ZOEY MAYORGA Attending Unavailable COLANGELO Mendenhall Primary Care Unavailable ZOEY MAYORGA Referring Unavailable COLA, ANGELO Lopez Primary Care Unavailable ZOEY MAYORGA Attending Unavailable COLA, ANGELO Lopez Primary Care Unavailable DAMIAN ACEVES Attending Unava ilable DAMIAN ACEVES Referring Unava ilable COLA, ANGELO Lopez Primary Care Unavailable ANIKET BENNETT Attending Unavailable COLA, ANGELO Lopez Referring Unavailable COLA, ANGELO Lopez Primary Care Unavailable WilbertKassandra Attending Unavailable Cola, Angelo Primary Care Unavailable Wilbert, Kassandra Referring Unavailable Wilbert, Kassandra Attending Unavailable Cola, Angelo Primary Care Unavailable Wilbert, Kassandra Referring Unavailable Wilbert, Kassandra Attending Unavailable Cola, Angelo Referring Unavailable Cola, Angelo Primary Care Unavailable FriendJosé Antonio Attending Unavailable Cola, Angelo Primary Care Unavailable Cola, Angelo Referring Unavailable Friend, José Antonio Consulting Unavailable Wilbert, Kassandra Attending Unavailable FriendJosé Antonio Attending Unavailable Cola, Angelo Primary Care Unavailable Cola, Angelo Referring Unavailable Wilbert, Kassandra Referring Unavailable Cola, Angelo Primary Care Unavailable Wilbert, Kassandra Attending Unavailable Wilbert, Kassandra Referring Unavailable Wilbert, Kassandra Attending Unavailable Care Physician, No Primary Primary Care Unava ilable Allergies Allergy Classification Reported Allergen(s) Allergy Type Date of Onset Reaction(s) Facility (20 sources) Morphine; Translations: [morphine] Drug Allergy 3 [facility] (1 source) Penicillin; Translations: [penicillins] Drug Allergy [facility] (18 sources) Penicillins; Translations: [PENICILLINS] Drug Allergy 3 GI Upset [facility] (20 sources) Non-steroidal anti-inflammatory agent; Translations: [NSAIDS (NON-STEROIDAL ANTI-INFLAMMATORY DRUG)] Drug Allergy 3 [facility] (6 sources) Penicillins Drug Allergy 3 GI Upset [facility] (4 sources) Penicillins Allergy to substance 5 [facility] (3 sources) Nonsteroidal Anti-inflammatory Compounds Propensity to adverse reactions 5 Other [facility] Comment on above: has no stomach (1 source) Morphine Drug Allergy 5 [facility] (1 source) NSAIDs Drug allergy (disorder) 5 [facility] (1 source) Penicillins Drug allergy (disorder) 5 [facility] Medications Current Medications Medication Drug [...] Date: 03/09/22 Stop Date: 03/19/22 Status: Ordered [id number] 200 actuat albuterol 0.09 mg/actuat metered dose inhaler (4 sources) beta2-Adrenergic Agonist Start: 05-08-2025 Albuterol Sulfate 90 mcg/actuation HFA aerosol inhaler Active 1 NMA INHALATION 4 TIMES DAILY NEEDED as needed for bronchospasm May 08, 2025 12:00am Start: 02-11-2025 take 1 puff(s) by mo uth four times daily as needed albuterol HFA [...] Status: Ordered cholecalciferol 1.25 mg oral capsule (16 sources) Vitamin D Start: 05-08-2025 take 1 capsule by mouth every week Cholecalciferol (Vitamin D3) 1,250 mcg (50,000 unit) capsule Active 1250 ug PO EVERY WEEK May 08, 2025 12:00am Start: 12-13-2024 take 1 capsule by [facility] every week cholecalciferol, Vitamin D3, (VITAMIN D3) [...] Comment on above: Take 1 tablet by [facility] three times daily as needed for muscle spasm or pain for up to 5 days. ferrous gluconate 324 mg oral tablet (1 source) Start: 12-15-2021 ferrous gluconate 324 mg (38 mg elemental iron) oral tablet Dose : 324 mg = 1 tab(s), Oral, qDay, # 100 tab(s), 1 Refill(s), Pharmacy: [id number], Iron deficiency anemia, 152, cm, 09/10/21 9:20:00 EDT, Height, kg, 09/10/21 9:20:00 EDT, Dosing Weight Start Date: 12/15/21 Status: Ordered ferrous sulfate 140 mg extended release oral tablet (1 source) Start: 12-14-2021 ferrous sulfate (as elemental iron) 45 mg oral tablet, extended release Dose : 45 mg = 1 tab(s), Oral, qDay, # 30 tab(s), 5 Refill(s), Pharmacy: [id number], Iron deficiency, 152, cm, 09/10/21 9:20:00 EDT, Height, kg, 09/10/21 9:20:00 EDT, Dosing Weight Start Date: 12/14/21 Status: Ordered multivit,thx,calcium,i michelle,mins (MULTIVITAMIN AND MINERAL ORAL) (20 sources) multivit,thx,brittany cium, iron,mins (MULTIVITAMIN AND MINERAL ORAL) Take by mouth. Active multivit,thx,brittany cium,iron,mins (MULTIVITAMIN AND MINERAL ORAL) Take by mouth. 0 Active Comment on above: Take by mouth. Multivitamin with Iron (1 source) Start: 9 take 1 tablet by mouth once daily Multivitamin with Iron Dose = 1 tab(s), Oral, Daily, 0 Refill(s) Start Date: 07/02/19 Status: Ordered Multivitamin-Ferrous Sulfate (One Daily Multivitamin-Iron) 18 mg iron tablet (3 sources) Start: 5 take 1 tablet by mouth once daily Multivitamin-Ferrous Sulfate (One Daily Multivitamin-Iron) 18 mg iron tablet Active 1 {tbl} PO DAILY May 08, 2025 12:00am ondansetron 4 mg oral tablet (5 sources) Serotonin-3 Receptor Antagonist Start: 5 take 2 tablets by mouth every two hours as needed, then take 1 tablet by mouth every four hours as needed Ondansetron Hcl 4 mg tablet Active 4 mg PO .COMPLEX 5 0 February 25, 2025 12:00am 4 mg orally; [...] pantoprazole 40 mg delayed release oral tablet (5 sources) Proton Pump Inhibitor Start: 03-27-2025 take 1 tablet by mouth once daily 30 minutes before breakfast Pantoprazole 40 mg tablet,delayed release (DR/EC) Active 40 mg PO daily 90 0 March 27, 2025 12:00am take 30 minutes before breakfast every morning sertraline 50 mg oral tablet (20 sources) Serotonin Reuptake Inhibitor Start: 02-25-2025 take 2 tablets by mouth once daily Sertraline (Zoloft) 50 mg tablet Active 100 mg PO daily February 25, 2025 12:00am Start: 02-25-2025 End: 03-20-2025 take 1 tablet [...] on above: Take 1 tablet by shantelle th twice daily for 7 days. vitamin b12 0.1 mg oral tablet (20 sources) Vitamin B12 take 1 tablet by mouth once daily cyanocobalamin (VITAMIN B-12) 100 mcg tab Take 100 mcg by mouth once daily. Active Comment on above: Take 100 mcg by mout h once daily. Vitamin C 500 mg oral tablet (1 source) Start: 021 Vitamin C 500 mg oral tablet Dose [...] administration guidelines link 1 each 02/07/2025 02/08/2025 Peg 3350-Sod Sulf,Ageo-Cqt-Ipc (Suflave) 178.7-7.3-0.5 gram recon soln (4 sources) Start: 02-25-2025 End: 05-23-2025 Peg 3350-Sod Sulf,Tisn-Mxh-Oru (Suflave) 178.7-7.3-0.5 gram recon soln Discontinued 0 PO .COMPLEX 2 0 February 25, 2025 12:00am May 23, 2025 10:29am take as directed for split dose bowel prep Start: 02-25-2025 Peg 3350-Sod S ulf,Eisq-Ihv-Wul (Suflave) 178.7-7.3-0.5 gram recon soln Active 0 PO .COMPLEX 2 0 February 25, 2025 12:00am take as directed for split dose bowel prep Start: 02-25-2025 Peg 3350-Sod S ulf,Cuas-Abo-Egd (Suflave) 178.7-7.3-0.5 gram recon soln Active 0 PO .COMPLEX 2 February 25, 2025 12:00am take as directed for split dose bowel prep predniSONE 20 mg oral tablet (7 sources) [...] sources) Anxiety; Translations: [Anxiety disorder, unspecified] Onset: 5 04-16-2021 Chronic Biliary tract disease (1 source) Calculus of gallbladder without cholecystitis without obstruction; Translations: [Calculus of gallbladder without cholecystitis without obstruction] Onset: Episodic Cancer of breast (6 sources) Malignant tumor of breast ; Translations: [Malignant neoplasm of unspecified site of unspecified female breast] 02-07-2025 Chronic Coagulation and hemorrhagic disorders (9 sources) Thrombocytopenic disorder; Translations: [Thrombocytopenia, unspecified] Onset: 5 02-25-2025 Chronic Malaise and fatigue (1 source) Fatigue; Translations: [Other fatigue] Episodic Menstrual disorders (7 sources) Irregular periods; Translations: [Irregular menstruation, unspecified] Onset: 5 09-19-2020 Chronic Mood disorders (7 sources) Depressive disorder; Translations: [Depressive disorder] Onset: 5 06-20-2020 Chronic Nonspecific chest pain (1 source) Chest discomfort; Translations: [Other chest pain] Episodic Nutritional deficiencies (9 sources) Vitamin D deficiency; Translations: [Vitamin D deficiency, unspecified] Onset: 5 02-25-2025 Chronic Other endocrine disorders (6 sources) Hypoglycemia; Translations: [Hypoglycemia, unspecified] Onset: 5 02-06-2025 Chronic Other gastrointestinal disorders (10 sources) Dysphagia; Translations: [Dysphagia, unspecified] 02-25-2025 Episodic Other gastrointestinal disorders (8 sources) Diarrhea; Translations: [Diarrhea, unspecified] 02-25-2025 Episodic Other gastrointestinal disorders (10 sources) Passing flatus; Translations: [Flatulence] 02-25-2025 Episodic Other gastrointestinal disorders (10 sources) Abdominal bloating; Translations: [Abdominal distension (gaseous)] 02-25-2025 Episodic Other gastrointestinal disorders (2 sources) Abdominal distension (gaseous); Translations: [Abdominal distension (gaseous)] Onset: Episodic Other hematologic conditions (1 source) Erythrocytosis; Translations: [Secondary polycythemia] 12-31-2024 Episodic Other lower respiratory disease (4 sources) Rib pain; Translations: [Pleurodynia] 01-31-2025 Episodic Other nervous system disorders (2 sources) [...] Tobacco user 09-21-2019 Episodic Residual codes; unclassified (19 sources) Positive genetic finding; Translations: [Genetic susceptibility to other malignant neoplasm] Onset: 12-31-2024 Episodic Residual codes; unclassified (10 sources) At high risk for breast cancer; Translations: [Other specified personal risk factors, not elsewhere classified] Onset: 5 02-13-2025 Episodic Spondylosis; intervertebral disc disorders; other back problems (1 source) Neck pain 04-17-2021 Episodic Substance-related disorders (8 sources) Smoker; Translations: [Nicotine dependence, unspecified, uncomplicated] Onset: 5 09-14-2019 Chronic Unclassified (4 sources) Patient encounter status 09-21-2019 Unclassified (1 source) Medical Nutrition Therapy Onset: 5 Urinary tract infections (1 source) Acute urinary [...] [Blood in urine] Onset: 11-12-2024 09-10-2021 Episodic Nonmalignant breast conditions (2 sources) Discharge from nipple; Translations: [Nipple discharge] Onset: 02-07-2025 02-07-2025 Episodic Other connective tissue disease (1 source) Myalgia, unspecified site; Translations: [Myalgias] Onset: 09-24-2024 Episodic Other gastrointestinal disorders (1 source) Other fecal abnormalities; Translations: [Change in stool caliber] Onset: 11-12-2024 Episodic Other gastrointestinal disorders (2 sources) Dysphagia, unspecified; Translations: [Dysphagia, unspecified] Onset: 02-25-2025 Episodic Other gastrointestinal disorders (2 sources) Flatulence; Translations: [Flatulence] Onset: 02-25-2025 Episodic Other gastrointestinal disorders (1 source) Diarrhea, unspecified; Translations: [Diarrhea, unspecified] Onset: 02-25-2025 Episodic Other hematologic conditions (1 source) Secondary polycythemia; Translations: [Erythrocytosis] Onset: 12-31-2024 Episodic Other lower respiratory disease (2 sources) Pleurodynia; Translations: [Rib pain on right side] Onset: 01-31-2025 Episodic Other nervous system disorders (6 sources) Skin sensation disturbance; Translations: [Unspecified disturbances of skin sensation] Onset: 01-28-2023 02-06-2025 Episodic Other screening for suspected conditions (not mental disorders or infectious disease) (19 sources) Genetic mutation; Translations: [Patient encounter status] Onset: 03-08-2023 09-14-2019 Episodic Residual codes; unclassified (2 sources) Genetic susceptibility to other malignant neoplasm; 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] Onset: 02-06-2025 Episodic Residual codes; unclassified (2 sources) Genetic susceptibility to malignant neoplasm of breast; 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] Onset: 02-06-2025 Episodic Residual codes; unclassified (1 source) Other specified personal risk factors, not elsewhere classified; Translations: [At high risk for breast cancer] Onset: 02-07-2025 Episodic Residual codes; unclassified (1 source) 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]; Translations: [Acquired absence of stomach (part of)] Onset: 10-15-2024 Episodic Sprains and strains (3 sources) Strain of muscle of chest wall; Translations: [Strain of muscle and tendon of front wall of thorax, initial encounter] Onset: 10-15-2024 10-15-2024 Episodic Superficial injury; contusion (3 sources) Contusion of left front wall of thorax, initial encounter; Translations: [Contusion of chest wall] Onset: 01-31-2025 01-31-2025 Episodic Unclassified (1 source) Contusion of rib on left side, initial encounter 01-31-2025 Results Test Name Value Interpretation Reference Range Facility Gastroenterology Visit Repor ton 05-23-2025 Gastroenterology Visit Report [facility] [address] [place] [address] OFFICE VISIT Date of Service: 05/23/25 MR#: [id number] Acct: [id number] Name: MISHEL ASHBY Rep #: [id number] : 1980 Provider: KP bran Age/Sex: 44/F [place] [facility] Status: Signed Intake Vital Signs 02/25/25 14:33 05/09/25 07:07 05/23/25 10:24 Height 5 ft 5 ft 5 ft Weight: 120 lb 4 oz BMI 23.5 BP 92/60 Blood Pressure Location Rt brachial Position Sitting Respiration 15 Pulse 79 Pulse Source Monitor Pulse Oximetry (%) 95 Oxygen Delivery Method room air Intake Visit Reasons: Test Result Chief Complaint: follow-up Allergies morphine Allergy (Intermediate, Verified 05/23/25 10:28) Itching Penicillins (PCN) Allergy (Intermediate, Verified 05/23/25 10:28) Other NSAIDS (Non-Steroidal Anti-Inflamma Adverse Reaction (Verified 05/23/25 10:28) Other Medications ???Medication ???Instructions ???Recorded ???Confirmed ???Type ondansetron HCl 4 mg tablet 4 mg PO .COMPLEX #5 tabs 02/25/25 05/23/25 Rx sertraline 50 mg tablet (Zoloft) 100 mg PO QDAY 02/25/25 05/23/25 H istory pantoprazole 40 mg tablet,delayed 40 mg PO QDAY #90 tabs 03/27/25 0 05/23/25 Rx release albuterol sulfate 90 mcg/actuation 1 puff inhalation 4X/DAY PRN PRN 05/08/25 05/23/25 History aerosol inhaler bronchospasm cholecalciferol (vitamin D3) 1,250 1,250 mcg PO QWEEK 05/08/2505/07 History mcg (50,000 unit) capsule multivitamin-ferrous sulfate 18 mg 1 tab PO DAILY 05/08/25 05/23/25 History tablet (One Daily Multivitamin with Iron) Nurse's Note: Patient states she has been doing okay, having bad reflux still it wasn't as often but now it seems to be more frequent. No nausea or vomiting with the reflux just burning. Not able to eat as much due to pain and the reflux that comes after. [facility] Medical History (Updated 05/23/25 @ 13:14 by KP Garvin) Wears glasses Cancer Anxiety Depression Alcohol use Low iron Hypoglycemia Gastric reflux Smoker Hoarseness GERD (gastroesophageal reflux disease) History of gastrectomy Surgical History History of hysterectomy Previous section Family History Mother Alcoholism Anxiety Depression Hepatitis C COPD (chronic obstructive pulmonary disease) Father Prostate cancer Hypertension HLD (hyperlipidemia) Sister Rheumatoid arthritis Breast cancer Social History Smoking Status: Current every day smoker tobacco type: cigarettes alcohol intake: current alcohol intake frequency: a few times a month Alcohol type: hard liquor HPI HPI Chief Complaint: follow-up Details: The patient is a 44-year-old female presenting for follow-up after recent colonoscopy and endoscopy procedures. During the colonoscopy performed on May 09, a 5-mm tubular adenoma was identified and removed from the splenic flexure. The adenoma was benign, but it was noted that if left untreated, it could have progressed to cancer. The recommendation is to repeat the colonoscopy in five years unless symptoms such as changes in bowel habits or unexplained weight loss occur sooner. The patient also reports ongoing symptoms of gastroesophageal reflux disease, including bloating, nausea, and left-sided abdominal pain, which initially improved with pantoprazole but has since returned. The patient has a history of Fili-en-Y gastric bypass secondary to stage 1 gastric cancer, which alters her gastrointestinal anatomy, potentially affecting symptom presentation and treatment efficacy. Additionally, the patient has a history of gallstones, with a previous gallbladder attack occurring five years ago. No follow-up imaging has been conducted since that time, and the patient declined surgery at that point. ROS Const Constitutional: Positive for fatigue and weight change Gastro GI: Positive for abdominal pain, bloating, change in bowel habits, diarrhea, heartburn and nausea/dyspepsia Psych Psychiatric: Positive for anxiety and Positive for depression Endo Endocrine: Positive for fatigue and weight change Assessment and Plan Assessment and Plan (1) Personal history of colonic polyps: Status: Acute Plan: The patient had a 5-mm tubular adenoma removed from the splenic flexure during a recent colonoscopy. The adenoma was benign, but it is recommended to repeat the colonoscopy in five years unless symptoms such as changes in bowel habits or unexplained weight loss occur sooner. (2) GERD (gastroesophageal reflux disease): Status: Acute Plan: The patient reports ongoing symptoms of gastroesophageal r (more content not included)... Normal [facility] Colonoscopy Reporton 025 Colonoscopy Report [facility] Medical Records Department [address] [place] [id number] Colonoscopy Report MR#: [id number] Acct: [id number] Name: MISHEL ASHBY Rep #: [id number] : 1980 44 From: José Antonio Walters DO PCP: Dr. Angelo Thornton DO Status:[facility] Patient Name: Mishel Ashby Procedure Date: 05/09/2025 8:21 AM Date of : 1980 Age: 44 Procedure: Colonoscopy Indications: Screening for colorectal malignant neoplasm Providers: José Antonio Walters DO Referring MD: Angelo Thornton Do Medicines: Monitored Anesthesia Care Patient Profile: This is a 44 year old female. Refer to note in patient chart for documentation of history and physical. Patient has symptoms of acute epigastric abdominal pain, chronic epigastric abdominal pain, chronic dyspepsia and chronic nausea. Last Colonoscopy: none. The patient's first colonoscopy is today. Complications: No immediate complications. Procedure: Pre-Anesthesia Assessment: - Prior to the procedure, a History and Physical was performed, and patient medications and allergies were reviewed. The patient is competent. The risks and benefits of the procedure and the sedation options and risks were discussed with the patient. All questions were answered and informed consent was obtained. Patient identification and proposed procedure were verified by the physician in the pre-procedure area. Mental Status Examination: alert and oriented. Airway Examination: normal oropharyngeal airway and neck mobility. Respiratory Examination: clear to auscultation. CV Examination: normal. Prophylactic Antibiotics: The patient does not require prophylactic antibiotics. Prior Anticoagulants: The patient has taken no anticoagulant or antiplatelet agents except for NSAID medication. ASA Grade Assessment: II - A patient with mild systemic disease. After reviewing the risks and benefits, the patient was deemed in satisfactory condition to undergo the procedure. The anesthesia plan was to use monitored anesthesia care (MAC). Immediately prior to administration of medications, the patient was re-assessed for adequacy to receive sedatives. The heart rate, respiratory rate, oxygen saturations, blood pressure, adequacy of pulmonary ventilation, and response to care were monitored throughout the procedure. The physical status of the patient was re-assessed after the procedure. After I obtained informed consent, the scope was passed under direct vision. Throughout the procedure, the patient's blood pressure, pulse, and oxygen saturations were monitored continuously. The pediatric colonoscope was introduced through the anus and advanced to the cecum, identified by appendiceal orifice and ileocecal valve. The colonoscopy was performed without difficulty. The patient tolerated the procedure well. The quality of the bowel preparation was adequate. The ileocecal valve, appendiceal orifice, and rectum were photographed. Scope In: 8:23:57 AM Scope Withdrawal Time 0 hours 7 minutes 43 seconds Scope Out: 8:41:28 AM Total Procedure Duration Time 0 hours 17 minutes 31 seconds Findings: The perianal and digital rectal examinations were normal. A 5 mm polyp was found in the splenic flexure. The polyp was sessile. The polyp was removed with a jumbo cold forceps. Resection and retrieval were complete. Verification of patient identification for the specimen was done. Estimated blood loss was minimal. The exam was otherwise without abnormality on direct and retroflexion views. Impression: - One 5 mm polyp at the splenic flexure, removed with a jumbo cold forceps. Resected and retrieved. - The examination was otherwise normal on direct and retroflexion views. Recommendation: - Discharge patient to home. - Resume previous diet. - Continue present medications. - Await pathology results. - Repeat colonoscopy in 5 years for surveillance. Procedure Code(s): --- Professional --- 92725, Colonoscopy, flexible; with biopsy, single or multiple CPT copyright 2021 [employer]. All rights reserved. The codes documented in this report are preliminary and upon shoe cementer review may be revised to meet current compliance requirements. José Antonio Walters DO 05/09/2025 8:54:03 AM This report has been signed electronically. Number of Addenda: 0 Note Initiated On: 05/09/2025 8:21 AM 05/09/2554 Date José Antonio Walters DO Cosigner Signature: Date (if indicated) CC: Dr. Angelo Thornton DO; José Antonio Walters DO Date Dictated: 05/09/25820 Date Transcribed: Machine Packaging Technician: DIANN Signed Normal [facility] EGD Reporton 05-09-2025 EGD Report [facility] Medical Records Department [address] [place] [address] EGD Report MR#: [id number] Acct: [id number] Name: MISHEL ASHBY Rep #: [id number] : 1980 44 From: José Antonio Walters DO PCP: Dr. Angelo Thornton DO Status:[facility] [place] Patient Name: Mishel Ashby Procedure Date: 05/09/2025 8:02 AM Date of : 1980 Age: 44 Procedure: Upper GI endoscopy Indications: Epigastric abdominal pain, Functional Dyspepsia Providers: José Antonio Walters DO Referring MD: Angelo Thornton Do Medicines: Monitored Anesthesia Care Patient Profile: This is a 44 year old female. Refer to note in patient chart for documentation of history and physical. Patient has symptoms of acute epigastric abdominal pain, chronic epigastric abdominal pain, chronic dyspepsia and chronic nausea. Complications: No immediate complications. Procedure: Pre-Anesthesia Assessment: - Prior to the procedure, a History and Physical was performed, and patient medications and allergies were reviewed. The patient is competent. The risks and benefits of the procedure and the sedation options and risks were discussed with the patient. All questions were answered and informed consent was obtained. Patient identification and proposed procedure were verified by the physician in the pre-procedure area. Mental Status Examination: alert and oriented. Airway Examination: normal oropharyngeal airway and neck mobility. Respiratory Examination: clear to auscultation. CV Examination: normal. Prophylactic Antibiotics: The patient does not require prophylactic antibiotics. Prior Anticoagulants: The patient has taken no anticoagulant or antiplatelet agents except for NSAID medication. ASA Grade Assessment: II - A patient with mild systemic disease. After reviewing the risks and benefits, the patient was deemed in satisfactory condition to undergo the procedure. The anesthesia plan was to use monitored anesthesia care (MAC). Immediately prior to administration of medications, the patient was re-assessed for adequacy to receive sedatives. The heart rate, respiratory rate, oxygen saturations, blood pressure, adequacy of pulmonary ventilation, and response to care were monitored throughout the procedure. The physical status of the patient was re-assessed after the procedure. After obtaining informed consent, the endoscope was passed under direct vision. Throughout the procedure, the patient's blood pressure, pulse, and oxygen saturations were monitored continuously. The pediatric colonoscope was introduced through the mouth, and advanced to the anastomosis site of gastric bypass. The upper GI endoscopy was accomplished without difficulty. The patient tolerated the procedure well. Scope In: 8:12:27 AM Scope Out: 8:21:32 AM Total Procedure Duration Time 0 hours 9 minutes 5 seconds Findings: The examined esophagus was normal. Evidence of a Fili-en-Y gastrojejunostomy was found. The gastrojejunal anastomosis was characterized by healthy appearing mucosa. This was traversed. The kpmuh-cq-sztqjwc limb was characterized by healthy appearing mucosa. The jejunojejunal anastomosis was characterized by ulceration. The psmmmdqu-xv-ldxhhxg limb was examined and was characterized by healthy appearing mucosa. Impression: - Normal esophagus. - Fili-en-Y gastrojejunostomy with gastrojejunal anastomosis characterized by healthy appearing mucosa. - No specimens collected. Recommendation: - Discharge patient to home. - Resume previous diet. - Continue present medications. - Await pathology results. Procedure Code(s): --- Professional --- 09697, Esophagogastroduoden oscopy, flexible, transoral; diagnostic, including collection of specimen(s) by brushing or washing, when performed (separate procedure) CPT copyright 2021 [employer]. All rights reserved. The codes documented in this report are preliminary and upon shoe cementer review may be revised to meet current compliance requirements. José Antonio Walters DO 05/09/2025 8:51:48 AM This report has been signed electronically. Number of Addenda: 0 Note Initiated On: 05/09/2025 8:02 AM 05/09/25851 Date José Antonio Walters DO Cosigner Signature: Date (if indicated) CC: Dr. Angelo Thornton DO; José Antonio Walters DO Date Dictated: 05/09/25801 Date Transcribed: Machine Packaging Technician: DIANN Signed [facility] MR/POSTOP.Omar 05-09-2025 MR/POSTOP.[facility] Medical Records Department [address] [place] [address] Anesthesia Postop Eval I 05/09/25 0843 MR#: [id number] Acct: [id number] Name: ISMAMISHEL Rep #: [id number] : 1980 44 From: Manoj Woods CRNA PCP: Dr. Angelo Thornton DO Status:REG SDC Y Race: C Location: [place] [address] Anesthesia: Postop Eval I Current Vital Signs Temperature: 97 F Pulse Rate: 80 Blood Pressure: 86/52 Respiratory Rate: 16 Pulse Ox: 100 Oxygen Delivery Method: Room Air Assessment Airway patent: Yes Spontaneous unlabored respirations: Yes Mental status: Awake and Calm nausea: No Vomiting: No Anesthesia Complication: No Fluid Hydration Crystalloid volume administer (ml): 900 Total IV fluid infused: 900 Progress Note Anesthesia document: Postop Eval 1 completed: Yes 05/09/25 0843 Date Manoj Woods CRNA Cosigner Signature: Date CC: Signed Normal [facility] MR/[id number] 05-09-2025 MR/POSTOPAN2 [facility] Medical Records Department [address] [place] [address] Anesthesia Postop Eval II 05/09/25 0851 MR#: [id number] Acct: [id number] Name: MISHEL ASHBY Rep #: [id number] : 1980 44 From: Manoj Woods CRNA PCP: Dr. Angelo Thornton, DO Status:REG SDC Y Race: C Location: [place] [address] Anesthesia Postop Eval I Sum Postop Eval Completion status Anesthesia document: Postop Eval 1 completed: Yes Anesthesia Postop Eval I Summary Anesthesia Postop Eval I Summary: Anesthesia Postop Eval I: Assessment Summary Airway patent Yes 05/09/25 08:43 COUNT ROOM CLERK.MDOT Spontaneous unlabored Yes 05/09/25 08:43 COUNT ROOM CLERK.VICTORIANO respirations Mental status Awake,Calm 05/09/25 08:43 COUNT ROOM CLERK.MDOT nausea No 05/09/25 08:43 COUNT ROOM CLERK.MDOT Vomiting No 05/09/25 08:43 COUNT ROOM CLERK.MDOT Anesthesia Postop Eval I: Fluid Summary Crystalloid volume administer 900 05/09/25 08:43 COUNT ROOM CLERK.MDOT (ml) Colloids volume administered ( ml) Blood Product volume administered (ml) Total IV fluid infused 900 05/09/25 08:43 COUNT ROOM CLERK.VICTORIANO Anesthesia Postop Eval I: Summary Notes Anesthesia Complication No 05/09/25 08:43 COUNT ROOM CLERK.MDOT Anesthesia Complication Comment: Post-operative progress note Anesthesia: Postop Eval II Evaluation Mental status: Awake and Calm Pain Level: 0 nausea: No Vomiting: No Complications Anesthesia Complication: No 05/09/2552 Date Manoj Sierra Signature: Date CC: Signed Normal [facility] Surgery Specimen Level Dagmar 05-09-2025 Surgery Specimen Level IV Patient Age/Sex Location Account Attending Physician MISHEL ASHBY 44/F EN [id number] José Antonio Walters DO Specimen: [id number] Received: 05/09/25-1010 Status: TASH Franco Num: [id number] Spec Type: EGD BIOPSY Yonas Dr: José Antonio Walters, DO HEADER OPERATION: Colonoscopy, EGD, biopsy PRE-OP DIAGNOSIS: Thrombocytopenia, abdominal bloating, diarrhea, flatulence, CDH1 gene mutation positive, vitamin D deficiency, dysphagia TISSUE SUBMITTED: A- Jejunal anastomosis biopsy, B- Splenic flexure polyp biopsy MICROSCOPIC DIAGNOSIS A. Jejunum, anastomosis, biopsy: - No specific pathologic change. B. Splenic flexure, colon, polyp, biopsy: - Tubular adenoma. MICROSCOPIC DESCRIPTION Slides are reviewed. GROSS DESCRIPTION A. Received in fixative is one container labeled with the patient's name and designated Jejunal anastomosis biopsy." The specimen consists of two irregular fragments of light sultana soft tissue that in aggregate measure 0.3 and 0.5 cm. The specimen is totally submitted in one cassette. B. Received in fixative is one container labeled with the patient's name and designated Splenic flexure polyp biopsy." The specimen consists of one irregular fragment of light sultana soft tissue that measures 0.3 cm. The specimen is totally submitted in one cassette. Clem 05/09/[address] [facility]:[id number] Patient Age/Sex Location Account Attending Physician MISHEL ASHBY 44/F EN [id number] José Antonio Friend, DO Signed (signature on file) Dr. Yasmine Preston MD 05/17/25 1411 Normal [facility] Comment on above: Performed By: #### P SUIV #### [facility] [address] [place], [place], [address] [id number] 05-08-2025 P ELASTASE,FECA 297 Normal >200 [facility] Comment on above: Result Comment: Resu lt Units: ug Elast./g Severe Pancreatic Insufficiency: <100 Moderate Pancreatic Insufficiency: 100 - 200 Normal: >200 Performed at: [address] [id number] Hand Decorator: Ngozi Nichols MD, Phone: [phone] Performed By: #### L 7000.0750 #### [facility] [address] [place], [place], [address] Stool pancreatic elastase me asurement (mass/mass)Ordered By: Kassandra Atkins on 05-06-2025 Elastase.pancreatic (Stl) [Mass/Mass] 297 >200 [facility] Comment on above: Result Units: ug Farnaz st./g Severe Pancreatic Insufficiency: <100 Moderate Pancreatic Insufficiency: 100 - 200 Normal: >200Performed at: BN - [facility] [id number] [place], [place] [id number] Director: Ngozi Nichols MD, Phone: [phone] Ching 04-02-2025 [facility] Office Visit ([facility]) MISHEL ASHBY ([id number]) 1980 F Date Time Provider Department 04/02/25 2:30 PM DAMIAN ACEVES [facility] During your visit today, we recorded the [...] capsule by mouth one time a week. multivit,thx,calcium ,iron,mins (MULTIVITAMIN AND MINERAL ORAL) Take by mouth. cyanocobalamin (VITAMIN B-12) 100 mcg tab Take 100 mcg by mouth once daily. No current facility-administere d medications for this visit. ALLERGIES Allergen Reactions [...] candidate for immediate reconstruction based on her 85-lync-ufxy history of cigarette smoking. This puts her [...] She would be a candidate for two-stage machined parts quality inspector and implant reconstruction in the subpectoral plane. If she wants to move forward with her mastectomies, we could perform delayed reconstruction, again two-stage machined parts quality inspector and implant, in the future. This again [...] Damian Aceves DO Referring Provider: DAMIAN ACEVES [[id number]] Allergies As of Date: 04/02/2025 Noted Allergy Reaction MORPHINE 01/28/2023 2 - Rash NSAIDS (NON-STEROIDAL ANTI-INFLAM*02/11/20 16 - Unknown PENICILLINS 01/28/2023 8 - GI Upset Date Reviewed: 04/02/2025 Reviewed b (more content not included)... Normal [facility] HISTORY PHYSICALon HISTORY PHYSICAL HNO ID: [id number] Author: DAMIAN ACEVES DO Service: ? Author [...] capsule by mouth one time a week. multivit,thx,calcium ,iron,mins (MULTIVITAMIN AND MINERAL ORAL) Take by mouth. cyanocobalamin (VITAMIN B-12) 100 mcg tab Take 100 mcg by mouth once daily. No current facility-administere d medications for this visit. ALLERGIES Allergen Reactions [...] candidate for immediate reconstruction based on her 97-bjec-bcic history of cigarette smoking. This puts her [...] She would be a candidate for two-stage machined parts quality inspector and implant reconstruction in the subpectoral plane. If she wants to move forward with her mastectomies, we could perform delayed reconstruction, again two-stage machined parts quality inspector and implant, in the future. This again [...] for the courtesy of this consult. Damian Aceves, [facility] Esophagus Dual Contraston Esophagus Dual Contrast [facility] Imaging Services [address] [place] [place], [place] [address] Esophagus Dual Contrast MR#: [id number] Acct: [id number] Name: MISHEL ASHBY Rep #: [id number] : 1980 F 44 From: Fredi guardado MD PCP: Dr. Angelo Thornton DO Status: REG CLI Study: Esophagus Dual Contrast Date of Exam: 03/27/25 Exam# [id number] Ordering Dr: Kassandra Atkins CAP INSPECTOR- C PROCEDURE: ESOPHAGUS DUAL CONTRAST 03/27/2025 REASON [...] at the anastomotic site. Reflux. Reading Location: [facility] CC: KP Atkins; Dr. Angelo Thornton DO Machine Packaging Technician: Signed [facility] CNOVon 03-20-2025 [facility] Office Visit ([facility]) MISHEL ASHBY ([id number]) 1980 F Date Time Provider Department 03/20/25 1:00 PM ZOEY MAYORGA [facility] During your visit today, we recorded the following information about you: Pulse Respiration Blood pressure Weight 70/minute 16/minute 104/65 53.5 kg Zoey Mayorga MD 03/20/2025 1:45 PM Signed Zoey Mayorga MD Breast [facility] [address] [place], [place] [id number] SUBJECTIVE Chief Complaint: Patient presents with: Recheck [...] capsule by mouth one time a week. multivit,thx,calcium ,iron,mins (MULTIVITAMIN AND MINERAL ORAL) Take by mouth. cyanocobalamin (VITAMIN B-12) 100 mcg tab Take 100 mcg by mouth once daily. No current facility-administere d medications for this visit. OBJECTIVE BP 104/65 Pulse 70 Resp 16 Wt 53.5 kg (118 lb) SpO2 96% BMI 23.05 kg/m? BMI 23.05 kg/(m2) Participation of a fellow, resident, medical student, or advanced practice provider student in performing the sensitive examination was discussed with the patient or authorized agency sales representative. The patient or authorized agency sales representative has agreed to proceed with the [...] Discussed pr (more content not included)... Normal [facility] HISTORY PHYSICALon HISTORY PHYSICAL HNO ID: [id number] Author: ZOEY MAYORGA MD Service: ? Author Type: Physician Type: H&P Filed: 03/20/2025 13:45 Note Text: Zoey Mayorga MD [facility] [address] [place], [place] [id number] SUBJECTIVE Chief Complaint: Patient presents with: Recheck [...] capsule by mouth one time a week. multivit,thx,calcium ,iron,mins (MULTIVITAMIN AND MINERAL ORAL) Take by mouth. cyanocobalamin (VITAMIN B-12) 100 mcg tab Take 100 mcg by mouth once daily. No current facility-administere d medications for this visit. OBJECTIVE BP 104/65 Pulse 70 Resp 16 Wt 53.5 kg (118 lb) SpO2 96% BMI 23.05 kg/m? BMI 23.05 kg/(m2) Participation of a fellow, resident, medical student, or advanced practice provider student in performing the sensitive examination was discussed with the patient or authorized agency sales representative. The patient or authorized agency sales representative has agreed to proceed with the [...] 04/03/2025). Zoey Mayorga MD 03/20/2025 1:09 PM [facility] MR Breast - bilateral WO and W contrast Dagmar 03-14-2025 IMPRESSION: There is no MRI evidence of malignancy in either breast. Per electronic medical record review, the current clinical plan is for prophylactic mastectomies. If mastectomy isn't performed, recommend continued high-risk screening as clinically appropriate. BI-RADS Category 2: Benign Interpreting Radiologist: Adelaide Gerardo M.D. Electronically signed on: 03/14/2025 Machine Packaging Technician: FAHAD Transcribe Date/Time: Mar 14 2025 10:06A Dictated by : ADELAIDE GERARDO MD This examination was interpreted and the report reviewed and electronically signed by: ADELAIDE GERARDO MD on Mar 14 2025 1:47PM [facility] * * *Final Report* * * DATE OF EXAM: Mar 14 2025 10:37AM [facility] 0773 - MRI BREAST WO/W IVCON NEMESIO / PROCEDURE REASON: multiple diagnoses * * * * Physician Interpretation * * * * [facility] [address] [place] [address] #[id number] - MRI BREAST WO/W IVCON NEMESIO #[id number] - MRI BREAST 3D POST PROCESSING HISTORY: [...] completed on an independent workstation. An additional 6-vfhhyc-fnra resolution sequence was performed after the first two 1 minute post-contrast sequences. Complex volumetric analysis requiring post processing was performed using a semi-automated software [employer], on an independent workstation by the physician, with images created, reviewed, and archived. FINDINGS: There is scattered fibroglandular tissue. There is moderate background parenchymal enhancement, which could obscure a small or non-invasive lesion. The background parenchymal enhancement is symmetrical. [facility] Provider, [facility] [place] - 03/14/2025 * * *Final Report* * * DATE OF EXAM: Mar 14 2025 10:37AM [facility] 0773 - MRI BREAST WO/W IVCON NEMESIO / PROCEDURE REASON: multiple diagnoses * * * * Physician Interpretation * * * * [facility] [address] [address] #[id number] - MRI BREAST WO/W IVCON NEMESIO #[id number] - MRI BREAST 3D POST PROCESSING HISTORY: [...] completed on an independent workstation. An additional 4-ttxvfx-kbke resolution sequence was performed after the first two 1 minute post-contrast sequences. Complex volumetric analysis requiring post processing was performed using a semi-automated software [employer], on an independent workstation by the physician, [...] Adelaide Gerardo M.D. Electronically signed on: 03/14/2025 Machine Packaging Technician: FAHAD Transcribe Date/Time: Mar 14 2025 10:06A Dictated by : ADELAIDE GERARDO MD This examination was interpreted and the report reviewed and electronically signed by: ADELAIDE GERARDO MD on Mar 14 2025 1:47PM [facility] Radiology Study observation (narrative) [facility] MRI BREAST 3D POST PROCESSIN Tashi 03-14-2025 IMPRESSION: There is no MRI evidence of malignancy in either breast. Per electronic medical record review, the current clinical plan is for prophylactic mastectomies. If mastectomy isn't performed, recommend continued high-risk screening as clinically appropriate. BI-RADS Category 2: Benign Interpreting Radiologist: Adelaide Gerardo M.D. Electronically signed on: 03/14/2025 Machine Packaging Technician: FAHAD Transcribe Date/Time: Mar 14 2025 10:07A Dictated by : ADELAIDE GERARDO MD This examination was interpreted and the report reviewed and electronically signed by: ADELAIDE GERARDO MD on Mar 14 2025 1:47PM EST [facility] * * *Final Report* * * DATE OF EXAM: Mar 14 2025 10:37AM [facility] 0788 - MRI BREAST 3D POST PROCESSING / PROCEDURE REASON: multiple diagnoses * * * * Physician Interpretation * * * * [facility] [address] [place] [address] #[id number] - MRI BREAST WO/W IVCON NEMESIO #[id number] - MRI BREAST 3D POST PROCESSING HISTORY: [...] completed on an independent workstation. An additional 3-ufhnec-esmj resolution sequence was performed after the first [...] lesion. The background parenchymal enhancement is symmetrical. [facility] Provider, [facility] [place] - 03/14/2025 * * *Final Report* * * DATE OF EXAM: Mar 14 2025 10:37AM [facility] 0788 - MRI BREAST 3D POST PROCESSING / PROCEDURE REASON: multiple diagnoses * * * * Physician Interpretation * * * * [facility] [address] [place] [address] #[id number] - MRI BREAST WO/W IVCON NEMESIO #[id number] - MRI BREAST 3D POST PROCESSING HISTORY: [...] completed on an independent workstation. An additional 3-tsnxms-flsh resolution sequence was performed after the first two 1 minute post-contrast sequences. Complex volumetric analysis requiring post processing was performed using a semi-automated software [employer], on an independent workstation by the physician, [...] Adelaide Gerardo M.D. Electronically signed on: 03/14/2025 Machine Packaging Technician: FAHAD Transcribe Date/Time: Mar 14 2025 10:07A Dictated by : ADELAIDE GERARDO MD This examination was interpreted and the report reviewed and electronically signed by: ADELAIDE GERARDO MD on Mar 14 2025 1:47PM [facility] MRI BREAST 3D POST PROCESSING * * *Final Report* * * DATE OF EXAM: Mar 14 2025 10:37AM [facility] 0788 - MRI BREAST 3D POST PROCESSING / PROCEDURE REASON: multiple diagnoses * * * * Physician Interpretation * * * * [place] [address] [facility] [place] [address] #[id number] - MRI BREAST WO/W IVCON NEMESIO #[id number] - MRI BREAST 3D POST PROCESSING HISTORY: [...] completed on an independent workstation. An additional 6-tbolji-ccpx resolution sequence was performed after the first [...] Adelaide Gerardo M.D. Electronically signed on: 03/14/2025 Machine Packaging Technician: FAHAD Transcribe Date/Time: Mar 14 2025 10:07A Dictated by : ADELAIDE GERARDO MD This examination was interpreted and the report reviewed and electronically signed by: ADELAIDE GERARDO MD on Mar 14 2025 1:47PM EST [id number] Normal [facility] Radiology Study observation (narrative) [facility] MRI BREAST WO/W IVCON BILon 03-14-2025 MRI BREAST WO/W IVCON NEMESIO * * *Final Report* * * DATE OF EXAM: Mar 14 2025 10:37AM [facility] 0773 - MRI BREAST WO/W IVCON NEMESIO / PROCEDURE REASON: multiple diagnoses * * * * Physician Interpretation * * * * [facility] [address] [address] #[id number] - MRI BREAST WO/W IVCON NEMESIO #[id number] - MRI BREAST 3D POST PROCESSING HISTORY: [...] completed on an independent workstation. An additional 7-emprxy-qiuw resolution sequence was performed after the first two 1 minute post-contrast sequences. Complex volumetric analysis requiring post processing was performed using a semi-automated software [employer], on an independent workstation by the physician, [...] Adelaide Gerardo M.D. Electronically signed on: 03/14/2025 Machine Packaging Technician: FAHAD Transcribe Date/Time: Mar 14 2025 10:06A Dictated by : ADELAIDE GERARDO MD This examination was interpreted and the report reviewed and electronically signed by: ADELAIDE GERARDO MD on Mar 14 2025 1:47PM EST [id number] CN [facility] No Panel InformationOrdered By: [facility] Provider on 03-14-2025 [facility] Absolute lymphocyte countOrd ered By: Kassandra Atkins on 02-25-2025 Lymphocytes Auto (Unsp spec) [#/Vol] 3.08 10*3/uL 0.83-4.51 [facility] Absolute neutrophil countOrd ered By: Kassandra Atkins on 02-25-2025 Neutrophils (Bld) [#/Vol] 4.4 10*3/uL 2.0-7.7 [facility] Anion gap in Serum or Plasma Ordered By: Kassandra Atkins on 02-25-2025 Anion gap [Moles/Vol] 12 mmol/L 5-15 [facility] Automated lymphocyte count a s percentage of total leukocytesOrdered By: Kassandra Atkins on 02-25-2025 Lymphocytes/100 WBC Auto (Unsp spec) 37.1 % 19-41 [facility] BUN/creatinine ratioOrdered By: Kassandra Atkins on 02-25-2025 Urea nitrogen/Creatinine [Mass ratio] 19.9 mg/mg 10-20 [facility] Basophil percentageOrdered B y: Kassandra Atkins on 02-25-2025 Basophils/100 WBC (Bld) 0.4 % 0-1 [facility] Bilirubin, totalOrdered By: Kassandra Atkins on 02-25-2025 Bilirubin [Mass/Vol] 0.50 mg/dL 0.00-1.30 [facility] CBC W/Diff, Automatedon 04-2 -2024 Absolute Lymph 3.08 X10 3/uL Normal 0.83-4.51 [facility] Comment on above: Performed By: #### L 100.0100, L500.4050, L300.3900, L506.1001 #### [facility] [address] [place], [address] Absolute Neut 4.4 X10 3/uL Normal 2.0-7.7 [facility] Comment on above: Performed By: #### L 100.0100, L500.4050, L300.3900, L506.1001 #### [facility] [address] [place], [address] Basophils/100 WBC (Bld) 0.4 % Normal 0-1 [facility] Comment on above: Performed By: #### L 100.0100, L500.4050, L300.3900, L506.1001 #### [facility] [address] [place], [address] Eosinophils/100 WBC (Bld) 1.1 % Normal 0-5 [facility] Comment on above: Performed By: #### L 100.0100, L500.4050, L300.3900, L506.1001 #### [facility] [address] [place], [address] Erythrocyte distribution width (RBC) [Ratio] 14.0 % Normal 11.6-14.6 [facility] Comment on above: Performed By: #### L 100.0100, L500.4050, L300.3900, L506.1001 #### [facility] [address] [place], [address] Hematocrit (Bld) [Volume fraction] 44.3 % Normal 37-47 [facility] Comment on above: Performed By: #### L 100.0100, L500.4050, L300.3900, L506.1001 #### [facility] [address] [place], [address] Hemoglobin (Bld) [Mass/Vol] 14.7 g/dL Normal 12.0-15.0 [facility] Comment on above: Performed By: #### L 100.0100, L500.4050, L300.3900, L506.1001 #### [facility] [facility] [address] [place], [address] IG% 0.200 Normal 0.0-0.9 [facility] Comment on above: Result Comment: IG% - Immature Granulocytes (promyelocytes, myelocytes and metamyelocytes) > 1% indicates that a LEFT SHIFT is Present. Performed By: #### L 100.0100, L500.4050, L300.3900, L506.1001 #### [facility] [address] [place], [address] Lymphocytes/100 WBC (Bld) 37.1 % Normal 19-41 [facility] Comment on above: Performed By: #### L 100.0100, L500.4050, L300.3900, L506.1001 #### [facility] [address] [place], [address] MCH (RBC) [Entitic mass] 33.1 pg High 27.0-32.0 [facility] Comment on above: Performed By: #### L 100.0100, L500.4050, L300.3900, L506.1001 #### [facility] [address] [place], [address] MCHC (RBC) [Mass/Vol] 33.2 g/dL Normal 32-36 [facility] Comment on above: Performed By: #### L 100.0100, L500.4050, L300.3900, L506.1001 #### [facility] [address] [place], [address] MCV (RBC) [Entitic vol] 99.8 fL High 81-99 [facility] Comment on above: Performed By: #### L 100.0100, L500.4050, L300.3900, L506.1001 #### [facility] [address] [place], [address] Monocytes/100 WBC (Bld) 8.4 % Normal 0-10 [facility] Comment on above: Performed By: #### L 100.0100, L500.4050, L300.3900, L506.1001 #### [facility] [address] [place], [address] Neutrophils/100 WBC (Bld) 52.8 % Normal 47-70 [facility] Comment on above: Performed By: #### L 100.0100, L500.4050, L300.3900, L506.1001 #### [facility] [address] [place], [address] Nucleated RBC (Bld) [#/Vol] 0 10*3/uL Normal 0-5 [facility] Comment on above: Performed By: #### L 100.0100, L500.4050, L300.3900, L506.1001 #### [facility] [address] [place], [address] Platelet mean volume (Bld) [Entitic vol] 11.6 fL Normal 6.2-12.0 [facility] Comment on above: Performed By: #### L 100.0100, L500.4050, L300.3900, L506.1001 #### [facility] [address] [place], [address] Platelets (Bld) [#/Vol] 218 10*3/uL Normal 150-450 [facility] Comment on above: Performed By: #### L 100.0100, L500.4050, L300.3900, L506.1001 #### [facility] [address] [place], [address] RBC (Bld) [#/Vol] 4.44 10*6/uL Normal 4.2-5.4 [facility] Comment on above: Performed By: #### L 100.0100, L500.4050, L300.3900, L506.1001 #### [facility] [address] [place], [address] RDW SD 51.6 fl High 35.1-43.9 [facility] Comment on above: Performed By: #### L 100.0100, L500.4050, L300.3900, L506.1001 #### [facility] [address] [place], [address] WBC (Bld) [#/Vol] 8.3 10*3/uL Normal 4.4-11.0 [facility] Comment on above: Performed By: #### L 100.0100, L500.4050, L300.3900, L506.1001 #### [facility] [address] [place], [address] CNPNon 02-25-2025 [facility] Telephone ([facility]) MISHEL ASHBY ([id number]) 1980 F Date Time Provider Department 02/25/25 ANDRE SAMUEL [facility] During your visit today, we recorded the following information about you: Andre Samuel RN 02/25/2025 11:34 AM Signed Patient showed [...] MORPHINE 01/28/2023 2 - Rash NSAIDS (NON-STEROIDAL ANTI-INFLAM*02/11/20 23 16 - Unknown PENICILLINS 01/28/2023 8 - GI Upset Date Reviewed: 02/07/2025 Reviewed by: Zoey Mayorga MD - Fully Assessed Reason for Visit: Appointment [186] Celluloid Trimmer - Other [3602] Prescriptions as of 02/25/2025 [...] tablet Take 1 tablet by mouth. - multivit,thx,calcium ,iron,mins (MULTIVITAMIN AND MINERAL ORAL) Take by [...] Encounter Status:Closed by ANDRE SAMUEL on 02/25/25 [facility] Carbon dioxide, total [Moles /volume] in Central venous bloodOrdered By: Kassandra Atkins on 02-25-2025 CO2 [Moles/Vol] 22.8 mmol/L 21.0-32.0 [facility] Chloride assayOrdered By: Sal Atkins on 02-25-2025 Chloride [Moles/Vol] 104 mmol/L 98-108 [facility] Comprehensive Metabolic Prof ilon 02-25-2025 Albumin [Mass/Vol] 4.6 g/dL Normal 3.5-5.0 [facility] Comment on above: Performed By: #### L 100.0100, L500.4050, L300.3900, L506.1001 #### [facility] [address] [place], [address] Albumin/Globulin [Mass ratio] 1.7 {ratio} Normal 0.9-2.4 [facility] Comment on above: Performed By: #### L 100.0100, L500.4050, L300.3900, L506.1001 #### [facility] [address] [place], [address] ALK PHOS 74 U/L Normal 35-104 [facility] Comment on above: Performed By: #### L 100.0100, L500.4050, L300.3900, L506.1001 #### [facility] [address] [place], [address] ALT [Catalytic activity/Vol] 9 U/L Normal <=34 [facility] Comment on above: Performed By: #### L 100.0100, L500.4050, L300.3900, L506.1001 #### [facility] [address] [place], [address] AST [Catalytic activity/Vol] 17 U/L Normal <=31 [facility] Comment on above: Performed By: #### L 100.0100, L500.4050, L300.3900, L506.1001 #### [facility] [address] [place], [address] Bilirubin [Mass/Vol] 0.50 mg/dL Normal 0.00-1.30 [facility] Comment on above: Performed By: #### L 100.0100, L500.4050, L300.3900, L506.1001 #### [facility] [address] [place], [address] BUN/CRE 19.9 RATIO Normal 10-20 [facility] Comment on above: Performed By: #### L 100.0100, L500.4050, L300.3900, L506.1001 #### [facility] [address] [place], [address] Calcium [Mass/Vol] 9.5 mg/dL Normal 7.6-11.0 [facility] Comment on above: Performed By: #### L 100.0100, L500.4050, L300.3900, L506.1001 #### [facility] [address] [place], [address] Chloride [Moles/Vol] 104 mmol/L Normal 98-108 [facility] Comment on above: Performed By: #### L 100.0100, L500.4050, L300.3900, L506.1001 #### [facility] [address] [place], [address] CO2 [Moles/Vol] 22.8 mmol/L Normal 21.0-32.0 [facility] Comment on above: Performed By: #### L 100.0100, L500.4050, L300.3900, L506.1001 #### [facility] [address] [place], [address] Creatinine [Mass/Vol] 0.61 mg/dL Low 0.70-1.20 [facility] Comment on above: Performed By: #### L 100.0100, L500.4050, L300.3900, L506.1001 #### [facility] [address] [place], [address] GAP 12 Normal 5-15 [facility] Comment on above: Performed By: #### L 100.0100, L500.4050, L300.3900, L506.1001 #### [facility] [address] [place], [address] GFR/1.73 sq M.predicted among non-blacks MDRD (S/P/Bld) [Vol rate/Area] 113 mL/min/{1.73_m2} Normal >60 [facility] Comment on above: Result Comment: mL/m in/1.73m2 CKD-EPI Creatinine Equation (2020) Performed By: #### L 100.0100, L500.4050, L300.3900, L506.1001 #### [facility] [address] [place], [address] Globulin (S) [Mass/Vol] 2.7 g/dL Normal 2.2-4.2 [facility] Comment on above: Performed By: #### L 100.0100, L500.4050, L300.3900, L506.1001 #### [facility] [address] [place], [address] Glucose [Mass/Vol] 77 mg/dL Normal 70-99 [facility] Comment on above: Performed By: #### L 100.0100, L500.4050, L300.3900, L506.1001 #### [facility] [address] [place], [address] Potassium [Moles/Vol] 4.1 mmol/L Normal 3.3-5.1 [facility] Comment on above: Performed By: #### L 100.0100, L500.4050, L300.3900, L506.1001 #### [facility] [address] [place], [address] Sodium [Moles/Vol] 139 mmol/L Normal 133-145 [facility] Comment on above: Performed By: #### L 100.0100, L500.4050, L300.3900, L506.1001 #### [facility] [address] [place], [address] T PROT 7.3 g/dL Normal 5.9-8.4 [facility] Comment on above: Performed By: #### L 100.0100, L500.4050, L300.3900, L506.1001 #### [facility] [address] [place], [address] Urea nitrogen [Mass/Vol] 12 mg/dL Normal 4-19 [facility] Comment on above: Performed By: #### L 100.0100, L500.4050, L300.3900, L506.1001 #### [facility] [address] [place], [address] Eosinophil percentageOrdered By: Kassandra Atkins on 02-25-2025 Eosinophils/100 WBC (Bld) 1.1 % 0-5 [facility] Erythrocyte distribution wid th ratioOrdered By: Kassandra Atkins on 02-25-2025 Erythrocyte distribution width (RBC) [Ratio] 14.0 % 11.6-14.6 [facility] Erythrocyte distribution wid th standard deviationOrdered By: Kassandra Atkins on 02-25-2025 Erythrocyte distribution width (RBC) [Ratio] 51.6 fl High 35.1-43.9 [facility] Gastroenterology Visit Repor ton 02-25-2025 Gastroenterology Visit Report [facility] [address] [place] [address] OFFICE VISIT Date of Service: 02/25/25 MR#: [id number] Acct: [id number] Name: MISHEL ASHBY Rep #: [id number] : 1980 Provider: KP bran Age/Sex: 44/F [place] [facility] Status: Signed Intake Vital Signs 02/25/25 14:33 [...] #5 tabs 02/25/25 02/25/25 Rx peg 3350-sod sulf,zntdi-dcu-snv See Rx Instructions PO .COMPLEX #2 02/25/25 02/25/25 Rx 178.7-7.3-0.5-1.12-0 .9 gram oral mL soln (Suflave) sertraline 50 [...] gene - total gastrectomy in 2018 in [place] - stage 1 gastric cancer on pathology - reports her last colonoscopy was in 2019 - has seen a floor director who has recommended a colonoscopy every 3 [...] Endocrine: No fatigue or weight change Aller/Imm Allergy/Immunologic: No itchy eyes Shmuel/Lymp Hematologic/Lymphati c: No easy bleeding or easy bruising Exam [...] S1 normal (more content not included)... Normal [facility] Glomerular filtration rate ( GFR) estimation/1.73 sq m using serum, plasma, or whole bOrdered By: Kassandra Atkins on 02-25-2025 GFR/1.73 sq M.predicted among non-blacks MDRD (S/P/Bld) [Vol rate/Area] 113 mL/min/{1.73_m2} >60 [facility] Comment on above: mL/min/1.73m2 CKD-EP I Creatinine Equation (2020) Hematocrit Auto (Bld) [Volum e fraction]Ordered By: Kassandra Atkins on 02-25-2025 Hematocrit (Bld) [Volume fraction] 44.3 % 37-47 [facility] Hemoglobin measurementOrdere d By: Kassandra Atkins on 02-25-2025 Hemoglobin (Bld) [Mass/Vol] 14.7 g/dL 12.0-15.0 [facility] Immature granulocytes/100 WB C Auto (Bld)Ordered By: Kassandra Atkins on 02-25-2025 Immature granulocytes/100 WBC (Bld) 0.200 % 0.0-0.9 [facility] Comment on above: IG% - Immature Granu locytes (promyelocytes, myelocytes and metamyelocytes) > 1% indicates that a LEFT SHIFT is Present. International normalized rat io (INR) calculationOrdered By: Kassandra Atkins on 02-25-2025 INR Coag (Bld) [Relative time] 1.2 {INR} [facility] - Chemistry and C hemistry - challengeOrdered By: Kassandra Atkins on 02-25-2025 AST [Catalytic activity/Vol] 17 U/L <32 [facility] MCV (mean corpuscular volume ) determinationOrdered By: Kassandra Atkins on 02-25-2025 MCV (RBC) [Entitic vol] 99.8 fL High 81-99 [facility] Mean corpuscular hemoglobin (MCH) determinationOrdered By: Kassandra Atkins on 02-25-2025 MCH (RBC) [Entitic mass] 33.1 pg High 27.0-32.0 [facility] Mean corpuscular hemoglobin concentration (MCHC) determinationOrdered By: Kassandra Atkins on 02-25-2025 MCHC (RBC) [Mass/Vol] 33.2 g/dL 32-36 [facility] Mean platelet volume determi nationOrdered By: Kassandra Atkins on 02-25-2025 Platelet mean volume (Bld) [Entitic vol] 11.6 fL 6.2-12.0 [facility] Monocyte percentageOrdered B y: Kassandra Atkins on 02-25-2025 Monocytes/100 WBC (Bld) 8.4 % 0-10 [facility] Neutrophil percentageOrdered By: Kassandra Atkins on 02-25-2025 Neutrophils/100 WBC (Bld) 52.8 % 47-70 [facility] Nucleated red blood cell per centageOrdered By: Kassandra Atkins on 02-25-2025 Nucleated RBC/100 WBC (Bld) [Ratio] 0 % 0-5 [facility] Platelet countOrdered By: Sal Atkins on 02-25-2025 Platelets (Bld) [#/Vol] 218 10*3/uL 150-450 [facility] Potassium measurement (mass/ volume)Ordered By: Kassandra Atkins on 02-25-2025 Potassium (Unsp spec) [Mass/Vol] 4.1 mmol/L 3.3-5.1 [facility] Prothrombin Time w/INRon INR Coag (PPP) [Relative time] 1.2 {INR} Normal [facility] Comment on above: Performed By: #### L 100.0100, L500.4050, L300.3900, L506.1001 #### [facility] [address] [place], [address] PT Coag (PPP) [Time] 15.2 s High 11.7-14.9 [facility] Comment on above: Performed By: #### L 100.0100, L500.4050, L300.3900, L506.1001 #### [facility] [address] [place], [address] Prothrombin timeOrdered By: Kassandra Atkins on 02-25-2025 PT Coag (PPP) [Time] 15.2 s High 11.7-14.9 [facility] RBC Auto (Bld) [#/Vol]Ordere d By: Kassandra Atkins on 02-25-2025 RBC (Bld) [#/Vol] 4.44 10*6/uL 4.2-5.4 [facility] Serum creatinine measurement (mass/volume)Ordered By: Kassandra Atkins on 02-25-2025 Creatinine [Mass/Vol] 0.61 mg/dL Low 0.70-1.20 [facility] Serum globulin measurementOr dered By: Kassandra Atkins on 02-25-2025 Globulin (S) [Mass/Vol] 2.7 g/dL 2.2-4.2 [facility] Serum glucose measurement (m ass/volume)Ordered By: Kassandra Atkins on 02-25-2025 Glucose [Mass/Vol] 77 mg/dL 70-99 [facility] Serum or plasma alanine gomez otransferase (ALT) measurementOrdered By: Kassandra Atkins on 02-25-2025 ALT [Catalytic activity/Vol] 9 U/L <35 [facility] Serum or plasma albumin theresa urement (mass/volume)Ordered By: Kassandra Atkins on 02-25-2025 Albumin [Mass/Vol] 4.6 g/dL 3.5-5.0 [facility] Serum or plasma albumin/glob ulin mass ratioOrdered By: Kassandra Atkins on 02-25-2025 Albumin/Globulin [Mass ratio] 1.7 {ratio} 0.9-2.4 [facility] Serum or plasma alkaline martha sphatase measurementOrdered By: Kassandra Atkins on 02-25-2025 ALP [Catalytic activity/Vol] 74 U/L 35-104 [facility] Serum or plasma calcium theresa urement (mass/volume)Ordered By: Kassandra Atkins on 02-25-2025 Calcium [Mass/Vol] 9.5 mg/dL 7.6-11.0 [facility] Serum or plasma urea nitroge n measurement (mass/volume)Ordered By: Kassandra Atkins on 02-25-2025 Urea nitrogen [Mass/Vol] 12 mg/dL 4-19 [facility] Sodium levelOrdered By: Iris Atkins on 02-25-2025 Sodium [Moles/Vol] 139 mmol/L 133-145 [facility] Total proteinOrdered By: Mona Atkins on 02-25-2025 Protein [Mass/Vol] 7.3 g/dL 5.9-8.4 [facility] Vitamin D,25 Hydroxyon 02-25 Vitamin D 25-OH 46.7 ng/mL Normal 30-100 [facility] Comment on above: Result Comment: Jackie min D Status Deficiency: <20 ng/mL (50nmol/L) Insufficiency: 20-30 ng/mL (50-75 nmol/L) Sufficiency: 30-100 ng/mL (75-250 nmol/L) Toxicity: >100 ng/mL (>250 nmol/L) Performed By: #### L 100.0100, L500.4050, L300.3900, L506.1001 #### [facility] [place], [address] White blood cell (WBC) count Ordered By: Kassandra Atkins on 02-25-2025 WBC (Bld) [#/Vol] 8.3 10*3/uL 4.4-11.0 [facility] CNPNon 02-13-2025 CNPN Telephone ([facility]) MISHEL ASHBY ([id number]) 1980 F Date Time Provider Department 02/13/25 ANDRE SAMUEL [facility] During your visit today, we recorded [...] MORPHINE 01/28/2023 2 - Rash NSAIDS (NON-STEROIDAL ANTI-INFLAM*02/11/20 23 16 - Unknown PENICILLINS 01/28/2023 8 - GI Upset Date Reviewed: 02/07/2025 Reviewed by: Zoey Mayorga MD - Fully Assessed Reason for Visit: Appointment [186] Celluloid Trimmer - Other [3602] Prescriptions as of 02/13/2025 [...] tablet Take 1 tablet by mouth. - multivit,thx,calcium ,iron,mins (MULTIVITAMIN AND MINERAL ORAL) Take by [...] Encounter Status:Closed by ANDRE SAMUEL on 02/13/25 [facility] CNOVon 02-07-2025 CNOV Office Visit ([facility]) MISHEL ASHBY ([id number]) 1980 F Date Time Provider Department 02/07/25 10:00 AM ZOEY MAYORGA [facility] During your visit today, we recorded the following information about you: Pulse Respiration Blood pressure Weight 67/minute 16/minute 96/59 52.6 kg Height 1.524 m Zoey Mayorga MD 02/13/2025 8:37 AM Signed Zoey Mayorga MD [facility] [address] [place] [id number] SUBJECTIVE Chief Complaint: Patient presents with: Breast Problem HPI Mishel Nelli Isma is a 44 year old female here [...] mg tablet Take 1 tablet by mouth. multivit,thx,calcium ,iron,mins (MULTIVITAMIN AND MINERAL ORAL) Take by mouth. cyanocobalamin (VITAMIN B-12) 100 mcg tab Take 100 mcg by mouth once daily. No current facility-administere d medications for this visit. OBJECTIVE BP 96/59 (BP Site: Right Arm, BP Position: Sitting) Pulse 67 Resp 16 Ht 152.4 cm (5') Wt 52.6 kg (116 lb) SpO2 98% BMI 22.65 kg/m? BMI 22.65 kg/(m2) Participation of a fellow, resident, medical student, or advanced practice provider student in performing the sensitive examination was discussed with the patient or authorized agency sales representative. The patient or authorized agency sales representative has agreed to proceed with the [...] Patient tested pos (more content not included)... [facility] CNOVon 01-31-2025 CNOV Office Visit ([facility]) MISHEL ASHYB ([id number]) 1980 F Date Time Provider Department 01/31/25 4:50 PM ERIKA NAM [facility] During your visit today, we recorded the following information about you: Temperature Pulse Respiration Blood pressure 99 degrees 75/minute 16/minute 100/70 Weight 54.4 kg Erika Nam APRN.CNP 01/31/2025 6:41 PM Signed [facility] Subjective Mishel Ashby is a 44 year old female. [...] localization of the pain possible etiology include Costochondritis/ches t wall pain and musculoskeletal - XR RIBS/CHEST [...] discharged home in stable condition. Erika Nam APRN.[employer] Management I performed an independent interpretation of the following:imaging Imaging: My interpretation is Left rib x-rays were obtained and I interpreted as no acute/obvious bony injury. Will await the final radiology report. Disposition The patient was discharged. OTC Medications were advised: - Tylenol. Do not take NSAIDs (Ibuprofen, Motrin, Aleve) until you have completed prednisone. Procedures Erika Nam APRN.[employer] 01/31/2025 5:53 PM Signed - Medications as prescribed. - Ice - Wfgy-myq-zdmgjfq incentive spirometer or or take 10 to 15 deep breaths at least 4 times each day. - Xrly-sgn-uoqajod abdominal binder for comfort - Hold a pillow to your chest to ease the pain when (more content not included)... [facility] XR RIB/CHST 3V AP RIB/OBL/CH ST [...] upper quadrant. IMPRESSION: No acute osseous abnormality. Machine Packaging Technician: JAMI Transcribe Date/Time: Feb 03 2025 6:30A Dictated by : REJI VILLANUEVA MD This examination was interpreted and the report reviewed and electronically signed by: REJI VILLANUEVA MD on Feb 03 2025 6:31AM EST [id number] [facility] MISHEL ASHBY ([id number]) 1980 F Date Time Provider Department 01/17/25 [...] Kirk and that she was seen at [facility], not the main hospital. Geovanna Tompkins RN BSN Allergies As of Date: 01/17/2025 Noted Allergy Reaction MORPHINE 01/28/2023 2 - Rash NSAIDS (NON-STEROIDAL ANTI-INFLAM*02/11/20 23 16 - Unknown PENICILLINS 01/28/2023 8 - GI Upset Date Reviewed: 12/31/2024 Reviewed by: Lorena Lugo MA - Fully Assessed Prescriptions as of 01/22/2025 - cholecalciferol, Vitamin D3, (VITAMIN D3) 1,250 mcg (50,000 unit) cap capsule Take 1 capsule by mouth one time a week. - sertraline (ZOLOFT) 50 mg tablet Take 1 tablet by mouth. - multivit,thx,calcium ,iron,mins (MULTIVITAMIN AND MINERAL ORAL) Take by mouth. - cyanocobalamin (VITAMIN B-12) 100 mcg tab Take 100 mcg by mouth once daily. Problem List As Of Date: 01/17/2025 (None) Encounter Status:Closed by MISHEL BOLIVAR on 01/17/25 [facility] Jian 01-07-2025 [facility]LEY[facility] Telephone ([facility]) MISHEL ASHBY ([id number]) 1980 F Date Time Provider Department 01/07/25 JALEN MCGEE [facility] During your visit today, we recorded the following information about you: Izabela Isaac 01/07/2025 4:13 PM Signed Called patient and let her know time and date for her year apt with .at 01/07/26 1:30. Left this on . Ask patient to call me back if she has any questions. 01/07/25 tlr Allergies As of Date: 01/07/2025 Noted Allergy Reaction MORPHINE 01/28/2023 2 - Rash NSAIDS (NON-STEROIDAL ANTI-INFLAM*02/11/20 23 16 - Unknown PENICILLINS 01/28/2023 8 - GI Upset Date Reviewed: 12/31/2024 Reviewed by: Lorena Lugo MA - Fully Assessed Reason for Visit: Release Of Medical Records [2017] Cmt: Sent office notes from 12/31/24 to [facility] , attn: Yogesh Provider: Everardo 01/07/25 QS Appointment [186] Prescriptions as of 01/07/2025 - cholecalciferol, Vitamin D3, (VITAMIN D3) 1,250 mcg (50,000 unit) cap capsule Take 1 capsule by mouth one time a week. - sertraline (ZOLOFT) 50 mg tablet Take 1 tablet by mouth. - multivit,thx,calcium ,iron,mins (MULTIVITAMIN AND MINERAL ORAL) Take by mouth. - cyanocobalamin (VITAMIN B-12) 100 mcg tab Take 100 mcg by mouth once daily. Problem List As Of Date: 01/07/2025 (None) Encounter Status:Closed by IZABELA ISAAC on 01/07/25 [facility]ian 01-02-2025 [facility] Telephone ([facility]) MISHEL ASHBY ([id number]) 1980 F Date Time Provider Department 01/02/25 ANDRE SAMUEL [facility] During your visit today, we recorded [...] MORPHINE 01/28/2023 2 - Rash NSAIDS (NON-STEROIDAL ANTI-INFLAM*02/11/20 23 16 - Unknown PENICILLINS 01/28/2023 8 - GI Upset Date Reviewed: 12/31/2024 Reviewed by: Lorena Lugo MA - Fully Assessed Reason for Visit: Appointment [186] Prescriptions as of 01/02/2025 - cholecalciferol, Vitamin D3, (VITAMIN D3) 1,250 mcg (50,000 unit) cap capsule Take 1 capsule by mouth one time a week. - sertraline (ZOLOFT) 50 mg tablet Take 1 tablet by mouth. - multivit,thx,calcium ,iron,mins (MULTIVITAMIN AND MINERAL ORAL) Take by mouth. - cyanocobalamin (VITAMIN B-12) 100 mcg tab Take 100 mcg by mouth once daily. Problem List As Of Date: 01/02/2025 (None) Encounter Status:Closed by ANDRE SAMUEL on 01/02/25 [facility] 01-01-2025 [facility] Telephone ([facility]) MISHEL ASHBY ([id number]) 1980 F Date Time Provider Department 01/01/25 ANDRE SAMUEL [facility] During your visit today, we recorded the following information about you: Andre Samuel RN 01/01/2025 11:58 AM Signed Received a [...] MORPHINE 01/28/2023 2 - Rash NSAIDS (NON-STEROIDAL ANTI-INFLAM*02/11/20 23 16 - Unknown PENICILLINS 01/28/2023 8 - GI Upset Date Reviewed: 12/31/2024 Reviewed by: Lorena Lugo MA - Fully Assessed Reason for Visit: Consult [502] Prescriptions as of 01/01/2025 - cholecalciferol, Vitamin D3, (VITAMIN D3) 1,250 mcg (50,000 unit) cap capsule Take 1 capsule by mouth one time a week. - sertraline (ZOLOFT) 50 mg tablet Take 1 tablet by mouth. - multivit,thx,calcium ,iron,mins (MULTIVITAMIN AND MINERAL ORAL) Take by mouth. - cyanocobalamin (VITAMIN B-12) 100 mcg tab Take 100 mcg by mouth once daily. Problem List As Of Date: 01/01/2025 (None) Encounter Status:Closed by ANDRE SAMUEL on 01/01/25 [facility] CBC W Auto Differential pane l (Bld)on 12-31-2024 Basophils (Bld) [#/Vol] 0 10*3/uL [facility] C [facility] Basophils/100 WBC (Bld) 0 % C [facility] Differential cell count method Nom (Bld) Manual [facility] Eosinophils (Bld) [#/Vol] 0 10*3/uL [facility] Eosinophils/100 WBC (Bld) 0 % [facility] Erythrocyte distribution width (RBC) [Ratio] 13.2 % 11.5 - 15.0 % [facility] Hematocrit (Bld) [Volume fraction] 40.6 % 36.0 - 46.0 % [facility] Hemoglobin (Bld) [Mass/Vol] 13.7 g/dL 11.5 - 15.5 g/dL [facility] Interpretation and review of laboratory results Abnormal [facility] Lymphocytes (Bld) [#/Vol] 1.92 10*3/uL [facility] Lymphocytes/100 WBC (Bld) 49 % [facility] MCH (RBC) [Entitic mass] 33.1 pg 26.0 - 34.0 pg [facility] MCHC (RBC) [Mass/Vol] 33.7 g/dL 30.5 - 36.0 g/dL [facility] MCV (RBC) [Entitic vol] 98.1 fL 80.0 - 100.0 fL [facility] Monocytes (Bld) [#/Vol] 0.71 10*3/uL [facility] Monocytes/100 WBC (Bld) 18 % C [facility] Neutrophils (Bld) [#/Vol] 1.29 10*3/uL Low [facility] Neutrophils/100 WBC (Bld) 33 % [facility] Nucleated RBC (Bld) [#/Vol] [facility] Nucleated RBC/100 WBC (Bld) [Ratio] 0 % /100 WBC [facility] Platelet mean volume (Bld) [Entitic vol] 10.6 fL 9.0 - 12.7 fL [facility] Platelets (Bld) [#/Vol] 140 10*3/uL Low [facility] Platelets Estimate (Bld) [#/Vol] Decreased [facility] RBC (Bld) [#/Vol] 4.14 10*6/uL 3.90 - 5.2 0 m/uL [facility] Red Cell Morph Reviewed: unremarkable [facility] WBC (Bld) [#/Vol] 3.92 10*3/uL [facility] This is an appended report. These results have been appended to a previously verified report. [facility] Basophils (Bld) [#/Vol] 0.00 10*3/uL Normal <0.11 [facility] Comment on above: Order Comment: Speci men Type: URINE SPECIMEN Ordering Facility: [facility] Address: [address] [place] [address] Performed By: #### 2 4356-8 #### [facility] CLIA [id number] [address] [id number] [place] Basophils/100 WBC (Bld) 0.0 % Normal [facility] Comment on above: Order Comment: Speci men Type: URINE SPECIMEN Ordering Facility: [facility] Address: [address] [place] [address] Performed By: #### 2 4356-8 #### [facility] CLIA [id number] [address] [place] [address] Differential cell count method Nom (Bld) Manual Normal [facility] Comment on above: Order Comment: Speci men Type: URINE SPECIMEN Ordering Facility: [facility] Address: [address] [place] [address] Performed By: #### 2 4356-8 #### [facility] CLIA [id number] [address] [place] [address] [place] Eosinophils (Bld) [#/Vol] 0.00 10*3/uL Normal <0.46 [facility] Comment on above: Order Comment: Speci men Type: URINE SPECIMEN Ordering Facility: [facility] Address: [address] [place] [address] Performed By: #### 2 4356-8 #### [facility] CLIA [id number] [address] [place] [address] [place] Eosinophils/100 WBC (Bld) 0.0 % Normal [facility] Comment on above: Order Comment: Speci men Type: URINE SPECIMEN Ordering Facility: [facility] Address: [address] [place] [address] Performed By: #### 2 4356-8 #### [facility] CLIA [id number] [address] [place] [address] STATES [facility] Erythrocyte distribution width (RBC) [Ratio] 13.2 % Normal 11.5-15.0 [facility] Comment on above: Order Comment: Speci men Type: URINE SPECIMEN Ordering Facility: [facility] Address: [address] [place] [address] Performed By: #### 2 4356-8 #### [facility] CLIA [id number] [address] [place] [address] [place] Hematocrit (Bld) [Volume fraction] 40.6 % Normal 36.0-46.0 [facility] Comment on above: Order Comment: Speci men Type: URINE SPECIMEN Ordering Facility: [facility] Address: [address] [place] [address] Performed By: #### 2 4356-8 #### [facility] CLIA [id number] [address] [place] [address] [place] Hemoglobin (Bld) [Mass/Vol] 13.7 g/dL Normal 11.5-15.5 [facility] Comment on above: Order Comment: Speci men Type: URINE SPECIMEN Ordering Facility: [facility] Address: [address] [place] [address] Performed By: #### 2 4356-8 #### [facility] CLIA [id number] [address] [place] [address] [place] Lymphocytes (Bld) [#/Vol] 1.92 10*3/uL Normal 1.00-4.00 [facility] Comment on above: Order Comment: Speci men Type: URINE SPECIMEN Ordering Facility: [facility] Address: [address] [place] [address] Performed By: #### 2 4356-8 #### [facility] CLIA [id number] [address] [place] [address] [place] Lymphocytes/100 WBC (Bld) 49.0 % Normal [facility] Comment on above: Order Comment: Speci men Type: URINE SPECIMEN Ordering Facility: [facility] Address: [address] [place] [address] Performed By: #### 2 4356-8 #### [facility] CLIA [id number] [address] [place] [address] [place] MCH (RBC) [Entitic mass] 33.1 pg Normal 26.0-34.0 [facility] Comment on above: Order Comment: Speci men Type: URINE SPECIMEN Ordering Facility: [facility] Address: [address] [place] [address] Performed By: #### 2 4356-8 #### [facility] CLIA [id number] [address] [place] [address] [place] MCHC (RBC) [Mass/Vol] 33.7 g/dL Normal 30.5-36.0 [facility] Comment on above: Order Comment: Speci men Type: URINE SPECIMEN Ordering Facility: [facility] Address: [address] [place] [address] Performed By: #### 2 4356-8 #### [facility] CLIA [id number] [address] [place] [address] [place] MCV (RBC) [Entitic vol] 98.1 fL Normal 80.0-100.0 [facility] Comment on above: Order Comment: Speci men Type: URINE SPECIMEN Ordering Facility: [facility] Address: [address] [place] [address] Performed By: #### 2 4356-8 #### [facility] CLIA [id number] [address] [place] [address] [place] Monocytes (Bld) [#/Vol] 0.71 10*3/uL Normal <0.87 [facility] Comment on above: Order Comment: Speci men Type: URINE SPECIMEN Ordering Facility: [facility] Address: [address] [place] [address] Performed By: #### 2 4356-8 #### [facility] CLIA [id number] [address] [place] [address] [place] Monocytes/100 WBC (Bld) 18.0 % Normal [facility] Comment on above: Order Comment: Speci men Type: URINE SPECIMEN Ordering Facility: [facility] Address: [address] [place] [address] Performed By: #### 2 4356-8 #### [facility] CLIA [id number] [address] [place] [address] [place] Neutrophils (Bld) [#/Vol] 1.29 10*3/uL Low 1.45-7.50 [facility] Comment on above: Order Comment: Speci men Type: URINE SPECIMEN Ordering Facility: [facility] Address: [address] [place] [address] Performed By: #### 2 4356-8 #### [facility] CLIA [id number] [address] [place] [address] [place] Neutrophils/100 WBC (Bld) 33.0 % Normal [facility] Comment on above: Order Comment: Speci men Type: URINE SPECIMEN Ordering Facility: [facility] Address: [address] [place] [address] Performed By: #### 2 4356-8 #### [facility] CLIA [id number] [address] [place] [address] [place] Nucleated RBC (Bld) [#/Vol] 10*3/uL Normal <0.01 [facility] Comment on above: Order Comment: Speci men Type: URINE SPECIMEN Ordering Facility: [facility] Address: [address] [place] [address] Performed By: #### 2 4356-8 #### [facility] CLIA [id number] [address] [place] [address] [place] Nucleated RBC/100 WBC (Bld) [Ratio] 0.0 /[address] [facility] Comment on above: Order Comment: Speci men Type: URINE SPECIMEN Ordering Facility: [facility] Address: [address] [place] [address] Performed By: #### 2 4356-8 #### [facility] CLIA [id number] [address] [place] [address] [place] Platelet mean volume (Bld) [Entitic vol] 10.6 fL Normal 9.0-12.7 [facility] Comment on above: Order Comment: Speci men Type: URINE SPECIMEN Ordering Facility: [facility] Address: [address] [place] [address] Performed By: #### 2 4356-8 #### [facility] CLIA [id number] [address] [place], [place] [address] [place] Platelets (Bld) [#/Vol] 140 10*3/uL Low 150-400 [facility] Comment on above: Order Comment: Speci men Type: URINE SPECIMEN Ordering Facility: [facility] Address: [address] [place] [address] Performed By: #### 2 4356-8 #### [facility] CLIA [id number] [address] [place] [address] [place] Platelets Estimate (Bld) [#/Vol] Decreased Normal [facility] Comment on above: Order Comment: Speci men Type: URINE SPECIMEN Ordering Facility: [facility] Address: [address] [place] [address] Performed By: #### 2 4356-8 #### [facility] CLIA [id number] [address] [place] [address] [place] RBC (Bld) [#/Vol] 4.14 10*6/uL Normal 3.90-5.20 [facility] Comment on above: Order Comment: Speci men Type: URINE SPECIMEN Ordering Facility: [facility] Address: [address] [place] [address] Performed By: #### 2 4356-8 #### [facility] CLIA [id number] [address] [place] [address] [place] RED CELL MORPH Reviewed: unremarkable Normal [facility] Comment on above: Order Comment: Speci men Type: URINE SPECIMEN Ordering Facility: [facility] Address: [address] [place] [address] Performed By: #### 2 4356-8 #### [facility] CLIA [id number] [address] [place] [address] [place] WBC (Bld) [#/Vol] 3.92 10*3/uL Normal 3.70-11.00 [facility] Comment on above: Order Comment: Speci men Type: URINE SPECIMEN Ordering Facility: [facility] Address: [address] [place] [address] Performed By: #### 2 4356-8 #### [facility] CLIA [id number] [address] [place] [address] [place] CNOVSPon 12-31-2024 CNOVSP Visit (SP) Office ([facility]) MISHEL ASHBY ([id number]) 1980 F Date Time Provider Department 12/31/24 2:00 PM JALEN MCGEE [facility] During your visit today, we recorded the following information about you: Temperature Pulse Respiration Blood pressure 98.7 degrees 66/minute 16/minute 90/55 Weight 52.6 kg Jalen Mcgee MD 01/01/2025 11:28 AM Signed CHIEF COMPLAINT Mishel Ashby is a 44 yo WF patient of Dr. Juan Thornton ([facility]), referred for evaluation of her [...] and Fili-en-Y anastomosis by Dr. Bennett at [facility] on 09/13/2018. Her course was complicated by a subsequent wound infection. At that time, CT abdomen/pelvis reportedly revealed a fluid collection deep to the surgical staple line. She was admitted to [facility] 09/23/2018. Following her surgery, she lost ~100 pounds over the next year. She and her moved here to [place] from [place] in ~ 2020. Since then, she had [...] reviewed by the ER physician who noted "a fair amount of stool and gas" may have been causing some of her [...] cyanocobalamin (VITAMIN B-12) 100 mcg, ORAL, DAILY multivit,thx,calcium ,iron,mins (MULTIVITAMIN AND MINERAL ORAL) ORAL sertraline (ZOLOFT) [...] Currently Smoker 1 pk/day ages [age]. 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 FH Sister with CDH 1 mutation [...] for difficulty ur (more content not included)... [facility] Telephone ([facility]) MISHEL ASHBY ([id number]) 1980 F Date Time Provider Department 12/24/24 JALEN MCGEE [facility] During your visit today, we recorded the following information about you: Mary Arreola MA 12/24/2024 11:43 AM Signed Called and left message for patient to review retrieving records for hx of CDH1 gene. Mary Arreola MA December 24, 2024 11:43 AM Allergies As of Date: 12/24/2024 Noted Allergy Reaction MORPHINE 01/28/2023 2 - Rash NSAIDS (NON-STEROIDAL ANTI-INFLAM*02/11/20 23 16 - Unknown PENICILLINS 01/28/2023 8 - GI Upset Date Reviewed: 11/12/2024 Reviewed by: Shay Lacey, KYLE - Fully Assessed Reason for Visit: Appointment [186] Prescriptions as of 12/24/2024 - sertraline (ZOLOFT) 50 mg tablet Take 1 tablet by mouth. - multivit,thx,calcium ,iron,mins (MULTIVITAMIN AND MINERAL ORAL) Take by mouth. - cyanocobalamin (VITAMIN B-12) 100 mcg tab Take 100 mcg by mouth once daily. Problem List As Of Date: 12/24/2024 (None) Encounter Status:Closed by MARY ARREOLA on 12/24/[address] [facility] CBC W Auto Differential pane l (Bld)on 11-12-2024 Basophils (Bld) [#/Vol] 0.04 10*3/uL Normal <0.11 [facility] Comment on above: Order Comment: Speci men Type: BLOOD SPECIMEN Ordering Facility: [facility] Address: [address] [place] [address] Performed By: #### 5 7021-8 #### [facility] CLIA [id number] [address] [place] [address] [place] Basophils/100 WBC (Bld) 0.5 % Normal [facility] Comment on above: Order Comment: Speci men Type: BLOOD SPECIMEN Ordering Facility: [facility] Address: [address] [place] [address] Performed By: #### 5 7021-8 #### [facility] CLIA [id number] [address] [place] [address] [place] Differential cell count method Nom (Bld) Auto Normal [facility] Comment on above: Order Comment: Speci men Type: BLOOD SPECIMEN Ordering Facility: [facility] Address: [address] [place] [address] Performed By: #### 5 7021-8 #### [facility] CLIA [id number] [address] [place] [address] [place] Eosinophils (Bld) [#/Vol] 0.08 10*3/uL Normal <0.46 [facility] Comment on above: Order Comment: Speci men Type: BLOOD SPECIMEN Ordering Facility: [facility] Address: [address] [place] [address] Performed By: #### 5 7021-8 #### [facility] CLIA [id number] [address] [place] [address] [place] Eosinophils/100 WBC (Bld) 1.0 % Normal [facility] Comment on above: Order Comment: Speci men Type: BLOOD SPECIMEN Ordering Facility: [facility] Address: [address] [facility] [address] Performed By: #### 5 7021-8 #### [facility] CLIA [id number] [address] [place] [address] [place] Erythrocyte distribution width (RBC) [Ratio] 13.0 % Normal 11.5-15.0 [facility] Comment on above: Order Comment: Speci men Type: BLOOD SPECIMEN Ordering Facility: [facility] Address: [address] [place] [address] Performed By: #### 5 7021-8 #### [facility] CLIA [id number] [address] [place] [address] [place] Hematocrit (Bld) [Volume fraction] 47.8 % High 36.0-46.0 [facility] Comment on above: Order Comment: Speci men Type: BLOOD SPECIMEN Ordering Facility: [facility] Address: [address] [place] [address] Performed By: #### 5 7021-8 #### [facility] CLIA [id number] [address] [place] [address] [place] Hemoglobin (Bld) [Mass/Vol] 16.0 g/dL High 11.5-15.5 [facility] Comment on above: Order Comment: Speci men Type: BLOOD SPECIMEN Ordering Facility: [facility] Address: [address] [facility] [address] Performed By: #### 5 7021-8 #### [facility] CLIA [id number] [address] [place] [address] [place] Immature granulocytes (Bld) [#/Vol] 0.04 10*3/uL Normal <0.10 [facility] Comment on above: Order Comment: Speci men Type: BLOOD SPECIMEN Ordering Facility: [facility] Address: [address] [place] [address] Performed By: #### 5 7021-8 #### [facility] CLIA [id number] [address] [place] [address] [place] Immature granulocytes/100 WBC (Bld) 0.5 % Normal [facility] Comment on above: Order Comment: Speci men Type: BLOOD SPECIMEN Ordering Facility: [facility] Address: [address] [place] [address] Performed By: #### 5 7021-8 #### [facility] CLIA [id number] [address] [place] [address] [place] Lymphocytes (Bld) [#/Vol] 2.40 10*3/uL Normal 1.00-4.00 [facility] Comment on above: Order Comment: Speci men Type: BLOOD SPECIMEN Ordering Facility: [facility] Address: [address] [place] [address] Performed By: #### 5 7021-8 #### [facility] CLIA [id number] [address] [place] [address] [place] Lymphocytes/100 WBC (Bld) 30.1 % Normal [facility] Comment on above: Order Comment: Speci men Type: BLOOD SPECIMEN Ordering Facility: [facility] Address: [address] [place] [address] Performed By: #### 5 7021-8 #### [facility] CLIA [id number] [address] [place] [address] [place] MCH (RBC) [Entitic mass] 33.0 pg Normal 26.0-34.0 [facility] Comment on above: Order Comment: Speci men Type: BLOOD SPECIMEN Ordering Facility: [facility] Address: [address] [place] [address] Performed By: #### 5 7021-8 #### [facility] CLIA [id number] [address] [place] [address] [place] MCHC (RBC) [Mass/Vol] 33.5 g/dL Normal 30.5-36.0 [facility] Comment on above: Order Comment: Speci men Type: BLOOD SPECIMEN Ordering Facility: [facility] Address: [address] [place] [address] Performed By: #### 5 7021-8 #### [facility] CLIA [id number] [address] [place] [address] [place] MCV (RBC) [Entitic vol] 98.6 fL Normal 80.0-100.0 [facility] Comment on above: Order Comment: Speci men Type: BLOOD SPECIMEN Ordering Facility: [facility] Address: [address] [place] [address] Performed By: #### 5 7021-8 #### [facility] CLIA [id number] [address] [place] [address] [place] Monocytes (Bld) [#/Vol] 0.88 10*3/uL High <0.87 [facility] Comment on above: Order Comment: Speci men Type: BLOOD SPECIMEN Ordering Facility: [facility] Address: [address] [place] [address] Performed By: #### 5 7021-8 #### [facility] CLIA [id number] [address] [place] [address] [place] Monocytes/100 WBC (Bld) 11.0 % Normal [facility] Comment on above: Order Comment: Speci men Type: BLOOD SPECIMEN Ordering Facility: [facility] Address: [address] [place] [address] Performed By: #### 5 7021-8 #### [facility] CLIA [id number] [address] [place] [address] [place] Neutrophils (Bld) [#/Vol] 4.54 10*3/uL Normal 1.45-7.50 [facility] Comment on above: Order Comment: Speci men Type: BLOOD SPECIMEN Ordering Facility: [facility] Address: [address] [place] [address] Performed By: #### 5 7021-8 #### [facility] CLIA [id number] [address] [place] [address] [place] Neutrophils/100 WBC (Bld) 56.9 % Normal [facility] Comment on above: Order Comment: Speci men Type: BLOOD SPECIMEN Ordering Facility: [facility] Address: [address] [place] [address] Performed By: #### 5 7021-8 #### [facility] CLIA [id number] [address] [place] [address] [place] Nucleated RBC (Bld) [#/Vol] 10*3/uL Normal <0.01 [facility] Comment on above: Order Comment: Speci men Type: BLOOD SPECIMEN Ordering Facility: [facility] Address: [address] [place] [address] Performed By: #### 5 7021-8 #### [facility] CLIA [id number] [address] [place] [address] [place] Nucleated RBC/100 WBC (Bld) [Ratio] 0.0 /[address] [facility] [facility] Comment on above: Order Comment: Speci men Type: BLOOD SPECIMEN Ordering Facility: [facility] Address: [address] [place] [address] Performed By: #### 5 7021-8 #### [facility] CLIA [id number] [address] [place] [address] [place] Platelet mean volume (Bld) [Entitic vol] 10.4 fL Normal 9.0-12.7 [facility] [place] Comment on above: Order Comment: Speci men Type: BLOOD SPECIMEN Ordering Facility: [facility] Address: [address] [place] [address] Performed By: #### 5 7021-8 #### [facility] CLIA [id number] [address] [place] [address] [place] Platelets (Bld) [#/Vol] 245 10*3/uL Normal 150-400 [facility] Comment on above: Order Comment: Speci men Type: BLOOD SPECIMEN Ordering Facility: [facility] Address: [address] [place] [address] Performed By: #### 5 7021-8 #### [facility] CLIA [id number] [address] [place] [address] [place] RBC (Bld) [#/Vol] 4.85 10*6/uL Normal 3.90-5.20 [facility] Comment on above: Order Comment: Speci men Type: BLOOD SPECIMEN Ordering Facility: [facility] Address: [address] [place] [address] Performed By: #### 5 7021-8 #### [facility] CLIA [id number] [address] [place], [place] [address] [facility] WBC (Bld) [#/Vol] 7.98 10*3/uL Normal 3.70-11.00 [facility] Comment on above: Order Comment: Speci men Type: BLOOD SPECIMEN Ordering Facility: [facility] Address: [address] [place] [address] Performed By: #### 5 7021-8 #### [facility] CLIA [id number] [address] [place], [place] [address] [facility] CT ABD/PEL W IVCONon 025 CT ABD/PEL W IVCON * * *Final Report* * * DATE OF EXAM: Nov 12 2024 12:26PM [facility] 0530 - CT ABD/PEL W IVCON / [...] Lymph nodes: No abdominal or pelvic lymphadenopathy. Mesentery/Peritoneum : No ascites or mass. Retroperitoneum: No mass. [...] acute process within the abdomen and pelvis. Machine Packaging Technician: [facility] Transcribe Date/Time: Nov 12 2024 12:33P Dictated by : DAMIAN GARCIA MD This examination was interpreted and the report reviewed and electronically signed by: DAMIAN GARCIA MD on Nov 12 2024 12:41PM EST [id number] CN Normal [facility] Comprehensive metabolic 2000 panelon 11-12-2024 Albumin [Mass/Vol] 4.6 g/dL Normal 3.2-5.0 [facility] Comment on above: Order Comment: Speci men Type: BLOOD SPECIMEN Ordering Facility: [facility] Address: [address] [place] [address] Performed By: #### 5 7021-8 #### [facility] CLIA [id number] [address] [place] [address] [place] ALP [Catalytic activity/Vol] 82 U/L Normal 45-117 [facility] Comment on above: Order Comment: Speci men Type: BLOOD SPECIMEN Ordering Facility: [facility] Address: [facility] [place] [address] Performed By: #### 5 7021-8 #### [facility] CLIA [id number] [address] [place] [address] [place] ALT [Catalytic activity/Vol] 14 U/L Normal 13-61 [facility] Comment on above: Order Comment: Speci men Type: BLOOD SPECIMEN Ordering Facility: [facility] Address: [address] [place] [address] Result Comment: Resu lts may be falsely depressed after the administration of Sulfasalazine and/or Sulfapyridine. Performed By: #### 5 7021-8 #### [facility] CLIA [id number] [address] [place] [address] [place] Anion gap [Moles/Vol] 6 mmol/L Normal 5-16 [facility] Comment on above: Order Comment: Speci men Type: BLOOD SPECIMEN Ordering Facility: [facility] Address: [address] [place] [address] Performed By: #### 5 7021-8 #### [facility] CLIA [id number] [address] [place] [address] [place] AST [Catalytic activity/Vol] 17 U/L Normal 8-34 [facility] Comment on above: Order Comment: Speci men Type: BLOOD SPECIMEN Ordering Facility: [facility] Address: [address] [place] [address] Result Comment: Resu lts may be falsely depressed after the administration of Sulfasalazine and/or Sulfapyridine. Performed By: #### 5 7021-8 #### [facility] CLIA [id number] [address] [place] [address] [place] Bilirubin [Mass/Vol] 0.9 mg/dL Normal 0.2-1.0 [facility] [place] Comment on above: Order Comment: Speci men Type: BLOOD SPECIMEN Ordering Facility: [facility] Address: [address] [place] [address] Performed By: #### 5 7021-8 #### [facility] CLIA [id number] [address] [place] [address] [place] Calcium [Mass/Vol] 10.4 mg/dL Normal 8.5-10.5 [facility] Comment on above: Order Comment: Speci men Type: BLOOD SPECIMEN Ordering Facility: [facility] Address: [address] [place] [address] Performed By: #### 5 7021-8 #### [facility] CLIA [id number] [address] [place], [place] [address] [place] Chloride [Moles/Vol] 106 mmol/L Normal 98-107 [facility] [place] Comment on above: Order Comment: Speci men Type: BLOOD SPECIMEN Ordering Facility: [facility] Address: [address] [place] [address] Performed By: #### 5 7021-8 #### [facility] CLIA [id number] [address] [place], [place] [address] [place] CO2 [Moles/Vol] 29 mmol/L Normal 21-32 [facility] Comment on above: Order Comment: Speci men Type: BLOOD SPECIMEN Ordering Facility: [facility] Address: [address] [place] [address] Performed By: #### 5 7021-8 #### [facility] CLIA [id number] [address] [place] [address] [place] Creatinine [Mass/Vol] 0.53 mg/dL Normal 0.51-0.95 [facility] Comment on above: Order Comment: Speci men Type: BLOOD SPECIMEN Ordering Facility: [facility] Address: [address] [place] [address] Result Comment: Kathrine ents receiving either N-Acetylcysteine (NAC) or Metamizole prior to venipuncture, may have falsely depressed results. Performed By: #### 5 7021-8 #### [facility] CLIA [id number] [address] [place] [address] [place] Creatinine and Glomerular filtration rate.predicted panel (S/P/Bld) 117 mL/min/1.73m??? Normal >=60 [facility] [place] Comment on above: Order Comment: Speci men Type: BLOOD SPECIMEN Ordering Facility: [facility] Address: [address] [place] [address] Result Comment: Arianna mated Glomerular Filtration Rate [...] GFR. Performed By: #### 5 7021-8 #### [facility] CLIA [id number] [address] [place], [place] [address] [place] Glucose [Mass/Vol] 81 mg/dL Normal 70-100 [facility] Comment on above: Order Comment: Mercedes mcnair Type: BLOOD SPECIMEN Ordering Facility: [facility] Address: [address] [place] [id number] Result Comment: The [place] Diabetes Association (ADA) provides guidance for cutoff [...] Standards of Medical Care in Diabetes 2016, [place] [employer] Association. Diabetes Care. 2016.39(Suppl 1). Results may be falsely elevated after the administration of Sulfapyridine. Results may be falsely depressed after the administration of Sulfasalazine. Performed By: #### 5 7021-8 #### [facility] CLIA [id number] [address] [place], [place] [address] [place] Potassium [Moles/Vol] 4.2 mmol/L Normal 3.5-5.1 [facility] Comment on above: Order Comment: Mercedes mcnair Type: BLOOD SPECIMEN Ordering Facility: [facility] Address: [address] [place] [address] Performed By: #### 5 7021-8 #### [facility] CLIA [id number] [address] [place], [place] [address] [place] Protein [Mass/Vol] 8.0 g/dL Normal 6.0-8.5 [facility] Comment on above: Order Comment: Speci men Type: BLOOD SPECIMEN Ordering Facility: [facility] Address: [facility] [place] [id number] Performed By: #### 5 7021-8 #### [facility] CLIA [id number] [address] [place], [place] [address] [facility] [place] Sodium [Moles/Vol] 141 mmol/L Normal 136-145 [facility] Comment on above: Order Comment: Speci men Type: BLOOD SPECIMEN Ordering Facility: [facility] Address: [address] [place] [address] Performed By: #### 5 7021-8 #### [facility] CLIA [id number] [address] [place] [address] [facility] Urea nitrogen [Mass/Vol] 13 mg/dL Normal 7-26 [facility] Comment on above: Order Comment: Speci men Type: BLOOD SPECIMEN Ordering Facility: [facility] Address: [address] [place], [place] [address] Performed By: #### 5 7021-8 #### [facility] CLIA [id number] [address] [place] [address] ED NOTEon 11-12-2024 ED NOTE HNO ID: [id number] Author: ADRIANA HARPER RN Service: ? Author [...] she didn't have them with her today. [facility] ED NOTE HNO ID: [id number] Author: ADRIANA HARPER RN Service: ? Author Type: Registered Nurse Type: ED Notes Filed: 11/12/2024 15:14 Note Text: Pt c/o of left side abd pain and left flank pain. [facility] ED PROV NOTEon 11-12-2024 ED PROV NOTE HNO ID: [id number] Author: CATHIE LEBLANC DO Service: ? Author Type: Physician Type: ED [...] gastrectomy. All previous medical care was in [place], she has not reestablished with oncology or gastroenterology since moving to [place] about 4 years ago. History provided by: [...] 47.8 (*) 36.0 - 46.0 % Abs [place] 0.88 (*) <0.87 k/uL All other components [...] gastrectomy. All previous medical care was in [place], she has not reestablished with oncology or gastroenterology since moving to [place] about 4 years ago. Here in the emergency department, laboratory studies, urinalysis and imaging obtained as noted. Patient noted to have cal (more content not included)... Normal [facility] ED Triage Noteon 11-12-2024 ED Triage Note HNO ID: [id number] Author: IVÁN BORJAS PA-C Service: ? Author Type: Physician Systems Software Manager Type: ED Triage Notes Filed: 11/12/2024 09:44 [...] (radiology procedure) SIGNATURE: Iván Borjas PA-C Normal [facility] Lipase SerPl-cCncon 11-12-19 25 Lipase [Catalytic activity/Vol] 38 U/L Normal 12-60 [facility] Comment on above: Order Comment: Mercedes mcnair Type: BLOOD SPECIMEN Ordering Facility: [facility] Address: [address] [place] [address] Performed By: #### 5 7021-8 #### [facility] CLIA [id number] [address] [place] [address] [place] Magnesium SerPl-mCncon 11-12 Magnesium [Mass/Vol] 2.2 mg/dL Normal 1.6-2.6 [facility] Comment on above: Order Comment: Mercedes mcnair Type: BLOOD SPECIMEN Ordering Facility: [facility] Address: [address] [place] [address] Performed By: #### 5 7021-8 #### [facility] CLIA [id number] [address] [place] [address] [place] Urinalysis complete panel (U )on 11-12-2024 Bacteria LM.HPF (Urine sed) [#/Area] Rare Abnormal None Seen [facility] Comment on above: Order Comment: Speci men Type: BLOOD SPECIMEN Ordering Facility: [facility] Address: [address] [place] [address] Performed By: #### 5 7021-8 #### [facility] CLIA [id number] [address] [place] [address] [place] Bilirubin Ql (U) Negative Normal Negative [facility] Comment on above: Order Comment: Speci men Type: BLOOD SPECIMEN Ordering Facility: [facility] Address: [address] [place] [address] Performed By: #### 5 7021-8 #### [facility] CLIA [id number] [address] [place] [address] [place] Clarity (Unsp spec) Clear Normal Clear [facility] Comment on above: Order Comment: Speci men Type: BLOOD SPECIMEN Ordering Facility: [facility] Address: [address] [place] [address] Performed By: #### 5 7021-8 #### [facility] CLIA [id number] [address] [place] [address] [place] Color (U) Yellow Normal Yellow [facility] Comment on above: Order Comment: Speci men Type: BLOOD SPECIMEN Ordering Facility: [facility] Address: [address] [place] [address] Performed By: #### 5 7021-8 #### [facility] CLIA [id number] [address] [place] [address] [place] Epithelial cells LM.HPF (Urine sed) [#/Area] Few Normal [facility] Comment on above: Order Comment: Speci men Type: BLOOD SPECIMEN Ordering Facility: [facility] Address: [address] [place] [id number] Performed By: #### 5 7021-8 #### [facility] CLIA [id number] [address] [place], [place] [address] [facility] Glucose Test strip (U) [Mass/Vol] Negative Normal Negative [facility] Comment on above: Order Comment: Speci men Type: BLOOD SPECIMEN Ordering Facility: [facility] Address: [address] [place] [address] Performed By: #### 5 7021-8 #### [facility] CLIA [id number] [address] [place], [place] [address] [place] Hemoglobin Ql (U) 1+ Abnormal Negative [facility] Comment on above: Order Comment: Speci men Type: BLOOD SPECIMEN Ordering Facility: [facility] Address: [address] [place] [address] Performed By: #### 5 7021-8 #### [facility] CLIA [id number] [address] [place] [address] [place] Ketones Ql (U) Negative Normal Negative [facility] Comment on above: Order Comment: Speci men Type: BLOOD SPECIMEN Ordering Facility: [facility] Address: [address] [place] [address] Performed By: #### 5 7021-8 #### [facility] CLIA [id number] [address] [place] [address] [place] Leukocyte esterase Test strip Ql (U) Negative Normal Negative [facility] Comment on above: Order Comment: Speci men Type: BLOOD SPECIMEN Ordering Facility: [facility] Address: [address] [place] [address] Performed By: #### 5 7021-8 #### [facility] CLIA [id number] [address] [place], [place] [address] [place] Nitrite Ql (U) Negative Normal Negative [facility] Comment on above: Order Comment: Speci men Type: BLOOD SPECIMEN Ordering Facility: [facility] Address: [address] [place], [place] [address] Performed By: #### 5 7021-8 #### [facility] CLIA [id number] [address] [place] [address] [place] pH (U) 8.0 [pH] Normal 5.0-8.0 [facility] Comment on above: Order Comment: Speci men Type: BLOOD SPECIMEN Ordering Facility: [facility] Address: [address] [place] [address] Performed By: #### 5 7021-8 #### [facility] CLIA [id number] [address] [place] [address] [place] Protein (U) [Mass/Vol] Negative Normal Negative [facility] Comment on above: Order Comment: Speci men Type: BLOOD SPECIMEN Ordering Facility: [facility] Address: [address] [place] [address] Performed By: #### 5 7021-8 #### [facility] CLIA [id number] [address] [place] [address] [place] RBC LM.HPF (Urine sed) [#/Area] 6-10 /HPF Abnormal 0-3 /HPF [facility] Comment on above: Order Comment: Speci men Type: BLOOD SPECIMEN Ordering Facility: [facility] Address: [address] [place] [address] Performed By: #### 5 7021-8 #### [facility] CLIA [id number] [address] [place] [address] [place] Specific gravity (U) [Rel density] 1.009 Normal 1.005-1.030 [facility] Comment on above: Order Comment: Speci men Type: BLOOD SPECIMEN Ordering Facility: [facility] Address: [address] [place] [address] Performed By: #### 5 7021-8 #### [facility] CLIA [id number] [address] [place] [address] [place] Urobilinogen Ql (U) Negative Normal Negative [facility] Comment on above: Order Comment: Speci men Type: BLOOD SPECIMEN Ordering Facility: [facility] Address: [address] [place] [address] Performed By: #### 5 7021-8 #### [facility] CLIA [id number] [address] [place], [place] [address] [facility] WBC LM.HPF (Urine sed) [#/Area] 0-5 /HPF Normal 0-5 /HPF [facility] Comment on above: Order Comment: Speci men Type: BLOOD SPECIMEN Ordering Facility: [facility] Address: [address] [place] [address] Performed By: #### 5 7021-8 #### [facility] CLIA [id number] [address] [place], [place] [address] [facility] ANDREAS SCREENINGon 10-25-2024 ANDREAS SCREENING * * *Final Report* * * DATE OF EXAM: Oct 25 2024 10:29AM W 0581 - [facility] SCREENING / PROCEDURE REASON: [id number] BILAT SCREEN MAMMO W/CAD Z12.31 * * * * Physician Interpretation * * * * [address] [place] [address] #[phone] - [facility] SCREENING HISTORY: Patient is 44 years [...] Jackson Neal M.D. Electronically signed on: 10/25/2024 Machine Packaging Technician: FAHAD Transcridayami Date/Time: Oct 25 2024 9:58A Dictated by : JACKSON NEAL MD This examination was interpreted and the report reviewed and electronically signed by: JACKSON NEAL MD on Oct 25 2024 1:06PM [facility] [id number] [facility] Breast Screeningon 2023 IMPRESSION: There is no [...] Jackson Neal M.D. Electronically signed on: 10/25/2024 Machine Packaging Technician: FAHAD Transcribe Date/Time: Oct 25 2024 9:58A Dictated by : JACKSON NEAL MD This examination was interpreted and the report reviewed and electronically signed by: JACKSON NEAL MD on Oct 25 2024 1:06PM [facility] * * *Final Report* * * DATE OF EXAM: Oct 25 2024 10:29AM [facility] 0581 - [facility] SCREENING / PROCEDURE REASON: [id number] BILAT SCREEN MAMMO W/CAD Z12.31 * * * * Physician Interpretation * * * * [address] [place] [address] #[phone] - [facility] SCREENING HISTORY: Patient is 44 years [...] breast. There are no significant interval changes. [facility] Provider, [facility] [place] - 10/25/2024 * * *Final Report* * * DATE OF EXAM: Oct 25 2024 10:29AM [facility] 0581 - [place] SCREENING / PROCEDURE REASON: [id number] BILAT SCREEN MAMMO W/CAD Z12.31 * * * * Physician Interpretation * * * * [facility] [address] [place] [address] #[id number] - [facility] SCREENING HISTORY: Patient is 44 years [...] Jackson Neal M.D. Electronically signed on: 10/25/2024 Machine Packaging Technician: FAHAD Transcribe Date/Time: Oct 25 2024 9:58A Dictated by : JACKSON NEAL MD This examination was interpreted and the report reviewed and electronically signed by: JACKSON NEAL MD on Oct 25 2024 1:06PM [facility] Radiology Study observation (narrative) [facility] Breast ScreeningOrdered B y: [facility] Provider on 10-25-2024 [facility] CNOVon 10-15-2024 CNOV Office Visit ([facility]) ISMA,MISHEL Aiken ([id number]) 1980 F Date Time Provider Department 10/15/24 10:00 AM TYRELL ABEBE [facility] During your visit today, we recorded the following information about you: Temperature Pulse Respiration Blood pressure 97.7 degrees 60/minute 14/minute 102/70 Weight 54.4 kg Tyrell Abebe MD 10/15/2024 10:26 AM Signed Mishel Smithll is a 44 year old female who [...] mg tablet Take 1 tablet by mouth. multivit,thx,calcium ,iron,mins (MULTIVITAMIN AND MINERAL ORAL) Take by mouth. cyanocobalamin (VITAMIN B-12) 100 mcg tab Take 100 mcg by mouth once daily. sertraline (ZOLOFT) 100 mg tablet Take 100 mg by mouth once daily. No current facility-administere d medications for this visit. Social History Tobacco Use Smoking status: Every Day Current packs/day: 1.00 Types: Cigarettes Smokeless tobacco: Never Vaping Use Vaping status: Never Used Substance Use Topics Alcohol use: Yes Comment: [facility] Drug use: Not Currently Alcohol Use: [...] MORPHINE 01/28/2023 2 - Rash NSAIDS (NON-STEROIDAL ANTI-INFLAM*02/11/20 23 16 - Unknown PENICILLINS 01/28/2023 8 - GI Upset Date Reviewed: 10/15/2024 Reviewed by: Tyrell Abebe MD - Fully Assessed Reason for Visit: Fall [218] Cmt: Pt reports that she fell with her yeti come on her rib side on Tuesday. Having left side rib pain. Primary Visit Diagnosis:Muscle strain of chest wall, initial encounter [S29.011A] Order(s):XR RIBS/CHEST 3V AP RIB/OBLS/CXR LEFT [[id number]] Order #: [id number] FUTURE Prescriptions as of 10/15/2024 - sertraline (Z (more content not included)... [facility] XR RIB/CHST 3V AP RIB/OBL/CH ST [...] is no pneumothorax. IMPRESSION: No acute fractures. Machine Packaging Technician: PSCB Transcribe Date/Time: Oct 17 2024 8:16A Dictated by : NAM MCCURDY MD This examination was interpreted and the report reviewed and electronically signed by: NAM MCCURDY MD on Oct 17 2024 8:17AM EST [id number] [facility] 10-10-2024 [facility] Telephone ([facility] MISHEL ASHBY ([id number]) 1980 F Date Time Provider Department 10/10/24 [facility] During your visit today, we recorded the following information about you: Theresa Sanchez 10/10/2024 4:02 PM Signed Left message for patient. Spoke with our director an we do not see Vitamin B deficiency. Patient should see and Charging Manipulator. Theresa Sanchez Allergies As of Date: 10/10/2024 Noted Allergy Reaction MORPHINE 01/28/2023 2 - Rash NSAIDS (NON-STEROIDAL ANTI-INFLAM*02/11/20 23 16 - Unknown PENICILLINS 01/28/2023 8 - GI Upset Date Reviewed: 09/24/2024 Reviewed by: Cindy Ramirez, KYLE - Fully Assessed Reason for Visit: Appointment [186] Prescriptions as of 10/10/2024 - sertraline (ZOLOFT) 50 mg tablet Take 1 tablet by mouth. - sertraline (ZOLOFT) 100 mg tablet Take 100 mg by mouth once daily. - multivit,thx,calcium ,iron,mins (MULTIVITAMIN AND MINERAL ORAL) Take by mouth. - cyanocobalamin (VITAMIN B-12) 100 mcg tab Take 100 mcg by mouth once daily. Problem List As Of Date: 10/10/2024 (None) Encounter Status:Closed by THERESA SANCHEZ on 10/10/24 [facility] Bacteria Ur Culton Bacteria identified Cx Nom (U) CULTURE, URINE: No growth (<1,000 CFU/ml) [facility] Comment on above: Performed By: #### 6 30-4 ####[facility]IA [id number] [place] [address] [place] CBC W Auto Differential pane l (Bld)on 09-24-2024 Basophils (Bld) [#/Vol] 0.04 10*3/uL Normal <0.11 [facility] Comment on above: Order Comment: Speci men Type: BLOOD SPECIMEN Ordering Facility: [facility] Address: [address] [place] [address] Performed By: #### 5 7021-8 #### [facility] CLIA [id number] [address] [place] [address] [place] Basophils/100 WBC (Bld) 0.4 % Normal [facility] Comment on above: Order Comment: Speci men Type: BLOOD SPECIMEN Ordering Facility: [facility] Address: [address] [place] [address] Performed By: #### 5 7021-8 #### [facility] CLIA [id number] [address] [place] [address] [place] Differential cell count method Nom (Bld) Auto [facility] Comment on above: Order Comment: Speci men Type: BLOOD SPECIMEN Ordering Facility: [facility] Address: [address] [place] [address] Performed By: #### 5 7021-8 #### [facility] CLIA [id number] [address] [place] [address] [place] Eosinophils (Bld) [#/Vol] 0.06 10*3/uL Normal <0.46 [facility] Comment on above: Order Comment: Speci men Type: BLOOD SPECIMEN Ordering Facility: [facility] Address: [address] [place] [address] Performed By: #### 5 7021-8 #### [facility] CLIA [id number] [address] [place] [address] [place] Eosinophils/100 WBC (Bld) 0.7 % Normal [facility] Comment on above: Order Comment: Speci men Type: BLOOD SPECIMEN Ordering Facility: [facility] Address: [address] [place] [address] Performed By: #### 5 7021-8 #### [facility] CLIA [id number] [address] [place] [address] [place] Erythrocyte distribution width (RBC) [Ratio] 13.0 % Normal 11.5-15.0 [facility] Comment on above: Order Comment: Speci men Type: BLOOD SPECIMEN Ordering Facility: [facility] Address: [address] [place] [address] Performed By: #### 5 7021-8 #### [facility] CLIA [id number] [address] [place] [address] [place] Hematocrit (Bld) [Volume fraction] 48.3 % High 36.0-46.0 [facility] Comment on above: Order Comment: Speci men Type: BLOOD SPECIMEN Ordering Facility: [facility] Address: [address] [place] [address] Performed By: #### 5 7021-8 #### [facility] CLIA [id number] [address] [place] [address] [place] Hemoglobin (Bld) [Mass/Vol] 16.4 g/dL High 11.5-15.5 [facility] Comment on above: Order Comment: Speci men Type: BLOOD SPECIMEN Ordering Facility: [facility] Address: [address] [place] [address] Performed By: #### 5 7021-8 #### [facility] CLIA [id number] [address] [place] [address] [place] Immature granulocytes (Bld) [#/Vol] 0.03 10*3/uL Normal <0.10 [facility] Comment on above: Order Comment: Speci men Type: BLOOD SPECIMEN Ordering Facility: [facility] Address: [address] [place] [address] Performed By: #### 5 7021-8 #### [facility] CLIA [id number] [address] [place] [address] [place] Immature granulocytes/100 WBC (Bld) 0.3 % Normal [facility] Comment on above: Order Comment: Speci men Type: BLOOD SPECIMEN Ordering Facility: [facility] Address: [address] [place] [address] Performed By: #### 5 7021-8 #### [facility] CLIA [id number] [address] [place] [address] [place] Lymphocytes (Bld) [#/Vol] 2.69 10*3/uL Normal 1.00-4.00 [facility] Comment on above: Order Comment: Speci men Type: BLOOD SPECIMEN Ordering Facility: [facility] Address: [address] [place] [address] Performed By: #### 5 7021-8 #### [facility] CLIA [id number] [address] [place] [address] [place] Lymphocytes/100 WBC (Bld) 29.6 % Normal [facility] Comment on above: Order Comment: Speci men Type: BLOOD SPECIMEN Ordering Facility: [facility] Address: [address] [place] [address] Performed By: #### 5 7021-8 #### [facility] CLIA [id number] [address] [place] [address] [place] MCH (RBC) [Entitic mass] 33.4 pg Normal 26.0-34.0 [facility] Comment on above: Order Comment: Speci men Type: BLOOD SPECIMEN Ordering Facility: [facility] Address: [address] [place] [address] Performed By: #### 5 7021-8 #### [facility] CLIA [id number] [address] [place] [address] [place] MCHC (RBC) [Mass/Vol] 34.0 g/dL Normal 30.5-36.0 [facility] Comment on above: Order Comment: Speci men Type: BLOOD SPECIMEN Ordering Facility: [facility] Address: [address] [place] [address] Performed By: #### 5 7021-8 #### [facility] CLIA [id number] [address] [place] [address] [place] MCV (RBC) [Entitic vol] 98.4 fL Normal 80.0-100.0 [facility] Comment on above: Order Comment: Speci men Type: BLOOD SPECIMEN Ordering Facility: [facility] Address: [address] [place] [address] Performed By: #### 5 7021-8 #### [facility] CLIA [id number] [address] [place] [address] [place] Monocytes (Bld) [#/Vol] 0.81 10*3/uL Normal <0.87 [facility] Comment on above: Order Comment: Speci men Type: BLOOD SPECIMEN Ordering Facility: [facility] Address: [address] [place] [address] Performed By: #### 5 7021-8 #### [facility] CLIA [id number] [address] [place] [address] [place] Monocytes/100 WBC (Bld) 8.9 % Normal [facility] Comment on above: Order Comment: Speci men Type: BLOOD SPECIMEN Ordering Facility: [facility] Address: [address] [place] [address] Performed By: #### 5 7021-8 #### [facility] CLIA [id number] [address] [place] [address] [place] Neutrophils (Bld) [#/Vol] 5.46 10*3/uL Normal 1.45-7.50 [facility] Comment on above: Order Comment: Speci men Type: BLOOD SPECIMEN Ordering Facility: [facility] Address: [address] [place] [address] Performed By: #### 5 7021-8 #### [facility] CLIA [id number] [address] [place], [place] [address] [place] Neutrophils/100 WBC (Bld) 60.1 % Normal [facility] Comment on above: Order Comment: Speci men Type: BLOOD SPECIMEN Ordering Facility: [facility] Address: [address] [place] [address] Performed By: #### 5 7021-8 #### [facility] CLIA [id number] [address] [place] [address] [place] Nucleated RBC (Bld) [#/Vol] 10*3/uL Normal <0.01 [facility] Comment on above: Order Comment: Speci men Type: BLOOD SPECIMEN Ordering Facility: [facility] Address: [address] [place] [address] Performed By: #### 5 7021-8 #### [facility] CLIA [id number] [address] [place] [address] [place] Nucleated RBC/100 WBC (Bld) [Ratio] 0.0 /[address] [facility] Comment on above: Order Comment: Speci men Type: BLOOD SPECIMEN Ordering Facility: [facility] Address: [address] [place] [address] Performed By: #### 5 7021-8 #### [facility] CLIA [id number] [address] [place], [place] [address] [place] Platelet mean volume (Bld) [Entitic vol] 10.5 fL Normal 9.0-12.7 [facility] Comment on above: Order Comment: Speci men Type: BLOOD SPECIMEN Ordering Facility: [facility] Address: [address] [place] [address] Performed By: #### 5 7021-8 #### [facility] CLIA [id number] [address] [place], [place] [address] [place] Platelets (Bld) [#/Vol] 265 10*3/uL Normal 150-400 [facility] Comment on above: Order Comment: Speci men Type: BLOOD SPECIMEN Ordering Facility: [facility] Address: [address] [place] [address] Performed By: #### 5 7021-8 #### [facility] CLIA [id number] [address] [place] [address] [place] RBC (Bld) [#/Vol] 4.91 10*6/uL Normal 3.90-5.20 [facility] Comment on above: Order Comment: Speci men Type: BLOOD SPECIMEN Ordering Facility: [facility] Address: [address] [place] [address] Performed By: #### 5 7021-8 #### [facility] CLIA [id number] [address] [place] [address] WBC (Bld) [#/Vol] 9.09 10*3/uL Normal 3.70-11.00 [facility] Comment on above: Order Comment: Speci men Type: BLOOD SPECIMEN Ordering Facility: [facility] Address: [address] [place] [address] Performed By: #### 5 7021-8 #### [facility] CLIA [id number] [address] [place] [address] [place] CK SerPl-cCncon 09-24-2024 CK [Catalytic activity/Vol] 36 U/L Normal 28-152 [facility] Comment on above: Order Comment: Speci men Type: BLOOD SPECIMEN Ordering Facility: [facility] Address: [address] [place] [address] Performed By: #### 2 157-6, 95146-1, 3040-3 #### [facility] CLIA [id number] [address] [place] [address] OF [facility] Comprehensive metabolic 2000 panelon 09-24-2024 Albumin [Mass/Vol] 3.6 g/dL Normal 3.2-5.0 [facility] Comment on above: Order Comment: Speci men Type: BLOOD SPECIMEN Ordering Facility: [facility] Address: [address] [place] [address] Performed By: #### 2 157-6, 58815-0, 3040-3 #### [facility] CLIA [id number] [address] [place], [place] [address] [place] ALP [Catalytic activity/Vol] 62 U/L Normal 45-117 [facility] Comment on above: Order Comment: Speci men Type: BLOOD SPECIMEN Ordering Facility: [facility] Address: [address] [place] [address] Performed By: #### 2 157-6, 17590-8, 3040-3 #### [facility] CLIA [id number] [address] [place], [place] [address] [place] ALT [Catalytic activity/Vol] 7 U/L Low 13-61 [facility] Comment on above: Order Comment: Speci men Type: BLOOD SPECIMEN Ordering Facility: [facility] Address: [address] [place] [address] Result Comment: Resu lts may be falsely depressed after the administration of Sulfasalazine and/or Sulfapyridine. Performed By: #### 2 157-6, 74045-9, 0-3 #### [facility] CLIA [id number] [address] [place], [place] [address] [place] Anion gap [Moles/Vol] 6 mmol/L Normal 5-16 [facility] Comment on above: Order Comment: Speci men Type: BLOOD SPECIMEN Ordering Facility: [facility] Address: [address] [place] [address] Performed By: #### 2 157-6, 92757-4, 3040-3 #### [facility] CLIA [id number] [address] [place], [place] [address] [place] AST [Catalytic activity/Vol] 13 U/L Normal 8-34 [facility] Comment on above: Order Comment: Speci men Type: BLOOD SPECIMEN Ordering Facility: [facility] Address: [address] [place] [address] Result Comment: Resu lts may be falsely depressed after the administration of Sulfasalazine and/or Sulfapyridine. Performed By: #### 2 157-6, 08930-4, 0-3 #### [facility] CLIA [id number] [address] [place], [place] [address] [place] Bilirubin [Mass/Vol] 0.6 mg/dL Normal 0.2-1.0 [facility] Comment on above: Order Comment: Speci men Type: BLOOD SPECIMEN Ordering Facility: [facility] Address: [address] [place] [address] Performed By: #### 2 157-6, 19655-7, 3039-3 #### [facility] CLIA [id number] [address] [place] [address] [place] Calcium [Mass/Vol] 9.3 mg/dL Normal 8.5-10.5 [facility] Comment on above: Order Comment: Speci men Type: BLOOD SPECIMEN Ordering Facility: [facility] Address: [address] [place] [address] Performed By: #### 2 157-6, 47942-6, 3039-3 #### [facility] CLIA [id number] [address] [place] [address] [place] Chloride [Moles/Vol] 112 mmol/L High 98-107 [facility] Comment on above: Order Comment: Speci men Type: BLOOD SPECIMEN Ordering Facility: [facility] Address: [address] [place] [address] Performed By: #### 2 157-6, 00084-8, 3039-3 #### [facility] CLIA [id number] [address] [place], [place] [address] [place] CO2 [Moles/Vol] 24 mmol/L Normal 21-32 [facility] Comment on above: Order Comment: Speci men Type: BLOOD SPECIMEN Ordering Facility: [facility] Address: [address] [place] [address] Performed By: #### 2 157-6, 55895-3, 3039-3 #### [facility] CLIA [id number] [address] [place] [address] [place] Creatinine [Mass/Vol] 0.54 mg/dL Normal 0.51-0.95 [facility] Comment on above: Order Comment: Mercedes mcnair Type: BLOOD SPECIMEN Ordering Facility: [facility] Address: [address] [place] [address] Result Comment: Kathrine ents receiving either N-Acetylcysteine (NAC) or Metamizole prior to venipuncture, may have falsely depressed results. Performed By: #### 2 157-6, 23504-6, 3040-3 #### [facility] CLIA [id number] [address] [place] [address] [place] [facility] [place] Creatinine and Glomerular filtration rate.predicted panel (S/P/Bld) 117 mL/min/1.73m??? Normal >=60 [facility] Comment on above: Order Comment: Mercedes mcnair Type: BLOOD SPECIMEN Ordering Facility: [facility] Address: [address] [place] [address] Result Comment: Arianna mated Glomerular Filtration Rate [...] actual GFR. Performed By: #### 2 157-6, 84928-4, 0-3 #### [facility] CLIA [id number] [address] [place], [place] [address] [place] Glucose [Mass/Vol] 79 mg/dL Normal 70-100 [facility] Comment on above: Order Comment: Mercedes mcnair Type: BLOOD SPECIMEN Ordering Facility: [facility] Address: [address] [place] [address] Result Comment: The [place] [employer] (ADA) provides guidance for cutoff [...] Standards of Medical Care in Diabetes 2016, [place] [employer]. Diabetes Care. 2016.39(Suppl 1). Results may be falsely elevated after the administration of Sulfapyridine. Results may be falsely depressed after the administration of Sulfasalazine. Performed By: #### 2 157-6, 77115-6, 3040-3 #### [facility] CLIA [id number] [address] [place] [address] [place] Potassium [Moles/Vol] 4.2 mmol/L Normal 3.5-5.1 [facility] Comment on above: Order Comment: Mercedes mcnair Type: BLOOD SPECIMEN Ordering Facility: [facility] Address: [address] [place] [address] Performed By: #### 2 157-6, 35869-8, 0-3 #### [facility] CLIA [id number] [address] [place] [address] [place] Protein [Mass/Vol] 6.5 g/dL Normal 6.0-8.5 [facility] Comment on above: Order Comment: Mercedes mcnair Type: BLOOD SPECIMEN Ordering Facility: [facility] Address: [address] [place] [address] Performed By: #### 2 157-6, 38398-5, 0-3 #### [facility] CLIA [id number] [address] [place], [place] [address] [place] Sodium [Moles/Vol] 142 mmol/L Normal 136-145 [facility] Comment on above: Order Comment: Mercedes mcnair Type: BLOOD SPECIMEN Ordering Facility: [facility] Address: [address] [place] [address] Performed By: #### 2 157-6, 37500-5, 3040-3 #### [facility] CLIA [id number] [address] [place] [address] [place] Urea nitrogen [Mass/Vol] 13 mg/dL Normal 7-26 [facility] Comment on above: Order Comment: Speci men Type: BLOOD SPECIMEN Ordering Facility: [facility] Address: [address] [place] [address] Performed By: #### 2 157-6, 54854-1, 3040-3 #### [facility] CLIA [id number] [address] [place] [address] [place] Albumin [Mass/Vol] 4.5 g/dL Normal 3.2-5.0 [facility] Comment on above: Order Comment: Speci men Type: BLOOD SPECIMEN Ordering Facility: [facility] Address: [address] [place] [address] Performed By: #### 2 4323-8, 3040-3, 22563-4 #### [facility] CLIA [id number] [address] [place] [address] [place] ALP [Catalytic activity/Vol] 63 U/L Normal 45-117 [facility] Comment on above: Order Comment: Speci men Type: BLOOD SPECIMEN Ordering Facility: [facility] Address: [address] [place] [address] Performed By: #### 2 4323-8, 3040-3, 25405-2 #### [facility] CLIA [id number] [address] [place] [address] [place] ALT [Catalytic activity/Vol] Normal [facility] Comment on above: Order Comment: Speci men Type: BLOOD SPECIMEN Ordering Facility: [facility] Address: [address] [place] [address] Result Comment: Unab le to assay due to interference from hemolysis. Suggest reorder as clinically indicated. Performed By: #### 2 4323-8, 3040-3, 06890-2 #### [facility] CLIA [id number] [address] [place], [place] [address] [place] Anion gap [Moles/Vol] 6 mmol/L Normal 5-16 [facility] Comment on above: Order Comment: Speci men Type: BLOOD SPECIMEN Ordering Facility: [facility] Address: [address] [facility] [address] Performed By: #### 2 4323-8, 3039-3, #### [facility] CLIA [id number] [address] [place] [address] [place] AST [Catalytic activity/Vol] Normal [facility] Comment on above: Order Comment: Speci men Type: BLOOD SPECIMEN Ordering Facility: [facility] Address: [address] [place] [address] [place] [address] Result Comment: Unab le to assay due to interference from hemolysis. Suggest reorder as clinically indicated. Performed By: #### 2 4323-8, 3039-3, #### [facility] CLIA [id number] [address] [place], [place] [address] [place] Bilirubin [Mass/Vol] 0.6 mg/dL Normal 0.2-1.0 [facility] Comment on above: Order Comment: Speci men Type: BLOOD SPECIMEN Ordering Facility: [facility] Address: [address] [place] [address] Performed By: #### 2 4323-8, 3, #### [facility] CLIA [id number] [address] [place] [address] [place] Calcium [Mass/Vol] 10.1 mg/dL Normal 8.5-10.5 [facility] Comment on above: Order Comment: Speci men Type: BLOOD SPECIMEN Ordering Facility: [facility] Address: [address] [place], [place] [address] Performed By: #### 2 4323-8, 3, #### [facility] CLIA [id number] [address] [place] [address] [place] Chloride [Moles/Vol] 106 mmol/L Normal 98-107 [facility] Comment on above: Order Comment: Speci men Type: BLOOD SPECIMEN Ordering Facility: [facility] Address: [address] [place] [id number] Performed By: #### 2 4323-8, 3040-3, #### [facility] CLIA [id number] [address] [place], [place] [address] [place] CO2 [Moles/Vol] 25 mmol/L Normal 21-32 [facility] Comment on above: Order Comment: Speci men Type: BLOOD SPECIMEN Ordering Facility: [facility] Address: [address] [place] [address] Performed By: #### 2 4323-8, 3040-3, #### [facility] CLIA [id number] [address] [place] [address] [place] Creatinine [Mass/Vol] Normal [facility] Comment on above: Order Comment: Speci men Type: BLOOD SPECIMEN Ordering Facility: [facility] Address: [address] [place] [address] Result Comment: Unab le to assay due to interference from hemolysis. Suggest reorder as clinically indicated. Performed By: #### 2 4323-8, 0-3, #### [facility] CLIA [id number] [address] [place], [place] [address] [place] Creatinine and Glomerular filtration rate.predicted panel (S/P/Bld) Normal [facility] Comment on above: Order Comment: Speci men Type: BLOOD SPECIMEN Ordering Facility: [facility] Address: [address] [place] [address] Result Comment: Arianna mated Glomerular Filtration Rate [...] actual GFR. Performed By: #### 2 4323-8, 3040-3, #### [facility] CLIA [id number] [address] [place] [id number] [place] Glucose [Mass/Vol] 96 mg/dL Normal 70-100 [facility] Comment on above: Order Comment: Mercedes mcnair Type: BLOOD SPECIMEN Ordering Facility: [facility] Address: [address] [place] [address] Result Comment: The [place] [employer] (ADA) provides guidance for cutoff [...] Standards of Medical Care in Diabetes 2016, [place] [employer]. Diabetes Care. 2016.39(Suppl 1). Results may be falsely elevated after the administration of Sulfapyridine. Results may be falsely depressed after the administration of Sulfasalazine. Performed By: #### 2 4323-8, 3040-3, #### [facility] CLIA [id number] [address] [place], [place] [id number] [place] Potassium [Moles/Vol] Normal [facility] Comment on above: Order Comment: Mercedes mcnair Type: BLOOD SPECIMEN Ordering Facility: [facility] Address: [address] [place] [address] Result Comment: CRIT ICAL&XA&Unable to assay due to interference from hemolysis. Suggest reorder as clinically indicated. notified chris Performed By: #### 2 4323-8, 3040-3, #### [facility] CLIA [id number] [address] [place] [address] [place] Protein [Mass/Vol] 7.9 g/dL Normal 6.0-8.5 [facility] Comment on above: Order Comment: Mercedes mcnair Type: BLOOD SPECIMEN Ordering Facility: [facility] Address: [address] [place] [address] Performed By: #### 2 4323-8, 3040-3, 50333-1 #### [facility] CLIA [id number] [address] [place] [id number] [place] Sodium [Moles/Vol] 137 mmol/L Normal 136-145 [facility] Comment on above: Order Comment: Speci men Type: BLOOD SPECIMEN Ordering Facility: [facility] Address: [address] [place] [address] Performed By: #### 2 4323-8, 3040-3, #### [facility] CLIA [id number] [address] [place] [id number] [place] Urea nitrogen [Mass/Vol] Normal [facility] Comment on above: Order Comment: Speci men Type: BLOOD SPECIMEN Ordering Facility: [facility] Address: [address] [place] [address] Result Comment: Unab le to assay due to interference from hemolysis. Suggest reorder as clinically indicated. Performed By: #### 2 4323-8, 3040-3, #### [facility] CLIA [id number] [address] [place], [place] [id number] [place] ECG COMPLETEon 09-24-2024 ECG COMPLETE Ventricular Rate : 76 BPM Atrial Rate : 76 BPM P-R Interval : 130 ms QRS Duration : 66 ms Q-T Interval : 358 ms QTC Calculation(Bazett) : 402 ms Calculated P Turlock : 7 degrees Calculated R Turlock : 63 degrees Calculated T Turlock : 53 degrees Normal sinus rhythm Septal infarct (cited on or before 02-Dec-2023) Abnormal ECG When compared with ECG of 02-Dec-2023 16:01, No significant change was found Confirmed by ANDRES MEJIA, [facility] ([id number]) on 09/24/2024 2:56:09 PM NAME : MISHEL ASHBY PID : [id number] : 1980 Gender : Female Race : ORD : [id number] Procedure Date : Sep 24 2024 12:00:54 Edit Date : Sep 24 2024 14:56:14 Diagnosis: Normal sinus rhythm Septal infarct (cited on or before 02-Dec-2023) Abnormal ECG When compared with ECG of 02-Dec-2023 16:01, No significant change was found Confirmed by BRIAN CAMPOS MD ([id number]) on 09/24/2024 2:56:09 PM Test Reason : STAT Location : 0 : ED EDFTD Overread By : BRIAN CAMPOS MD Edited By : BRIAN CAMPOS MD Referred By : , Acquired by : [id number], [facility] ED NOTEon 09-24-2024 ED NOTE HNO ID: [id number] Author: NIK MARTINES RN Service: ? Author Type: Registered Nurse Type: ED Notes Filed: 09/24/2024 13:52 Note Text: Bed: 31-ED Expected date: Expected time: Means of arrival: Comments: [facility] ED NOTE HNO ID: [id number] Author: CINDY RAMIREZ RN Service: ? Author Type: Registered Nurse Type: ED Notes Filed: 09/24/2024 11:04 Note Text: Pt is c/o increased thirst and body aches since taking vit d on Tuesday. Pt states she feels dehydrated. Pt states she doesn't have a stomach and just started the medicine on Tuesday. [facility] ED PROV NOTEon 09-24-2024 ED PROV NOTE HNO ID: [id number] Author: RADHIKA GUERIN PA-C Service: ? Author Type: Physician Systems Software Manager Type: ED Provider Notes Filed: 09/24/2024 15:39 [...] this was done 6 years ago in [place]. She does not follow anyone for this now. No current chemo or radiation. No fever or chills. No nausea or vomiting. The next day she began to have some bodyaches. No fever or chills. No cough. No urinary symptoms. No abdominal pain. No chest pain or shortness of breath. No lightheadedness or dizziness. No syncope. She states that she just feels "dry". No other complaints. No other pertinent HPI [...] 09/24/24 1534 Myalgias COVID-19 test performed per [facility] [place] policy for suspected COVID community exposure. Medications [...] a therapeu (more content not included)... Normal [facility] ED Triage Noteon 09-24-2024 ED Triage Note HNO ID: [id number] Author: PREM PAYAN PA-C Service: Emergency Medicine Author Type: Physician Systems Software Manager Type: ED Triage Notes Filed: 09/24/2024 12:01 [...] bolus EKG SIGNATURE: Prem Payan PA-C Normal [facility] Lipase SerPl-cCncon 09-24-20 24 Lipase [Catalytic activity/Vol] 36 U/L Normal 12-60 [facility] Comment on above: Order Comment: Speci [facility] Type: BLOOD SPECIMENOrdering Facility: [facility] Address: [address] [place] [address] Performed By: #### 2 157-6, 76153-7, 3039-3 ####[facility] [id number] [place] [address] [place] Lipase [Catalytic activity/Vol] Normal [facility] Comment on above: Order Comment: Mercedes mcnair Type: BLOOD SPECIMEN Ordering Facility: [facility] Address: [address] [place] [address] Result Comment: Unab le to assay due to interference from hemolysis. Suggest reorder as clinically indicated. Performed By: #### 2 4323-8, 3040-3, 98893-5 #### [facility] CLIA [id number] [facility] [place] [address] [place] Magnesium SerPl-mCncon 09-24 Magnesium [Mass/Vol] 2.0 mg/dL Normal 1.6-2.6 [facility] Comment on above: Order Comment: Mercedes mcnair Type: BLOOD SPECIMEN Ordering Facility: [facility] Address: [address] [place] [address] Performed By: #### 2 4323-8, 3040-3, 45105-8 #### [facility] CLIA [id number] [address] [place] [address] [place] Urinalysis complete panel (U )on 09-24-2024 Bacteria LM.HPF (Urine sed) [#/Area] Few Abnormal None Seen [facility] Comment on above: Order Comment: Speci men Type: URINE SPECIMEN Ordering Facility: [facility] Address: [address] [place] [address] Performed By: #### 2 4356-8 #### [facility] CLIA [id number] [address] [place] [address] [place] Bilirubin Ql (U) Negative Normal Negative [facility] Comment on above: Order Comment: Speci men Type: URINE SPECIMEN Ordering Facility: [facility] Address: [address] [place] [address] Performed By: #### 2 4356-8 #### [facility] CLIA [id number] [address] [place] [address] [place] Clarity (Unsp spec) Clear Normal Clear [facility] Comment on above: Order Comment: Speci men Type: URINE SPECIMEN Ordering Facility: [facility] Address: [address] [place] [address] Performed By: #### 2 4356-8 #### [facility] CLIA [id number] [address] [place] [address] [place] Color (U) Yellow Normal Yellow [facility] Comment on above: Order Comment: Speci men Type: URINE SPECIMEN Ordering Facility: [facility] Address: [address] [place] [address] Performed By: #### 2 4356-8 #### [facility] CLIA [id number] [address] [place] [address] [place] Epithelial cells LM.HPF (Urine sed) [#/Area] Few Normal [facility] Comment on above: Order Comment: Speci men Type: URINE SPECIMEN Ordering Facility: [facility] Address: [address] [place] [address] Performed By: #### 2 4356-8 #### [facility] CLIA [id number] [address] [place] [address] Glucose Test strip (U) [Mass/Vol] Negative Normal Negative [facility] Comment on above: Order Comment: Speci men Type: URINE SPECIMEN Ordering Facility: [facility] Address: [address] [place] [address] Performed By: #### 2 4356-8 #### [facility] CLIA [id number] [address] [place] [address] OF [facility] Hemoglobin Ql (U) 2+ Abnormal Negative [facility] Comment on above: Order Comment: Speci men Type: URINE SPECIMEN Ordering Facility: [facility] Address: [address] [place] [address] Performed By: #### 2 4356-8 #### [facility] CLIA [id number] [address] [place] [address] [place] Ketones Ql (U) Negative Normal Negative [facility] Comment on above: Order Comment: Speci men Type: URINE SPECIMEN Ordering Facility: [facility] Address: [address] [place] [address] Performed By: #### 2 4356-8 #### [facility] CLIA [id number] [address] [place] [address] Leukocyte esterase Test strip Ql (U) Negative Normal Negative [facility] Comment on above: Order Comment: Speci men Type: URINE SPECIMEN Ordering Facility: [facility] Address: [address] [place] [address] Performed By: #### 2 4356-8 #### [facility] CLIA [id number] [address] [place] [address] [place] Nitrite Ql (U) Negative Normal Negative [facility] Comment on above: Order Comment: Speci men Type: URINE SPECIMEN Ordering Facility: [facility] Address: [address] [place] [address] Performed By: #### 2 4356-8 #### [facility] CLIA [id number] [address] [place] [address] [place] pH (U) 7.0 [pH] Normal 5.0-8.0 [facility] Comment on above: Order Comment: Speci men Type: URINE SPECIMEN Ordering Facility: [facility] Address: [address] [place] [address] Performed By: #### 2 4356-8 #### [facility] CLIA [id number] [address] [place] [address] [place] Protein (U) [Mass/Vol] Negative Normal Negative [facility] Comment on above: Order Comment: Speci men Type: URINE SPECIMEN Ordering Facility: [facility] Address: [address] [place] [address] Performed By: #### 2 4356-8 #### [facility] CLIA [id number] [address] [place] [address] [place] RBC LM.HPF (Urine sed) [#/Area] 11-25 /HPF Abnormal 0-3 /HPF [facility] Comment on above: Order Comment: Speci men Type: URINE SPECIMEN Ordering Facility: [facility] Address: [address] [place] [address] Performed By: #### 2 4356-8 #### [facility] CLIA [id number] [address] [place] [address] [place] Specific gravity (U) [Rel density] 1.011 Normal 1.005-1.030 [facility] Comment on above: Order Comment: Speci men Type: URINE SPECIMEN Ordering Facility: [facility] Address: [address] [place] [address] Performed By: #### 2 4356-8 #### [facility] CLIA [id number] [address] [place] [address] [place] Urobilinogen Ql (U) Negative Normal Negative [facility] Comment on above: Order Comment: Speci men Type: URINE SPECIMEN Ordering Facility: [facility] Address: [address] [place] [address] Performed By: #### 2 4356-8 #### [facility] CLIA [id number] [address] [id number] [facility] WBC LM.HPF (Urine sed) [#/Area] 0-5 /HPF Normal 0-5 /HPF [facility] Comment on above: Order Comment: Speci men Type: URINE SPECIMEN Ordering Facility: [facility] Address: [address] [place] [address] Performed By: #### 2 4356-8 #### [facility] CLIA [id number] [address] [id number] [facility] URINALYSIS, DIPSTICK ONLYon 05-10-2023 Bilirubin Ql (U) 1+ Abnormal Negative [facility] Clarity (Unsp spec) Slightly Cloudy Abnormal Clear [facility] Color (U) Yellow Yellow [facility] Glucose Test strip (U) [Mass/Vol] Negative Negative [facility] Hemoglobin Ql (U) 1+ Abnormal Negative [facility] Ketones Ql (U) Trace Abnormal Negative [facility] Leukocyte esterase Test strip Ql (U) Trace Abnormal Negative [facility] Nitrite Ql (U) Negative Negative [facility] pH (U) 6.0 [pH] 5.0 - 8.0 [facility] Protein (U) [Mass/Vol] Trace Abnormal Negative [facility] Specific gravity (U) [Rel density] 1.025 1.005 - 1.030 [facility] Urobilinogen Ql (U) Trace Abnormal Negative [facility] Basic metabolic panel (Bld)o n 01-28-2023 Anion gap (Bld) [Moles/Vol] 10 mmol/L 0 - 15 mmol/L [facility] Chloride [Moles/Vol] 105 mmol/L 98 - 10 9 mmol/L [facility] CO2 [Moles/Vol] 26 mmol/L 24 - 32 mmol/L [facility] Creatinine [Mass/Vol] 0.40 mg/dL Low 0.60 - 1.30 mg/dL [facility] GFR/1.73 sq M.predicted among non-blacks MDRD (S/P/Bld) [Vol rate/Area] 127 mL/min/1.73m >=60 mL/min/1.73m [facility] Glucose [Mass/Vol] 91 mg/dL 85 - 125 mg/dL [facility] Potassium [Moles/Vol] 4.3 mmol/L 3.5 - 4.9 mmol/L [facility] Sodium [Moles/Vol] 141 mmol/L 138 - 146 mmol/L [facility] Urea nitrogen [Mass/Vol] 14 mg/dL 8 - 26 mg/dL [facility] CBC W Auto Differential pane l (Bld)on 01-28-2023 Basophils (Bld) [#/Vol] 0.04 10*3/uL <0.11 k/uL [facility] Basophils/100 WBC (Bld) 0.5 % C [facility] Differential cell count method Nom (Bld) Auto [facility] Eosinophils (Bld) [#/Vol] 0.11 10*3/uL <0.46 k/uL [facility] Eosinophils/100 WBC (Bld) 1.4 % [facility] Erythrocyte distribution width (RBC) [Ratio] 13.8 % 11.5 - 15.0 % [facility] Hematocrit (Bld) [Volume fraction] 42.9 % 36.0 - 46.0 % [facility] Hemoglobin (Bld) [Mass/Vol] 14.2 g/dL 11.5 - 15.5 g/dL [facility] Immature granulocytes (Bld) [#/Vol] <0.10 k/uL [facility] Immature granulocytes/100 WBC (Bld) 0.3 % [facility] Lymphocytes (Bld) [#/Vol] 2.50 10*3/uL 1.00 - 4.00 k/uL [facility] Lymphocytes/100 WBC (Bld) 31.8 % [facility] MCH (RBC) [Entitic mass] 32.8 pg 26.0 - 34.0 pg [facility] MCHC (RBC) [Mass/Vol] 33.1 g/dL 30.5 - 36.0 g/dL [facility] MCV (RBC) [Entitic vol] 99.1 fL 80.0 - 100.0 fL [facility] Monocytes (Bld) [#/Vol] 0.75 10*3/uL <0.87 k/uL [facility] Monocytes/100 WBC (Bld) 9.5 % C [facility] Neutrophils (Bld) [#/Vol] 4.45 10*3/uL 1.45 - 7.50 k/uL [facility] Neutrophils/100 WBC (Bld) 56.5 % [facility] Nucleated RBC (Bld) [#/Vol] <0.01 k/uL [facility] Nucleated RBC/100 WBC (Bld) [Ratio] 0.0 /100 WBC [facility] Platelet mean volume (Bld) [Entitic vol] 11.2 fL 9.0 - 12.7 fL [facility] Platelets (Bld) [#/Vol] 250 10*3/uL 150 - 400 k/uL [facility] RBC (Bld) [#/Vol] 4.33 10*6/uL 3.90 - 5.2 0 m/uL [facility] WBC (Bld) [#/Vol] 7.87 10*3/uL 3.70 - 11. 00 k/uL [facility] UAon 04-14-2022 Color (U) Yellow Normal [facility] ([place]) Comment on above: Performed By: #### U AMIC, UA #### [place] [address] Glucose (U) [Mass/Vol] Negative Normal Negative [facility] ([place]) Comment on above: Performed By: #### U AMIC, UA #### [address] [address] Ketones Ql (U) Negative Normal Neg-Trace [facility] ([place]) Comment on above: Performed By: #### U AMIC, UA #### [address] [address] UA Appear Clear Normal Clear [facility] ([place]) Comment on above: Performed By: #### U AMIC, UA #### [facility] [address] [place] [address] UA Blood Small Abnormal Neg-Trace [facility] ([place]) Comment on above: Performed By: #### U AMIC, UA #### [address] [address] UA Leuk Est Negative Normal Negative [facility] ([place]) Comment on above: Performed By: #### U AMIC, UA #### [address] [address] UA Nitrite Negative Normal Negative [facility] ([place]) Comment on above: Performed By: #### U AMIC, UA #### [place] [address] UA pH 7.0 Normal 5.0 - 8.0 [facility] ([place]) Comment on above: Performed By: #### U AMIC, UA #### [place] [address] UA Protein Negative Normal Negative [facility] ([place]) Comment on above: Performed By: #### U AMIC, UA #### [place] [address] UA Spec Grav 1.015 Normal 1.006-1.029 [facility] ([place]) Comment on above: Performed By: #### U AMIC, UA #### [place] [address] UA Specimen Type Clean Catch Normal [facility] ([place]) Comment on above: Performed By: #### U AMIC, UA #### [place] [address] UA Urobilinogen 1.0 E.U./dL Normal 0.2-1.0 [facility] ([place]) Comment on above: Performed By: #### U AMIC, UA #### [place] [address] Urobilinogen (U) [Mass/Vol] Negative Normal Neg-Trace [facility] ([place]) Comment on above: Performed By: #### U AMIC, UA #### [place] [address] UAMICon 04-14-2022 UA Bacteria 1+ /hpf Abnormal Negative [facility] ([place]) Comment on above: Performed By: #### U AMIC, UA #### [place] [address] UA Mucous 1+ /hpf Normal [facility] ([place]) Comment on above: Performed By: #### U AMIC, UA #### [place] [address] UA RBC 5-10 Abnormal 0-2 [facility] ([place]) Comment on above: Performed By: #### U AMIC, UA #### [address] [address] UA Squam Epithelial Rare Normal 0-20 [facility] ([place]) Comment on above: Performed By: #### U AMIC, UA #### [address] [address] UA WBC Negative Normal 0-5 [facility] ([place]) Comment on above: Performed By: #### U AMIC, UA #### [address] [address] .Auto Diffon 03-12-2022 Basophil, Absolute 0.00 10 3/mcL Normal 0.00-0.27 [facility] ([place]) Comment on above: Performed By: #### C MP, GFR, CBC, ADIFF, LIP, ANEU #### [place] [address] Basophils/100 WBC (Bld) 0.7 % Normal 0.0-2.5 [facility] ([place]) Comment on above: Performed By: #### C MP, GFR, CBC, ADIFF, LIP, ANEU #### [address] [address] Eosinophil, Absolute 0.10 10 3/mcL Normal 0.00-0.65 [facility] ([place]) Comment on above: Performed By: #### C MP, GFR, CBC, ADIFF, LIP, ANEU #### [address] [address] Eosinophils/100 WBC (Bld) 1.1 % Normal 0.0-6.0 [facility] ([place]) Comment on above: Performed By: #### C MP, GFR, CBC, ADIFF, LIP, ANEU #### [place] [id number] Lymphocyte, Absolute 2.10 10 3/mcL Normal 0.90-4.32 [facility] ([place]) Comment on above: Performed By: #### C MP, GFR, CBC, ADIFF, LIP, ANEU #### [address] [address] Lymphocytes/100 WBC (Bld) 30.4 % Normal 20.0-40.0 [facility] ([place]) Comment on above: Performed By: #### C MP, GFR, CBC, ADIFF, LIP, ANEU #### [address] [address] Monocyte, Absolute 0.70 10 3/mcL Normal 0.09-1.40 [facility] ([place]) Comment on above: Performed By: #### C MP, GFR, CBC, ADIFF, LIP, ANEU #### [address] [address] Monocytes/100 WBC (Bld) 10.4 % Normal 2.0-13.0 [facility] ([place]) Comment on above: Performed By: #### C MP, GFR, CBC, ADIFF, LIP, ANEU #### [address] [address] Neutrophils/100 WBC (Bld) 57.4 % Normal 50.0-75.0 [facility] ([place]) Comment on above: Performed By: #### C MP, GFR, CBC, ADIFF, LIP, ANEU #### [address] [address] .GFRon 03-12-2022 GFR >60 Normal [facility] ([place]) Comment on above: Result Comment: GFR Population [...] C MP, GFR, CBC, ADIFF, LIP, ANEU ####[place] [id number] GFR Non- >60 Normal [facility] ([place]) Comment on above: Result Comment: GFR Population [...] C MP, GFR, CBC, ADIFF, LIP, ANEU ####[place] [address] .NEUABSon 03-12-2022 Neutrophil, Absolute 3.90 10 3/mcL Normal 2.25-8.10 [facility] ([place]) Comment on above: Performed By: #### C MP, GFR, CBC, ADIFF, LIP, ANEU #### [place] [address] CBCon 03-12-2022 Erythrocyte distribution width (RBC) [Ratio] 13.7 % Normal 11.5-15.5 [facility] ([place]) Comment on above: Performed By: #### C MP, GFR, CBC, ADIFF, LIP, ANEU #### [place] [address] Hematocrit (Bld) [Volume fraction] 44.2 % Normal 34.0-46.0 [facility] ([place]) Comment on above: Performed By: #### C MP, GFR, CBC, ADIFF, LIP, ANEU #### [place] [address] Hgb 15.2 G/dL Normal 12.0-16.0 [facility] ([place]) Comment on above: Performed By: #### C MP, GFR, CBC, ADIFF, LIP, ANEU #### [place] [address] MCH (RBC) [Entitic mass] 34.0 pg High 27.0-33.0 [facility] ([place]) Comment on above: Performed By: #### C MP, GFR, CBC, ADIFF, LIP, ANEU #### [place] [address] MCHC 34.5 G/dL Normal 32.0-36.0 [facility] ([place]) Comment on above: Performed By: #### C MP, GFR, CBC, ADIFF, LIP, ANEU #### [place] [address] MCV (RBC) [Entitic vol] 98.7 fL Normal 80.0-99.0 [facility] ([place]) Comment on above: Performed By: #### C MP, GFR, CBC, ADIFF, LIP, ANEU #### [place] [address] Platelet 215 10 3/mcL Normal 150-450 [facility] ([place]) Comment on above: Performed By: #### C MP, GFR, CBC, ADIFF, LIP, ANEU #### [place] [address] Platelet mean volume (Bld) [Entitic vol] 9.0 fL Normal 6.6-10.5 [facility] ([place]) Comment on above: Performed By: #### C MP, GFR, CBC, ADIFF, LIP, ANEU #### [place] [address] RBC 4.48 10 6/mcL Normal 4.10-5.30 [facility] ([place]) Comment on above: Performed By: #### C MP, GFR, CBC, ADIFF, LIP, ANEU #### [place] [address] WBC 6.90 10 3/mcL Normal 4.50-10.80 [facility] ([place]) Comment on above: Performed By: #### C MP, GFR, CBC, ADIFF, LIP, ANEU #### [place] [address] CMPon 03-12-2022 Albumin Level 4.1 G/dL Normal 3.2-4.8 [facility] ([place]) Comment on above: Performed By: #### C MP, GFR, CBC, ADIFF, LIP, ANEU ####[place] [address] Albumin/Globulin [Mass ratio] 1.5 {ratio} Normal 0.9-1.6 [facility] ([place]) Comment on above: Performed By: #### C MP, GFR, CBC, ADIFF, LIP, ANEU ####[place] [address] ALP [Catalytic activity/Vol] 67 U/L Normal 38-126 [facility] ([place]) Comment on above: Performed By: #### C MP, GFR, CBC, ADIFF, LIP, ANEU ####[place] [address] ALT [Catalytic activity/Vol] 10 U/L Normal 10-49 [facility] ([place]) Comment on above: Performed By: #### C MP, GFR, CBC, ADIFF, LIP, ANEU ####[place] [address] AST [Catalytic activity/Vol] 18 U/L Normal 8-34 [facility] ([place]) Comment on above: Performed By: #### C MP, GFR, CBC, ADIFF, LIP, ANEU ####[place] [address] Bili Total 0.40 mg/dL Normal 0.20-1.20 [facility] ([place]) Comment on above: Result Comment: Use of this assay is not recommended for patients undergoing treatment with eltrombopag due to the potential for falsely elevated results. Performed By: #### C MP, GFR, CBC, ADIFF, LIP, ANEU ####[place] [address] BUN/Creatinine Ratio 17.0 ratio Normal 10.0-22.0 [facility] ([place]) Comment on above: Performed By: #### C MP, GFR, CBC, ADIFF, LIP, ANEU ####[place] [address] Calcium [Mass/Vol] 9.4 mg/dL Normal 8.7-10.4 [facility] ([place]) Comment on above: Result Comment: No te - New Reference Range in effect 20 Performed By: #### C MP, GFR, CBC, ADIFF, LIP, ANEU ####[place] [address] Chloride [Moles/Vol] 110 mmol/L Normal 98-110 [facility] ([place] Comment on above: Performed By: #### C MP, GFR, CBC, ADIFF, LIP, ANEU ####[place] [address] CO2 [Moles/Vol] 27 mmol/L Normal 22-32 [facility] ([place]) Comment on above: Performed By: #### C MP, GFR, CBC, ADIFF, LIP, ANEU ####[place] [address] Creatinine [Mass/Vol] 0.47 mg/dL Low 0.50-1.20 [facility] ([place]) Comment on above: Performed By: #### C MP, GFR, CBC, ADIFF, LIP, ANEU ####[place] [address] Electrolyte Balance 3.0 mEq/L Low 4.0-15.0 [facility] ([place] Comment on above: Performed By: #### C MP, GFR, CBC, ADIFF, LIP, ANEU ####[place] [address] Globulin 2.7 G/dL Normal 1.5-3.8 [facility] ([place] Comment on above: Performed By: #### C MP, GFR, CBC, ADIFF, LIP, ANEU ####[place] [address] Glucose [Mass/Vol] 88 mg/dL Normal 70-110 [facility] ([place] Comment on above: Performed By: #### C MP, GFR, CBC, ADIFF, LIP, ANEU ####[address] [address] Potassium [Moles/Vol] 4.2 mmol/L Normal 3.5-5.0 [facility] ([place]) Comment on above: Result Comment: Spec imen slightly hemolyzed. Performed By: #### C MP, GFR, CBC, ADIFF, LIP, ANEU ####[address] [address] Sodium [Moles/Vol] 140 mmol/L Normal 136-145 [facility] ([place] Comment on above: Performed By: #### C MP, GFR, CBC, ADIFF, LIP, ANEU ####[place] [id number] Total Protein 6.8 G/dL Normal 5.7-8.2 [facility] ([place]) Comment on above: Result Comment: No te - New Reference Range in effect 20 Performed By: #### C MP, GFR, CBC, ADIFF, LIP, ANEU ####[address] [address] Urea nitrogen [Mass/Vol] 8.0 mg/dL Normal 8.0-22.0 [facility] ([place]) Comment on above: Performed By: #### C MP, GFR, CBC, ADIFF, LIP, ANEU ####[address] [address] [address] ABD/PELVIS W/ IV CONTRAST ONLYon 03-12-2022 [...] 03/12/2022 1:29:15 PM Ordering Provider: LAMAR RAY [facility] ([place]) LABORATORYOrdered By: SYSTEM SYSTEM on 03-12-2022 Albumin [...] 03-12-2022 Lipase Level 32 U/L Normal 12-53 [facility] ([place]) Comment on above: Result Comment: No te - New Reference Range in effect 20 Performed By: #### C MP, GFR, CBC, ADIFF, LIP, ANEU #### [place] [address] US RENALon 10-02-2021 US RENAL ORIGINAL EXAMINATION: LIMITED RETROPERITONEAL PJKIOYNOEW83/24/2021 3:48 pm Ultrasound retroperitoneum Complete: Attention Urinary [...] 10/02/2021 8:32:03 AM Ordering Provider: LYNN Hsieh [facility] ([place]) MRI BREAST W/ + W/O CONTRAST BILATERALon 08-03-2021 MRI BREAST W/ + W/O CONTRAST BILATERAL ORIGINAL FROM: [facility] [address] [place] [address] PROCEDURE FOR: MISHEL ASHBY [address] [facility] [address] [place] [address] Home: PID#: [id number] Exam#: [id number] : 1980 Age: 41 TO: SHIVA SOLIS BABY COUNSELOR-[facility] [address] [place] [address] Fax: NO FAX EXAMINATION: MRI OF THE [...] BREAST CANCER, MONALLELIC MUTATION OF CDH1 GENE. Fur Tailor: SILVIA SHEA (Faustina)(MR) letter sent: Normal BI-RADS 1 and 2 MRI BI-RADS: 1 Negative Normal [facility] ([place]) .Auto Diffon 05-29-2021 Basophil, Absolute 0.00 10 3/mcL Normal 0.00-0.27 [facility] ([place]) Comment on above: Performed By: #### L IPID, FE, CMP, CBC, TSH, FOL, B12, ADIFF, VIDH, ANEU, GFR, FERR, IBC ####[address] [address] Basophils/100 WBC (Bld) 0.4 % Normal 0.0-2.5 [facility] ([place]) Comment on above: Performed By: #### L IPID, FE, CMP, CBC, TSH, FOL, B12, ADIFF, VIDH, ANEU, GFR, FERR, IBC ####[address] [address] Eosinophil, Absolute 0.10 10 3/mcL Normal 0.00-0.65 [facility] ([place]) Comment on above: Performed By: #### L IPID, FE, CMP, CBC, TSH, FOL, B12, ADIFF, VIDH, ANEU, GFR, FERR, IBC ####[address] [address] Eosinophils/100 WBC (Bld) 1.6 % Normal 0.0-6.0 [facility] ([place]) Comment on above: Performed By: #### L IPID, FE, CMP, CBC, TSH, FOL, B12, ADIFF, VIDH, ANEU, GFR, FERR, IBC ####[address] [address] Lymphocyte, Absolute 1.80 10 3/mcL Normal 0.90-4.32 [facility] ([place]) Comment on above: Performed By: #### L IPID, FE, CMP, CBC, TSH, FOL, B12, ADIFF, VIDH, ANEU, GFR, FERR, IBC ####[address] [address] Lymphocytes/100 WBC (Bld) 25.2 % Normal 20.0-40.0 [facility] ([place]) Comment on above: Performed By: #### L IPID, FE, CMP, CBC, TSH, FOL, B12, ADIFF, VIDH, ANEU, GFR, FERR, IBC ####[address] [address] Monocyte, Absolute 0.90 10 3/mcL Normal 0.09-1.40 [facility] ([place]) Comment on above: Performed By: #### L IPID, FE, CMP, CBC, TSH, FOL, B12, ADIFF, VIDH, ANEU, GFR, FERR, IBC ####[address] [address] Monocytes/100 WBC (Bld) 12.5 % Normal 2.0-13.0 [facility] ([place]) Comment on above: Performed By: #### L IPID, FE, CMP, CBC, TSH, FOL, B12, ADIFF, VIDH, ANEU, GFR, FERR, IBC ####[address] [address] Neutrophils/100 WBC (Bld) 60.3 % Normal 50.0-75.0 [facility] ([place]) Comment on above: Performed By: #### L IPID, FE, CMP, CBC, TSH, FOL, B12, ADIFF, VIDH, ANEU, GFR, FERR, IBC ####[address] [address] .GFRon 05-29-2021 GFR >60 Normal [facility] ([place]) Comment on above: Result Comment: GFR Population [...] B12, ADIFF, VIDH, ANEU, GFR, FERR, IBC ####[place] [address] GFR Non- >60 Normal [facility] ([place]) Comment on above: Result Comment: GFR Population [...] B12, ADIFF, VIDH, ANEU, GFR, FERR, IBC ####[address] [address] .NEUABSon 05-29-2021 Neutrophil, Absolute 4.40 10 3/mcL Normal 2.25-8.10 [facility] ([place]) Comment on above: Performed By: #### L IPID, FE, CMP, CBC, TSH, FOL, B12, ADIFF, VIDH, ANEU, GFR, FERR, IBC ####[place] [address] B12on 05-29-2021 Cobalamin (Vitamin B12) [Mass/Vol] 707 pg/mL Normal 211-911 [facility] ([place]) Comment on above: Performed By: #### L IPID, FE, CMP, CBC, TSH, FOL, B12, ADIFF, VIDH, ANEU, GFR, FERR, IBC ####[place] [address] CBCon 05-29-2021 Erythrocyte distribution width (RBC) [Ratio] 14.1 % Normal 11.5-15.5 [facility] ([place]) Comment on above: Performed By: #### L IPID, FE, CMP, CBC, TSH, FOL, B12, ADIFF, VIDH, ANEU, GFR, FERR, IBC ####[place] [address] Hematocrit (Bld) [Volume fraction] 45.3 % Normal 34.0-46.0 [facility] ([place]) Comment on above: Performed By: #### L IPID, FE, CMP, CBC, TSH, FOL, B12, ADIFF, VIDH, ANEU, GFR, FERR, IBC ####[place] [address] Hgb 15.6 G/dL Normal 12.0-16.0 [facility] ([place]) Comment on above: Performed By: #### L IPID, FE, CMP, CBC, TSH, FOL, B12, ADIFF, VIDH, ANEU, GFR, FERR, IBC ####[place] [address] MCH (RBC) [Entitic mass] 34.0 pg High 27.0-33.0 [facility] ([place]) Comment on above: Performed By: #### L IPID, FE, CMP, CBC, TSH, FOL, B12, ADIFF, VIDH, ANEU, GFR, FERR, IBC ####[place] [address] MCHC 34.4 G/dL Normal 32.0-36.0 [facility] ([place]) Comment on above: Performed By: #### L IPID, FE, CMP, CBC, TSH, FOL, B12, ADIFF, VIDH, ANEU, GFR, FERR, IBC ####[place] [address] MCV (RBC) [Entitic vol] 98.8 fL Normal 80.0-99.0 [facility] ([place]) Comment on above: Performed By: #### L IPID, FE, CMP, CBC, TSH, FOL, B12, ADIFF, VIDH, ANEU, GFR, FERR, IBC ####[place] [address] Platelet 225 10 3/mcL Normal 150-450 [facility] ([place]) Comment on above: Performed By: #### L IPID, FE, CMP, CBC, TSH, FOL, B12, ADIFF, VIDH, ANEU, GFR, FERR, IBC ####[place] [address] Platelet mean volume (Bld) [Entitic vol] 9.6 fL Normal 6.6-10.5 [facility] ([place]) Comment on above: Performed By: #### L IPID, FE, CMP, CBC, TSH, FOL, B12, ADIFF, VIDH, ANEU, GFR, FERR, IBC ####[place] [address] RBC 4.58 10 6/mcL Normal 4.10-5.30 [facility] ([place]) Comment on above: Performed By: #### L IPID, FE, CMP, CBC, TSH, FOL, B12, ADIFF, VIDH, ANEU, GFR, FERR, IBC ####[place] [address] WBC 7.30 10 3/mcL Normal 4.50-10.80 [facility] ([place]) Comment on above: Performed By: #### L IPID, FE, CMP, CBC, TSH, FOL, B12, ADIFF, VIDH, ANEU, GFR, FERR, IBC ####[address] [address] CMPon 05-29-2021 Albumin Level 4.0 G/dL Normal 3.2-4.8 [facility] ([place]) Comment on above: Performed By: #### L IPID, FE, CMP, CBC, TSH, FOL, B12, ADIFF, VIDH, ANEU, GFR, FERR, IBC ####[address] [address] Albumin/Globulin [Mass ratio] 1.4 {ratio} Normal 0.9-1.6 [facility] ([place]) Comment on above: Performed By: #### L IPID, FE, CMP, CBC, TSH, FOL, B12, ADIFF, VIDH, ANEU, GFR, FERR, IBC ####[address] [address] ALP [Catalytic activity/Vol] 77 U/L Normal 38-126 [facility] ([place]) Comment on above: Performed By: #### L IPID, FE, CMP, CBC, TSH, FOL, B12, ADIFF, VIDH, ANEU, GFR, FERR, IBC ####[address] [address] ALT [Catalytic activity/Vol] 14 U/L Normal 10-49 [facility] ([place]) Comment on above: Performed By: #### L IPID, FE, CMP, CBC, TSH, FOL, B12, ADIFF, VIDH, ANEU, GFR, FERR, IBC ####[address] [address] AST [Catalytic activity/Vol] 14 U/L Normal 8-34 [facility] ([place]) Comment on above: Performed By: #### L IPID, FE, CMP, CBC, TSH, FOL, B12, ADIFF, VIDH, ANEU, GFR, FERR, IBC ####[address] [address] Bili Total 1.10 mg/dL Normal 0.20-1.20 [facility] ([place]) Comment on above: Result Comment: Use of this assay is not recommended for patients undergoing treatment with eltrombopag due to the potential for falsely elevated results. Performed By: #### L IPID, FE, CMP, CBC, TSH, FOL, B12, ADIFF, VIDH, ANEU, GFR, FERR, IBC ####[address] [address] BUN/Creatinine Ratio 26.8 ratio High 10.0-22.0 [facility] ([place]) Comment on above: Performed By: #### L IPID, FE, CMP, CBC, TSH, FOL, B12, ADIFF, VIDH, ANEU, GFR, FERR, IBC ####[address] [address] Calcium [Mass/Vol] 9.9 mg/dL Normal 8.7-10.4 [facility] ([place]) Comment on above: Result Comment: No te - New Reference Range in effect 20 Performed By: #### L IPID, FE, CMP, CBC, TSH, FOL, B12, ADIFF, VIDH, ANEU, GFR, FERR, IBC ####[address] [address] Chloride [Moles/Vol] 111 mmol/L High 98-110 [facility] ([place]) Comment on above: Performed By: #### L IPID, FE, CMP, CBC, TSH, FOL, B12, ADIFF, VIDH, ANEU, GFR, FERR, IBC ####[address] [address] CO2 [Moles/Vol] 28 mmol/L Normal 22-32 [facility] ([place]) Comment on above: Performed By: #### L IPID, FE, CMP, CBC, TSH, FOL, B12, ADIFF, VIDH, ANEU, GFR, FERR, IBC ####[address] [address] Creatinine [Mass/Vol] 0.56 mg/dL Normal 0.50-1.20 [facility] ([place]) Comment on above: Performed By: #### L IPID, FE, CMP, CBC, TSH, FOL, B12, ADIFF, VIDH, ANEU, GFR, FERR, IBC ####[address] [address] Electrolyte Balance 2.0 mEq/L Low 4.0-15.0 [facility] [place] Comment on above: Performed By: #### L IPID, FE, CMP, CBC, TSH, FOL, B12, ADIFF, VIDH, ANEU, GFR, FERR, IBC ####[address] [address] Globulin 2.8 G/dL Normal 1.5-3.8 [facility] ([place]) Comment on above: Performed By: #### L IPID, FE, CMP, CBC, TSH, FOL, B12, ADIFF, VIDH, ANEU, GFR, FERR, IBC ####[place] [id number] Glucose [Mass/Vol] 80 mg/dL Normal 70-110 [facility] ([place] Comment on above: Performed By: #### L IPID, FE, CMP, CBC, TSH, FOL, B12, ADIFF, VIDH, ANEU, GFR, FERR, IBC ####[place] [id number] Potassium [Moles/Vol] 4.1 mmol/L Normal 3.5-5.0 [facility] ([place]) Comment on above: Performed By: #### L IPID, FE, CMP, CBC, TSH, FOL, B12, ADIFF, VIDH, ANEU, GFR, FERR, IBC ####[address] [address] Sodium [Moles/Vol] 141 mmol/L Normal 136-145 [facility] ([place]) Comment on above: Performed By: #### L IPID, FE, CMP, CBC, TSH, FOL, B12, ADIFF, VIDH, ANEU, GFR, FERR, IBC ####[address] [address] Total Protein 6.8 G/dL Normal 5.7-8.2 [facility] ([place]) Comment on above: Result Comment: No te - New Reference Range in effect 20 Performed By: #### L IPID, FE, CMP, CBC, TSH, FOL, B12, ADIFF, VIDH, ANEU, GFR, FERR, IBC ####[place] [address] Urea nitrogen [Mass/Vol] 15.0 mg/dL Normal 8.0-22.0 [facility] ([place]) Comment on above: Performed By: #### L IPID, FE, CMP, CBC, TSH, FOL, B12, ADIFF, VIDH, ANEU, GFR, FERR, IBC ####[place] [address] FEon 05-29-2021 Iron [Mass/Vol] 146 ug/dL Normal 50-170 [facility] ([place]) Comment on above: Performed By: #### L IPID, FE, CMP, CBC, TSH, FOL, B12, ADIFF, VIDH, ANEU, GFR, FERR, IBC ####[place] [address] Rose 05-29-2021 Ferritin [Mass/Vol] 34.7 ng/mL Normal 8.0-252.0 [facility] [place] Comment on above: Performed By: #### L IPID, FE, CMP, CBC, TSH, FOL, B12, ADIFF, VIDH, ANEU, GFR, FERR, IBC ####[place] [address] FOLon 05-29-2021 Folate 23.88 ng/mL Normal 5.38-24.00 [facility] ([place]) Comment on above: Performed By: #### L IPID, FE, CMP, CBC, TSH, FOL, B12, ADIFF, VIDH, ANEU, GFR, FERR, IBC ####[place] [address] IBCon 05-29-2021 TIBC 289 mcg/dL Normal 250-500 [facility] ([place]) Comment on above: Performed By: #### L IPID, FE, CMP, CBC, TSH, FOL, B12, ADIFF, VIDH, ANEU, GFR, FERR, IBC ####[address] [address] LIPIDon 05-29-2021 Cholesterol [Mass/Vol] 160 mg/dL Normal 50-199 [facility] ([place]) Comment on above: Result Comment: Chol esterol Reference Interval: Less than 200 Desirable 200-239 Borderline high risk 240 and above High risk Performed By: #### L IPID, FE, CMP, CBC, TSH, FOL, B12, ADIFF, VIDH, ANEU, GFR, FERR, IBC ####[address] [address] Cholesterol in HDL [Mass/Vol] 54 mg/dL Normal 40-59 [facility] ([place]) Comment on above: Performed By: #### L IPID, FE, CMP, CBC, TSH, FOL, B12, ADIFF, VIDH, ANEU, GFR, FERR, IBC ####[address] [address] Cholesterol in LDL [Mass/Vol] 90 mg/dL Normal 0-129 [facility] ([place]) Comment on above: Performed By: #### L IPID, FE, CMP, CBC, TSH, FOL, B12, ADIFF, VIDH, ANEU, GFR, FERR, IBC ####[address] [address] Triglyceride [Mass/Vol] 81 mg/dL Normal 3-149 [facility] ([place]) Comment on above: Performed By: #### L IPID, FE, CMP, CBC, TSH, FOL, B12, ADIFF, VIDH, ANEU, GFR, FERR, IBC ####[address] [address] TSHon 05-29-2021 TSH 1.079 mIU/mL Normal 0.550-4.780 [facility] ([place]) Comment on above: Result Comment: No te - New Reference Range in effect 20 Performed By: #### L IPID, FE, CMP, CBC, TSH, FOL, B12, ADIFF, VIDH, ANEU, GFR, FERR, IBC ####[address] [address] VIDHon 05-29-2021 Vit. D 25-Hydroxy 41.5 ng/mL Normal [facility] ([place]) Comment on above: Result Comment: Inte rpretive Values Based on Total 25(OH)D: Severe Deficiency <20 ng/mL Mild to Moderate Deficiency 20-30 ng/mL Optimum Levels 30-100 ng/mL Toxicity Possible >100 ng/mL Performed By: #### L IPID, FE, CMP, CBC, TSH, FOL, B12, ADIFF, VIDH, ANEU, GFR, FERR, IBC ####[address] [address] Vital Signs Date Time Vital Sign Value Performing Clinician Facility 05-23-2025 10:24-0400 Body height 152.4 cm No Primary Care Physician [facility] 05-23-2025 10:24-0400 Body mass index (BMI) [Ratio] 23.5 kg/m2 No Primary Care Physician [facility] 05-23-2025 10:24-0400 Body weight 54.54 kg No Primary Care Physician [facility] 05-23-2025 10:24-0400 Diastolic blood pressure 60 mm[Hg] No Primary Care Physician [facility] 05-23-2025 10:24-0400 Heart rate 79 /min No Primary Care Physician [facility] 05-23-2025 10:24-0400 Respiratory rate 15 /min No Primary Care Physician [facility] 05-23-2025 10:24-0400 SaO2% (BldA) [Mass fraction] 95 % No Primary Care Physician [facility] 05-23-2025 10:24-0400 Systolic blood pressure 92 mm[Hg] No Primary Care Physician [facility] 05-09-2025 08:58-0400 Body temperature 96.9 [degF] No Primary Care Physician [facility] 05-09-2025 08:58-0400 Diastolic blood pressure 62 mm[Hg] No Primary Care Physician [facility] 05-09-2025 08:58-0400 Heart rate 52 /min No Primary Care Physician [facility] 05-09-2025 08:58-0400 Respiratory rate 16 /min No Primary Care Physician [facility] 05-09-2025 08:58-0400 SaO2% (BldA) [Mass fraction] 100 % No Primary Care Physician [facility] 05-09-2025 08:58-0400 Systolic blood pressure 87 mm[Hg] No Primary Care Physician [facility] 05-09-2025 07:07-0400 Body height 152.4 cm No Primary Care Physician [facility] 05-09-2025 07:07-0400 Body mass index (BMI) [Ratio] 23.1 kg/m2 No Primary Care Physician [facility] 05-09-2025 07:07-0400 Body temperature 97.5 [degF] No Primary Care Physician [facility] 05-09-2025 07:07-0400 Body weight 53.8 kg No Primary Care Physician [facility] 05-09-2025 07:07-0400 Diastolic blood pressure 60 mm[Hg] No Primary Care Physician [facility] 05-09-2025 07:07-0400 Heart rate 54 /min No Primary Care Physician [facility] 05-09-2025 07:07-0400 Respiratory rate 16 /min No Primary Care Physician [facility] 05-09-2025 07:07-0400 SaO2% (BldA) [Mass fraction] 98 % No Primary Care Physician [facility] 05-09-2025 07:07-0400 Systolic blood pressure 90 mm[Hg] No Primary Care Physician [facility] 04-02-2025 14:19-0400 Body height 152.4 cm Damian Aceves DO Work Phone: [facility] 04-02-2025 14:19-0400 Body mass index (BMI) [Ratio] 23.05 kg/m2 Damian Aceves DO Work Phone: [facility] 04-02-2025 14:19-0400 Body weight 53.52 kg Damian Aceves DO Work Phone: [facility] 03-20-2025 13:04-0400 Body mass index (BMI) [Ratio] 23.05 kg/m2 Zoey Mayorga MD Work Phone: [facility] 03-20-2025 13:04-0400 Body weight 53.52 kg Zoey Mayorga MD Work Phone: [facility] 03-20-2025 13:04-0400 Diastolic blood pressure 65 mm[Hg] Zoey Mayorga MD Work Phone: [facility] 03-20-2025 13:04-0400 Heart rate 70 /min Zoey Mayorga MD Work Phone: [facility] 03-20-2025 13:04-0400 Respiratory rate 16 /min Zoey Mayorga MD Work Phone: [facility] 03-20-2025 13:04-0400 SaO2% (BldA) [Mass fraction] 96 % Zoey Mayorga MD Work Phone: [facility] 03-20-2025 13:04-0400 Systolic blood pressure 104 mm[Hg] Zoey Mayorga MD Work Phone: [facility] 02-25-2025 14:33-0400 Body height 152.4 cm No Primary Care Physician [facility] 02-25-2025 14:33-0400 Body mass index (BMI) [Ratio] 23.2 kg/m2 No Primary Care Physician [facility] 02-25-2025 14:33-0400 Body weight 53.97 kg No Primary Care Physician [facility] 02-25-2025 14:33-0400 Diastolic blood pressure 66 mm[Hg] No Primary Care Physician [facility] 02-25-2025 14:33-0400 Heart rate 81 /min No Primary Care Physician [facility] 02-25-2025 14:33-0400 SaO2% (BldA) [Mass fraction] 95 % No Primary Care Physician [facility] 02-25-2025 14:33-0400 Systolic blood pressure 105 mm[Hg] No Primary Care Physician [facility] 02-07-2025 10:38-0400 Body height 152.4 cm Zoey Mayorga MD Work Phone: [facility] 02-07-2025 10:38-0400 Body mass index (BMI) [Ratio] 22.65 kg/m2 Zoey Mayorga MD Work Phone: [facility] 02-07-2025 10:38-0400 Body weight 52.62 kg Zoey Mayorga MD Work Phone: [facility] 02-07-2025 10:38-0400 Diastolic blood pressure 59 mm[Hg] Zoey Mayorga MD Work Phone: [facility] 02-07-2025 10:38-0400 Heart rate 67 /min Zoey Mayorga MD Work Phone: [facility] 02-07-2025 10:38-0400 Respiratory rate 16 /min Zoey Mayorga MD Work Phone: [facility] 02-07-2025 10:38-0400 SaO2% (BldA) [Mass fraction] 98 % Zoey Mayorga MD Work Phone: [facility] 02-07-2025 10:38-0400 Systolic blood pressure 96 mm[Hg] Zoey Mayorga MD Work Phone: [facility] 01-31-2025 17:26-0400 Body mass index (BMI) [Ratio] 23.44 kg/m2 Erikaroberto Nam 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 Work Phone: [facility] 01-31-2025 17:26-0400 Body temperature 99 [degF] Erika Adelinaal 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 Work Phone: [facility] 01-31-2025 17:26-0400 Body weight 54.43 kg Erika Schaal 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 Work Phone: [facility] 01-31-2025 17:26-0400 Diastolic blood pressure 70 mm[Hg] Erika Schaal 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 Work Phone: [facility] 01-31-2025 17:26-0400 Heart rate 75 /min Erika Adelinaal 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 Work Phone: [facility] 01-31-2025 17:26-0400 Respiratory rate 16 /min Erika Schaal 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 Work Phone: [facility] 01-31-2025 17:26-0400 SaO2% (BldA) [Mass fraction] 98 % Erikaroberto Nam 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 Work Phone: [facility] 01-31-2025 17:26-0400 Systolic blood pressure 100 mm[Hg] Erika Nam 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 Work Phone: [facility] 12-31-2024 14:08-0500 Body mass index (BMI) [Ratio] 22.65 kg/m2 Jalen Mcgee MD Work Phone: [facility] 12-31-2024 14:08-0500 Body temperature 98.71 [degF] Jalen Mcgee MD Work Phone: [facility] 12-31-2024 14:08-0500 Body weight 52.62 kg Jalen Mcgee MD Work Phone: [facility] 12-31-2024 14:08-0500 Diastolic blood pressure 55 mm[Hg] Jalen Mcgee MD Work Phone: [facility] 12-31-2024 14:08-0500 Heart rate 66 /min Jalen Mcgee MD Work Phone: [facility] 12-31-2024 14:08-0500 Respiratory rate 16 /min Jalen Mcgee MD Work Phone: [facility] 12-31-2024 14:08-0500 SaO2% (BldA) [Mass fraction] 97 % Jalen Mcgee MD Work Phone: [facility] 12-31-2024 14:08-0500 Systolic blood pressure 90 mm[Hg] Jalen Mcgee MD Work Phone: [facility] 10-15-2024 09:35-0500 Body mass index (BMI) [Ratio] 23.44 kg/m2 Tyrell Abebe MD Work Phone: [facility] 10-15-2024 09:35-0500 Body temperature 97.7 [degF] Tyrell Abebe MD Work Phone: [facility] 10-15-2024 09:35-0500 Body weight 54.43 kg Tyrell Abebe MD Work Phone: [facility] 10-15-2024 09:35-0500 Diastolic blood pressure 70 mm[Hg] Tyrell Abebe MD Work Phone: [facility] 10-15-2024 09:35-0500 Heart rate 60 /min Tyrell Abebe MD Work Phone: [facility] 10-15-2024 09:35-0500 Respiratory rate 14 /min Tyrell Abebe MD Work Phone: [facility] 10-15-2024 09:35-0500 SaO2% (BldA) [Mass fraction] 100 % Tyrell Abebe MD Work Phone: [facility] 10-15-2024 09:35-0500 Systolic blood pressure 102 mm[Hg] Tyrell Abebe MD Work Phone: [facility] 05-10-2023 11:47-0400 Body temperature 97.3 [degF] Tyrell Abebe MD Work Phone: [facility] 05-10-2023 11:47-0400 Body weight 53.98 kg Tyrell Abebe MD Work Phone: [facility] 05-10-2023 11:47-0400 Diastolic blood pressure 60 mm[Hg] Tyrell Abebe MD Work Phone: [facility] 05-10-2023 11:47-0400 Heart rate 89 /min Tyrell Abebe MD Work Phone: [facility] 05-10-2023 11:47-0400 Respiratory rate 16 /min Tyrell Abebe MD Work Phone: [facility] 05-10-2023 11:47-0400 SaO2% (BldA) [Mass fraction] 96 % Tyrell Abebe MD Work Phone: [facility] 05-10-2023 11:47-0400 Systolic blood pressure 104 mm[Hg] Tyrell Abebe MD Work Phone: [facility] 01-28-2023 10:40-0400 Body temperature 99.81 [degF] Tyrell Abebe MD Work Phone: [facility] 01-28-2023 10:40-0400 Body weight 53.98 kg Tyrell Abebe MD Work Phone: [facility] 01-28-2023 10:40-0400 Diastolic blood pressure 67 mm[Hg] Tyrell Abebe MD Work Phone: [facility] 01-28-2023 10:40-0400 Heart rate 77 /min Tyrell Abebe MD Work Phone: [facility] 01-28-2023 10:40-0400 Respiratory rate 12 /min Tyrell Abebe MD Work Phone: [facility] 01-28-2023 10:40-0400 SaO2% (BldA) [Mass fraction] 98 % Tyrell Abebe MD Work Phone: [facility] 01-28-2023 10:40-0400 Systolic blood pressure 112 mm[Hg] Tyrell Abebe MD Work Phone: [facility] 03-12-2022 11:36-0400 Body temperature 97.34 [degF] JANETH MURRIETA MD [facility] 03-12-2022 11:36-0400 Body weight 51.2 kg JANETH MURRIETA MD [facility] 03-12-2022 11:36-0400 Diastolic blood pressure 75 mm[Hg] JANETH MURRIETA MD [facility] 03-12-2022 11:36-0400 Heart rate 72 /min JANETH MURRIETA MD [facility] 03-12-2022 11:36-0400 Respiratory rate 18 /min JANETH MURRIETA MD [facility] 03-12-2022 11:36-0400 Systolic blood pressure 114 mm[Hg] JANETH MURRIETA MD [facility] Encounters Encounter Date Encounter Type Care Provider Facility Start: 09-12-2025 ambulatory Kassandra Weineri ty:[facility] Start: 08-19-2025 End: 08-19-2025 ambulatory ANIKET BENNETT Facility:[id number] Start: 05-23-2025 End: 05-23-2025 Patient encounter procedure Kassandra Atkins NP-C -[facility] Work Phone: Start: 05-23-2025 End: 05-23-2025 ambulatory No Primary Care Physician -[facility] Start: 05-09-2025 ambulatory José Antonio Walters Facility :[facility] Start: 05-09-2025 Non-patient / Non-visit José Antonio Walters DO -[facility] Start: 05-09-2025 End: 05-09-2025 Admission to same day surgery center José Antonio Walters DO -Game Designer/Creative Director Work Phone: Start: 05-09-2025 End: 05-09-2025 ambulatory No Primary Care Physician -Endoscopy Start: 05-06-2025 End: 05-06-2025 ambulatory No Primary Care Physician -Laboratory Specimen Start: 05-06-2025 End: 05-06-2025 Patient encounter procedure Kassandra Atkins NP-C -Laboratory Specimen Work Phone: Start: 05-06-2025 End: 05-06-2025 ambulatory Kassandra Atkins Facility:[facility] Start: 04-02-2025 End: 04-02-2025 Patient encounter procedure Damian Aceves DO Work Phone: [facility] Comment on above: CDH1 gene mutation p ositive (Primary Dx); At high risk for breast cancer; Current smoker Start: 04-02-2025 End: 04-02-2025 ambulatory DAMIAN ACEVES Facility:[id number] Start: 03-27-2025 End: 03-27-2025 ambulatory No Primary Care Physician [facility] Work Phone: Start: 03-27-2025 End: 03-27-2025 Patient encounter procedure Kassandra GOODRICH -Radiology [facility] Work Phone: Start: 03-27-2025 End: 03-27-2025 ambulatory Kassandra Atkins Facility:[facility] Start: 03-20-2025 End: 03-20-2025 Office outpatient visit 25 minutes Zoey Mayorga MD Work Phone: [facility] Breast Surgery Comment on above: CDH1 gene mutation p ositive (Primary Dx); At high risk for breast cancer Start: 03-20-2025 End: 03-20-2025 ambulatory ZOEY MAYORGA Facility:[id number] Start: 03-14-2025 ambulatory ZOEY MAYORGA Facil ity:[id number] Start: 03-14-2025 End: 03-14-2025 Subsequent hospital visit by physician [facility] 2 (Lg Bore/1.5t) Work Phone: [facility] Comment on above: CDH1 gene mutation p ositive [Z15.09, Z15.01] Start: 02-25-2025 End: 02-25-2025 Patient encounter procedure Kassandra GOODRICH -Laboratory Work Phone: Start: 02-25-2025 End: 02-25-2025 Patient encounter procedure Kassandra GOODRICH -[facility] Work Phone: Start: 02-25-2025 End: 02-25-2025 ambulatory Kassandra Atkins [place] Start: 02-25-2025 End: 02-25-2025 Telephone encounter Andre Samuel RN [facility] Breast Surgery Comment on above: Appointment; Care Co ordinator - Other Start: 02-25-2025 End: 02-25-2025 ambulatory Kassandra Atkins Facility:[facility] Start: 02-13-2025 End: 02-13-2025 Telephone encounter Andre Samuel RN [facility] Breast Surgery Comment on above: Appointment; Care Co ordinator - Other Start: 02-07-2025 End: 02-07-2025 Patient encounter procedure Zoey Mayorga MD Work Phone: [facility] Breast Surgery Comment on above: CDH1 gene mutation p ositive (Primary Dx); At high risk for breast cancer; Nipple discharge Start: 02-07-2025 End: 02-07-2025 ambulatory ZOEY MAYORGA Facility:[id number] Start: 01-31-2025 End: 01-31-2025 Subsequent hospital visit by physician [facility] Work Phone: [facility] Comment on above: PAIN IN BACK, BOTTOM LEFT, RIB AREA FOR 1 WEEK Start: 01-31-2025 ambulatory ERIKA NAM Facility:[id number] Start: 01-31-2025 End: 01-31-2025 Office outpatient visit 25 minutes Erika Nam 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 Work Phone: [facility] Comment on above: Rib pain on left sherron e (Primary Dx); Contusion of rib on left side, initial encounter Start: 01-31-2025 End: 01-31-2025 ambulatory ANGELO Jessica NORBERTO Facility:[id number] Start: 01-17-2025 End: 01-17-2025 Telephone encounter Jalen Mcgee MD Work Phone: [facility] Start: 01-07-2025 End: 01-07-2025 Telephone encounter Jalen Mcgee MD Work Phone: Hematology Oncology Comment on above: Release Of Medical R ecords (Sent office notes from 12/31/24 to [employer] , attn: Yogesh /Provider: Everardo 01/07/25 QS); Appointment Start: 01-02-2025 End: 01-02-2025 Telephone encounter Andre Samuel RN [facility] Comment on above: Appointment Start: 01-01-2025 End: 01-01-2025 Telephone encounter Andre Samuel RN [facility] Comment on above: Consult Start: 12-31-2024 End: 12-31-2024 Office outpatient visit 40 minutes Jalen Mcgee MD Work Phone: Hematology Oncology Comment on above: CDH1 gene mutation p ositive (Primary Dx); Erythrocytosis Start: 12-31-2024 End: 12-31-2024 ambulatory JALEN MCGEE Facility:[id number] Start: 12-24-2024 End: 12-24-2024 Telephone encounter Jalen Mcgee MD Work Phone: H[facility]ology Oncology Comment on above: Appointment Start: 11-12-2024 End: 11-12-2024 Emergency department patient visit ANGELO THORNTON Facility:[id number] Start: 10-25-2024 ambulatory WILLIAM Lore BRIGIDO Facility :[id number] Start: 10-25-2024 End: 10-25-2024 Subsequent hospital visit by physician Screen/Diagnostic [facility] Comment on above: Encounter for screen ing mammogram for malignant neoplasm of breast [Z12.31] Start: 10-15-2024 End: 10-15-2024 Patient encounter procedure Tyrell Abebe MD Work Phone: [facility] Comment on above: Muscle strain of brandie st wall, initial encounter (Primary Dx) Start: 10-15-2024 ambulatory TYRELL ABEBE Facility:[id number] Start: 10-15-2024 End: 10-15-2024 Subsequent hospital visit by physician Xr [facility] Work Phone: [facility] GEN [facility] Comment on above: Muscle strain of brandie st wall, initial encounter [S29.011A] Start: 10-15-2024 End: 10-15-2024 ambulatory ANGELO THORNTON Facility:[id number] Start: 10-15-2024 End: 10-15-2024 Subsequent hospital visit by physician Ct [facility] Work Phone: RADIO CT SCAN [facility] Comment on above: Acute abdomen [R10.0 ] Start: 10-10-2024 End: 10-10-2024 Telephone encounter Self [facility] Comment on above: Appointment Start: 09-24-2024 End: 09-24-2024 Emergency department patient visit ANGELO THORNTON Facility:[id number] Start: 05-10-2023 End: 05-10-2023 Patient encounter procedure Tyrell Abebe MD Work Phone: [facility] Comment on above: Frequent urination ( Primary Dx); Acute UTI (urinary tract infection) Start: 03-08-2023 End: 03-08-2023 Telemedicine consultation with patient Kassandra Mendenhall Suzie PA-C Work Phone: [facility] Start: 03-08-2023 End: 03-08-2023 ambulatory Kassandra Mendenhall Suzie PA-C Work Phone: [facility] Comment on above: Screening for colon cancer (Primary Dx) Start: 01-28-2023 End: 01-28-2023 Patient encounter procedure Tyrell Abebe MD Work Phone: [facility] Comment on above: Numbness and tinglin g of left upper extremity (Primary Dx); Numbness and tingling of right upper extremity; Fatigue, unspecified type; Chest discomfort Start: 03-12-2022 End: 03-12-2022 Emergency department patient visit JANETH MURRIETA MD [facility] Procedures Date Procedure Procedure Detail Performing Clinician Start: 05-09-2025 Colonoscopy No Primary Care Physician Start: 03-27-2025 X-ray of esophagus w ith [...] y bi 2-view breast inc cad William Cuellar PA-C Work Phone: Start: 05-10-2023 Urnls [...] PM EST Visit (SP) Office Hematology Oncology [address] [place] [address] Jalen Mcgee MD [address] [place] [address] 1 year follow up / labs [facility] Comment on above: 1 year follow up / labs Start: 10-25-2025 Screening for malignant neoplasm of breast Mammogram Screening [facility] Start: 07-08-2025 Influenza vaccination Influenza Vaccine (Season Ended) [facility] Start: 05-09-2025 Colonoscopy w/biopsy single/multiple COLONOSCOPY AND BIOPSY [facility] Start: 05-09-2025 Esophagogastroduodenoscopy transoral diagnostic EGD DIAGNOSTIC BRUSH WASH [facility] Start: 05-09-2025 Colonoscopy Colonoscopy,EGD (Not Applicable) [facility] Start: 05-09-2025 Patient discharge [facility] Start: 04-17-2025 End: 04-17-2025 Patient encounter procedure 04/17/2025 9:30 AM EDT Office Visit [facility] [address] [facility] [place] [address] Zoey Mayorga MD [address] [address] f/u [facility] Comment on above: f/u Start: 04-02-2025 End: 04-02-2025 Patient encounter procedure 04/02/2025 2:30 PM EDT Office Visit [facility] [address] [place] [facility] [address] [place] [address] Damian Aceves DO [address] [address] [place] [address] CDH1 gene mutation positive [Z15.09, Z15.01] [facility] Comment on above: CDH1 gene mutation positive [Z15.09, Z15 .01] Start: 03-20-2025 End: 03-20-2025 Patient encounter procedure 03/20/2025 1:00 PM EDT Office Visit [facility] [address] [id number] Zoey Mayorga MD [address] [address] follow up after mri prior to surgery [facility] Comment on above: follow up after mri prior to surgery Start: 03-14-2025 End: 03-14-2025 Patient encounter procedure 03/14/2025 9:45 AM EDT Appointment [facility] [address] [place] [address] breast mri w/wo contrast this date and time was okay'd by Lilian in MRI [facility] Comment on above: breast mri w/wo contrast this date and t monserrat was okay'd by Lilian in MRI Start: 02-21-2025 End: 02-21-2025 Patient encounter procedure 02/21/2025 9:45 AM EDT Appointment [facility] [address] [place] [address] MRI BREAST WO/W IVCON BILATERAL [facility] Comment on above: MRI BREAST WO/W IVCON BILATERAL Start: 02-07-2025 End: 02-07-2025 Patient encounter procedure 02/07/2025 10:00 AM EDT Office Visit [facility] Surgery [address] [place] [address] [place] [address] Zoey Mayorga MD [address] [place] [address] [place] [address] new patient referred from Dr Mcgee [facility] Comment on above: new patient referred from Dr cMgee Start: 12-31-2024 End: 12-31-2024 [facility] visit new patient 12/31/2024 2:00 PM EST Visit (SP) Office Hematology Oncology [address] [place] [address] [place] [address] Jalen Mcgee MD [address] [place] [address] [place] [address] New Patient for CDH-1 gene prophylactic gastrectomy ref Dr Leblanc Hematology Oncology Comment on above: New Patient for CDH-1 gene prophylactic gastrectomy ref Dr Leblanc Start: 10-25-2024 End: 10-25-2024 Patient encounter procedure 10/25/2024 12:30 PM EST Appointment [facility] [address] [place] [address] Last [place]as 05/25/23 at [facility] Comment on above: Last andreas 05/25/23 at [facility] Start: 10-15-2024 End: 10-15-2024 Patient encounter procedure [facility] Comment on above: CT abd w/wo contrast, pel w/contrast, r1 0.0460, Start: 07-08-2024 Covid-19 Vaccine ( season) Covid-19 Vaccine ( season) [facility] Start: 07-08-2024 Influenza vaccination Influenza Vaccine (#1) [facility] Start: 05-25-2024 Screening for malignant neoplasm of breast Mammogram Screening [facility] Start: 07-08-2023 Influenza vaccination [facility] Start: 11-07-2022 DEPRESSION ASSESSMENT DEPRESSION ASSESSMENT [facility] Start: 07-08-2022 Influenza vaccination INFLUENZA (#1) [facility] Start: 2020 Mammography MAMMOGRAM [facility] Start: 2010 HPV TESTING HPV TESTING [facility] Start: 2001 PAP TESTING PAP TESTING [facility] Start: 2001 Screening for malignant neoplasm of cervix Cervical Cancer Screening [facility] Start: 1999 Hepatitis B Vaccine (1 of 3 - 19+ 3-dose series) Hepatitis B Vaccine (1 of 3 - 19+ 3-dose series) [facility] Start: 1999 Pneumococcal vaccination Pneumococcal Vaccine (1 of 2 - PCV) [facility] Start: 1999 Urine microalbumin profile [facility] Start: 1998 Anxiety Screening Anxiety Screening [facility] Start: 1998 Depression Screening Depression Screening [facility] Start: 1998 HEPATITIS C SCREENING HEPATITIS C SCREENING [facility] Start: 1998 Hepatitis C screening Hepatitis C Screening [facility] Start: 1998 HIV SCREENING HIV SCREENING [facility] Start: 1998 HIV screening HIV Screening [facility] Start: 1986 PNEUMOCOCCAL (1 - PCV) PNEUMOCOCCAL (1 - PCV) [facility] Start: 1986 Pneumococcal vaccination Pneumococcal Vaccine (1 of 2 - PCV) [facility] Start: 1980 COVID-19 VACCINE (#1) COVID-19 VACCINE (#1) [facility] Start: 1980 HEPATITIS B (1 of 3 - 3-dose series) HEPATITIS B (1 of 3 - 3-dose series) [facility] Bacteria identified in Urine by Culture URINE CULTURE Microbiology Routine Frequent urination 05/10/2023 11:47 AM EDT [facility] Work Phone: Elastase.[email or web address] [Presence] in Stool [facility] End: 03-09-2026 MR Breast - bilateral WO and W contrast IV MRI BREAST WO/W IVCON BILATERAL Radiology Routine CDH1 gene mutation positive 1 Occurrences starting 02/07/2025 until 03/09/2026 [facility] Work Phone: Comment on above: 1 Occurrences starting 02/07/2025 until 03/09/2026 End: 03-09-2026 MRI BREAST 3D POST PROCESSING MRI BREAST 3D POST PROCESSING Radiology Routine CDH1 gene mutation positive 1 Occurrences starting 02/07/2025 until 03/09/2026 [facility] Comment on above: 1 Occurrences starting 02/07/2025 until 03/09/2026 End: 03-08-2024 Screening colonoscopy COLONOSCOPY SCREENING Endoscopy Routine Screening for colon cancer 1 Occurrences starting 03/08/2023 until 03/08/2024 [facility] Work Phone: Comment on above: 1 Occurrences starting 03/08/2023 until 03/08/2024 End: 11-15-2025 XR Ribs - left Views and Chest PA XR RIBS/CHEST 3V AP RIB/OBLS/CXR LEFT Radiology Routine Muscle strain of chest wall, initial encounter 1 Occurrences starting 10/15/2024 until 11/15/2025 [facility] Work Phone: Comment on above: 1 Occurrences starting 10/15/2024 until 11/15/2025 XR Ribs - left Views and Chest P A XR RIBS/CHEST 3V AP RIB/OBLS/CXR LEFT Radiology Routine Muscle strain of chest wall, initial encounter 10/15/2024 10:09 AM EST [facility] End: 03-02-2026 XR Ribs - left Views and Chest PA XR RIBS/CHEST 3V AP RIB/OBLS/CXR LEFT Radiology Routine Rib pain on left side Contusion of rib on left side, initial encounter 1 Occurrences starting 01/31/2025 until 03/02/2026 [facility] Comment on above: 1 Occurrences starting 01/31/2025 until 03/02/2026 XR Ribs - left Views and Chest P A XR RIBS/CHEST 3V AP RIB/OBLS/CXR LEFT Radiology Routine Rib pain on left side Contusion of rib on left side, initial encounter 01/31/2025 7:52 PM EDT [facility] End: 03-02-2026 XR Ribs - right Views and Chest PA XR RIBS/CHEST 3V AP RIB/OBLS/CXR RIGHT Radiology Routine 1 Occurrences starting 01/31/2025 until 03/02/2026 [facility] Work Phone: Comment on above: 1 Occurrences starting 01/31/2025 until 03/02/2026 Payers Date Payer Category Payer Self-pay 2023 Private Health Insurance [id number] 2022 Unknown [id number] 2022 Unknown [id number] Unknown [id number] 2.16.8 [id number] Unknown [id number] 2.16.8 [id number] Unknown [id number] 2.16.8 [id number] Unknown [id number] 2.16.8 [id number] Unknown [id number] 2.16.8 [id number] Unknown [id number] 2.16.8 [id number] Unknown [id number] 2.16.8 [id number] Unknown [id number] 2.16.8 [id number] Social History Date Type Detail Facility Start: 01-07-2021 Tobacco smoking status Heavy t obacco smoker (finding) [facility] Start: 1980 Sex Assigned At Female A [facility] Start: 01-28-2023 End: 05-08-2025 Tobacco smoking status NHIS Smokes tobacco daily [facility] History of tobacco use Cigarette Smoker C [facility] Start: 01-28-2023 End: 03-08-2023 Cigarettes smoked current (pack per day) - Reported 1 [facility] Start: 01-28-2023 End: 04-02-2025 Tobacco use and exposure Smokeless tobacco non-user [facility] Start: 01-28-2023 End: 04-02-2025 Alcohol intake Current drinker of alcohol (finding) [facility] Start: 01-28-2023 [facility] Start: 1980 Sex Assigned At Not on file C [facility] Start: 03-08-2023 End: 09-24-2024 Tobacco use panel [facility] National Score (1-100), lower number is lower risk 99 [facility] History of tobacco use Passive smoker [facility] NEGATED: Highlighted row Not [facility] Goals Date Patient Goal Desired Activity /State Functional Status Date Assessment Result Facility 03-12-2022 [facility] 03-12-2022 [facility] Mental Status Date Assessment Result Facility 05-09-2025 Cognitive function Level Of Cons ciousness Awake;Alert [facility] Work Phone: 05-09-2025 Cognitive function Voice/Name [facility] Work Phone: 03-12-2022 [facility] 09-12-2021 to 08-19-2025 Note Date & Type Note Facility 08-19-2025 Note HNO ID: [id number] Author: ANIKET BENNETT RD Service: ? Author Type: Registered Dietitian Type: Progress Notes Filed: 08/19/2025 10:20 Note Text: Medical Nutrition Therapy Initial Assessment ASSESSMENT: Mishel Ashby is a 45 year old female who presents for nutrition therapy Referring Medical diagnosis: hypoglycemia. Ht 152.4 cm (5') Wt 55.4 kg (122 lb 3.2 oz) BMI 23.87 kg/m? BMI 23.87 kg/(m2). Recent weight change: none reported. Diet history, food frequency assessment and/or 24-hour recall completed. Current diet is regular with limited added sugar. No apparent barriers to education identified. Patient and present at today's encounter. 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 Bennett. Patient reports a good handle on her diet post surgery and is able to navigate which foods lead to dumping syndrome. Over the past few months, patient has been experiencing episodes of sweating, light headedness, brain fog, and fatigue which lead her to check her blood sugar on her 's glucometer which showed extremely low blood sugars, with the lowest reported at 23. Over the past month, patient has started tracking her blood sugar via CGM. CGM report reviewed during today's encounter with multiple episodes of hypoglycemia detected, majority of which are occurring overnight between midnight-6am. Patient states she does not start to feel symptoms of hypoglycemia until her sugar is at or below 40. Diet recall: B: 9am: 2 eggs with 1 slice toast with butter or PB OR protein shake (Fairlife or Nurri 30g) and 6 PB crackers S: 10-11:30am: granola bar, crackers or protein shake, applesauce pouch L: 12pm-chicken noodle soup with crackers, pizza (pepperoni), peanut butter cookies (3-4 smaller homemade) S: fruit (may have) Dinner: 5pm- 6-8oz meat (chicken, beef, pork), carb (1 cup rice, 1 medium potato), veggie (salad) Snack: 8pm-Ritz/Tricuits crackers and cheese OR Cheetos OR protein shake B: coffee with Portuguese sweet cream creamer, 12 or 20oz Gatorade Zero or Pedialyte (2, 16oz bottles), water rarely (28oz total) Wake:7:30-8:30am Bed: 9-11pm Protein: 115-130g/day Currently taking MVI, B12 and vitamin D Anthropometrics: Height: Last 1 Encounter Ht Readings: Date: Ht: 04/02/2025 152.4 cm (5') Current weight: Last 1 Encounter Wt Readings: Date: Wt: 04/02/2025 53.5 kg (118 lb) Body mass index is 23.87 kg/m?. RMR can't be calculated - Weight unrecorded in last 120 days. Food Insecurity: Not on file Current Outpatient Medications Medication Sig albuterol HFA [...] No current facility-administered medications for this visit. LABS: HgA1C: No results found for: "CHOL" No results found for: "HDL" No results found for: "LDL" No results found for: "TG" Lab Value Units Date High Low ALB No results within date range. CREAT No results within date range. BUN No results within date range. GLUC No results within date range. RECOMMENDED MALNUTRITION DIAGNOSIS: NO MALNUTRITION IDENTIFIED DIAGNOSIS: Inconsistent carbohydrate intake related to total gastrectomy and food and nutrition related knowledge deficit as evidenced by frequent blood sugar readings below 70. INTERVENTION- Discussed with patient the different types of carbohydrate sources and how they can impact blood sugar. After reviewing 24hr recall, discussed alternate ways to more appropriately include carbohydrates to help stabilize blood sugar. If patient does experience a low blood sugar episode, advised patient on how to correct this in a timely manner. Patient planning to track 1 week worth of intake to bring to follow up appointment for review. Patient with good participation, expect good compliance. MONITORING AND EVALUATION: Follow up scheduled to monitor patients response to intervention and additional concerns and questions. Goals: Breakfast: 2 eggs, 1 slice toast with PB or butter OR cottage cheese (1/2 cup) with fruit or toast OR overnight oats with Fairlife milk Lunch: 1/2-1 full Protein shake with Ritz crackers, popcorn, pretzels, Triscuits or fruit cup (30g carb) Snacks: granola bar, cottage cheese, trail mix, cheese with crackers, hummus with crackers or pretzels, roasted chick peas If going longer than 4 hour between meals (more content not included)... [facility] 08-19-2025 Note Education (SAMMIE) ISMAMISHEL LECHUGA ([id number]) 1980 F Date Time Provider Department 08/19/25 7:30 AM ANIKET BENNETT Reason for Visit: Medical Nutrition Therapy [1997] Patient Education [91] Primary Visit Diagnosis:Hypoglycemia after GI (gastrointestinal) surgery ([facility]) [K91.2] [K91.2] During your visit today, we recorded the following information about you: Weight Height 55.4 kg 1.524 m Allergies As of Date: 08/19/2025 Noted Allergy Reaction MORPHINE 01/28/2023 2 - Rash NSAIDS (NON-STEROIDAL ANTI-INFLAM*02/10/2023 16 - Unknown PENICILLINS 01/28/2023 8 - GI Upset Date Reviewed: 04/02/2025 Reviewed by: Damian Aceves DO - Fully Assessed Prescriptions as of 08/19/2025 - albuterol HFA (PROVENTIL HFA, VENTOLIN HFA) 90 mcg/actuation inhaler INHALE ONE PUFF BY MOUTH FOUR TIMES A DAY NEEDED - pantoprazole DR (PROTONIX) 40 mg tablet TAKE ONE TABLET BY MOUTH every morning 30 minutes before breakfast - sertraline (ZOLOFT) 100 mg tablet Take 100 mg by mouth once daily. - cholecalciferol, Vitamin D3, (VITAMIN D3) 1,250 mcg (50,000 unit) cap capsule Take 1 capsule by mouth one time a week. - multivit,thx,calcium,iron,mins (MULTIVITAMIN AND MINERAL ORAL) Take by mouth. - cyanocobalamin (VITAMIN B-12) 100 mcg tab Take 100 mcg by mouth once daily. Encounter Status:Closed by ANIKET BENNETT on 08/19/25 [facility] 05-09-2025 Procedure note [facility] 05-09-2025 Procedure note [facility] 05-09-2025 Consult note [facility] 05-09-2025 Procedure note [facility] 05-09-2025 Procedure note [facility] 05-09-2025 Consult note Note Date/Time May 09, 2025 7:32am [facility] Medical Records Department [address] [place] [address] Pre-Anesthesia Evaluation 05/09/25 0644 MR#: [id number] Acct: [id number] Name: MISHEL ASHBY Rep #:[id number] : 1980 44 From: Bebo Clancy MD PCP: Dr. Angelo Thornton, DO Status:REG VTC Y Race: C Location: [place] [address] ASA Classification* ASA Classification ASA Classification: 3 Assessment & Plan Anesthesia* Anesthesia Assessment Anesthesia Assessment: Discussed sedation and/or anesthesia options, risks, benefits, and alternatives with patient/parents/legal guardian/POA. Questions invited. The patient/parents/legal guardian/POA seems to understand and agrees to proceedwith anesthesia plan. Reviewed the physical assessment, medical history, allergy history and patient home medications list prior to surgery/procedure/anesthetic and documented any changes. Performed airway and anesthesia risk assessments. Anesthesia Type Anesthesia Type: MAC (discussed plan for MAC with GA as backup) History Source History Obtained from:: Patient and Chart Anesthesia Focused Assessment* Temperature: 97.5 F Pulse Rate: 54 Blood Pressure: 90/60 Respiratory Rate: 16 Pulse Ox: 98 Oxygen Delivery Method: Room Air Airway Assessment Mouth opens: >3 cm Mallampati Score: I Teeth Condition: Intact Neck Range of motion (ROM): Full ROM Labs Anesthesia Preop lab: CBC WBC 8.3 K/mm3 (4.4-11.0) 02/25/25 15:49 02/25/25 RBC 4.44 M/mm3 (4.2-5.4) 02/25/25 15:49 02/25/25 Hgb 14.7 g/dL (12.0-15.0) 02/25/25 15:49 02/25/25 Hct 44.3 % (37-47) 02/25/25 15:49 02/25/25 Plt Count 218 K/mm3 (150-450) 02/25/25 15:49 02/25/25 CHEMISTRY Potassium 4.1 mmol/L (3.3-5.1) 02/25/25 15:49 02/25/25 Sodium 139 mmol/L (133-145) 02/25/25 15:49 02/25/25 BUN 12 mg/dL (4-19) 02/25/25 15:49 02/25/25 Creatinine 0.61 mg/dL (0.70-1.20) L 02/25/25 15:49 Glucose 77 mg/dL (70-99) 02/25/25 15:49 02/25/25 COAG PT 15.2 SECONDS (11.7-14.9) H 02/25/25 15:49 02/06 12/01 Pre-Assessment Diagnosis/Proposed Procedure Planned Operative Procedure(s): EGD, COLONSCOPY Anesthesia History Anesthesia History - can dragger: Anesthesia History - can dragger Hx Hospitalization No 05/08/25 11:42 Any Problems With Anesthesia No 05/08/25 11:42 Cholinesterase deficiency No 05/08/25 11:42 You/Your Family Experience No 05/08/25 11:42 fever (hyperthermia) with Relationship Recent Exposure to Contagious Disease Does patient have nerve No 05/08/25 11:42 stimulator Patient instructed to have device shut off --Does patient have Pacemaker or ICD? When Was Last Pacemaker Check QUESTION #4 FULL TEXT: You/Your Family Experience fever (hyperthermia) with Anesthesia Last Oral Intake Last Oral intake: Last Oral Intake NPO since Meds taken in AM with sips of water? Meds patient instructed to take am of surgery PONV PONV - can dragger: PONV - can dragger Female Yes 05/08/25 11:42 HX of Motion Sickness No 05/08/25 11:42 HX of N/V After Surgery No 05/08/25 11:42 Non-Smoker No 05/08/25 11:42 Duration of Surgery greater No 05/08/25 11:42 than 60 minutes Number of Risk Factors 1 05/08/25 11:42 PONV Score Low Risk 05/08/25 11:42 Height & Weight Height & Weight: Anesthesia: Height & Weight Height 5 ft 02/25/25 14:33 Respiratory Assessment Respiratory Assessment - can dragger: Respiratory Tract Infection Hx - can dragger Hx Respiratory Tract Infection No 05/08/25 11:42 STOP Sleep Apnea STOP Sleep Apnea - can dragger: STOP Sleep Apnea - can dragger Hx Hypertension No 05/08/25 11:42 Hx Sleep Apnea No 05/08/25 11:42 CPAP BIPAP Do you snore loudly (louder No 05/08/25 11:42 than talking or can be heard Do you often feel tired/ No 05/08/25 11:42 fatigued/ sleepy during daytime? Has anyone observed you stop No 05/08/25 11:42 breathing during sleep? STOP Results Negative 05/08/25 11:42 QUESTION #5 FULL TEXT : Do you snore loudly (louder than talking or can be heard through closed doors)? Tobacco Use History Tobacco Use History - can dragger: Tobacco Use History - can dragger Tobacco Use Smoking Status Current every day smoker 05/08/25 11:42 Hx Tobacco Use Yes 05/08/25 11:42 Years Smoking Packs Smoked per Day Smoking Cessation Date was within the last 15 years Hx Smoking Cessation Date Hx Smoking Cessation Counseling Hematologic Medial History Hematologic Hx - can dragger: Hematologic Medical Hx - charging manipulator Hx of Blood Transfusion No 05/08/25 11:42 Hx of Transfusion in last 3 No 05/08/25 11:42 Months Date of Last Transfusion (if within last 3 months) Ever experience any problems No 05/08/25 11:42 with transfusion(s)? Specify any problems Hx of Preganancy in last 3 No 05/08/25 11:42 Months Nurse Filling Out Transfusion [facility] 05/08/25 11:42 & Questions: Date: 05/08/25 05/08/25 11:42 Time: 11:52 05/08/25 11:42 Patient unable to answer at this time (ie. confused, unrespo /Reproduction History /Reproductive History - can dragger: /Reproductive Hx- can dragger Hx Now No 05/08/25 11:42 Gestational Age (in weeks): EDC: Hx Hx Para Hx Section SAB Active Medications Active Medications: Current Medications Generic Name Dose Route Start Last Admin Trade Name Freq PRN Reason Stop Dose Admin Lactated Ringer's 1,000 mls @ 15 mls/hr 05/09/25 06:45 IV .Q48H TIFFANIE PFSH Medical History Wears glasses Cancer Anxiety Depression Alcohol use Low iron Hypoglycemia Gastric reflux Smoker Hoarseness GERD (gastroesophageal reflux disease) History of gastrectomy Home Medications ?Medication ?Instructions ?Recorded ?Last Taken ?Type ondansetron HCl 4 mg tablet 4 mg PO .COMPLEX #5 tabs 0 02/25/25 05/08/25 Rx peg 3350-sod sulf,[id number] See Rx Instructions PO .COMPLEX #2 02/25/25 Unknown Rx 178.7-7.3-0.5-1.12-0.9 gram oral mL soln (Suflave) sertraline 50 mg tablet (Zoloft) 100 mg PO QDAY 05/07/25 History pantoprazole 40 mg tablet,delayed 40 mg PO QDAY #90 ta bs 03/27/25 05/08/25 Rx release albuterol sulfate 90 mcg/actuation 1 puff inhalation 4 X/DAY PRN PRN 05/08/25 Unknown History aerosol inhaler bronchospasm cholecalciferol (vitamin D3) 1,250 1,250 mcg PO QWEEK 05/08/25 05/02/25 History mcg (50,000 unit) capsule multivitamin-ferrous sulfate 18 mg 1 tab PO DAILY 01/0105/05/25 History tablet (One Daily Multivitamin with Iron) Allergy/AdvReac Type Severity Reaction Status Date / Time morphine Allergy Intermediate Itching Verified 05/08/25 11:38 Penicillins (PCN) Allergy Intermediate Other Verified 05/08/25 11:38 NSAIDS (Non-Steroidal AdvReac Other Verified 05/09/25 06:55 Anti-Inflamma Family History Mother Alcoholism Anxiety Depression Hepatitis C COPD (chronic obstructive pulmonary disease) Father Prostate cancer Hypertension HLD (hyperlipidemia) Sister Rheumatoid arthritis Breast cancer Surgical History History of hysterectomy Previous section Social History Smoking Status: Current every day smoker tobacco type: cigarettes alcohol intake: current alcohol intake frequency: a few times a month Alcohol type: hard liquor Review of Systems (Anesthesia) ROS Narrative System reviewed and no additional complaints, except as documented. Physical Exam Narrative appears to be slightly dehydrated, slightly delayed cap refill time, mucous membranes slightly dry. Will give IV fluids. Const alert and oriented x3 HEENT Mouth: dry mucous membranes Neck full ROM Resp normal respiratory effort, normal air movement and clear to auscultation bilaterally Cardio regular rate, regular rhythm and no murmurs Skin Rashes: no rashes Neuro oriented x3 and moves all extremities 05/09/25 0732 <Electronically signed by Bebo Pop> Date _ Bebo Clancy MD Cosigner Signature: Date CC: ~ Signed [facility] Work Phone: [phone]) 440-858207-03-2025 Consult note [facility] Medical Records Department [address] [place] [address] Anesthesia Postop Eval I 05/09/25 0843 MR#: [id number] Acct: [id number] Name: MISHEL ASHBY NAMITA Rep #:[id number] : 1980 44 From: Manoj FREIRE PCP: Dr. Angelo Thornton, DO Status:REG SDC Y Race: C Location: [place] [address] Anesthesia: Postop Eval I Current Vital Signs Temperature: 97 F Pulse Rate: 80 Blood Pressure: 86/52 Respiratory Rate: 16 Pulse Ox: 100 Oxygen Delivery Method: Room Air Assessment Airway patent: Yes Spontaneous unlabored respirations: Yes Mental status: Awake and Calm nausea: No Vomiting: No Anesthesia Complication: No Fluid Hydration Crystalloid volume administer (ml): 900 Total IV fluid infused: 900 Progress Note Anesthesia document: Postop Eval 1 completed: Yes 05/09/25 0843 COUNT ROOM CLERK> Date _ Manoj Woods COUNT ROOM CLERK Cosigner Signature: Date CC: ~ Signed [facility]07-03-2025 History and physical note [facility] Medical Records Department [address] [place] [address] History & Physical Exam 05/09/25 0754 MR#: [id number] Acct: [id number] Name: MISHEL ASHBY Rep #:[id number] : 1980 44 From: Jsoé Antonio Friend DO PCP: Dr. Angelo Thornton, DO Status:[facility] Location: [place] [address] HPI - General General Date of Admission: 05/09/25 Date of Service: 05/09/25 Chief Complaint: Bloating and screening colonoscopy HPI Narrative HPI HPI Chief Complaint: schedule colonoscopy and for the evaluation of bloating - due for a colonoscopy CDH1 gene - total gastrectomy in 2018 in [place] - stage 1gastric cancer on pathology - reports her last colonoscopy was in 2019 - has seen a floor director who has recommended a colonoscopy every 3 [...] seeing oncology and planning for double mastectomy [facility] Medical History Wears glasses Cancer Anxiety Depression Alcohol use Low iron Hypoglycemia Gastric reflux Smoker Hoarseness GERD (gastroesophageal reflux disease) History of gastrectomy Home Medications ?Medication ?Instructions ?Recorded ?Last Taken ?Type ondansetron HCl 4 mg tablet 4 mg PO .COMPLEX #5 tabs 0 02/25/25 05/08/25 Rx peg 3350-sod sulf,nufuh-cge-jpt See Rx Instructions PO .COMPLEX #2 02/25/25 Unknown Rx 178.7-7.3-0.5-1.12-0.9 gram oral mL soln (Suflave) sertraline 50 mg tablet (Zoloft) 100 mg PO QDAY 05/07/25 History pantoprazole 40 mg tablet,delayed 40 mg PO QDAY #90 ta bs 03/27/25 05/08/25 Rx release albuterol sulfate 90 mcg/actuation 1 puff inhalation 4 X/DAY PRN PRN 05/08/25 Unknown History aerosol inhaler bronchospasm cholecalciferol (vitamin D3) 1,250 1,250 mcg PO QWEEK 05/08/25 05/02/25 History mcg (50,000 unit) capsule multivitamin-ferrous sulfate 18 mg 1 tab PO DAILY 01/0105/05/25 History tablet (One Daily Multivitamin with Iron) Allergy/AdvReac Type Severity Reaction Status Date / Time morphine Allergy Intermediate Itching Verified 05/08/25 11:38 Penicillins (PCN) Allergy Intermediate Other Verified 05/08/25 11:38 NSAIDS (Non-Steroidal AdvReac Other Verified 05/09/25 06:55 Anti-Inflamma Family History Mother Alcoholism Anxiety Depression Hepatitis C COPD (chronic obstructive pulmonary disease) Father Prostate cancer Hypertension HLD (hyperlipidemia) Sister Rheumatoid arthritis Breast cancer Surgical History History of hysterectomy Previous section Social History Smoking Status: Current every day smoker tobacco type: cigarettes alcohol intake: current alcohol intake frequency: a few times a month Alcohol type: hard liquor ROS Constitutional Constitutional: Denies fatigue, fever(s), poor appetite, weight gain or weight loss Gastrointestinal Gastrointestinal: Denies belching, bloating, change in bowel habits, change in stool character, chewing difficulty, coffee ground emesis, constipation, cramping, diarrhea, dyspepsia, dysphagia, earlysatiety, excessive flatus, fecalincontinence, heartburn, hematemesis, hematochezia, hemorrhoids, loose stools, melena, nausea, odynophagia, rectal bleeding, tenesmus, vomiting or weight changes Vital Signs Vital Signs Vital Signs: 05/09/25 07:05 05/09/25 07:07 05/09/25 07:32 Temperature 97.5 F L 97.5 F L Temperature Source Temporal Pulse Rate 54 L 54 L Respiratory Rate 16 16 Respiratory Pattern Normal Blood Pressure 90/60 90/60 Blood Pressure Mean 70 Blood Pressure Source Monitor Blood Pressure Position Semi-Fowlers Blood Pressure Location Right Arm Pulse Ox 98 98 Oxygen Delivery Method Room Air Room Air Weight Weight: 118 lb 9.739 oz Body Mass Index (BMI) 23.1 Physical Exam Const alert, oriented x3, no apparent distress and healthy appearing General Appearance: cooperative GI normal to inspection, nondistended, normoactive bowel sounds, soft to palpation,non-tender and non-distended Percussion: normal to percussion Rectal Exam: deferred Assessment & Plan Assessment/Plan (1) Dysphagia: (2) Abdominal bloating: (3) Flatulence: (4) Encounter for screening colonoscopy: PLAN: Assessment and Plan Assessment and Plan (1) Thrombocytopenia: Status: Acute (2) Abdominal bloating: Status: Acute (3) Diarrhea: Status: Acute (4) Flatulence: Status: Acute (5) CDH1 gene mutation positive: Status: Acute (6) Vitamin D deficiency: Status: Acute (7) Dysphagia: Status: Acute Orders: Orders CBC W/Diff, Automated 02/25/25 D69.6 - Thrombocytopenia, unspecified, E55.9 - Vitamin D deficiency,unspecified, R13.10 - Dysphagia, unspecified, R14.0 - Abdominal distension (gaseous), R14.3 - Flatulence, R19.7 - Diarrhea, unspecified, Z15.01 - Genetic susceptibility to malignant neoplasm of breast, Z15.09 - Genetic susceptibility to other malignant neoplasm Comprehensive Metabolic Profil 02/25/25 D69.6 - Thrombocytopenia, unspecified, E55.9 - Vitamin D deficiency, unspecified, R13.10 - Dysphagia, unspecified, R14.0 - Abdominal distension (gaseous), R14.3 - Flatulence, R19.7 - Diarrhea, unspecified, Z15.01 - Genetic susceptibility to malignant neoplasmof breast, Z15.09 - Genetic susceptibility to other malignant neoplasm Prothrombin Time w/INR 02/25/25 D69.6 - Thrombocytopenia, unspecified, E55.9 - Vitamin D deficiency, unspecified, R13.10 - Dysphagia, unspecified, R14.0 - Abdominal distension (gaseous), R14.3 - Flatulence, R19.7 - Diarrhea, unspecified, Z15.01 - Genetic susceptibility to malignant neoplasm of breast, Z15.09 - Genetic susceptibility to other malignant neoplasm Vitamin D,25 Hydroxy 02/25/25 D69.6 - Thrombocytopenia, unspecified, E55.9 - Vitamin D deficiency, unspecified, R13.10 - Dysphagia, unspecified, R14.0 - Abdominal distension (gaseous), R14.3 - Flatulence, R19.7 - Diarrhea, unspecified, Z15.01 - Genetic susceptibility to malignant neoplasm of breast, Z15.09 - Genetic susceptibility to other malignant neoplasm Esophagus Dual Contrast 02/25/25 D69.6 - Thrombocytopenia, unspecified, E55.9 - Vitamin D deficiency, unspecified, R13.10 - Dysphagia, unspecified, R14.0 - Abdominal distension (gaseous), R14.3 - Flatulence, R19.7 - Diarrhea, unspecified, Z15.01 - Genetic susceptibility to malignant neoplasm of breast, Z15.09 - Genetic susceptibility to other malignant neoplasm Pancreatic Elastase, Fecal 02/25/25 D69.6 - Thrombocytopenia, unspecified, E55.9 - Vitamin D deficiency, unspecified, R13.10 - Dysphagia, unspecified, R14.0 - Abdominal distension (gaseous), R14.3 - Flatulence, R19.7 - Diarrhea, unspecified, Z15.01 - Genetic susceptibility to malignant neoplasm of breast, Z15.09 - Genetic susceptibility to other malignant neoplasm Medications: New peg 3350-sod sulf,ubon-zgz-uzv 178.7-7.3-0.5 gram (Suflave) take as directed forsplit dose bowel prep 2 mL 0RF ondansetron HCl 4 mg orally; take two tablets PO two hours prior to start of bowel prep and one every 4 hours as needed for N/V 5 tabs 0RF Plan 44-year-old female presents for initial consultation for screening colonoscopy. PMH is significant for CDH 1 gene with total gastrectomy in 2018 which did reveal stage I gastric cancer. She reports genetic counselor has recommended screening colonoscopy every 3 years. She complains of intermittent dysphagia status post gastrectomy in 2018 with worsening of symptoms over the past 6 months. She experiences intermittent episodes of bile reflux unresolved with cholestyramine twice a day. She also experiences intermittent episodes of dumping syndrome. She was seen in the emergency department this past November for left flank pain. CT revealing at that time for fatty infiltration of the liver and reported fecal retention. Labs completed December 2024 revealed mild thrombocytopenia (PLT 140). Serafin established with oncology since moving to [place] and has plans for upcoming double mastectomy. I have ordered an esophagramand scheduled bidirectional endoscopies. She will complete labs today as well as fecal elastase. Follow-up in future for further evaluation of fatty liver disease with thrombocytopenia. Patient Instructions: Start a probiotic (Align, Culturelle or BuzzDash) once daily. Theseare all multispecies probiotics, pick the cheapest one. Complete labs today and Fecal Elastase Follow-up in future for further evaluation of FLD and thrombocytopenia Plan Details Follow Up: 3 Months 05/09/25 4717 Cosigner Signature (if applicable): CC: Dr. Angelo Thornton DO; José Antonio Walters DO~ Signed [facility]07-03-2025 [facility] Medical Records Department [address] [place] [address] History Physical Exam 05/09/25 0169 MR#: [id number] Acct: [id number] Name: MISHEL ASHBY Rep #: [id number] : 1980 44 From: José Antonio Walters DO PCP: Dr. Angelo Thornton DO Status:[facility] Location: [place] [address] HPI - General General Date of Admission: 05/09/25 Date of Service: 05/09/25 Chief Complaint: Bloating and screening colonoscopy HPI Narrative HPI HPI Chief Complaint: schedule colonoscopy and for the evaluation of bloating - due for a colonoscopy CDH1 gene - total gastrectomy in 2018 in [place] - stage 1 gastric cancer on pathology - reports her last colonoscopy was in 2019 - has seen a floor director who has recommended a colonoscopy every 3 [...] seeing oncology and planning for double mastectomy [facility] Medical History Wears glasses Cancer Anxiety Depression Alcohol use Low iron Hypoglycemia Gastric reflux Smoker Hoarseness GERD (gastroesophageal reflux disease) History of gastrectomy Home Medications ???Medication ???Instructions ???Recorded ???Last Taken ???Type ondansetron HCl 4 mg tablet 4 mg PO .COMPLEX #5 tabs 02/25/25 05/08/25 Rx peg 3350-sod sulf,azrmr-xuw-yqg See Rx Instructions PO .COMPLEX #2 02/25/25 Unknown Rx 178.7-7.3-0.5-1.12-0.9 gram oral mL soln (Suflave) sertraline 50 mg tablet (Zoloft) 100 mg PO QDAY 02/25/25 05/07/25 H istory pantoprazole 40 mg tablet,delayed 40 mg PO QDAY #90 tabs 03/27/25 0 05/08/25 Rx release albuterol sulfate 90 mcg/actuation 1 puff inhalation 4X/DAY PRN PRN 07/02/25 Unknown History aerosol inhaler bronchospasm cholecalciferol (vitamin D3) 1,250 1,250 mcg PO QWEEK 05/08/2504/08 History mcg (50,000 unit) capsule multivitamin-ferrous sulfate 18 mg 1 tab PO DAILY 05/08/25 05/05/25 History tablet (One Daily Multivitamin with Iron) Allergy/AdvReac Type Severity Reaction Status Date / Time morphine Allergy Intermediate Itching Verified 05/08/25 11:38 Penicillins (PCN) Allergy Intermediate Other Verified 05/08/25 11:38 NSAIDS (Non-Steroidal AdvReac Other Verified 05/09/25 06:55 Anti-Inflamma Family History Mother Alcoholism Anxiety Depression Hepatitis C COPD (chronic obstructive pulmonary disease) Father Prostate cancer Hypertension HLD (hyperlipidemia) Sister Rheumatoid arthritis Breast cancer Surgical History History of hysterectomy Previous section Social History Smoking Status: Current every day smoker tobacco type: cigarettes alcohol intake: current alcohol intake frequency: a few times a month Alcohol type: hard liquor ROS Constitutional Constitutional: Denies fatigue, fever(s), poor appetite, weight gain or weight loss Gastrointestinal Gastrointestinal: Denies belching, bloating, change in bowel habits, change in stool character, chewing difficulty, coffee ground emesis, constipation, cramping, diarrhea, dyspepsia, dysphagia, early satiety, excessive flatus, fecal incontinence, heartburn, hematemesis, hematochezia, hemorrhoids, loose stools, melena, nausea, odynophagia, rectal bleeding, tenesmus, vomiting or weight changes Vital Signs Vital Signs Vital Signs: 05/09/25 07:05 05/09/25 07:07 05/09/25 07:32 Temperature 97.5 F L 97.5 F L Temperature Source Temporal Pulse Rate 54 L 54 L Respiratory Rate 16 16 Respiratory Pattern Normal Blood Pressure 90/60 90/60 Blood Pressure Mean 70 Blood Pressure Source Monitor Blood Pressure Position Semi-Fowlers Blood Pressure Location Right Arm Pulse Ox 98 98 Oxygen Delivery Method Room Air Room Air Weight Weight: 118 lb 9.739 oz Body Mass Index (BMI) 23.1 Physical Exam Co (more content not included)...[facility]07-03-2025 Consult note [facility] Medical Records Department [address] [place] [address] Pre-Anesthesia Evaluation 05/09/25 0644 MR#: [id number] Acct: [id number] Name: MISHEL ASHBY Rep #:[id number] : 1980 44 From: Bebo Clancy MD PCP: Dr. Angelo Thornton, DO Status:REG SDC Y Race: C Location: [place] [address] ASA Classification* ASA Classification ASA Classification: 3 Assessment & Plan Anesthesia* Anesthesia Assessment Anesthesia Assessment: Discussed sedation and/or anesthesia options, risks, benefits, and alternatives with patient/parents/legal guardian/POA. Questions invited. The patient/parents/legal guardian/POA seems to understand and agrees to proceedwith anesthesia plan. Reviewed the physical assessment, medical history, allergy history and patient home medications list prior to surgery/procedure/anesthetic and documented any changes. Performed airway and anesthesia risk assessments. Anesthesia Type Anesthesia Type: MAC (discussed plan for MAC with GA as backup) History Source History Obtained from:: Patient and Chart Anesthesia Focused Assessment* Temperature: 97.5 F Pulse Rate: 54 Blood Pressure: 90/60 Respiratory Rate: 16 Pulse Ox: 98 Oxygen Delivery Method: Room Air Airway Assessment Mouth opens: >3 cm Mallampati Score: I Teeth Condition: Intact Neck Range of motion (ROM): Full ROM Labs Anesthesia Preop lab: CBC WBC 8.3 K/mm3 (4.4-11.0) 02/25/25 15:49 02/25/25 RBC 4.44 M/mm3 (4.2-5.4) 02/25/25 15:49 02/25/25 Hgb 14.7 g/dL (12.0-15.0) 02/25/25 15:49 02/25/25 Hct 44.3 % (37-47) 02/25/25 15:49 02/25/25 Plt Count 218 K/mm3 (150-450) 02/25/25 15:49 02/25/25 CHEMISTRY Potassium 4.1 mmol/L (3.3-5.1) 02/25/25 15:49 02/25/25 Sodium 139 mmol/L (133-145) 02/25/25 15:49 02/25/25 BUN 12 mg/dL (4-19) 02/25/25 15:49 02/25/25 Creatinine 0.61 mg/dL (0.70-1.20) L 02/25/25 15:49 Glucose 77 mg/dL (70-99) 02/25/25 15:49 02/25/25 COAG PT 15.2 SECONDS (11.7-14.9) H 02/25/25 15:49 02/06 12/01 Pre-Assessment Diagnosis/Proposed Procedure Planned Operative Procedure(s): EGD, COLONSCOPY Anesthesia History Anesthesia History - can dragger: Anesthesia History - can dragger Hx Hospitalization No 05/08/25 11:42 Any Problems With Anesthesia No 05/08/25 11:42 Cholinesterase deficiency No 05/08/25 11:42 You/Your Family Experience No 05/08/25 11:42 fever (hyperthermia) with Relationship Recent Exposure to Contagious Disease Does patient have nerve No 05/08/25 11:42 stimulator Patient instructed to have device shut off --Does patient have Pacemaker or ICD? When Was Last Pacemaker Check QUESTION #4 FULL TEXT: You/Your Family Experience fever (hyperthermia) with Anesthesia Last Oral Intake Last Oral intake: Last Oral Intake NPO since Meds taken in AM with sips of water? Meds patient instructed to take am of surgery PONV PONV - can dragger: PONV - can dragger Female Yes 05/08/25 11:42 HX of Motion Sickness No 05/08/25 11:42 HX of N/V After Surgery No 05/08/25 11:42 Non-Smoker No 05/08/25 11:42 Duration of Surgery greater No 05/08/25 11:42 than 60 minutes Number of Risk Factors 1 05/08/25 11:42 PONV Score Low Risk 05/08/25 11:42 Height & Weight Height & Weight: Anesthesia: Height & Weight Height 5 ft 02/25/25 14:33 Respiratory Assessment Respiratory Assessment - can dragger: Respiratory Tract Infection Hx - can dragger Hx Respiratory Tract Infection No 05/08/25 11:42 STOP Sleep Apnea STOP Sleep Apnea - can dragger: STOP Sleep Apnea - can dragger Hx Hypertension No 05/08/25 11:42 Hx Sleep Apnea No 05/08/25 11:42 CPAP BIPAP Do you snore loudly (louder No 05/08/25 11:42 than talking or can be heard Do you often feel tired/ No 05/08/25 11:42 fatigued/ sleepy during daytime? Has anyone observed you stop No 05/08/25 11:42 breathing during sleep? STOP Results Negative 05/08/25 11:42 QUESTION #5 FULL TEXT : Do you snore loudly (louder than talking or can be heard through closeddoors)? Tobacco Use History Tobacco Use History - can dragger: Tobacco Use History - can dragger Tobacco Use Smoking Status Current every day smoker 05/08/25 11:42 Hx Tobacco Use Yes 05/08/25 11:42 Years Smoking Packs Smoked per Day Smoking Cessation Date was within the last 15 years Hx Smoking Cessation Date Hx Smoking Cessation Counseling Hematologic Medial History Hematologic Hx - can dragger: Hematologic Medical Hx - charging manipulator Hx of Blood Transfusion No 05/08/25 11:42 Hx of Transfusion in last 3 No 05/08/25 11:42 Months Date of Last Transfusion (if within last 3 months) Ever experience any problems No 05/08/25 11:42 with transfusion(s)? Specify any problems Hx of Preganancy in last 3 No 05/08/25 11:42 Months Nurse Filling Out Transfusion [facility] 05/08/25 11:42 & Questions: Date: 05/08/25 05/08/25 11:42 Time: 11:52 05/08/25 11:42 Patient unable to answer at this time (ie. confused, unrespo /Reproduction History /Reproductive History - can dragger: /Reproductive Hx- can dragger Hx Now No 05/08/25 11:42 Gestational Age (in weeks): EDC: Hx Hx Para Hx Section SAB Active Medications Active Medications: Current Medications Generic Name Dose Route Start Last Admin Trade Name Freq PRN Reason Stop Dose Admin Lactated Ringer's 1,000 mls @ 15 mls/hr 05/09/25 06:45 IV .Q48H TIFFANIE PFSH Medical History Wears glasses Cancer Anxiety Depression Alcohol use Low iron Hypoglycemia Gastric reflux Smoker Hoarseness GERD (gastroesophageal reflux disease) History of gastrectomy Home Medications ?Medication ?Instructions ?Recorded ?Last Taken ?Type ondansetron HCl 4 mg tablet 4 mg PO .COMPLEX #5 tabs 0 02/25/25 05/08/25 Rx peg 3350-sod sulf,lwqfe-eob-mso See Rx Instructions PO .COMPLEX #2 02/25/25 Unknown Rx 178.7-7.3-0.5-1.12-0.9 gram oral mL soln (Suflave) sertraline 50 mg tablet (Zoloft) 100 mg PO QDAY 05/07/25 History pantoprazole 40 mg tablet,delayed 40 mg PO QDAY #90 ta bs 03/27/25 05/08/25 Rx release albuterol sulfate 90 mcg/actuation 1 puff inhalation 4 X/DAY PRN PRN 05/08/25 Unknown History aerosol inhaler bronchospasm cholecalciferol (vitamin D3) 1,250 1,250 mcg PO QWEEK 05/08/25 05/02/25 History mcg (50,000 unit) capsule multivitamin-ferrous sulfate 18 mg 1 tab PO DAILY 01/0105/05/25 History tablet (One Daily Multivitamin with Iron) Allergy/AdvReac Type Severity Reaction Status Date / Time morphine Allergy Intermediate Itching Verified 05/08/25 11:38 Penicillins (PCN) Allergy Intermediate Other Verified 05/08/25 11:38 NSAIDS (Non-Steroidal AdvReac Other Verified 05/09/25 06:55 Anti-Inflamma Family History Mother Alcoholism Anxiety Depression Hepatitis C COPD (chronic obstructive pulmonary disease) Father Prostate cancer Hypertension HLD (hyperlipidemia) Sister Rheumatoid arthritis Breast cancer Surgical History History of hysterectomy Previous section Social History Smoking Status: Current every day smoker tobacco type: cigarettes alcohol intake: current alcohol intake frequency: a few times a month Alcohol type: hard liquor Review of Systems (Anesthesia) ROS Narrative System reviewed and no additional complaints, except as documented. Physical Exam Narrative appears to be slightly dehydrated, slightly delayed cap refill time, mucous membranes slightly dry.Will give IV fluids. Const alert and oriented x3 HEENT Mouth: dry mucous membranes Neck full ROM Resp normal respiratory effort, normal air movement and clear to auscultation bilaterally Cardio regular rate, regular rhythm and no murmurs Skin Rashes: no rashes Neuro oriented x3 and moves all extremities 05/09/25 0732 D> Date _ Bebo Clancy MD Cosigner Signature: Date CC: ~ Signed [facility]05-27-2025 History and physical note* Damian Aceves, DO - 04/02/2025 3:07 PM EDT PLASTIC SURGERY CONSULTATION Consultation requested by Dr. [...] weight in the last several years since shehad a gastrectomy in 2018, also prophylactic due to her gene mutation. She has 1 child. She did notbreast-feed due to inverted nipples. Of note, she [...] Cardiac, Pulmonary, Gastrointestinal, Hepatic, Renal, Endocrine, Vascular, Integumentaryor Musculoskeletal Systems; all other systems are negative. [...] candidate for immediate reconstruction based on her 74-[id number] history of cigarette smoking. This puts her at prohibitive risk for a reconstructive procedure of any type. If she were to be nicotine free for 6 months, wecould consider immediate reconstruction, if she wants to delay her prophylactic mastectomies and she is committed to quitting cigarette smoking. At that point, however, I would still not recommend nipple sparing mastectomy. She would be a candidate for two-stage machined parts quality inspector and implant reconstruction in the subpectoral plane. If she wants to move forward with her mastectomies, we could perform delayed reconstruction, again two-stage machined parts quality inspector and implant, in the future. This again would require herto quit smoking and be nicotine free. We did briefly discuss silicone breast implants and their safety profile and potential complications, including rupture, capsular contracture, and SARAH-ALCL. I answered all of her questions. We took photos today. She understands the reasoning behind my decision.She is going to consider her options. She meets with Dr. Mayorga in the near future. I will see her back as needed. We thank Dr. Mayorga for the courtesy of this consult. Damian Aceves DO [facility]05-27-2025 History and physical note* Damian Aceves DO - 04/02/2025 3:07 PM EDT PLASTIC SURGERY CONSULTATION Consultation requested by Dr. [...] weight in the last several years since shehad a gastrectomy in 2018, also prophylactic due to her gene mutation. She has 1 child. She did notbreast-feed due to inverted nipples. Of note, she [...] Cardiac, Pulmonary, Gastrointestinal, Hepatic, Renal, Endocrine, Vascular, Integumentaryor Musculoskeletal Systems; all other systems are negative. [...] candidate for immediate reconstruction based on her 10-kclg-yeja history of cigarette smoking. This puts her at prohibitive risk for a reconstructive procedure of any type. If she were to be nicotine free for 6 months, wecould consider immediate reconstruction, if she wants to delay her prophylactic mastectomies and she is committed to quitting cigarette smoking. At that point, however, I would still not recommend nipple sparing mastectomy. She would be a candidate for two-stage machined parts quality inspector and implant reconstruction in the subpectoral plane. If she wants to move forward with her mastectomies, we could perform delayed reconstruction, again two-stage machined parts quality inspector and implant, in the future. This again would require herto quit smoking and be nicotine free. We did briefly discuss silicone breast implants and their safety profile and potential complications, including rupture, capsular contracture, and SARAH-ALCL. I answered all of her questions. We took photos today. She understands the reasoning behind my decision.She is going to consider her options. She meets with Dr. Mayorga in the near future. I will see her back as needed. We thank Dr. Mayorga for the courtesy of this consult. Damian Aceves DO documented in this encounterAden[facility] Radiology Diagnostic study note [facility] Services [address] [place] [address] [id number] Esophagus Dual Contrast MR#: [id number] Acct: [id number] Name: MISHEL ASHBY Rep #: [id number] : 1980 F 44 From: Melchor Ferris MD PCP: Dr. Angelo Thornton DO Status: REG CLI Study:Esophagus Dual Contrast Date of Exam: 03/27/25 Exam# [id number] Ordering Dr: Kassandra Atkins CAP INSPECTOR-C PROCEDURE: ESOPHAGUS DUAL CONTRAST 03/27/2025 REASON FOR [...] at the anastomotic site. Reflux. Reading Location: [place] [address] CC: KP Atkins; Dr. Angelo Thornton, DO ~ Machine Packaging Technician: Signed [facility]05-14-2025 History and physical note* Zoey Mayorga MD - 03/20/2025 1:09 PM EDT Images from the original note were not included. Zoey Mayorga MD [facility] [address] [place], [place] [id number] SUBJECTIVE Chief Complaint: Patient presents with: Recheck [...] was discussed with the patient or authorized agency sales representative. The patient or authorized agency sales representative has agreed to proceed with the [...] 04/03/2025). Zoey Mayorga MD 03/20/2025 1:09 PM [facility]05-14-2025 History and physical note* Zoey Mayorga MD - 03/20/2025 1:09 PM EDT Images from the original note were not included. Zoey Mayorga MD [facility] [address] [place] [address] SUBJECTIVE Chief Complaint: Patient presents with: Recheck [...] was discussed with the patient or authorized agency sales representative. The patient or authorized agency sales representative has agreed to proceed with the [...] MD 03/20/2025 1:09 PM documented in this encounterAdena [facility]05-08-[facility] History of Present illness Narrative* Nicolle Nieves RT(R) - 03/14/2025 9:45 AM EDT Radiology Service Progress Note DATE OF SERVICE: [...] No status:NO. PATIENT RELEVANT IMPLANT DATA REVIEWED: Yes PATIENT PRESENTS WITH AN IMPLANTABLE OR ATTACHED HOE WORKER: No ALLERGIES: Reviewed and unchanged CONTRAST ALLERGY: NO. EXAM: MRI - CONTRAST TYPE: GROUP II PERIPHERAL IV DATA: Ambulatory: A peripheral IV was started in the Right antecubital site with a Angio cath: 20 gauge. RADIOLOGY DEPARTMENT: MR; Exam(s) Completed: Chest: Breast. Lavender Administered: No SIGNATURE: RT Aime(Faustina) PATIENT NAME: Mishel Ashby DATE: March 14, 2025 TIME: 10:08 AM documented in this encounterAdena Pike [facility] Center05-08-2025 NoteHNO ID: [id number] Author: NICOLLE NIEVES RT(R) Service: Radiology Author [...] PATIENT PRESENTS WITH AN IMPLANTABLE OR ATTACHED HOE WORKER: No ALLERGIES: Reviewed and unchanged CONTRAST ALLERGY: NO. EXAM: MRI - CONTRAST TYPE: GROUP II PERIPHERAL IV DATA: Ambulatory: A peripheral IV was started in the Right antecubital site with a Angio cath: 20 gauge. RADIOLOGY DEPARTMENT: MR; Exam(s) Completed: Chest: Breast. Lavender Administered: No SIGNATURE: RT Aime(R) PATIENT NAME: Mishel Ashby DATE: March 14, 2025 TIME: 10:08 [facility]04-21-2025 Evaluation note* Diagnosis Onset Date Resolution Status Admit Date Abdominal bloating acute February 25, 2025 2:19pm CDH1 gene mutation positive acute February 25, 2025 2:19pm Diarrhea acute February 25 2:19pm Dysphagia acute February 25 2:19pm Flatulence acute February 25 2:19pm Thrombocytopenia acute February 252024 2:19pm Vitamin D deficiency acute 2024 2:19pm [facility] Work Phone: 1(237) 985-349404-21-2025 Evaluation note* Diagnosis Onset Date Resolution Status Admit Date Abdominal bloating acute February 25, 2025 2:19pm CDH1 gene mutation positive acute February 25, 2025 2:19pm Diarrhea acute February 25 2:19pm Dysphagia acute February 25 2:19pm Flatulence acute February 25 2:19pm Thrombocytopenia acute February 252024 2:19pm Vitamin D deficiency acute Apr2024 2:19pm Abdominal bloating acute May 092024 6:34am Dysphagia acute May 09, 2025 6:34am Encounter for screening colonoscopy acute May 09, 2025 6 :34am Flatulence acute May 09, 2025 6:34am [facility] Work Phone: 1(586) 918-495904-21-2025 Telephone encounter Note* Telephone Encounter - Andre [...] is aware of the date and time. [facility]04-21-2025 Miscellaneous Notes* Telephone Encounter - Andre Samuel [...] the date and time. documented in this encounterAdena [facility] Center04-09-2025 Telephone encounter Note * Telephone Encounter - [...] a new consult. The patient voices understanding. [facility]04-09-2025 Miscellaneous Notes* Telephone Encounter - Andre Samuel [...] The patient voices understanding. documented in this encounterAdena Pike [facility] Center04-03-2025 NoteHNO ID: [id number] Author: ZOEY MAYORGA MD Service: ? Author Type: Physician Type: Progress Notes Filed: 02/13/2025 08:37 Note Text: Zoey Mayorga MD [facility] [address] [place], [place] [id number] SUBJECTIVE Chief Complaint: Patient presents with: Breast [...] was discussed with the patient or authorized agency sales representative. The patient or authorized agency sales representative has agreed to proceed with the [...] for results. Zoey Mayorga MD 02/07/2025 10:42 [facility]04-03-2025 History of Present illness Narrative* Zoey Mayorga MD - 02/07/2025 10:42 AM EDT Images from the original note were not included. Zoey Mayorga MD [facility] [address] [place], [place] [phone] SUBJECTIVE Chief Complaint: Patient presents with: Breast [...] was discussed with the patient or authorized agency sales representative. The patient or authorized agency sales representative has agreed to proceed with the [...] MD 02/07/2025 10:42 AM documented in this encounterAdena [facility]ike [facility] Center03-27-20[facility] History of Present illness Narrative* Deepa Brown RT(R) - 01/31/2025 6:40 PM EDT Radiology [...] PATIENT PRESENTS WITH AN IMPLANTABLE OR ATTACHED HOE WORKER: N/A RADIOLOGY DEPARTMENT: General X-ray: Exam(s) Completed: Rib X-Ray: Left PERIPHERAL IV DATA: Not applicable SIGNED BY: RT Kodak(R) January 31, 2025 8:01 PM documented in this encounterAdena Pike Medical Center03-27-2025 NoteHNO ID: [id number] Author: DEEPA BROWN RT(Faustina) Service: Radiology Author [...] PATIENT PRESENTS WITH AN IMPLANTABLE OR ATTACHED HOE WORKER: N/A RADIOLOGY DEPARTMENT: General X-ray: Exam(s) Completed: Rib X-Ray: Left PERIPHERAL IV DATA: Not applicable SIGNED BY: RT Kodak(R) January 31, 2025 8:01 PM[facility] Instructions* Patient Instructions* Erika aNm APRN.STEAM SHOVEL OILER - 01/31/2025 5:53 PM EDT - Medications as prescribed. - Ice - Ftqp-tvc-cquryoi incentive spirometer or or take 10 to 15 deep breaths at least 4 times each day. - Ener-vmf-vyxpeqc abdominal binder for comfort - Hold a [...] helped by your medicines. documented in this encounterAdena Pike Medical Center03-27-2025 NoteHNO ID: [id number] Author: ERIKA NAM APRN.ASHLEY Service: ? Author Type: Nurse Practitioner Type: Progress Notes Filed: 01/31/2025 18:41 Note Text: [facility] Ashby is a 44 year old female. [...] discharged home in stable condition. Erika Nam APRN.STEAM SHOVEL OILER Management I performed an independent interpretation of the following:imaging Imaging: My interpretation is Left rib x-rays were obtained and I interpreted as no acute/obvious bony injury. Will await the final radiology report. Disposition The patient was discharged. OTC Medications were advised: - Tylenol. Do not take NSAIDs (Ibuprofen, Motrin, Aleve) until you have completed prednisone. [facility]03-27-2025 History of Present illness Narrative* Erika Nam APRN.STEAM SHOVEL OILER - 01/31/2025 5:49 PM EDT Images from the original note were not included. [facility] Raffi Ashby is a 44 year old [...] discharged home in stable condition. Erika Nam APRN.STEAM SHOVEL OILER Management I performed an independent interpretation of the following:imaging Imaging: My interpretation is Left rib x-rays were obtained and I interpreted as no acute/obvious bony injury. Will await the final radiology report. Disposition The patient was discharged. OTC Medications were advised: - Tylenol. Do not take NSAIDs (Ibuprofen, Motrin, Aleve) until you have completed prednisone. Procedures documented in this encounterAdena [facility] Center03-13-2025 Telephone encounter Note * Telephone Encounter - Mishel Bolivar LPN - 01/17/2025 3:02 PM EDT This nurse called patient and left two voicemails in an effort to obtain correct information to obtain genetic testing records per Dr. Mcgee's request. No return phone call from patient thus far. Mishel Bolivar LPN January 17, 2025 3:04 PM [facility]03-13-2025 Miscellaneous Notes* Telephone Encounter - Mishel Bolivar LPN - 01/17/2025 3:02 PM EDT This nurse called patient and left two voicemails in an effort to obtain correct information to obtain genetic testing records per Dr. Mcgee's request. No return phone call from patient thus far. Mishel Bolivar LPN January 17, 2025 3:04 PM documented in this encounterAdena [facility]ike [facility] Center03-03-2025 Telephone encounter Note * Telephone Encounter - Izabela Isaac - 01/07/2025 4:11 PM EST Called patient and let her know time and date for her year apt with .at 01/07/26 1:30. Left this on VM. Ask patient to call me back if she has any questions. 01/07/25 tlr [facility]03-03-2025 Miscellaneous Notes* Telephone Encounter - Izabela Isaac - 01/07/2025 4:11 PM EST Called patient and let her know time and date for her year apt with .at 01/07/26 1:30. Left this on VM. Ask patient to call me back if she has any questions. 01/07/25 tlr documented in this encounterAdena Pike Medical Center02-26-2025 Telephone encounter Note * Telephone Encounter - [...] Dr Mayorga's office. The patient voices understanding. [facility]02-26-2025 Miscellaneous Notes* Telephone Encounter - Andre Samuel [...] The patient voices understanding. documented in this encounterAdena Pike [facility] Center02-25-2025 Telephone encounter Note * Telephone Encounter - Andre Samuel RN - 01/01/2025 11:56 AM EST Received a consult for patient to be seen by the breast center from Dr Mcgee. I called the patient, no answer. Left her a message with my number and the main breast center number for her to call back to make her an appointment. [facility]02-25-[facility]25 Miscellaneous Notes* Telephone Encounter - Andre Samuel RN - 01/01/2025 11:56 AM EST Received a consult for patient to be seen by the breast center from Dr Mcgee. I called the patient, no answer. Left her a message with my number and the main breast center number for her to call back to make her an appointment. documented in this encounterAdena Pike Medical Center02-24-2025 NoteHNO ID: [id number] Author: LORENA LUGO MA Service: ? Author Type: Bill Collector Type: Progress Notes Filed: 01/01/2025 11:28 Note Text: This note was created using NoteWriter. Subjective Review of Systems Constitutional: Positive for [...] for this visit. Physical Exam Assessment and [facility]02-24-2025 History of Present illness Narrative* Lorena Lugo MA - 12/31/2024 2:07 PM EST This note was created using NoteWriter. Subjective Review of Systems Constitutional: Positive for [...] yo WF patient of Dr. Juan Thornton ([facility]), referred for evaluation of her [...] and Fili-en-Y anastomosis by Dr. Bennett at [facility] on 09/13/2018. Her course was complicated by a subsequent wound infection. At that time, CT abdomen/pelvis reportedly revealed a fluid collection deep to the surgical staple line. She was admitted to [facility] 09/23/2018. Following her surgery, she lost ~100 pounds over the next year. She and her moved here to [place] from [place] in ~ 2020. Since then, she had [...] reviewed by the ER physician who noted "a fair amount of stool and gas" may have been causing some of her [...] Substance Use Topics Alcohol use: Yes Comment: [facility] Drug use: Not Currently Smoker 1 pk/day ages [age]. 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 (Plant Maintenance Mechanic: Yusuf Tompkins RN, present) Lungs are clear [...] was discussed with the patient or authorized agency sales representative. The patient or authorized agency sales representative has agreed to proceed with the [...] - 4.00 k/uL 0.48 2.69 2.40 Abs [place] <0.87 k/uL 0.23 0.81 0.88 Abs Eosin [...] breast surgeons. We will request records from [facility] regarding the genetic testing documenting her CDH [...] for consult: High risk management Preferred Location: [facility] Does consulting provider have [facility] Epic access?: Yes cholecalciferol, Vitamin D3, (VITAMIN D3) 1,250 mcg (50,000 unit) cap capsule Sig: Take 1 capsule by mouth one time a week. I spent a total of 64 minutes on the date of the service which included preparing to see the patient, cddq-qn-sdxz patient care, completing clinical documentation, obtaining and/or reviewing separately obtained history, performing a medically appropriate examination, counseling and educating the pat ient/family/caregiver, ordering medications, tests, or procedures, and communicating results to thepatient/family/caregiver. Additional time for documentation and orders: 52 minutes on 12/31/2024. Jalen Mcgee MD documented in this encounterAdena Pike Medical Center02-24-2025 NoteHNO ID: [id number] Author: JALEN MCGEE MD Service: ? Author Type: Physician Type: Progress Notes Filed: 01/01/2025 11:28 Note Text: CHIEF COMPLAINT Mishel Ashby is a 44 yo WF patient of Dr. 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 HPI Initially, her sister was diagnosed with breast cancer (type unknown), and was found to have a CDH-1 pathogenic mutation. 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 Thereafter, she had a prophylactic laparoscopic total gastrectomy with jejunal pouch and Fili-en-Y anastomosis by Dr. Bennett at [facility] on 09/13/2018. Her course was complicated by a subsequent wound infection. At that time, CT abdomen/pelvis reportedly revealed a fluid collection deep to the surgical staple line. She was admitted to [facility] 09/23/2018. Following her surgery, she lost ~100 pounds over the next year. She and her moved here to [place] from [place] in ~ 2020. Since then, she had [...] reviewed by the ER physician who noted "a fair amount of stool and gas" may have been causing some of her [...] Currently Smoker 1 pk/day ages [age]. 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 FH Sister with CDH 1 mutation and breast ca. Sister with difficult postoperative course following breast surgery. Paternal aunt with CDH 1 mutation and breast ca Father CDH 1 untested and prostate ca Paternal cousin CDH 1 mutation and had prophylactic gastrectomy Daughter CDH 1 mutation Granddaughter CDH 1 mutation Maternal uncle with esophageal cancer HEALTH MAINTENANCE Mammography 10/25/24, [facility], benign ROS Constitutional: Positive for chills and [...] and numbness. Psychiatric/Behavioral: N (more content not included)...[facility] 12-24-2024 Telephone encounter Note* Telephone Encounter - Mary Arreola MA - 12/24/2024 11:41 AM EST Called and left message for patient to review retrieving records for hx of CDH1 gene. Mary Arreola MA December 24, 2024 11:43 AM [facility]02-17-2025 Miscellaneous Notes* Telephone Encounter - Mary Arreola MA - 12/24/2024 11:41 AM EST Called and left message for patient to review retrieving records for hx of CDH1 gene. Mary Arreola MA December 24, 2024 11:43 AM documented in this encounterA[facility] History of Present illness Narrative* Michell Fabian RT(Faustina) - 10/25/2024 10:00 AM EST The sensitive examination was discussed with the Patient or Patient's Authorized Business Banking Representative. Asapplicable, any other physician, advance practice provider, medical student, or other health professional student that will be observing or involved in the sensitive examination for educational or training purposes was discussed with the Patient or Authorized Business Banking Representative. The Patient or Authorized Business Banking Representative has agreed to proceed with the sensitive examination. (Sensitive examination includes inspection and/or palpation of the breasts, pelvis, prostate and anorectal regions) * Michell Fabian RT(Faustina) - 10/25/2024 10:00 AM EST Radiology Service [...] PATIENT PRESENTS WITH AN IMPLANTABLE OR ATTACHED HOE WORKER: No RADIOLOGY DEPARTMENT: Mammography PERIPHERAL IV DATA: Not applicable SIGNED BY: RT Jt(R) October 25, 2024 11:18 AM documented in this encounterAdena [facility]12-19-2024 NoteHNO ID: [id number] Author: MICHELL FABIAN RT(R) Service: Radiology Author Type: Technologist Type: Progress Notes Filed: 10/25/2024 11:17 Note Text: The sensitive examination was discussed with the Patient or Patient's Authorized Business Banking Representative. As applicable, any other physician, advance practice provider, medical student, or other health professional student that will be observing or involved in the sensitive examination for educational or training purposes was discussed with the Patient or Authorized Business Banking Representative. The Patient or Authorized Business Banking Representative has agreed to proceed with the sensitive examination. (Sensitive examination includes inspection and/or palpation of the breasts, pelvis, prostate and anorectal regions)[facility]12-19-2024 NoteHNO ID: [id number] Author: MICHELL FABIAN RT(R) Service: Radiology Author [...] PATIENT PRESENTS WITH AN IMPLANTABLE OR ATTACHED HOE WORKER: No RADIOLOGY DEPARTMENT: Mammography PERIPHERAL IV DATA: Not applicable SIGNED BY: LEOBARDO Waters) October 25, 2024 11:18 [facility]12-09-2024 History of Present illness Narrative* Blake [...] PATIENT PRESENTS WITH AN IMPLANTABLE OR ATTACHED HOE WORKER: No RADIOLOGY DEPARTMENT: General X-ray: Exam(s) Completed: Rib X-Ray: Left PERIPHERAL IV DATA: Not applicable SIGNED BY: RT Macey(Faustina) October 15, 2024 10:10 AM documented in this encounterAdena [facility]12-09-2024 NoteHNO ID: [id number] Author: BLAKE SULLIVAN RT(R) Service: ? Author [...] PATIENT PRESENTS WITH AN IMPLANTABLE OR ATTACHED HOE WORKER: No RADIOLOGY DEPARTMENT: General X-ray: Exam(s) Completed: Rib X-Ray: Left PERIPHERAL IV DATA: Not applicable SIGNED BY: RT Macey(R) October 15, 2024 10:10 [facility]12-09-2024 Instructions* Patient Instructions* Tyrell Abebe MD - 10/15/2024 10:08 AM EST Avoid any movements that can make it worse. Make a follow-up appointment with primary care provider. documented in this encounterAdena [facility]12-09-2024 History of Present illness Narrative* Tyrell Abebe [...] Substance Use Topics Alcohol use: Yes Comment: [facility] Drug use: Not Currently Alcohol Use: Yes ([facility]) Tobacco Use: Types: Cigarettes History reviewed. [...] RIB/OBLS/CXR LEFT Tyrell Abebe documented in this encounterAdena [facility]ike [facility] Center12-09-2024 NoteHNO ID: [id number] Author: TYRELL ABEBE MD Service: ? Author [...] Substance Use Topics Alcohol use: Yes Comment: [facility] Drug use: Not Currently Alcohol Use: Yes ([facility]) Tobacco Use: Types: Cigarettes History reviewed. [...] - XR RIBS/CHEST 3V AP RIB/OBLS/CXR LEFT [facility]12-04-2024 Telephone encounter Note* Telephone Encounter - Theresa Sanchez - 10/10/2024 4:00 PM EST Left message for patient. Spoke with our director an we do not see Vitamin B deficiency. Patient should see and Charging Manipulator. Theresa Sanchez [facility]12-04-2024 Miscellaneous Notes* Telephone Encounter - Theresa Sanchez - 10/10/2024 4:00 PM EST Left message for patient. Spoke with our director an we do not see Vitamin B deficiency. Patient should see and Charging Manipulator. Theresa Sanchez documented in this encounterAdena [facility]ike [facility] Center11-18-2024 IwoiYBFE-QUU-0 (AGENT OF COVID-19) RNA: Not detected INFLUENZA A RNA: Not detected INFLUENZA B RNA: Not detected RESPIRATORY SYNCYTIAL VIRUS (RSV) RNA: Not [facility]:Performed By: #### [id number] ####[facility] LABORATORYCLIA [id number] [address] [id number] History of Present illness Narrative* Tyrell Abebe [...] Drug use: Not Currently Alcohol Use: Yes ([facility]) Tobacco Use: 1 packs/day Types: Cigarettes [...] MG TABLET Tyrell Abebe documented in this encounterAdena [facility]ike [facility] Center05-02-2023 NoteHNO ID: [id number] Author: Kassandra Larsen PA-C Service: ? Author Type: Physician Systems Software Manager Type: Progress Notes Filed: 03/08/2023 11:23 AM Note Text: GASTROENTEROLOGY NEW PATIENT PHONE VISIT I have communicated my name and active licensure. The patient's identity and physical location were verified at the time of this visit. Either the patient or their legal agency sales representative has been informed of the risks [...] bowel movements Colonoscopy- 4 yrs ago in [place] and it was normal, no polyps. Has [...] the patient/family/caregiver, and ordering medications, tests, or procedures.[facility]05-02-2023 Miscellaneous Notes* Addendum Note - Kassandra Larsen PA-C - 03/08/2023 11:33 AM EDTAddended by: KASSANDRA LARSEN on: 03/08/2023 11:33 AM Modules accepted: Orders documented in this encounterAdena Pike Medical Center05-02-2023 History of Present illness Narrative* Kassandra Larsen PA-C - 03/08/2023 11:11 AM EDT GASTROENTEROLOGY NEW PATIENT PHONE VISIT I have communicated my name and active licensure. The patient's identity and physical location wereverified at the time of this visit. Either the patient or their legal agency sales representative has been informed of the risks [...] bowel movements Colonoscopy- 4 yrs ago in [place] and it was normal, no polyps. Has [...] medications, tests, or procedures. documented in this encounterAdena [facility]ike [facility] Center03-24-2023 Instructions* Patient Instructions* Tyrell Abebe MD - 01/28/2023 11:21 AM EDT I provided a list of primary care physicians to call for continuation of care. Go to the ED if chest discomfort recurs. documented in this encounterAdena [facility]ike [facility] Center03-24-2023 History of Present illness Narrative* Tyrell Abebe [...] Drug use: Not Currently Alcohol Use: Yes ([facility]) Tobacco Use: 1 packs/day Types: Cigarettes [...] feeling worse. Tyrell Abebe documented in this encounterAdena [facility]ike [facility] Center06-10-2022 Note. MICRO - Microbiology PROCEDURE: Urine Culture [...] Locations *1: This test was performed at: [address], [address] , [facility] ([place])03-21-2022 Note. MICRO - Microbiology PROCEDURE: Urine Culture [...] Locations *1: This test was performed at: [address], [address]- , [facility] ([place])03-12-2022 Hospital Discharge instructions Patient Education 03/12/2022 15:01:40 [...] foods again, start with small amounts of ebeb-za-zcamxr, low- fat foods. These include apple sauce, [...] increase stomach acid. Don't use aspirin or hsee-fjz-xkgpgtc pain and fever medicines, if possible. This includes nonsteroidal anti-inflammatory drugs (NSAIDs). Lose excess weight. Finish eating at least 2 hours before you go to bed or lie down. Raise the head of your bed. [id number] [employer]. [address] [place] [address]. All rights reserved. This information is not intended as a substitute for professional medical care. Always follow yourhealthcare professional's instructions. Follow Up Care 03/12/2022 11:22:40 With:LYNN ISAAC APRN-STEAM SHOVEL OILER Address: [address] [place] [address] [address] [facility] [place] [address]- [phone] When:2-4 days [facility] 11-06-2021 Note. MICRO - Microbiology PROCEDURE: Urine [...] Locations *1: This test was performed at: [facility], [address] [place], [address]- , [facility] ([place])Consult note Author Manoj Woods [facility] Note Date/Time May 09, 2025 8:43a [facility] Medical Records Department [address] [place] [address] Anesthesia Postop Eval I 05/09/2543 MR#: [id number] Acct: [id number] Name: MISHEL ASHBY NAMITA Rep #:[id number] : 1980 44 From: Manoj Vang RNA PCP: Dr. Angelo Thornton, DO Status:REG SDC Y Race: C Location: [place] [address] Anesthesia: Postop Eval I Current Vital Signs Temperature: 97 F Pulse Rate: 80 Blood Pressure: 86/52 Respiratory Rate: 16 Pulse Ox: 100 Oxygen Delivery Method: Room Air Assessment Airway patent: Yes Spontaneous unlabored respirations: Yes Mental status: Awake and Calm nausea: No Vomiting: No Anesthesia Complication: No Fluid Hydration Crystalloid volume administer (ml): 900 Total IV fluid infused: 900 Progress Note Anesthesia document: Postop Eval 1 completed: Yes 05/09/25842 <Electronically signed by Manoj Woods CRNA> Date _ Manoj Woods CRNA Cosigner Signature: Date CC: ~ Signed [facility] Work Phone: Consult note Author Manoj Woods [facility] Note Date/Time May 09, 2025 8:52a m [facility] Medical Records Department [address] [place] [address] Anesthesia Postop Eval II 05/09/25 0851 MR#: [id number] Acct: [id number] Name: MISHEL ASHBY Rep #:[id number] : 1980 44 From: Manoj FREIRE PCP: Dr. Angelo Thornton, DO Status:REG SDC Y Race: C Location: [address] Anesthesia Postop Eval I Sum Postop Eval Completion status Anesthesia document: Postop Eval 1 completed: Yes Anesthesia Postop Eval I Summary Anesthesia Postop Eval I Summary: Anesthesia Postop Eval I: Assessment Summary 3 Airway patent Yes 05/09/25 08:43 COUNT ROOM CLERK.MDOT Spontaneous unlabored Yes 05/09/25 08:43 COUNT ROOM CLERK.MDOT respirations Mental status Awake,Calm 05/09/25 08:43 COUNT ROOM CLERK.MDOT nausea No 05/09/25 08:43 COUNT ROOM CLERK.MDOT Vomiting No 05/09/25 08:43 COUNT ROOM CLERK.MDOT Anesthesia Postop Eval I: Fluid Summary Crystalloid volume administer 900 05/09/25 08:43 COUNT ROOM CLERK.MDOT (ml) Colloids volume administered ( ml) Blood Product volume administered (ml) Total IV fluid infused 900 05/09/25 08:43 COUNT ROOM CLERK.VICTORIANO Anesthesia Postop Eval I: Summary Notes Anesthesia Complication No 05/09/25 08:43 COUNT ROOM CLERK.MDOT Anesthesia Complication Comment: Post-operative progress note Anesthesia: Postop Eval II Evaluation Mental status: Awake and Calm Pain Level: 0 nausea: No Vomiting: No Complications Anesthesia Complication: No 05/09/25 0852 <Electronically signed by Manoj Woods CRNA> Date _ Manoj Dotterer COUNT ROOM CLERK Cosigner Signature: Date CC: ~ Signed [facility] Work Phone: Evaluation + Plan note Future Appointments Appointment Date:03/19/2022 09:00:00 AM Scheduled Provider:LYNN ISAAC Location:[facility] Appointment Type:PC OV Follow Up Future Scheduled Tests Laboratory* Ferritin 02/11/22 * Folate Level 02/11/22 * Iron Level 02/11/22 * Thyroid Stimulating Hormone 02/11/22 * Vitamin B12 Level 02/11/22 * Complete Blood Count 02/11/22 * Lipid Profile 02/11/22 * Vitamin D Level 02/11/22 * .Estimated Glomerular Filtration Rate 02/11/22 * Complete Metabolic Panel 02/11/22 * TIBC 02/11/22 [facility] Evaluation note* Diagnosis Numbness and tingling of left upper extremity- Primary Numbness and tingling of right upper extremity Fatigue, unspecified type Chest discomfort Other chest pain [facility] Screening for colon cancer- Primary Special screening for malignant neoplasms, colon documented [facility] Diagnosis Frequent urination- Primary Urinary frequency Acute UTI (urinary tract infection) Urinary tract infection, site not specified documented [facility] this [facility] Diagnosis Muscle strain of chest wall, initial encounter- Primary documented [facility]* Diagnosis Muscle strain of chest wall, initial encounter [facility] CDH1 gene mutation positive- Primary Erythrocytosis Polycythemia, secondary [facility]* Diagnosis Rib pain on left side- Primary Chest pain, unspecified Contusion of rib on left side, initial encounter [facility] Diagnosis Rib pain on left side Chest pain, unspecified Contusion of rib on left side, initial encounter [facility] Diagnosis CDH1 gene mutation positive- Primary [...] for pre op. [facility] Diagnosis CDH1 gene mutation positive- Primary At high risk for breast cancer Nipple discharge Other sign and symptom in breast CDH1 gene mutation positive [facility]* Diagnosis CDH1 gene mutation positive- Primary [...] unsure if she wants reconstruction or not. Ashleywill meet with Dr Aceves for consultation. If she wants reconstruction, she could have a nipple sparing. Follow up in 2 weeks for surgical decision. [facility] Diagnosis CDH1 gene mutation positive- Primary At high risk for breast cancer Nipple discharge Other sign and symptom in breast CDH1 gene mutation positive- Primary At high risk for breast cancer CDH1 gene mutation positive- Primary At high risk for breast cancer Current smoker Tobacco use disorder [facility] Author José Antonio Walters [facility] Note Date/Time May 09, 2025 7:57a m [facility] Medical Records Department [address] [place] [address] History & Physical Exam 05/09/25 0754 MR#: [id number] Acct: [id number] Name: MISHEL ASHBY Rep #:[id number] : 1980 44 From: José Antonio Walters DO PCP: Dr. Angelo Thornton DO Status:[facility] Location: [place] [address] HPI - General General Date of Admission: 05/09/25 Date of Service: 05/09/25 Chief Complaint: Bloating and screening colonoscopy HPI Narrative HPI HPI Chief Complaint: schedule colonoscopy and for the evaluation of bloating - due for a colonoscopy CDH1 gene - total gastrectomy in 2018 in [place] - stage 1gastric cancer on pathology - reports her last colonoscopy was in 2019 - has seen a floor director who has recommended a colonoscopy every 3 [...] seeing oncology and planning for double mastectomy [facility] Medical History Wears glasses Cancer Anxiety Depression Alcohol use Low iron Hypoglycemia Gastric reflux Smoker Hoarseness GERD (gastroesophageal reflux disease) History of gastrectomy Home Medications ?Medication ?Instructions ?Recorded ?Last Taken ?Type ondansetron HCl 4 mg tablet 4 mg PO .COMPLEX #5 tabs 0 02/25/25 05/08/25 Rx peg 3350-sod sulf,kwiya-asn-xkp See Rx Instructions PO .COMPLEX #2 02/25/25 Unknown Rx 178.7-7.3-0.5-1.12-0.9 gram oral mL soln (Suflave) sertraline 50 mg tablet (Zoloft) 100 mg PO QDAY 05/07/25 History pantoprazole 40 mg tablet,delayed 40 mg PO QDAY #90 ta bs 03/27/25 05/08/25 Rx release albuterol sulfate 90 mcg/actuation 1 puff inhalation 4 X/DAY PRN PRN 05/08/25 Unknown History aerosol inhaler bronchospasm cholecalciferol (vitamin D3) 1,250 1,250 mcg PO QWEEK 05/08/25 05/02/25 History mcg (50,000 unit) capsule multivitamin-ferrous sulfate 18 mg 1 tab PO DAILY 01/0105/05/25 History tablet (One Daily Multivitamin with Iron) Allergy/AdvReac Type Severity Reaction Status Date / Time morphine Allergy Intermediate Itching Verified 05/08/25 11:38 Penicillins (PCN) Allergy Intermediate Other Verified 05/08/25 11:38 NSAIDS (Non-Steroidal AdvReac Other Verified 05/09/25 06:55 Anti-Inflamma Family History Mother Alcoholism Anxiety Depression Hepatitis C COPD (chronic obstructive pulmonary disease) Father Prostate cancer Hypertension HLD (hyperlipidemia) Sister Rheumatoid arthritis Breast cancer Surgical History History of hysterectomy Previous section Social History Smoking Status: Current every day smoker tobacco type: cigarettes alcohol intake: current alcohol intake frequency: a few times a month Alcohol type: hard liquor ROS Constitutional Constitutional: Denies fatigue, fever(s), poor appetite, weight gain or weight loss Gastrointestinal Gastrointestinal: Denies belching, bloating, change in bowel habits, change in stool character, chewing difficulty, coffee ground emesis, constipation, cramping, diarrhea, dyspepsia, dysphagia, early satiety, excessive flatus, fecalincontinence, heartburn, hematemesis, hematochezia, hemorrhoids, loose stools, melena, nausea, odynophagia, rectal bleeding, tenesmus, vomiting or weight changes Vital Signs Vital Signs Vital Signs: 05/09/25 07:05 05/09/25 07:07 05/09/25 07:32 Temperature 97.5 F L 97.5 F L Temperature Source Temporal Pulse Rate 54 L 54 L Respiratory Rate 16 16 Respiratory Pattern Normal Blood Pressure 90/60 90/60 Blood Pressure Mean 70 Blood Pressure Source Monitor Blood Pressure Position Semi-Fowlers Blood Pressure Location Right Arm Pulse Ox 98 98 Oxygen Delivery Method Room Air Room Air Weight Weight: 118 lb 9.739 oz Body Mass Index (BMI) 23.1 Physical Exam Const alert, oriented x3, no apparent distress and healthy appearing General Appearance: cooperative GI normal to inspection, nondistended, normoactive bowel sounds, soft to palpation,non-tender and non-distended Percussion: normal to percussion Rectal Exam: deferred Assessment & Plan Assessment/Plan (1) Dysphagia: (2) Abdominal bloating: (3) Flatulence: (4) Encounter for screening colonoscopy: PLAN: Assessment and Plan Assessment and Plan (1) Thrombocytopenia: Status: Acute (2) Abdominal bloating: Status: Acute (3) Diarrhea: Status: Acute (4) Flatulence: Status: Acute (5) CDH1 gene mutation positive: Status: Acute (6) Vitamin D deficiency: Status: Acute (7) Dysphagia: Status: Acute Orders: Orders CBC W/Diff, Automated 02/25/25 D69.6 - Thrombocytopenia, unspecified, E55.9 - Vitamin D deficiency, unspecified, R13.10 - Dysphagia, unspecified, R14.0 - Abdominal distension (gaseous), R14.3 - Flatulence, R19.7 - Diarrhea, unspecified, Z15.01 - Genetic susceptibility to malignant neoplasm of breast, Z15.09 - Genetic susceptibility to other malignant neoplasm Comprehensive Metabolic Profil 02/25/25 D69.6 - Thrombocytopenia, unspecified, E55.9 - Vitamin D deficiency, unspecified, R13.10 - Dysphagia, unspecified, R14.0 - Abdominal distension (gaseous), R14.3 - Flatulence, R19.7 - Diarrhea, unspecified, Z15.01 - Genetic susceptibility to malignant neoplasm of breast, Z15.09 - Genetic susceptibility to other malignant neoplasm Prothrombin Time w/INR 02/25/25 D69.6 - Thrombocytopenia, unspecified, E55.9 - Vitamin D deficiency, unspecified, R13.10 - Dysphagia, unspecified, R14.0 - Abdominal distension (gaseous), R14.3 - Flatulence, R19.7 - Diarrhea, unspecified, Z15.01 - Genetic susceptibility to malignant neoplasm of breast, Z15.09 - Genetic susceptibility to other malignant neoplasm Vitamin D,25 Hydroxy 02/25/25 D69.6 - Thrombocytopenia, unspecified, E55.9 - Vitamin D deficiency, unspecified, R13.10 - Dysphagia, unspecified, R14.0 - Abdominal distension (gaseous), R14.3 - Flatulence, R19.7 - Diarrhea, unspecified, Z15.01 - Genetic susceptibility to malignant neoplasm of breast, Z15.09 - Genetic susceptibility to other malignant neoplasm Esophagus Dual Contrast 02/25/25 D69.6 - Thrombocytopenia, unspecified, E55.9 -Vitamin D deficiency, unspecified, R13.10 - Dysphagia, unspecified, R14.0 - Abdominal distension (gaseous), R14.3 - Flatulence, R19.7 - Diarrhea, unspecified, Z15.01 - Genetic susceptibility to malignant neoplasm of breast, Z15.09 - Genetic susceptibility to other malignant neoplasm Pancreatic Elastase, Fecal 02/25/25 D69.6 - Thrombocytopenia, unspecified, E55.9 - Vitamin D deficiency, unspecified, R13.10 - Dysphagia, unspecified, R14.0 - Abdominal distension (gaseous), R14.3 - Flatulence, R19.7 - Diarrhea, unspecified, Z15.01 - Genetic susceptibility to malignant neoplasm of breast, Z15.09 - Genetic susceptibility to other malignant neoplasm Medications: New peg 3350-sod sulf,bplg-aat-axc 178.7-7.3-0.5 gram (Suflave) take as directed forsplit dose bowel prep 2 mL 0RF ondansetron HCl 4 mg orally; take two tablets PO two hours prior to start of bowel prep and one every 4 hours as needed for N/V 5 tabs 0RF Plan 44-year-old female presents for initial consultation for screening colonoscopy. PMH is significant for CDH 1 gene with total gastrectomy in 2018 which did reveal stage I gastric cancer. She reports genetic counselor has recommended screening colonoscopy every 3 years. She complains of intermittent dysphagia status post gastrectomy in 2018 with worsening of symptoms over the past 6 months. She experiences intermittent episodes of bile reflux unresolved with cholestyramine twice a day. She also experiences intermittent episodes of dumping syndrome. She was seen in the emergency department this past November for left flank pain. CT revealing at that time for fatty infiltration of the liver and reported fecal retention. Labs completed December 2024 revealed mild thrombocytopenia (PLT 140). She has established with oncology since moving to [place] and has plans for upcoming double mastectomy. I have ordered an esophagramand scheduled bidirectional endoscopies. She will complete labs today as well as fecal elastase. Follow-up in future for further evaluation of fatty liver disease with thrombocytopenia. Patient Instructions: Start a probiotic (Align, Culturelle or BuzzDash) once daily. Theseare all multispecies probiotics, pick the cheapest one. Complete labs today and Fecal Elastase Follow-up in future for further evaluation of FLD and thrombocytopenia Plan Details Follow Up: 3 Months 05/09/25 2737 <Electronically signed by José Antonio Walters DO> Cosigner Signature (if applicable): CC: Dr. Angelo Thornton DO; José Antonio Walters DO~ Signed [facility] Work Phone: Hospital course Narrative No data available for this section [facility] Progress note No data available for this section [facility] Reason for referral (narrative)* Outpatient Procedure (Routine) - Waiting for Response Specialty Diagnoses / Procedures Referred By Karmen t Referred To Contact [facility] Diagnoses Screening for colon cancer Procedures COLONOSCOPY SCREENING COLONOSCOPY FLX DX W/COLLJ SPEC WHEN PFRMD Kassandra Larsen PA-C [address] [facility] [place] [address] [facility] [place] [address] [place] [address] Referral ID Status Reason Start Date Expiration Date Visits Requested Visits Authorized [id number] Waiting for Response Auto-Generat ed Referral 03/08/2023 03/08/2024 1 1 * Outpatient Procedure (Routine) - Waiting for Response Specialty Diagnoses / Procedures Referred By Contac t Referred To Contact [facility] Diagnoses Screening for colon cancer Procedures COLONOSCOPY SCREENING COLONOSCOPY FLX DX W/COLLJ SPEC WHEN PFRMD Kassandra Larsen PA-C 1 [place] [address] [facility] [address] [address] Referral ID Status Reason Start Date Expiration Date Visits Requested Visits Authorized [id number] Waiting for Response Auto-Generat ed Referral 03/08/2023 03/08/2024 1 1 [facility] for referral (narrative)* Diagnostic Procedure Only (Routine) - Closed Specialty Diagnoses / Procedures Referred By Contac t Referred To Contact XR IMAGING Diagnoses Muscle strain of chest wall, initial encounter Procedures XR RIBS/CHEST 3V AP RIB/OBLS/CXR LEFT RADEX RIBS UNI W/POSTEROANT CH MINIMUM [address] Abebe MD [facility] [place] [address] [place] [address] Referral ID Status Reason Start Date Expiration Date V isits Requested Visits Authorized [id number] Closed Auto-Generate d Referral 10/15/2024 11/14/2025 1 1 [facility] for referral (narrative)No reason for referral information [facility] Work Phone: Reason for visit Narrative* Diagnostic Procedure Only (Routine) - Closed Specialty Diagnoses / Procedures Referred By Contac t Referred To Contact XR IMAGING Diagnoses Muscle strain of chest wall, initial encounter Procedures XR RIBS/CHEST 3V AP RIB/OBLS/CXR LEFT RADEX RIBS UNI W/POSTEROANT CH MINIMUM 3 VIEWS Tyrell Abebe MD [address] [place] [address] [place] [address] Referral ID Status Reason Start Date Expiration Date V isits Requested Visits Authorized [id number] Closed Auto-Generate d Referral 10/15/2024 11/14/2025 1 1 [facility] for visit Narrative* Diagnostic Procedure Only (Routine) - Closed Specialty Diagnoses / Procedures Referred By Contac t Referred To Contact XR IMAGING Diagnoses Rib pain on left side Contusion of rib on left side, initial encounter Procedures XR RIBS/CHEST 3V AP RIB/OBLS/CXR LEFT RADEX RIBS UNI W/POSTEROANT CH MINIMUM 3 VIEWS Erika Nam APRN.[employer] [address] [facility] [address] [place] [address] Phone: tel: fax: [place] [address] Referral ID Status Reason Start Date Expiration Date V isits Requested Visits Authorized [id number] Closed Auto-Generate d Referral 01/31/2025 03/02/2026 1 1 [facility] for visit Narrative* Outpatient Procedure (Routine) - Closed Specialty Diagnoses / Procedures Referred By Contac t Referred To Contact [facility] Diagnoses Genetic susceptibility to other malignant neoplasm Genetic susceptibility to malignant neoplasm of breast Procedures MRI BREAST WITHOUT&WITH CONTRAST W/CAD BILATERAL Zoey Mayorga MD [address] [place] [address] Phone: tel: fax: [facility] Breast Surgery [address] [place] [address] Phone: tel: fax: Referral ID Status Reason Start Date Expiration Date V isits Requested Visits Authorized [id number] Closed OON/Self Pay Override Clearance Not Met -Financial Clearance Bypassed 02/20/2025 06/05/2025 1 1 [facility] Summary Purpose Family History No Family History Records Found Relationship Condition Age at Onset Recorded Date/T monserrat mother Alcoholism Unknown Anxiety Unknown Depression Unknown Hepatitis C virus infection Unknown Chronic obstructive pulmonary disease Unk nown father Malignant neoplasm of prostate Unknown Hypertension Unknown Hyperlipidemia Unknown sister Rheumatoid arthritis Unknown Malignant neoplasm of breast Unknown Advance Directives No Advanced Directives Records Found Advance Directive Response Recorded Date/ Time Do you have a Healthcare Power of Configuration Analyst? No May 08, 2025 11:42am Chief Complaint and Reason for Visit Chief [...] D deficiency February 25, 2025 2: 19pm Reason for Visit Admit Date Abdominal bloating February 25, 2025 2:1 9pm CDH1 gene mutation positive February 25, 2025 2:19pm Diarrhea February 25, 2025 2:1 9pm Dysphagia February 25, 2025 2:1 9pm Flatulence February 25, 2025 2:1 9pm Thrombocytopenia February 25, 2025 2:1 9pm Vitamin D deficiency February 25, 2025 2: 19pm Abdominal bloating May 09, 2025 6:34a m Dysphagia May 09, 2025 6:34a m Encounter for screening colonoscopy May 09, 2025 6:34am Flatulence May 09, 2025 6:34a m Chief Complaint Admit Date L ABD PAIN, CDH1 GENE February 25, 2025 2 :19pm INT LAB ORDERS February 25, 2025 3:4 1pm DYSPHAGIA March 27, 2025 9:03a m Test Result May 23, 2025 10:1 7am Additional Source Comments Care Team (unrecognized sect ion and content) Stoner Out Relationship Specialty Start Date End Date Angelo Thornton DO [address] [place] [phone] PCP - General Family Medicine 12/02/23 Stoner Out Relationship Specialty Start Date End Date Angelo Thornton DO [address] [place] [address] PCP - General Family Medicine 12/02/23 Stoner Out Relationship Specialty Start Date End Date Angelo Thornton DO [address] [place] [address] PCP - General Family Medicine 12/02/23 Stoner Out Relationship Specialty Start Date End Date Angelo Thornton DO [address] [place] [id number] PCP - General Family Medicine 12/02/23 Stoner Out Relationship Specialty Start Date End Date Angelo Thornton DO [address] [place] [address] PCP - General Family Medicine 12/02/23 Stoner Out Relationship Specialty Start Date End Date Angelo Thornton DO [address] [place] [address] PCP - General Family Medicine 12/02/23 Stoner Out Relationship Specialty Start Date End Date Angelo Thornton DO [address] [place] [address] PCP - General Family Medicine 12/02/23 Stoner Out Relationship Specialty Start Date End Date Angelo Thornton DO [address] [place] [address] PCP - General Family Medicine 12/02/23 Stoner Out Relationship Specialty Start Date End Date Angelo Thornton DO [address] [place] [address] PCP - General Family Medicine 12/02/23 Stoner Out Relationship Specialty Start Date End Date Angelo Thornton DO [address] [place] [address] PCP - General Family Medicine 12/02/23 Stoner Out Relationship Specialty Start Date End Date Angelo Thornton DO [address] [place] [address] PCP - General Family Medicine 12/02/23 Stoner Out Relationship Specialty Start Date End Date Angelo Thornton DO [address] [place] [address] PCP - General Family Medicine 12/02/23 Stoner Out Relationship Specialty Start Date End Date Angelo Thornton DO [address] [place] [address] PCP - General Family Medicine 12/02/23 Stoner Out Relationship Specialty Start Date End Date Angelo Thornton DO [address] [place] [address] PCP - General Family Medicine 12/02/23 Stoner Out Relationship Specialty Start Date End Date Angelo Thornton DO [address] [place] [address] PCP - General Family Medicine 12/02/23 Team Status: Active Member Role Status Dates Dr. Angelo Thornton DO Primary Care Provider Active Team Status: Inactive Member Role Status Dates KP Garvin Attending Provider Active Start: February 25, 2025 End: February 25, 2025 Team Status: Inactive Member Role Status Dates No Primary Care Physician Primary Care Provider Active Start: February 25, 2025 End: February 25, 2025 KP Garvin Attending Provider Active Start: February 25, 2025 End: February 25, 2025 KP Garvin Referring Provider Active Start: February 25, 2025 End: February 25, 2025 Team Status: Inactive Member Role Status Dates Kassandra Atkins , CAP INSPECTOR-C Attending Provider Active Start: March 27, 2025 End: March 27, 2025 Kassandra Atkins , CAP INSPECTOR-C Referring Provider Active Start: March 27, 2025 End: March 27, 2025 Dr. Angelo Thonrton DO Primary Care Provider Active Start: March 27, 2025 End: March 27, 2025 Team Status: Active Member Role/Relationship Status Dates Dr. Angelo Thornton DO Primary Care Provider Active Team Status: Inactive Member Role/Relationship Status Dates Kassandra Wilbert , CAP INSPECTOR-C Attending Provider Active Start: February 25, 2025 End: February 25, 2025 Team Status: Inactive Member Role/Relationship Status Dates No Primary Care Physician Primary Care Provider Active Start: February 25, 2025 End: February 25, 2025 Kassandraamador Atkins , CAP INSPECTOR-C Attending Provider Active Start: February 25, 2025 End: February 25, 2025 Kassandra Wilbert , CAP INSPECTOR-C Referring Provider Active Start: February 25, 2025 End: February 25, 2025 Team Status: Inactive Member Role/Relationship Status Dates Kassandraamador Atkins , CAP INSPECTOR-C Attending Provider Active Start: March 27, 2025 End: March 27, 2025 Kassandra Wilbert , CAP INSPECTOR-C Referring Provider Active Start: March 27, 2025 End: March 27, 2025 Dr. Angelo Thornton , Primary Care Provider Active Start: March 27, 2025 End: March 27, 2025 Team Status: Inactive Member Role/Relationship Status Dates Dr. Angelo Thornton DO Primary Care Provider Active Start: May 06, 2025 End: May 06, 2025 Kassandraamador Atkins , CAP INSPECTOR-C Attending Provider Active Start: May 06, 2025 End: May 06, 2025 Kassandra Wilbert , CAP INSPECTOR-C Referring Provider Active Start: May 06, 2025 End: May 06, 2025 Team Status: Active Member Role/Relationship Status Dates Dr. Angelo Thornton DO Primary Care Provider Active Start: May 09, 2025 Dr. Angelo Thornton DO Referring Provider Active St art: May 09, 2025 Dr. José Antonio Walters DO Attending Provider Active Start: May 09, 2025 Team Status: Inactive Member Role/Relationship Status Dates Dr. Angelo Thornton DO Primary Care Provider Active Start: May 09, 2025 End: May 09, 2025 Dr. Angelo Thornton DO Referring Provider Active St art: May 09, 2025 End: May 09, 2025 Dr. José Antonio Walters DO Attending Provider Active Start: May 09, 2025 End: May 09, 2025 Team Status: Active Member Role/Relationship Status Dates Dr. Angelo Thornton DO Primary Care Provider Active Start: May 09, 2025 Dr. Angelo Thornton DO Referring Provider Active St art: May 09, 2025 Dr. José Antonio Walters DO Attending Provider Active Start: May 09, 2025 Dr. José Antonio Walters DO Other Provider Active St art: May 09, 2025 Team Status: Inactive Member Role/Relationship Status Dates KP Garvin Attending Provider Active Start: May 23, 2025 End: May 23, 2025 Dr. Angelo Thornton DO Primary Care Provider Active Start: May 23, 2025 End: May 23, 2025 Dr. Angelo Thornton DO Referring Provider Active St art: May 23, 2025 End: May 23, 2025 INFORMATION SOURCE (unrecogn ized section and content) DATE CREATED AUTHOR 05/01/2022 [facility] ([place]) DATE CREATED AUTHOR AUTHOR'S ORGANIZ ATION 03/08/2023 [facility] DATE CREATED AUTHOR AUTHOR'S ORGANIZ ATION 08/19/2025 [facility] DATE CREATED AUTHOR AUTHOR'S ORGANIZ ATION 09/11/2025 [facility] Source Comments (unrecognize d section and content) In the event this informatio n is protected by the Federal Confidentiality of Alcohol and Drug Abuse Patient Records regulations: The Federal rules restrict any use of the information to criminally investigate or prosecute any alcohol or drug abuse patient.[facility] Center[facility] the event this information is protected by the Federal Confidentiality of Alcohol and Drug Abuse Patient Records regulations: The Federal rules restrict any use of the information to criminally investigate or prosecute any alcohol or drug abuse patient.[facility] Center[facility] the event this information is protected by the Federal Confidentiality of Alcohol and Drug Abuse Patient Records regulations: The Federal rules restrict any use of the information to criminally investigate or prosecute any alcohol or drug abuse patient.[facility] Center[facility] the event this information is protected by the Federal Confidentiality of Alcohol and Drug Abuse Patient Records regulations: The Federal rules restrict any use of the information to criminally investigate or prosecute any alcohol or drug abuse patient.[facility] Center[facility] the event this information is protected by the Federal Confidentiality of Alcohol and Drug Abuse Patient Records regulations: The Federal rules restrict any use of the information to criminally investigate or prosecute any alcohol or drug abuse patient.[facility] Center[facility] the event this information is protected by the Federal Confidentiality of Alcohol and Drug Abuse Patient Records regulations: The Federal rules restrict any use of the information to criminally investigate or prosecute any alcohol or drug abuse patient.[facility] CenterIn the event this information is protected by the Federal Confidentiality of Alcohol and Drug Abuse Patient Records regulations: The Federal rules restrict any use of the information to criminally investigate or prosecute any alcohol or drug abuse patient.[facility] Center[facility] the event this information is protected by the Federal Confidentiality of Alcohol and Drug Abuse Patient Records regulations: The Federal rules restrict any use of the information to criminally investigate or prosecute any alcohol or drug abuse patient.[facility] CenterIn the event this information is protected by the Federal Confidentiality of Alcohol and Drug Abuse Patient Records regulations: The Federal rules restrict any use of the information to criminally investigate or prosecute any alcohol or drug abuse patient.[facility] Center[facility] the event this information is protected by the Federal Confidentiality of Alcohol and Drug Abuse Patient Records regulations: The Federal rules restrict any use of the information to criminally investigate or prosecute any alcohol or drug abuse patient.[facility] Center[facility] the event this information is protected by the Federal Confidentiality of Alcohol and Drug Abuse Patient Records regulations: The Federal rules restrict any use of the information to criminally investigate or prosecute any alcohol or drug abuse patient.[facility] CenterIn the event this information is protected by the Federal Confidentiality of Alcohol and Drug Abuse Patient Records regulations: The Federal rules restrict any use of the information to criminally investigate or prosecute any alcohol or drug abuse patient.[facility] CenterIn the event this information is protected by the Federal Confidentiality of Alcohol and Drug Abuse Patient Records regulations: The Federal rules restrict any use of the information to criminally investigate or prosecute any alcohol or drug abuse patient.[facility] CenterIn the event this information is protected by the Federal Confidentiality of Alcohol and Drug Abuse Patient Records regulations: The Federal rules restrict any use of the information to criminally investigate or prosecute any alcohol or drug abuse patient.[facility] CenterIn the event this information is protected by the Federal Confidentiality of Alcohol and Drug Abuse Patient Records regulations: The Federal rules restrict any use of the information to criminally investigate or prosecute any alcohol or drug abuse patient.[facility] CenterIn the event this information is protected by the Federal Confidentiality of Alcohol and Drug Abuse Patient Records regulations: The Federal rules restrict any use of the information to criminally investigate or prosecute any alcohol or drug abuse patient.[facility] CenterIn the event this information is protected by the Federal Confidentiality of Alcohol and Drug Abuse Patient Records regulations: The Federal rules restrict any use of the information to criminally investigate or prosecute any alcohol or drug abuse patient.[facility] CenterIn the event this information is protected by the Federal Confidentiality of Alcohol and Drug Abuse Patient Records regulations: The Federal rules restrict any use of the information to criminally investigate or prosecute any alcohol or drug abuse patient.[facility] CenterIn the event this information is protected by the Federal Confidentiality of Alcohol and Drug Abuse Patient Records regulations: The Federal rules restrict any use of the information to criminally investigate or prosecute any alcohol or drug abuse patient.[facility] CenterIn the event this information is protected by the Federal Confidentiality of Alcohol and Drug Abuse Patient Records regulations: The Federal rules restrict any use of the information to criminally investigate or prosecute any alcohol or drug abuse patient.[facility] CenterIn the event this information is protected by the Federal Confidentiality of Alcohol and Drug Abuse Patient Records regulations: The Federal rules restrict any use of the information to criminally investigate or prosecute any alcohol or drug abuse patient.[facility] CenterIn the event this information is protected by the Federal Confidentiality of Alcohol and Drug Abuse Patient Records regulations: The Federal rules restrict any use of the information to criminally investigate or prosecute any alcohol or drug abuse patient.[facility] Reason for Visit (unrecogniz ed section and [...] New Patient Appointment Jalen Mcgee MD [address] [place] [address] Phone: tel: fax: Hematology Oncology [address] [place] [address] Phone: tel: fax: Referral ID Status Reason Start Date Expiration Date Visits Requested Visits Authorized [id number] New Request OON/Self Pay Override 12/11/2024 03/21/2026 1 1 Reason Comments Consult Reason Comments Release Of Medical Records Sent office n otes [facility] 12/31/[facility] , attn: Yogesh Provider: Everardo 01/07/25 QS Appointment Reason Comments Cough Now for a month and is having left middle back,left rib area for a week and doesn't know if coughing has been causing the pain. Reason Comments Breast Problem Reason Comments Appointment Celluloid Trimmer - Other Reason Comments Recheck Reason Comments New Patient Evaluation CAP INSPECTOR ref: Dr. Lauri tapia breast reconstruction consult. 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 [facility] [address] [place] [address] Phone: tel: fax: Referral ID Status Reason Start Date Expiration Date V isits Requested Visits Authorized [id number] Closed OON/Self Pay Override 02/13/2025 11/06/2025 1 [...] BE BASED ON THE PRIMARY CLINICAL RECORDS. [employer] provides no warranty or guarantee of the accuracy or completeness of information in this document.
== END | disposition home or self-care (01) ==
LOC: US 06:59
PROVIDERS: Referring Provider Nurse Practitioner Acute Care; Visit Provider Nurse Practitioner Acute Care
DX: K80.20 Calculus of gallbladder without cholecystitis without obstruction (principal); R14.0 Abdominal distension (gaseous)
CPT/HCPCS: 76705

== ENCOUNTER → 2025-10-11 | Outpatient (CLI) | payer MEDICAID, SELFPAY ==
--- NOTE | 2025-10-11 08:30 | NM_ITS ---
PROCEDURE: HEPATOBILLIARY IMG W/PHARM INT 10/11/2025 REASON FOR EXAM: RUQ PAIN TECHNIQUE: Procedure Code: [id number] Modality: NM Procedure: HEPATOBILLIARY IMG W/PHARM INT Intravenous Choletec with planar imaging of the abdomen. 1.1 mcg Kinevac intravenously approximately 60 minutes after the radiopharmaceutical with additional anterior imaging and a region of interest drawn around the gallbladder to calculate a time-activity curve. RADIOPHARMACEUTICAL: Mebrofenin DOSE 5.9mCi COMPARISON: None FINDINGS: There is good uptake of the radiopharmaceutical by the liver. Normal gallbladder visualization with the gallbladder identified by 30 minutes. Gallbladder Ejection Fraction: 34 % (Normal is >35%) NM/Hepatobilliary Img w/Pharm Int IMPRESSION: Slight decrease in the gallbladder ejection fraction of 34%. Normal ejection f raction is greater than 35%. Reading Location: [place] [address]
== END | disposition home or self-care (01) ==
PROVIDERS: Referring Provider Surgery; Visit Provider Surgery
DX: K80.20 Calculus of gallbladder without cholecystitis without obstruction (principal)
CPT/HCPCS: 78227; A9537; J2805